=== PATIENT | female | born 1960 | race African-American/Black ===

== ENCOUNTER → 2023-07-08 10:19 | Outpatient (REF) | payer MEDICARE, OTHER, SELFPAY | LOC: RAD 10:19 | PROVIDERS: ATTENDING PHYSICIAN Surgery Vascular Surgery | DX: I73.9 Peripheral vascular disease, unspecified (principal) | CPT/HCPCS: 93922; 93925 ==

== ENCOUNTER 2023-09-01 15:20 | Emergency (ER) | payer MEDICARE, OTHER, SELFPAY ==
[2023-09-01 15:30] VITALS: BP 123/100
--- NOTE | 2023-09-01 15:31 | ED.GENMED ---
History of Present Illness
General
Chief Complaint: Fall
Source: patient and ambulance crew
Exam Limitations: none
Time Seen by Provider: 09/01/23 15:27
Travel History
Have you had any contact with someone who has COVID-19?: No
Do you have any symptoms of coronavirus? Fever > 100 degrees, chills, cough, shortness of breath, sore throat, loss of taste or smell, muscle aches, or headache?: No
History of Present Illness
History of Present Illness:
62-year-old female presents emergency department complaining of a fall. She complains of right facial swelling
Past History
Past History
ED Past Medical History: HTN, IDDM, Renal failure (Dialysis Wednesday, Wednesday, Wednesday started two weeks ago.), Valvular disease and Other (Blind left eye)
ED Past Surgical History: Orthopedic (amp R great toe 1 year ago, L great toe 2 months ago, Right Great toe and second toe amputation. Left Great toe, second, third and fourth toe amputation, R ankle surgery. Uriel in L and R leg, R hip surgery, )
Social History
Tobacco: Former smoker
Alcohol: None
Drug: None
Personal:
Living: alf
Employment: Not employed
Family History
Family History: Other (Noncontributory)
Phy Exam
Physical Exam
Physical Exam:
Physical Exam
General: no apparent distress, not acutely ill
Neck: supple. no meningeal signs. normal posterior pharynx
Heart: s1/s2 regular rate and rhythm, no murmur. equal radial
pulses.
HEENT: Pupils equal round reactive to light, EOMI, facial contusion right side
Lungs: no acute respiratory distress. clear bilaterally
Abdomen: normal bowel sounds. not tender. no CVAT
Neuro: alert and oriented. no focal neurological deficits cranial nerves II through XII intact
Skin: no rash
Psychiatric: well kept. interactive and cooperative
Extremities: no edema. no calf tenderness. negative homans. good distal pulses to all amputations on the left, right upper extremity AV fistula with good thrill
Course
Orders/Labs/Results
Orders:
Orders
09/01/23 15:27
CT Facial Bones W/o Iv Contras Urgent
Comment:
Reason For Exam: right facial swelling after fall
09/01/23 15:28
CT Head W/o Iv Contrast Urgent
Comment:
Reason For Exam: fall, right forehead swelling
09/01/23 15:30
Pelvis, 1 or 2 Views CR [CR Pelvis - 1 Or 2 Views ] Urgent
Comment:
Reason For Exam: fall
Vital Signs
Initial and Last Documented VS:
Initial Vital Signs
Temp Pulse Resp BP Pulse Ox
97.5 F 71 16 123/100 100
09/01/23 15:30 09/01/23 15:30 09/01/23 15:30 09/01/23 15:30 09/01/23 15:30
Last Documented Vital Signs
Temp Pulse Resp BP Pulse Ox
97.5 F 77 16 123/100 98
09/01/23 15:30 09/01/23 17:50 09/01/23 17:50 09/01/23 15:30 09/01/23 17:50
MDM/Problems Addressed
Differential Diagnosis Includes:
Intracranial hemorrhage, fall
MDM/Problems Addressed:
62-year-old female with fall, facial contusion. On direct questioning, patient denies suicidal ideation. Stable for discharge. No serious injury noted.
Chronic conditions affecting care: Kidney disease
Acute Exacerbation and/or Progression of Chronic Illness: Kidney disease
*Radiology
Radiology exam reviewed: radiology read reviewed (CT head, face no acute findings, pelvic x-ray no acute findings)
*Pulse Oximetry
Patient hypoxic: no
*EKG
Interpreted by ED Provider?: NA
*Title Investigator Interpretation
Rate: Title Investigator- N/A
*Critical Care Note
Total Time (30-74mins, 75-104mins- exclusive of procedures): Not Applicable
Patient Management
Social determinants of health affecting care: Living situation
Escalation/DeEscalation of care consider admission/obs:
Admit not indicated
ED Attending Note
-
Portions of this chart may have been created with voice recognition software.� Occasional wrong word or��sound alike� substitutions may have occurred due to the inherent limitations of voice recognition software.
Discharge Plan
Departure
Patient Disposition: [facility]NF
Date of Disposition: 09/01/23
Time of Disposition: 17:51
Patient with high blood pressure during this ER visit?: Yes
Condition: Good
Discharge Problem:
Fall, Contusion of face, ESRD (end stage renal disease)
Instructions: Head Injury in Adults (DC), Preventing falls in adults
Prescriptions:
No Action
losartan 50 mg Tablet
50 mg PO HS
cyclobenzaprine 10 mg Tablet
10 mg PO Q8H PRN (Reason: chronic pain)
carvedilol 25 mg Tablet
25 mg PO BID
Rx Instructions:
09/01/2023, hold for SBP<110.
atorvastatin 10 mg Tablet
10 mg PO QPM
bisacodyl 10 mg Suppository
10 mg [place] DAILY PRN (Reason: if MOM ineffective)
ferrous sulfate 325 mg (65 mg iron) Tablet
325 mg PO DAILY
omeprazole 20 mg Capsule,Delayed Release(Dr/Ec)
20 mg PO DAILY
calcitriol 0.25 mcg Capsule
0.25 mcg PO DAILY
lanthanum 1,000 mg Tablet,Chewable
1,000 mg PO MEALS
ketorolac 0.5 % Drops
2 drp BOTH EYES DAILY PRN (Reason: retinopathy)
quetiapine [Seroquel] 25 mg Tablet
25 mg PO Q12H
sorbitol 70 % Solution
30 ml PO DAILY PRN (Reason: constipation)
acetaminophen 325 mg tablet
650 mg PO Q6H MDD 3000 mg PRN (Reason: temp>100.5)
aspirin 81 mg tablet,delayed release (DR/EC)
81 mg PO DAILY
amlodipine 10 mg tablet
10 mg PO DAILY
hydralazine 50 mg tablet
50 mg PO TID
loperamide [Imodium A-D] 2 mg Capsule
2 mg PO Q6H MDD 4 caps/24hrs PRN (Reason: watery stool)
gabapentin 300 mg Capsule
300 mg PO HS
calcium acetate 667 mg Tablet
667 mg PO TID
acetaminophen 325 mg Tablet
650 mg PO Q8H MDD 3000 mg PRN (Reason: mild pain)
gabapentin 300 mg Capsule
300 mg PO DAILY PRN (Reason: neuropathic pain)
Rx Instructions:
09/01/2023, at least 8 hrs apart from standing dose.
fentanyl 12 mcg/hr Patch 72 Hour
1 patch TRANSDERMAL Q72H Qty: 1 0RF
oxycodone 10 mg tablet
10 mg PO Q8H PRN (Reason: moderate pain) Qty: 3 0RF
lidocaine 4 % Adhesive Patch,Medicated
1 patch TOPICAL DAILY PRN (Reason: apply to left shoulder)
clonazepam [Klonopin] 0.5 mg Tablet
0.5 mg PO BID
lidocaine 4 % Cream
1 applic TOPICAL [id number] PRN (Reason: apply to left shoulder)
Rx Instructions:
09/01/2023, start date: 09/01/2023; end date: 09/15/2023.
insulin aspart U-100 [Novolog U-100 Insulin aspart] 100 unit/mL Solution
0 sliding scale dose SC DIRECTED
Rx Instructions:
09/01/2023, if 0-150 = 0, call MD if BS<60; 151-200 = 1 unit; 201-250 = 2 units; 251-300 = 3 units; 301-350 = 4 units; 351-400 = 5 units; 401-450 = 6 units; call MD if BS>450.
sertraline 50 mg Tablet
50 mg PO HS
B-complex with vitamin C [Nephro-Liliane] Tablet
1 tab PO QPM
Rx Instructions:
09/01/2023, 1 tablet = 1 mg.
insulin aspart U-100 [Novolog FlexPen U-100 Insulin] 100 unit/mL (3 mL) Insulin Pen
2 unit SC AC
insulin glargine [Lantus Solostar U-100 Insulin] 100 unit/mL (3 mL) Insulin Pen
6 unit SC DAILY
Referrals:
Gerardo Perez, [Family Provider] -
Activity Restrictions/Additional Instructions:
Follow up with primary care in 3-5 days. Return for any concerns.
Interventions
Interventions:
*Risk Screen - Suicide Last Done: 09/01/23 15:23
*General Assessment Last Done: 09/01/23 15:23
*Neglect/Abuse Screening Last Done: 09/01/23 15:23
ED- Fall Risk Assessment Last Done: 09/01/23 18:06
*ED COVID-19 Vaccine History Last Done: 09/01/23 15:23
*Nursing Disposition Last Done: 09/01/23 18:06
ED-Musculoskeletal Assessment Last Done: 09/01/23 15:34
ED- Neurological Assessment Last Done: 09/01/23 15:34
ED-Skin Assessment Last Done: 09/01/23 15:33
Discharge Date and Time
Print Language: SYRIAC
[2023-09-01 15:32] VITALS: BMI 19.0
[2023-09-01 20:09] VITALS: BP 159/55
== END 2023-09-01 20:10 ==
LOC: EMR 15:20
PROVIDERS: EMERGENCY PHYSICIAN Emergency Medicine; FAMILY PHYSICIAN Internal Medicine
DX: S00.83XA Contusion of other part of head, initial encounter (principal); W19.XXXA Unspecified fall, initial encounter; I12.0 Hypertensive chronic kidney disease with stage 5 chronic kidney disease or end stage renal disease; N18.6 End stage renal disease
CPT/HCPCS: 99284; 70450; 70486; 72170

== ENCOUNTER 2023-12-25 11:08 | Emergency (ER) | payer MEDICARE, OTHER, SELFPAY ==
[2023-12-25] VITALS (9 sets, daily range): BP systolic 129–157; BP diastolic 67–99
--- NOTE | 2023-12-25 11:18 | ED.GENMED ---
History of Present Illness
General
Chief Complaint: Chest Pain
Source: patient
Time Seen by Provider: 12/25/23 11:13
History of Present Illness
History of Present Illness:
63-year-old female sent to the emergency room from [facility] for evaluation of chest pain. Patient has end-stage renal disease and receives dialysis Wednesday. Patient states she has chest pain during every dialysis
treatment. Patient does not recall ever having had a cardiac catheterization. She denies ever having a heart attack. Today the chest pain persists. No significant shortness of breath. Staff at [facility] noted the patient was hypertensive when
they took her vital signs. P.o. her blood pressure is not particularly elevated.
Past History
Past History
ED Past Medical History: HTN, IDDM, Renal failure (Dialysis Wednesday, Wednesday, Wednesday started two weeks ago.), Valvular disease and Other (Blind left eye)
ED Past Surgical History: Orthopedic (amp R great toe 1 year ago, L great toe 2 months ago, Right Great toe and second toe amputation. Left Great toe, second, third and fourth toe amputation, R ankle surgery. Uriel in L and R leg, R hip surgery, )
Social History
Tobacco: Former smoker
Alcohol: None
Drug: None
Personal:
Living: detention
Employment: Not employed
Family History
Family History: Other (Noncontributory)
Phy Exam
Physical Exam
Physical Exam:
General: Awake, Alert, Oriented X3. Appears chronically ill
Vitals: unremarkable
Head: Atraumatic
Eyes: Pupils equal, EOMI
Throat: Airway intact, no exudates
Neck: Trachea midline
Lungs: Clear and equal b/l
Heart: Regular rate, no murmurs
Abd: Soft, Nontender, No pulsatile mass
Neuro: Nonfocal
Skin: Warm, dry, no rash
Extremities: pulses equal b/l, no edema
Scores
Heart Score for Chest Pain Patients
STEMI patient?: No
History: Slightly or Non-Suspicious
ECG: Nonspecific Repolarization
Age: >/= 65 years
Risk Factors: >/= 3 Risk Factors or History of CAD
Troponin: </= Normal Limit
Heart Score for Chest Pain Patients: 5
Heart Score Risk: 20.3% MACE over next 6 weeks
Course
Orders/Labs/Results
Orders:
Orders
12/25/23 11:09
Electrocardiogram (*1) Urgent
Reason for Study: Chest Pain
Cardiac Monitoring- Treatment ONCE
EKG- Treatment ONCE
IV Insert/Care/Rem.- Treatment PRN
O2 Therapy [RESP] Urgent
Titrate/Wean O2 to maintain O2 sat greater than (%): 90
Special Instructions: Maintain sats >/=90%
Pulse Ox/spot Check [RESP] Urgent
Quantity: 1
Special Instructions: ON ROOM AIR
12/25/23 11:13
CR Chest - 2 Views Urgent
Comment:
Reason For Exam: chest pain
12/25/23 11:17
Complete Blood Count/With Diff Urgent
Comprehensive Metabolic Panel Urgent
12/25/23 12:17
Troponin I Urgent
12/25/23 14:31
EKG [Electrocardiogram (*1)] Urgent
Reason for Study: Chest Pain
EKG- Treatment ONCE
12/25/23 14:37
Troponin I Urgent
Abnormal Lab Results
12/25/23
11:17
RBC 3.92 L 10^6/uL
(4.20-5.40)
Hgb 11.4 L g/dL
(12.0-16.0)
Hct 35.9 L %
(37.0-47.0)
MCHC 31.8 L g/dL
(33.0-37.0)
RDW 15.3 H %
(11.5-14.5)
Sodium 134 L mmol/L
(135-145)
BUN 34 H mg/dl
(7-17)
Creatinine 2.7 H mg/dL
(0.6-1.0)
Glucose 301 H mg/dl
(70-99)
AST 60 H U/L
(14-36)
ALT 76 H U/L
(0-35)
Alkaline Phosphatase 183 H U/L
(38-126)
12/25/23 11:17
12/25/23 11:17
Vital Signs
Initial and Last Documented VS:
Initial Vital Signs
BP
145/72
12/25/23 11:11
Last Documented Vital Signs
Temp Pulse Resp BP Pulse Ox
98.9 F 67 12 142/75 100
12/25/23 11:15 12/25/23 17:45 12/25/23 17:45 12/25/23 17:00 12/25/23 13:15
MDM/Problems Addressed
Differential Diagnosis Includes:
angina, nstemi, chest wall pain
MDM/Problems Addressed:
Pt has been having chest pain for some time. No ekg changes. CXR is unremarkable. Trop normal x 2. My suspiscion for cardiac chest pain is essentially 0 after testing. I doubt PE as not sob or tachycardic. Pain does seem worse with breathing.
I believe this is musculoskeletal in nature
*Pulse Oximetry
Patient hypoxic: no
*EKG
Interpreted by ED Provider?: Yes
Heart Rate: 80
Rate: normal
Rhythm: sinus
[place]: normal axis
Interval: normal interval
QRS Pattern: normal QRS
Ischemia: non-specific ST changes
*Water Treatment Plant Engineer Interpretation
Rate: normal
Interpretation: normal
Rhythm: sinus
*Critical Care Note
Total Time (30-74mins, 75-104mins- exclusive of procedures): Not Applicable
ED Attending Note
-
Portions of this chart may have been created with voice recognition software.� Occasional wrong word or��sound alike� substitutions may have occurred due to the inherent limitations of voice recognition software.
Discharge Plan
Departure
Patient Disposition: Retirement/SNF
Date of Disposition: 12/25/23
Time of Disposition: 15:27
Condition: Good
Discharge Problem:
Chest pain
Instructions: Chest Pain PCP Follow Up, BLOOD PRESSURE
Prescriptions:
No Action
losartan 50 mg Tablet
75 mg PO HS
Patient Comments:
12/24/23-nursing order 25mg and 50 for total dose of 75mg hs
cyclobenzaprine 10 mg Tablet
10 mg PO Q8HPRN PRN (Reason: chronic pain)
carvedilol 25 mg Tablet
25 mg PO BID
Rx Instructions:
09/01/2023, hold for SBP<110.
atorvastatin 10 mg Tablet
10 mg PO QPM
bisacodyl 10 mg Suppository
10 mg [place] DAILYPRN PRN (Reason: if MOM ineffective)
ferrous sulfate 325 mg (65 mg iron) Tablet
325 mg PO DAILY
omeprazole 20 mg Capsule,Delayed Release(Dr/Ec)
20 mg PO DAILY
calcitriol 0.25 mcg Capsule
0.25 mcg PO DAILY
lanthanum 1,000 mg Tablet,Chewable
1,000 mg PO MEALS
ketorolac 0.5 % Drops
2 drp BOTH EYES DAILY PRN (Reason: retinopathy)
quetiapine [Seroquel] 25 mg Tablet
25 mg PO Q12H
sorbitol 70 % Solution
30 ml PO DAILYPRN PRN (Reason: constipation)
acetaminophen 325 mg tablet
650 mg PO Q6HPRN PRN (Reason: fever)
aspirin 81 mg tablet,delayed release (DR/EC)
81 mg PO DAILY
hydralazine 50 mg tablet
50 mg PO TID
loperamide [Imodium A-D] 2 mg Capsule
2 mg PO Q6HPRN MDD 4 caps/24hrs PRN (Reason: watery stool)
gabapentin 300 mg Capsule
300 mg PO HS
calcium acetate 667 mg Tablet
667 mg PO AC
acetaminophen 325 mg Tablet
650 mg PO Q8HPRN PRN (Reason: mild pain)
gabapentin 300 mg Capsule
300 mg PO DAILYPRN PRN (Reason: neuropathic pain)
Rx Instructions:
09/01/2023, at least 8 hrs apart from standing dose.
fentanyl 12 mcg/hr Patch 72 Hour
1 patch TRANSDERMAL Q72H Qty: 1 0RF
clonazepam [Klonopin] 0.5 mg Tablet
0.5 mg PO BID
sertraline 50 mg Tablet
50 mg PO HS
B-complex with vitamin C [Nephro-Liliane] Tablet
1 tab PO QPM
Rx Instructions:
09/01/2023, 1 tablet = 1 mg.
insulin glargine [Lantus Solostar U-100 Insulin] 100 unit/mL (3 mL) Insulin Pen
6 unit SC HS
hydralazine 10 mg Tablet
10 mg PO Q8HPRN PRN (Reason: blood pressure)
insulin lispro [Humalog Pen] 100 unit/mL Insulin Pen
2 sliding scale dose SC AC
Rx Instructions:
151-200=2 units, 201-250=3units, 251-300=4units
oxycodone 10 mg tablet
10 mg PO Q8HPRN PRN (Reason: moderate pain)
Referrals:
Gerardo Preez, [Family Provider] -
Interventions
Interventions:
*Risk Screen - Suicide Last Done: 12/25/23 11:10
*General Assessment Last Done: 12/25/23 11:10
*Neglect/Abuse Screening Last Done: 12/25/23 11:10
ED- Fall Risk Assessment Last Done: 12/25/23 17:58
*ED COVID-19 Vaccine History Last Done: 12/25/23 11:10
*Nursing Disposition Last Done: 12/25/23 17:58
ED- Cardiac Assessment Last Done: 12/25/23 11:10
Discharge Date and Time
Discharge Date/Time: 12/25/23 18:01
Print Language: GREENLANDIC
[2023-12-25 11:23] LABS: % Basophils 0.7 % (0-2); % Eosinophils 1.7 % (0-6); % Immature Granulocytes 0.4 % (0-0.5); % Lymphocytes 21.1 % (20.5-51.1); % Monocytes 6.5 % (1.7-9.3); % Neutrophils 69.6 % (42.2-75.2); Absolute Basophils 0.1 10^3/uL (0-0.2); Absolute Eosinophils 0.1 10^3/uL (0-0.7); Absolute Lymphocytes 1.5 10^3/uL (1.2-3.4); Absolute Monocytes 0.5 10^3/uL (0.1-0.6); Absolute Neutrophils 4.8 10^3/uL (1.4-6.5); Hematocrit 35.9 % (37.0-47.0); Hemoglobin 11.4 g/dL (12.0-16.0); Mean Corp Hgb Conc. 31.8 g/dL (33.0-37.0); Mean Corpuscular Hgb 29.1 pg (27.0-31.0); Mean Corpuscular Volume 91.6 fL (81.0-99.0); Mean Platelet Volume 9.4 fL (7.4-10.4); Nucleated Red Blood Cells % 0 %; Platelet Count 168 10^3/uL (130-400); Red Blood Cell Count 3.92 10^6/uL (4.20-5.40); Red Cell Dist. Width 15.3 % (11.5-14.5); White Blood Cell Count 6.9 10^3/uL (4.8-10.8)
[2023-12-25 11:45] LABS: ALT (SGPT) 76 U/L (0-35); AST (SGOT) 60 U/L (14-36); Albumin 3.7 g/dl (3.5-5.0); Alkaline Phosphatase 183 U/L (38-126); Blood Urea Nitrogen 34 mg/dl (7-17); Calcium 9.6 mg/dl (8.4-10.2); Carbon Dioxide 26 mmol/L (22-30); Chloride 99 mmol/L (98-107); Estimated Creatinine Clearance 20 ml/min; Glucose 301 mg/dl (70-99); Potassium 3.5 mmol/L (3.5-5.1); Sodium 134 mmol/L (135-145); Total Bilirubin 0.4 mg/dl (0.2-1.3); Total Protein 6.6 g/dl (6.3-8.2); eGFR 18.98
[2023-12-25 12:47] LABS: Troponin I < 0.012 ng/ml
[2023-12-25 15:08] LABS: Troponin I < 0.012 ng/ml
== END 2023-12-25 18:01 ==
LOC: EMR 11:08
PROVIDERS: EMERGENCY PHYSICIAN Emergency Medicine; FAMILY PHYSICIAN Internal Medicine
DX: R07.9 Chest pain, unspecified (principal); E11.22 Type 2 diabetes mellitus with diabetic chronic kidney disease; I12.0 Hypertensive chronic kidney disease with stage 5 chronic kidney disease or end stage renal disease; N18.6 End stage renal disease; Z79.4 Long term (current) use of insulin; Z99.2 Dependence on renal dialysis
CPT/HCPCS: 99285; 94760; 71046; 80053; 84484; 85025; 93005

== ENCOUNTER 2024-01-26 22:13 | Inpatient (IN) | payer MEDICARE, OTHER, SELFPAY ==
[2024-01-26 19:01] VITALS: BP 158/94
[2024-01-26 19:05] VITALS: BP 158/94
[2024-01-26 19:42] LABS: % Basophils 0.8 % (0-2); % Eosinophils 2.5 % (0-6); % Immature Granulocytes 0.2 % (0-0.5); % Lymphocytes 25.4 % (20.5-51.1); % Monocytes 5.9 % (1.7-9.3); % Neutrophils 65.2 % (42.2-75.2); Absolute Basophils 0.1 10^3/uL (0-0.2); Absolute Eosinophils 0.2 10^3/uL (0-0.7); Absolute Lymphocytes 1.6 10^3/uL (1.2-3.4); Absolute Monocytes 0.4 10^3/uL (0.1-0.6); Absolute Neutrophils 4.2 10^3/uL (1.4-6.5); Hematocrit 39.8 % (37.0-47.0); Hemoglobin 12.6 g/dL (12.0-16.0); Mean Corp Hgb Conc. 31.7 g/dL (33.0-37.0); Mean Corpuscular Hgb 29.3 pg (27.0-31.0); Mean Corpuscular Volume 92.6 fL (81.0-99.0); Mean Platelet Volume 9.6 fL (7.4-10.4); Nucleated Red Blood Cells % 0 %; Platelet Count 154 10^3/uL (130-400); Red Cell Dist. Width 15.8 % (11.5-14.5); White Blood Cell Count 6.5 10^3/uL (4.8-10.8)
[2024-01-26 19:49] LABS: ALT (SGPT) 30 U/L (0-35); AST (SGOT) 28 U/L (14-36); Albumin 3.9 g/dl (3.5-5.0); Alkaline Phosphatase 107 U/L (38-126); Blood Urea Nitrogen 69 mg/dl (7-17); Calcium 10.2 mg/dl (8.4-10.2); Carbon Dioxide 24 mmol/L (22-30); Chloride 99 mmol/L (98-107); Glucose 247 mg/dl (70-99); Potassium 4.6 mmol/L (3.5-5.1); Sodium 137 mmol/L (135-145); Total Bilirubin 0.5 mg/dl (0.2-1.3); Total Protein 6.8 g/dl (6.3-8.2); eGFR 10.86
[2024-01-26 19:58] LABS: Troponin I < 0.012 ng/ml
[2024-01-26 21:00] VITALS: BP 118/77
--- NOTE | 2024-01-26 21:16 | ED.GENMED ---
History of Present Illness
General
Chief Complaint: Vascular Access Problem
Source: patient, ambulance crew and correction
Exam Limitations: none
Time Seen by Provider: 01/26/24 20:51
Nursing documentation reviewed up to this point in time: agreed with
History of Present Illness
History of Present Illness:
63-year-old female presents emergency department due to an occluded dialysis fistula on right arm. She had dialysis successfully on Wednesday without issue, but was unable to have it today. She also complained of left shoulder pain.
Past History
Past History
ED Past Medical History: HTN, IDDM, Renal failure (Dialysis Wednesday, Wednesday, Wednesday started two weeks ago.), Valvular disease and Other (Blind left eye)
ED Past Surgical History: Orthopedic (amp R great toe 1 year ago, L great toe 2 months ago, Right Great toe and second toe amputation. Left Great toe, second, third and fourth toe amputation, R ankle surgery. Uriel in L and R leg, R hip surgery, )
Social History
Tobacco: Former smoker
Alcohol: None
Drug: None
Personal:
Living: correction
Employment: Not employed
Family History
Family History: Other (Noncontributory)
Review of Systems
Review of Systems
Allergies reviewed?: Yes
All Other Systems: Not applicable
Constitutional: Reports no symptoms
EENT: Reports no symptoms
Respiratory: Reports no symptoms
Cardiac: Reports no symptoms
ABD/GI: Reports no symptoms
: Reports no symptoms
Musculoskeletal: Reports joint pain
Skin: Reports no symptoms
Neurological: Reports no symptoms
Endocrine: Reports no symptoms
Hematologic/Lymphatic: Reports no symptoms
Psychiatric: Reports no symptoms
Phy Exam
Physical Exam
Physical Exam:
Physical Exam
General: no apparent distress, not acutely ill
Neck: supple. no meningeal signs. normal posterior pharynx
Heart: s1/s2 regular rate and rhythm, no murmur. equal radial
pulses.
HEENT: Pupils equal round reactive to light, EOMI
Lungs: no acute respiratory distress. clear bilaterally
Abdomen: normal bowel sounds. not tender. no CVAT
Neuro: alert and oriented. no focal neurological deficits cranial nerves II through XII intact
Skin: no rash
Psychiatric: well kept. interactive and cooperative
Extremities: no edema. no calf tenderness. negative homans. good distal pulses, fistula right arm, no palpable thrill or audible bruit
Course
Orders/Labs/Results
Orders:
Orders
01/26/24 19:10
EKG [Electrocardiogram (*1)] Urgent
Reason for Study: Chest Pain
EKG- Treatment ONCE
01/26/24 19:21
CBC/With Diff [Complete Blood Count/With Diff] Urgent
CMP [Comprehensive Metabolic Panel] Urgent
Troponin I Urgent
Abnormal Lab Results
01/26/24
19:21
MCHC 31.7 L g/dL
(33.0-37.0)
RDW 15.8 H %
(11.5-14.5)
BUN 69 H mg/dl
(7-17)
Creatinine 4.3 H* mg/dL
(0.6-1.0)
Glucose 247 H mg/dl
(70-99)
01/26/24 19:21
01/26/24 19:21
Vital Signs
Initial and Last Documented VS:
Initial Vital Signs
Temp Pulse Resp BP Pulse Ox
98.1 F 60 20 158/94 98
01/26/24 19:01 01/26/24 19:01 01/26/24 19:01 01/26/24 19:01 01/26/24 19:01
Last Documented Vital Signs
Temp Pulse Resp BP Pulse Ox
98.1 F 60 20 158/94 98
01/26/24 19:01 01/26/24 19:01 01/26/24 19:01 01/26/24 19:01 01/26/24 19:01
MDM/Problems Addressed
Differential Diagnosis Includes:
Fistula occlusion, ACS
MDM/Problems Addressed:
63-year-old female with occluded vascular fistula. Discussed vascular surgery, recommend IR consult for declot in a.m.
Chronic conditions affecting care: DM, HTN and Kidney disease
Acute Exacerbation and/or Progression of Chronic Illness: DM, HTN and Kidney disease
*Pulse Oximetry
Patient hypoxic: no
*EKG
Interpreted by ED Provider?: Yes
EKG Intrepretation Date: 01/26/24
EKG Intrepretation Time: :22
Interpretation: abnormal
Comparison EKG: changes noted
Heart Rate: 59
Rate: bradycardiac
Rhythm: sinus
[place]: normal axis
Interval: normal interval
QRS Pattern: normal QRS
Ischemia: no ischemia
*Outreach Specialist Interpretation
Rate: bradycardiac
Interpretation: abnormal
Heart Rate: 59
Rhythm: sinus
*Critical Care Note
Total Time (30-74mins, 75-104mins- exclusive of procedures): Not Applicable
Data Reviewed
Review of Other/Old Records Reveals: Radiology Studies (prior US of fistula no clot in 03/12/23)
Source: records
Further Testing Considered But Not Given:
US not indicated at this time after d/w vascular surgery
Patient Management
Social determinants of health affecting care: Living situation
Discussion with other providers: Hospitalist and Injection Molding Machine Offbearer (vascular surgery Dr. Hector Fernández)
Escalation/DeEscalation of care consider admission/obs:
admit indicated
ED Attending Note
-
Portions of this chart may have been created with voice recognition software.� Occasional wrong word or��sound alike� substitutions may have occurred due to the inherent limitations of voice recognition software.
Discharge Plan
Departure
Patient Disposition: Admit
Date of Disposition: 01/26/24
Time of Disposition: 21:16
Admit to: Telemetry
Presentation/result/management discussed w/ accepting MD/DO: Hospitalist
Patient with high blood pressure during this ER visit?: Yes
Condition: Good
Discharge Problem:
AV fistula occlusion, ESRD (end stage renal disease)
Prescriptions:
No Action
losartan 50 mg Tablet
75 mg PO HS
Patient Comments:
12/24/23-nursing order 25mg and 50 for total dose of 75mg hs
cyclobenzaprine 10 mg Tablet
10 mg PO Q8HPRN PRN (Reason: chronic pain)
carvedilol 25 mg Tablet
25 mg PO BID
Rx Instructions:
09/01/2023, hold for SBP<110.
atorvastatin 10 mg Tablet
10 mg PO QPM
bisacodyl 10 mg Suppository
10 mg [place] DAILYPRN PRN (Reason: if MOM ineffective)
ferrous sulfate 325 mg (65 mg iron) Tablet
325 mg PO DAILY
omeprazole 20 mg Capsule,Delayed Release(Dr/Ec)
20 mg PO DAILY
calcitriol 0.25 mcg Capsule
0.25 mcg PO DAILY
lanthanum 1,000 mg Tablet,Chewable
1,000 mg PO MEALS
ketorolac 0.5 % Drops
2 drp BOTH EYES DAILY PRN (Reason: retinopathy)
quetiapine [Seroquel] 25 mg Tablet
25 mg PO Q12H
sorbitol 70 % Solution
30 ml PO DAILYPRN PRN (Reason: constipation)
acetaminophen 325 mg tablet
650 mg PO Q6HPRN PRN (Reason: temp>100.5)
aspirin 81 mg tablet,delayed release (DR/EC)
81 mg PO DAILY
hydralazine 50 mg tablet
50 mg PO TID
loperamide [Imodium A-D] 2 mg Capsule
2 mg PO Q6HPRN MDD 4 caps/24hrs PRN (Reason: watery stool)
gabapentin 300 mg Capsule
300 mg PO HS
calcium acetate 667 mg Tablet
667 mg PO AC
acetaminophen 325 mg Tablet
650 mg PO Q8HPRN PRN (Reason: mild pain)
gabapentin 300 mg Capsule
300 mg PO DAILYPRN PRN (Reason: neuropathic pain)
Rx Instructions:
09/01/2023, at least 8 hrs apart from standing dose.
fentanyl 12 mcg/hr Patch 72 Hour
1 patch TRANSDERMAL Q72H Qty: 1 0RF
clonazepam [Klonopin] 0.5 mg Tablet
0.5 mg PO BID
sertraline 50 mg Tablet
50 mg PO HS
B-complex with vitamin C [Nephro-Liliane] Tablet
1 tab PO QPM
Rx Instructions:
09/01/2023, 1 tablet = 1 mg.
insulin glargine [Lantus Solostar U-100 Insulin] 100 unit/mL (3 mL) Insulin Pen
6 unit SC HS
insulin lispro [Humalog KwikPen Insulin] 100 unit/mL Insulin Pen
2 unit SC DAILY
oxycodone 10 mg tablet
10 mg PO Q8HPRN PRN (Reason: moderate pain)
lidocaine 5 % Cream
1 applic TOPICAL BID
isosorbide mononitrate 30 mg tablet extended release 24 hr
30 mg PO DAILY
sertraline 25 mg tablet
25 mg PO HS
Rx Instructions:
taken w/ 50mg = 75mg
Humalog KwikPen Insulin 200 unit/mL (3 mL) insulin pen
0 - 6 sliding scale dose SC AC
Rx Instructions:
if 0-150= 0; 151-200= 2; 201-250= 3; 251-300= 4; 301-350= 5; 351-400= 6
Referrals:
Gerardo Perez, [Family Provider] -
Interventions
Interventions:
*Risk Screen - Suicide Last Done: 01/26/24 19:01
*General Assessment Last Done: 01/26/24 19:01
*Neglect/Abuse Screening Last Done: 01/26/24 19:01
*ED COVID-19 Vaccine History Last Done: 01/26/24 19:20
Discharge Date and Time
Print Language: FRENCH
--- NOTE | 2024-01-26 21:28 | HPS.HSE ---
Family Physician
-
Family Physician: Gerardo Perez, DO
Chief Complaint
-
RUpper extremity av fistula
History of Present Illness
63-year-old female from [facility] where she is live since 05/26/2022 history of AV fistula/ESRD Wednesday started approximately 4 to 5 months ago. She reports today while at dialysis they attempted to access her right
upper extremity AV fistula but were unable. She was sent to hospital for clotted AV fistula for plan with IR to access tomorrow 01/27/2024. She denies current fever, chills, chest pain, palpitations, shortness breath, cough, abdominal pain, nausea,
vomiting, diarrhea, urinary symptoms.
She has past medical history ESRD dialysis Wednesday, AV fistula, HTN, DM2, diabetic neuropathy, anxiety blind left eye/retinopathy, former smoker, chronic constipation, bipolar disorder
Medical History
Past Medical History
Past Medical History: Reports Other
Additional Past Medical History:
Insulin Dependent Diabetes Mellitus/neuropathy
ESRD on HD [facility]
Secondary Hyperparathyroidism
Essential Hypertension
Hyperlipidemia
Peripheral Arterial Disease
Chronic Pain Syndrome with Opioid Dependence
Left Eye Blindness retinopathy
Anxiety
Chronic constipation
Past Surgical History: Reports Other
Additional Past Surgical History:
Multiple toe amputations
Right great toe amputation 2022
Left great toe, second toe, third and fourth toe amputation
Right great and second toe amputation
right ankle surgery
right femur fracture repair- Uriel placement right, left leg
Right hip surgery
Right upper extremity AV graft
Social History
Tobacco: Former Smoker
Alcohol: None
Drug: None
Living: Residential
Family History
Family History: Not pertinent
Allergies / Home Medications
Allergies reflects when Allergies were last updated in [employer].
Home Medications with original date entered in [employer]
Allergy/Medication List:
Allergies
Allergy/AdvReac Type Severity Reaction Status Date / Time
metformin Allergy Diarrhea Verified 12/16/22 15:41
Home Medications
atorvastatin 10 mg tablet 10 mg PO QPM High cholesterol 06/28/22
bisacodyl 10 mg rectal suppository 10 mg [place] DAILY PRN if mom ineffective 06/28/22
calcitriol 0.25 mcg capsule 0.25 mcg PO DAILY Kidney Disease 06/28/22
carvedilol 25 mg tablet 25 mg PO BID Heart disease/condition 06/28/22
cyclobenzaprine 10 mg tablet 10 mg PO Q8H PRN chronic pain 06/28/22
ferrous sulfate 325 mg (65 mg iron) tablet 325 mg PO DAILY Supplement 06/28/22
lanthanum 1,000 mg chewable tablet 1,000 mg PO MEALS Kidney Disease 06/28/22
losartan 50 mg tablet 50 mg PO HS Blood pressure 06/28/22
omeprazole 20 mg capsule,delayed release 20 mg PO DAILY Gastrointestinal issue 06/28/22
ketorolac 0.5 % eye drops 2 drp BOTH EYES DAILY PRN retinopathy 07/20/22
acetaminophen 325 mg tablet 650 mg PO Q6H PRN temp>100.5 09/16/22
insulin aspart U-100 100 unit/mL (3 mL) subcutaneous pen (Novolog FlexPen U-100 Insulin aspart) 2 - 10 sliding scale dose SC MEALS Diabetes 09/16/22
quetiapine 25 mg tablet (Seroquel) 25 mg PO BID Mental Health/Anxiety 09/16/22
sorbitol 70 % solution 30 ml PO DAILY PRN constipation 09/16/22
amlodipine 10 mg tablet 10 mg PO DAILY Blood Pressure 12/16/22
aspirin 81 mg tablet,delayed release 81 mg PO DAILY Blood Clot Prevention/Tx 12/16/22
hydralazine 50 mg tablet 50 mg PO TID Blood Pressure 12/16/22
fentanyl 12 mcg/hr transdermal patch 1 patch transdermal Q72H #1 ea 12/18/22
calcium acetate 667 mg tablet 667 mg PO TID 01/04/23
gabapentin 300 mg capsule 300 mg PO HS 01/04/23
insulin glargine 100 unit/mL (3 mL) subcutaneous pen (Basaglar KwikPen U-100 Insulin) 10 unit SC HS 01/04/23
loperamide 2 mg capsule (Imodium A-D) 2 mg PO Q6H PRN watery stool 01/04/23
B-complex with vitamin C 1 tab PO DAILY 01/16/23
acetaminophen 325 mg tablet 650 mg PO Q8H PRN mild pain 01/16/23
gabapentin 300 mg capsule 300 mg PO DAILY PRN neuropathic pain 01/16/23
oxycodone 10 mg tablet 10 mg PO Q8H PRN moderate pain 01/16/23
Review of Systems
-
History Source: Patient
A 12 point ROS was completed and negative except as noted: Yes
Constitutional: Denies Fever or Fatigue
EENT: Denies Runny Nose
Respiratory: Denies Cough or Trouble Breathing
Cardiac: Denies Chest Pain, Palpitations or Syncope
Abdomen/GI: Denies Abdominal Pain, Nausea, Vomiting or Diarrhea
: Denies Dysuria, Frequency, Flank Pain or Incontinence
Musculoskeletal: Denies Joint Pain or Edema
Skin: Reports Other (Right upper extremity AV fistula); Denies Itching or Rash
Neurological: Denies Dizzy, Headache or Weakness
Endocrine: Denies Polyuria or Polydipsia
Hematologic/Lymphatic: Reports No Symptoms
Psych: Reports No Symptoms and Calm
Physical Exam
Vital Signs
Vital Signs
Temp Pulse Resp BP Pulse Ox
98.1 F 60 20 158/94 98
01/26/24 19:01 01/26/24 19:01 01/26/24 19:01 01/26/24 19:01 01/26/24 19:01
Physical Exam
General: Comfortable and Conversant; No Pain, Fever or Chills
HEENT: NormoCephalic, Anicteric, Moist mucous membranes, PERRLA (Right eye, left eye Chronic left eye blindness with chronic white scarring over retina) and [place] Conjunctivae
Respiratory: Clear; No Wheezes, Rales or Rhonchi
Cardiac: S1/S2 and Regular Rhythm; No Murmur, Rub, Gallop or Peripheral Edema
Breast: Deferred by me
GI: Soft, Non Tender, Non Distended and Normal Bowel Sounds
Rectal: Deferred by Provider
Genito-urinary: Deferred by me
Musculoskeletal: No Clubbing, No Cyanosis and No Edema
Skin: Warm and Dry; No Rash
Neuro: AO x 3, No Motor Deficits, No Sensory Deficits and Other (Chronic left eye blindness with chronic white scarring over retina); No Slurred Speech, Facial Droop or Tremors
Laboratory Results
-
01/26/24 19:21
01/26/24 19:21
Laboratory Results
Total Bilirubin 0.5 mg/dl (0.2-1.3) 01/26/24 19:21
AST 28 U/L (14-36) 01/26/24 19:21
ALT 30 U/L (0-35) 01/26/24 19:21
Alkaline Phosphatase 107 U/L (38-126) 01/26/24 19:21
Troponin I < 0.012 ng/ml 01/26/24 19:21
Data Reviewed
-
Lab Data: Labs Reviewed by me
Impression/Plan
-
Impression/plan:
Admit to [facility]
#Clotted AV fistula right upper extremity
-Consult interventional radiology for vascular access to right graft in a.m. 01/27/2024
#ESRD on dialysis Wednesday started dialysis approxi-4 to 5 months ago
-Consult nephrology
-Follow BMP
-Continue calcium acetate 667 mg with meals, calcitriol 0.25 mcg daily, Nephro-Liliane, lanthanum 1000 mg with meals
#DM2/diabetic neuropathy
#Hx recurrent hypoglycemia requiring lower doses of Lantus and sliding scale for glucose over 200
-Continue Lantus 6 unit SQ at bedtime, lispro 2 units subcu daily
-Accu-Cheks with sliding scale low, check HgbA1c
#HTN�benign
-Continue losartan 75 mg at bedtime, hydralazine 50 mg p.o. 3 times daily
#CAD
-Continue aspirin 81 mg daily, atorvastatin 10 mg every afternoon
-Continue Imdur 30 mg daily
#PAD with multiple toe amputations bilaterally
#Chronic pain/chronic opiate dependence
-Continue gabapentin 300 mg at bedtime, 3 mg daily as needed, fentanyl patch every 72 H, Flexeril 10 mg every 8 hours as needed
-Oxycodone 10 mg every 8 hours as needed moderate pain
#GERD
-Continue omeprazole 20 mg daily
#Anxiety
Continue Zoloft 75 mg at bedtime, Seroquel 25 mg twice daily
-Continue Klonopin 0.5 mg twice daily
#Secondary hyperparathyroidism
#Left eye blindness/retinopathy
-Continue ketorolac 2 drops both eyes daily as needed
#HLD
-Continue atorvastatin 10 mg at bedtime
#Chronic constipation
-Sorbitol 30 mL daily as needed
DVT prophylaxis
SCDs
Full code
--- NOTE | 2024-01-26 21:52 | W.PN.UPDATE ---
Update Note
Progress Note Update
This is an addendum to H&P written by CARDIO CLINICIAN Charisse Ritter
I saw and examined the patient.
The CARDIO CLINICIAN's note was reviewed and I agree with the note.
Comment:
Ms. Kelsey Melchor is a 63 yo woman with hx ESRD on MWF, [place] resident since 2021, IDDM, PAD s/p multiple toe amputations, blind left eye/retinopathy presents to the ER after they were unable to access her right upper extremity AV fistula while at
hemodialysis. ER discussed case with vascular surgery.
Triage VS: T 98.1, P 60, RR 20, BP 158/94, SpO2 98%
LABS: WBC 6.5, Hg 12.6, PLT 154, Na 137, K+ 4.6, Cl 99, BUN 69, Cr 4.3, Glucose 247, liver enzymes WNL, Troponin negative
On exam patient appears older than stated age, frail appearing, RUE AV fistula, in no respiratory distress
ESRD on HD
Clotted AV Fistula
-admit to med/surg
-plan for IR procedure for declotting fistula tomorrow
-vascular surgery and IR consult
-renal consult
Remainder of plan per CARDIO CLINICIAN note
[2024-01-26 22:00] VITALS: BP 115/81
[2024-01-26 23:08] LABS: Glucose - Point of Care 205 mg/dl (70-99)
[2024-01-26 23:15] VITALS: BP 153/81
[2024-01-26 23:17] VITALS: BMI 18.6
[2024-01-26] MEDS: KLONOPIN 0.5 MG PO (23:42)
[2024-01-26] MEDS: COZAAR 75 MG PO (23:42)
[2024-01-26] MEDS: APRESOLINE 50 MG PO (23:46)
[2024-01-26] MEDS: ZOLOFT 25 MG PO (23:47)
[2024-01-26] MEDS: LANTUS 0.06 UNITS SC (23:47)
[2024-01-26] MEDS: ZOLOFT 50 MG PO (23:47)
[2024-01-26] MEDS: SEROQUEL 25 MG PO (23:47)
[2024-01-26] MEDS: NEURONTIN 300 MG PO (23:47)
[2024-01-26] MEDS: DURAGESIC 12 MCG/HR PATCH 1 PATCH TRANSDERM (23:53)
--- NOTE | 2024-01-26 23:55 | PTCARENOTE ---
Pt received from ED at 2300. Pt AAOX2, disoriented to time, and VVS. Pt pulled over to bed, receptive to room and callbell. Will continue with current plan of care.
[2024-01-27] VITALS (10 sets, daily range): BP systolic 119–206; BP diastolic 60–100; BMI 18.6
[2024-01-27 08:10] LABS: Glucose - Point of Care 233 mg/dl (70-99)
[2024-01-27] MEDS: NOVOLOG FLEXPEN-LOW RESISTANCE 2 UNITS SC (08:24)
[2024-01-27] MEDS: PHOSLO 667 MG PO ×2 (08:25→19:13)
[2024-01-27] MEDS: KLONOPIN 0.5 MG PO ×2 (08:25→19:39)
[2024-01-27] MEDS: SEROQUEL 25 MG PO ×2 (08:25→19:39)
[2024-01-27] MEDS: FEOSOL 325 MG PO (08:25)
[2024-01-27] MEDS: APRESOLINE 50 MG PO ×3 (08:25→21:03)
[2024-01-27] MEDS: ROCALTROL 0.25 MCG PO (08:25)
[2024-01-27] MEDS: PROTONIX 40 MG PO (08:25)
[2024-01-27] MEDS: ASPIR LOW (ENTERIC COATED) 81 MG PO (08:26)
[2024-01-27] MEDS: IMDUR (EXTENDED RELEASE) 30 MG PO (08:28)
[2024-01-27] MEDS: FOSRENOL PO ×2 (08:28→12:50)
[2024-01-27] MEDS: COREG 25 MG PO ×2 (08:28→19:39)
[2024-01-27 09:52] LABS: % Basophils 0.8 % (0-2); % Eosinophils 3.7 % (0-6); % Immature Granulocytes 0.2 % (0-0.5); % Lymphocytes 26.2 % (20.5-51.1); % Monocytes 6.8 % (1.7-9.3); % Neutrophils 62.3 % (42.2-75.2); Absolute Basophils 0.1 10^3/uL (0-0.2); Absolute Eosinophils 0.2 10^3/uL (0-0.7); Absolute Lymphocytes 1.6 10^3/uL (1.2-3.4); Absolute Monocytes 0.4 10^3/uL (0.1-0.6); Absolute Neutrophils 3.7 10^3/uL (1.4-6.5); Hematocrit 34.3 % (37.0-47.0); Hemoglobin 11.3 g/dL (12.0-16.0); Mean Corp Hgb Conc. 32.9 g/dL (33.0-37.0); Mean Corpuscular Hgb 29.3 pg (27.0-31.0); Mean Corpuscular Volume 88.9 fL (81.0-99.0); Mean Platelet Volume 9.8 fL (7.4-10.4); Nucleated Red Blood Cells % 0 %; Platelet Count 137 10^3/uL (130-400); Red Blood Cell Count 3.86 10^6/uL (4.20-5.40); Red Cell Dist. Width 15.3 % (11.5-14.5)
[2024-01-27 10:13] LABS: Blood Urea Nitrogen 74 mg/dl (7-17); Calcium 9.8 mg/dl (8.4-10.2); Carbon Dioxide 22 mmol/L (22-30); Chloride 101 mmol/L (98-107); Estimated Creatinine Clearance 12 ml/min; Glucose 194 mg/dl (70-99); Potassium 4.3 mmol/L (3.5-5.1); Sodium 135 mmol/L (135-145); eGFR 11.17
--- NOTE | 2024-01-27 11:24 | W.CON.NEPH ---
Consultation
-
Date/Time Consultation Requested: 01/27/242225
Date/Time Consultation Performed: 01/27/24 09
Requesting Provider: Sharyn Echavarria
Performing Provider: Roseanna Carrillo
Reason for Consultation: ESRD
Medical History
-
Chief Complaint: AVF non functioning
History of Present Illness:
63-year-old female from [facility] where she is live since 05/26/2022 history of bipolar on zoloft, seroquel, with AV fistula for ESRD Wednesday started Jun 2022. She was sent to ER since her AVF did not function when
attempted for HD yesterday. She noted clotted AVF and was admitted to have intervention to [facility] as admitted. Last HD likely 3days ago. She is poor historian and unable to obtain history. She has extensive peripheral vascular disease and has
undergone multiple amputations of her right and left foot toes. known DM on insulin with microvascular complications neuropathy, retinopathy, nephropathy. HTN maintained on coreg, hydralazine, Losartan. KNonw hyperparathyroidism on Lantanum. No
reported fever, chills, chest pain, shortness breath, cough, abdominal pain, nausea, vomiting.
Past Medical History
1. ESRD.MWF
right UE AVG
2. Type 2 diabetes.
3. Peripheral arterial disease, CAD
4. Multiple microvascular complications including neuropathy and
retinopathy.
5. Right great toe amputation, left 4th toe amputation, right toe
amputation, left 2nd and 3rd amputation.
6. History of right hip fracture.
7. History of left foot diabetic ulceration.
8. History of right lower extremity angioplasty in September 2022.
9. History of right chest wall tunneled dialysis catheter.
10.History of MSSA bacteremia.
11.History of secondary hyperparathyroidism.
12.Hyperphosphatemia.
13.Anemia.
14.Hypertension.
Anxiety
Chronic constipation
Past Surgical History: Other (Multiple toe amputations Right great toe amputation 2022 Left great toe, second toe, third and fourth toe amputation Right great and second toe amputation right ankle surgery right femur fracture repair- Uriel placement
right, left leg Right hip surgery Right upper extremity AV graft)
Social History
She resides at [facility]. 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 Longstanding lifelong tobacco abuse.
Tobacco: Former Smoker
Alcohol: None
Living: [facility]
Family History
ESRD in her mother's brother.
Allergies / Home Medications
Allergy/AdvReac Type Severity Reaction Status Date / Time
metformin Allergy Diarrhea Verified 01/26/24 19:09
�Medication �Instructions �Recorded �Confirmed �Type
atorvastatin 10 mg tablet 10 mg PO QPM High cholesterol 06/28/22 01/26/24 History
bisacodyl 10 mg rectal suppository 10 mg [place] DAILYPRN PRN if MOM 06/28/22 01/26/24 History
ineffective
calcitriol 0.25 mcg capsule 0.25 mcg PO DAILY Kidney Disease 06/28/22 01/26/24 History
carvedilol 25 mg tablet 25 mg PO BID Heart 06/28/22 01/26/24 History
disease/condition
cyclobenzaprine 10 mg tablet 10 mg PO Q8HPRN PRN chronic pain 06/28/22 01/26/24 History
ferrous sulfate 325 mg (65 mg 325 mg PO DAILY Supplement 06/28/22 01/26/24 History
iron) tablet
lanthanum 1,000 mg chewable tablet 1,000 mg PO MEALS Kidney Disease 06/28/22 01/26/24 History
losartan 50 mg tablet 75 mg PO HS Blood pressure 06/28/22 01/26/24 History
omeprazole 20 mg capsule,delayed 20 mg PO DAILY Gastrointestinal 06/28/22 01/26/24 History
release issue
ketorolac 0.5 % eye drops 2 drp BOTH EYES DAILY PRN 07/20/22 01/26/24 History
retinopathy
acetaminophen 325 mg tablet 650 mg PO Q6HPRN PRN temp>100.5 09/16/22 01/26/24 History
quetiapine 25 mg tablet (Seroquel) 25 mg PO Q12H Mental Health/Anxiety 09/16/22 01/26/24 History
sorbitol 70 % solution 30 ml PO DAILYPRN PRN constipation 09/16/22 01/26/24 History
aspirin 81 mg tablet,delayed 81 mg PO DAILY Blood Clot 12/16/22 01/26/24 History
release Prevention/Tx
hydralazine 50 mg tablet 50 mg PO TID Blood Pressure 12/16/22 01/26/24 History
calcium acetate 667 mg tablet 667 mg PO AC Supplement 01/04/23 01/26/24 History
gabapentin 300 mg capsule 300 mg PO HS Neurological Condition 01/04/23 01/26/24 History
loperamide 2 mg capsule (Imodium 2 mg PO Q6HPRN PRN watery stool 01/04/23 01/26/24 History
A-D)
acetaminophen 325 mg tablet 650 mg PO Q8HPRN PRN mild pain 01/16/23 01/26/24 History
gabapentin 300 mg capsule 300 mg PO DAILYPRN PRN neuropathic 01/16/23 01/26/24 History
pain
fentanyl 12 mcg/hr transdermal 1 patch transdermal Q72H #1 ea 01/17/23 01/26/24 Rx
patch
B-complex with vitamin C 1 tab PO QPM 09/01/23 01/26/24 History
clonazepam 0.5 mg tablet (Klonopin) 0.5 mg PO BID 09/01/23 01/26/24 History
insulin glargine 100 unit/mL (3 6 unit SC HS 09/01/23 01/26/24 History
mL) subcutaneous pen (Lantus
Solostar U-100 Insulin)
sertraline 50 mg tablet 50 mg PO HS 09/01/23 01/26/24 History
insulin lispro 100 unit/mL 2 unit SC DAILY 12/25/23 01/26/24 History
subcutaneous pen (Humalog KwikPen
(U-100) Insulin)
oxycodone 10 mg tablet 10 mg PO Q8HPRN PRN moderate pain 12/25/23 01/26/24 History
insulin lispro 200 unit/mL (3 mL) 0 - 6 sliding scale dose SC AC 01/26/24 01/26/24 History
subcutaneous pen (Humalog KwikPen
U-200 Insulin)
isosorbide mononitrate 30 mg 30 mg PO DAILY 01/26/24 01/26/24 History
tablet,extended release 24 hr
lidocaine 5 % topical cream 1 applic topical BID 01/26/24 01/26/24 History
sertraline 25 mg tablet 25 mg PO HS 01/26/24 01/26/24 History
Review of Systems
-
All other systems: Negative unless noted
Physical Exam
Vital Signs
Vital Signs
Temp Pulse Resp BP Pulse Ox
98.4 F 65 12 129/74 100
01/27/24 07:53 01/27/24 08:25 01/27/24 07:53 01/27/24 08:25 01/27/24 07:53
Lab Results
WBC 6.0 10^3/uL (4.8-10.8) 01/27/24 09:33
RBC 3.86 10^6/uL (4.20-5.40) L 01/27/24 09:33
Hgb 11.3 g/dL (12.0-16.0) L 01/27/24 09:33
Hct 34.3 % (37.0-47.0) L 01/27/24 09:33
Plt Count 137 10^3/uL (130-400) 01/27/24 09:33
Sodium 135 mmol/L (135-145) 01/27/24 09:33
Potassium 4.3 mmol/L (3.5-5.1) 01/27/24 09:33
Chloride 101 mmol/L (98-107) 01/27/24 09:33
Carbon Dioxide 22 mmol/L (22-30) 01/27/24 09:33
BUN 74 mg/dl (7-17) H 01/27/24 09:33
Creatinine 4.2 mg/dL (0.6-1.0) H* 01/27/24 09:33
eGFR 11.17 01/27/24 09:33
Glucose 194 mg/dl (70-99) H 01/27/24 09:33
Calcium 9.8 mg/dl (8.4-10.2) 01/27/24 09:33
Albumin 3.9 g/dl (3.5-5.0) 01/26/24 19:21
Physical Exam
General: Awake, Alert, Oriented, No Distress and Nontoxic
HEENT: Anicteric and Conjunctivae Clear
Respiratory: Clear, Normal Excursion and Nonlabored Respirations
Cardiac: S1/S2 and Regular Rate/Rhythm
Breast: Deferred by me
Abdomen: Soft, Nontender and Nondistended
Musculoskeletal: No Edema
Skin: No Rash and No Cyanosis
Neuro: Nonfocal/Grossly Intact
Vascular Access: AVG (no thrill)
Data Reviewed
-
Labs: Labs Reviewed by me and Discussed with Physician
Assessment/Plan
-
IMP:
Clotted AV fistula right upper extremity
ESRD on dialysis Wednesday
Diabetes mellitus with multiple microvascular complications including advanced retinopathy, peripheral neuropathy, nephropathy
Hx recurrent hypoglycemia
HTN
CAD
PAD with multiple toe amputations bilaterally
Chronic pain/chronic opiate dependence
GERD
Anxiety
Secondary hyperparathyroidism
Left eye blindness/retinopathy
HLD
Chronic constipation
Secondary hyperparathyroidism
Anemia, multifactorial
Longstanding smoker stopping September 2022
Hyperphosphatemia
[facility] resident at [facility]
Plan:
A/w clotted AVG
she is hemodynamically stable and acceptable labs
no emergent need of HD today
once AVF declotted will plan HD tomorrow
cont home meds
d/w pt and primary, vascular
renal diet and FR
--- NOTE | 2024-01-27 11:57 | CON.VAS ---
Consultation
Consultation Request
Date/Time Consultation Performed: 01/27/24 1115
Requesting Provider: Hospitalist
Performing Provider: Madeleine Serrano, ZUHAIR-C for Dieter Parker MD
Reason for Consultation: AV fistula suspected clot
Medical History
-
Chief Complaint: AV fistula unable to be accessed
History of Present Illness:
This is a 61 year old women with significant past medical history of HTN, DM, ESRD (MWF HD), and left eye blindness who presented to [facility] on 01/26/24 from [facility] with reports of inability to access her RUE AV fistula.
Patient is known to our surgical group for management of her AV fistula and PAD, see history below. She offers no other complaints, other than AV fistula access difficulty. She denies current fever, chills, chest pain, palpitations, shortness
breath, cough, abdominal pain, nausea, vomiting, diarrhea, urinary symptoms.
Vascular Surgery History:
07/03/22 Balloon angioplasty of multisegmental left posterior tibial artery stenoses (2 mm x 150 mm angioplasty balloon). Diagnostic aortobiiliac arteriogram. Diagnostic left lower extremity arteriogram. Ultrasound-guided percutaneous access to the
right common femoral artery
09/22/22 Right common femoral artery puncture with direct duplex ultrasound guidance. Aortogram and pelvic angiogram. Third order vessel catheterization of left anterior tibial and posterior tibial artery via right common femoral artery puncture.
Left lower extremity arteriogram. Balloon angioplasty of anterior tibial artery stenosis with 2.5 mm angioplasty balloon. Balloon angioplasty of long segment stenosis/occlusion posterior tibial artery with 2 mm angioplasty balloon. Right lower
extremity arteriogram.
09/29/22 Balloon angioplasty of distal right anterior tibial artery occlusion (3 mm x 60 mm angioplasty balloon). Diagnostic aortobiiliac arteriogram. Diagnostic right lower extremity arteriogram. Ultrasound-guided percutaneous access to the left
common femoral artery
11/10/22 Creation of right upper arm AV graft for hemodialysis
Past Medical History
Past Medical History: Other (Insulin Dependent Diabetes Mellitus, neuropathy ESRD on HD [facility]We[facility], Secondary Hyperparathyroidism, Essential Hypertension, Hyperlipidemia, Peripheral Arterial Disease, Chronic Pain Syndrome with Opioid Dependence, Left
Eye Blindness retinopathy, Anxiety, Chronic constipation)
Past Surgical History: Other (Multiple toe amputations Right great toe amputation 2022 Left great toe, second toe, third and fourth toe amputation Right great and second toe amputation right ankle surgery right femur fracture repair- Uriel placement
right, left leg Right hip surgery)
Social History
Tobacco: Former Smoker
Alcohol: None
Drug: None
Living: [facility]
Allergies / Home Medications
Allergy/AdvReac Type Severity Reaction Status Date / Time
metformin Allergy Diarrhea Verified 01/26/24 19:09
�Medication �Instructions �Recorded �Confirmed �Type
atorvastatin 10 mg tablet 10 mg PO QPM High cholesterol 06/28/22 01/26/24 History
bisacodyl 10 mg rectal suppository 10 mg [place] DAILYPRN PRN if MOM 06/28/22 01/26/24 History
ineffective
calcitriol 0.25 mcg capsule 0.25 mcg PO DAILY Kidney Disease 06/28/22 01/26/24 History
carvedilol 25 mg tablet 25 mg PO BID Heart 06/28/22 01/26/24 History
disease/condition
cyclobenzaprine 10 mg tablet 10 mg PO Q8HPRN PRN chronic pain 06/28/22 01/26/24 History
ferrous sulfate 325 mg (65 mg 325 mg PO DAILY Supplement 06/28/22 01/26/24 History
iron) tablet
lanthanum 1,000 mg chewable tablet 1,000 mg PO MEALS Kidney Disease 06/28/22 01/26/24 History
losartan 50 mg tablet 75 mg PO HS Blood pressure 06/28/22 01/26/24 History
omeprazole 20 mg capsule,delayed 20 mg PO DAILY Gastrointestinal 06/28/22 01/26/24 History
release issue
ketorolac 0.5 % eye drops 2 drp BOTH EYES DAILY PRN 07/20/22 01/26/24 History
retinopathy
acetaminophen 325 mg tablet 650 mg PO Q6HPRN PRN temp>100.5 09/16/22 01/26/24 History
quetiapine 25 mg tablet (Seroquel) 25 mg PO Q12H Mental Health/Anxiety 09/16/22 01/26/24 History
sorbitol 70 % solution 30 ml PO DAILYPRN PRN constipation 09/16/22 01/26/24 History
aspirin 81 mg tablet,delayed 81 mg PO DAILY Blood Clot 12/16/22 01/26/24 History
release Prevention/Tx
hydralazine 50 mg tablet 50 mg PO TID Blood Pressure 12/16/22 01/26/24 History
calcium acetate 667 mg tablet 667 mg PO AC Supplement 01/04/23 01/26/24 History
gabapentin 300 mg capsule 300 mg PO HS Neurological Condition 01/04/23 01/26/24 History
loperamide 2 mg capsule (Imodium 2 mg PO Q6HPRN PRN watery stool 01/04/23 01/26/24 History
A-D)
acetaminophen 325 mg tablet 650 mg PO Q8HPRN PRN mild pain 01/16/23 01/26/24 History
gabapentin 300 mg capsule 300 mg PO DAILYPRN PRN neuropathic 01/16/23 01/26/24 History
pain
fentanyl 12 mcg/hr transdermal 1 patch transdermal Q72H #1 ea 01/17/23 01/26/24 Rx
patch
B-complex with vitamin C 1 tab PO QPM 09/01/23 01/26/24 History
clonazepam 0.5 mg tablet (Klonopin) 0.5 mg PO BID 09/01/23 01/26/24 History
insulin glargine 100 unit/mL (3 6 unit SC HS 09/01/23 01/26/24 History
mL) subcutaneous pen (Lantus
Solostar U-100 Insulin)
sertraline 50 mg tablet 50 mg PO HS 09/01/23 01/26/24 History
insulin lispro 100 unit/mL 2 unit SC DAILY 12/25/23 01/26/24 History
subcutaneous pen (Humalog KwikPen
(U-100) Insulin)
oxycodone 10 mg tablet 10 mg PO Q8HPRN PRN moderate pain 12/25/23 01/26/24 History
insulin lispro 200 unit/mL (3 mL) 0 - 6 sliding scale dose SC AC 01/26/24 01/26/24 History
subcutaneous pen (Humalog KwikPen
U-200 Insulin)
isosorbide mononitrate 30 mg 30 mg PO DAILY 01/26/24 01/26/24 History
tablet,extended release 24 hr
lidocaine 5 % topical cream 1 applic topical BID 01/26/24 01/26/24 History
sertraline 25 mg tablet 25 mg PO HS 01/26/24 01/26/24 History
Review of Systems
-
History Source: Patient
Constitutional: Reports No Symptoms
EENT: Reports No Symptoms
Respiratory: Reports No Symptoms
Cardiac: Reports No Symptoms
Abdomen/GI: Reports No Symptoms
: Reports No Symptoms
Musculoskeletal: Reports Other (RUE AVF fistula cannot be used for recent HD)
Skin: Reports No Symptoms
Neurological: Reports No Symptoms
Endocrine: Reports No Symptoms
Physical Exam
Vital Signs
Temp Pulse Resp BP Pulse Ox
98.4 F 65 12 129/74 100
01/27/24 07:53 01/27/24 08:25 01/27/24 07:53 01/27/24 08:25 01/27/24 07:53
Lab Results
01/27/24 09:33
01/27/24 09:33
Troponin I < 0.012 ng/ml 01/26/24 19:21
Physical Exam
General: No Apparent Distress
HEENT: Normocephalic, Anicteric and Atraumatic
Cardiac: Negative JVD
GI: Soft and Non Tender
Musculoskeletal: No Edema
Skin: Warm
Neuro: Awake and Alert
Assessment / Plan
-
Assessment: 63 year old female with suspected AV fistula clot or possible severe stenosis
Plan:
OR today for AV fistulogram and possible declot
NPO
--- NOTE | 2024-01-27 12:01 | WOUNDNOTE ---
[facility] RN note: Patient admitted with clotted AV fistula
See H&P for complete history.
PMH: ESRD, dialysis M-W-F, HTN, diabetes, peripheral neuropathy, past admissions for left toe amputations, ex-smoker, bipolar disorder.
Wound Location and type/assessment: Patient admitted with DTI to bilateral heels and sacrum from [place]. Bilateral heels are non-blanchable. Definitive DTI of right heel, and possible DTI vs chronic discoloration of left heel. Sacrum is
non-blanchable, dark (blue/black) non-boggy. There are scattered pink areas that appear to be newly healed skin. Sacrum is DTI vs chronic discoloration with newly healed skin. Patient assessed with RN, Will.
Appetite: Patient unable to answer questions at time of assessment
Pressure redistribution devices in place: Versa Care Air, turning schedule.
Plan: Adhesive foam and fiber filled boot to bilateral heel. Adhesive foam and turning schedule to sacrum. All care provided as ordered. Patient has several co-morbidities including ESRD, diabetes and poor mobility. Current wounds may evolve and
new wounds may occur, even with optimal care. Will confirm orders with hospitalist and update nurse. Updated care plan and will follow as needed.
Note to case management of equipment requested for discharge: Patient needs air mattress at [place].
Recommend follow up at wound care center upon discharge.
[2024-01-27 12:48] LABS: Glucose - Point of Care 113 mg/dl (70-99)
[2024-01-27] MEDS: NOVOLOG FLEXPEN-LOW RESISTANCE SC ×2 (12:49→19:12)
[2024-01-27] MEDS: PHOSLO PO (12:50)
--- NOTE | 2024-01-27 12:56 | WOUNDNOTE ---
[facility] RN note: Patient admitted with clotted AV fistula
See H&P for complete history.
PMH: ESRD, diabetes, HTN, bipolar
Wound Location and type/assessment: Patient admitted with DTI bilateral heels and sacrum. Patient unable to answer questions and said 'leave me alone' during care. Sacrum with darkened non-blanchable skin, firm and newly healed pink areas. The
sacrum is a possible DTI vs chronic discoloration. Right heel is a DTI with blue/black skin and left heel is a possible DTI vs stage 1 with non-blanchable skin.
Appetite: Unable to answer questions.
Pressure redistribution devices in place: Versa Care Air, turning schedule. Patient refused bilateral fiber filled boots. RN Will made aware.
Plan: All wound care provided as ordered. Patient has multiple co-morbidities including ESRD, diabetes and poor mobility. New wounds may develop and current wounds may continue to evolve even with optimal care. Will continue to follow as needed.
Will confirm orders with hospitalist and update nurse. Updated care plan and will follow as needed.
Note to case management of equipment requested for discharge: Air mattress at [place]
Recommend follow up at wound care center upon discharge.
--- NOTE | 2024-01-27 13:04 | WOUNDNOTE ---
RIGHT HEEL DTI
[2024-01-27 13:15] LABS: Glycohemoglobin (HgbA1c) 6.5 % (4.0-5.6)
--- NOTE | 2024-01-27 13:38 | W.PN.UPDATE ---
Update Note
Progress Note Update
I went to her room to evaluate her as I was informed she is here with a thrombosed AV graft. Patient somewhat lethargic but mostly noncooperative. She arouses when I call her name, but she kept telling me to leave. She is laying directly on her
right arm. I asked several times for her to let me examine her arm. I stated the importance of being able to examine the AV graft as I could not take her to the operating room for procedure without having evaluated it prior. Discussed that if I
am unable to perform this procedure, she cannot receive dialysis and the consequences therein. She seems to understand but said she does not want me to examine it and did not want me to stay in the room. She refused any other exam. She really did
not answer any other questions. We tried to determine competency. She only answered her birthdate which she did appropriately answer. I discussed with hospitalist Dr. Loomis. Discussed that I cannot ethically take her to the operating room right
now without clarification of competency status, and determination of whether she or family/POA would make healthcare determinations. I will hold off until these are answered.
--- NOTE | 2024-01-27 14:29 | W.PN.HOSP.TC ---
Addendum entered and electronically signed by Chris Loomis MD 01/27/24 16:02:
Went back to room to reevaluate pt. She is able to answer basic questions, though cognitive fxn remains impaired, She denies active pain.
Correction, Dr. Parker was to call pt's dgt for update
Original Note:
Today's Communication/Plan
-
await Vasc Surg intervention
Assessment / Plan
Assessment / Plan
#Clotted AV fistula right upper extremity
-Consult Vasc Surg for clotted fistula, as per IRAD, this would be done by Vasc Surg
Call placed and discussed with Dr. Parker. Discussed with melo De La Garza who is the POA and makes all medical decisions for the patient. Dr. Parker will be calling pt shortly
#ESRD on dialysis Wednesday started dialysis approxi-4 to 5 months ago
-Consult nephrology
-Follow BMP
-Continue calcium acetate 667 mg with meals, calcitriol 0.25 mcg daily, Nephro-Liliane, lanthanum 1000 mg with meals
#DM2/diabetic neuropathy
#Hx recurrent hypoglycemia requiring lower doses of Lantus and sliding scale for glucose over 200
-Continue Lantus 6 unit SQ at bedtime, lispro 2 units subcu daily
-Accu-Cheks with sliding scale low, check HgbA1c 6.5%
glu [id number]
#HTN�benign
-Continue losartan 75 mg at bedtime, hydralazine 50 mg p.o. 3 times daily
currently 129/74
#CAD
-Continue aspirin 81 mg daily, atorvastatin 10 mg every afternoon
-Continue Imdur 30 mg daily
#PAD with multiple toe amputations bilaterally
#Chronic pain/chronic opiate dependence
-Continue gabapentin 300 mg at bedtime, 3 mg daily as needed, fentanyl patch every 72 H, Flexeril 10 mg every 8 hours as needed
-Oxycodone 10 mg every 8 hours as needed moderate pain
#GERD
-Continue omeprazole 20 mg daily
#Anxiety
Continue Zoloft 75 mg at bedtime, Seroquel 25 mg twice daily
-Continue Klonopin 0.5 mg twice daily
#Secondary hyperparathyroidism
#Left eye blindness/retinopathy
-Continue ketorolac 2 drops both eyes daily as needed
#HLD
-Continue atorvastatin 10 mg at bedtime
#Chronic constipation
-Sorbitol 30 mL daily as needed
DVT prophylaxis
SCDs
Full code
Anticipated Discharge: 24 - 48 hours
Subjective/Interval History
-
Date of Service: January 27, 2024
noncommunicative
Objective Data
-
Labs:
Laboratory Results
01/27/24
09:33
WBC 6.0
Hgb 11.3 L
Hct 34.3 L
Plt Count 137
Sodium 135
Potassium 4.3
Chloride 101
Carbon Dioxide 22
BUN 74 H
Creatinine 4.2 H*
Glucose 194 H
Calcium 9.8
Vital Signs:
Vital Signs
Temp Pulse Resp BP Pulse Ox
98.4 F 65 12 129/74 100
01/27/24 07:53 01/27/24 08:25 01/27/24 07:53 01/27/24 08:25 01/27/24 08:58
Review of Systems
-
Unable to obtain full review of systems at this time due to: Dementia
History Source: Family (reviewed with dgt by phone)
Respiratory: Reports No Symptoms
Cardiac: Reports No Symptoms
Physical Exam
-
General: Well Developed, Well Nourished and No Apparent Distress
HEENT: Normocephalic and Atraumatic
Respiratory: Clear to Auscultation; Negative Wheezes, Rales or Rhonchi
Cardiac: Regular Rhythm and S1/S2
GI: Soft, Nontender and Nondistended
Musculoskeletal: No Clubbing, No Cyanosis and No Edema
Neuro: Negative Awake, Alert or Oriented
--- NOTE | 2024-01-27 15:29 | W.PN.UPDATE ---
Update Note
Progress Note Update
Discussed case with Dr. Loomis. He confirmed that patient's daughter is her POA and makes her medical decisions. I called patient's daughter Omaira Munoz at phone number [phone]. Discussed with her over the phone procedure and entirety of
right upper extremity fistulogram, possible thrombolysis, possible thrombectomy, possible angioplasty/stent, possible open thrombectomy. Risks fully discussed. Including but not limited to bleeding, infection, thrombotic complications including
arm ischemia and/or PE. I also discussed the possibility of inadequate thrombectomy and inability to salvage fistula/graft. She understands all wishes for us to proceed.
--- NOTE | 2024-01-27 15:45 | W.SUR.PREOP ---
Pre-Operative Surgical Note
-
I have examined this patient prior to the performance of the scheduled procedure.
The patient's condition is unchanged from the time of the current History and
Physical and the patient is able to undergo the scheduled procedure.
--- NOTE | 2024-01-27 17:11 | CM ---
Patient seen at bedside.
Patient from [facility] since 05/2022
Dx: Clotted RUE Fistula
PMH: ESRD (dialysis M-W-F), IDDM, PAD, multiple toe amputations
Non-verbal.
Wound care nurse in room with patient.
Patient to go to the OR today for RUE fistula
PT/OT/ST pending
PCP: Gerardo Perez
Pharmacy:
PLAN: back to [facility] when stable.
--- NOTE | 2024-01-27 18:03 | OR.RPT ---
Operative Report
Operative Report
PROCEDURE DATE: 01/27/2024
Preoperative diagnosis:
1. End-stage renal disease on hemodialysis.
2. Thrombosed right upper extremity AV graft.
Postoperative diagnosis: Same
Procedure:
1. Duplex assisted cannulation right upper extremity arteriovenous graft in both central and peripheral facing directions.
2. Right upper extremity fistulogram and central venogram.
3. AngioJet pharmacomechanical thrombectomy of thrombosed right upper extremity AV graft with AngioJet Solent power pulse enabled catheter.
4. Balloon angioplasty of AV graft venous anastomotic stenosis with 8 mm angioplasty balloon (both standard angioplasty balloon and high-pressure angioplasty balloon)..
5. Balloon angioplasty of central venous stenosis with 8 mm angioplasty balloon.
6. Balloon angioplasty of AV graft arterial anastomosis with 6 mm angioplasty balloon.
7. Supervision and interpretation.
Surgeon: Keith
Elevator Dispatcher: None
Complications: None
Anesthesia: Local, sedation
Fluoroscopy:
10 min
16 mGy
4.68 Gy.cm2
Indications for procedure:
Occluded right upper extremity arteriovenous graft. Risks/benefits/alternatives of thrombectomy discussed extensively with patient's daughter RENETTA over the phone. She understood all wish to proceed.
Description of procedure:
Patient was identified, brought to the operating room. Placed on the table in the supine position. After the adequate administration of anesthesia, the patient was prepped and draped in the standard surgical fashion. A standard preoperative
timeout was undertaken and everybody was in agreement with the plan.
Using micropuncture kit and under direct duplex ultrasound guidance the AV graft was punctured in the upper arm and both a peripheral and central facing direction. 6 Guine[place] sheaths were advanced in both directions over the 0.035 inch wires.
Patient was given 5000 units of intravenous heparin. Fistulogram and central venogram demonstrated thrombosed AV graft as suspected. There was also some thrombus noted in the central venous outflow (axillary/subclavian vein). Therefore, using a
flopping of hydrophilic wire and a glide catheter from the venous access sheath, I was able to gain central venous access. Right brachiocephalic vein appeared patent on angiography. At this point I gained central venous access into the inferior
vena cava and then advance my glide catheter and exchanged for a Storq wire. Now I used a flopping of hydrophilic wire and a glide catheter from the arterial access side and was able to get across the arterial anastomosis and into the proximal
brachial artery. Angiogram again confirmed positioning as well as occlusion of the AV graft. At this point using an AngioJet Solent power pulse enabled catheter, I power pulse sprayed the thrombus with 10 mg of tPA (and 100 mL of saline) from both
the venous and arterial sheath accesses. I allowed this to dwell for approximately 20 minutes. Next, I utilized thrombectomy mode on the AngioJet to thrombectomize from both the arterial and venous sides. Once I completed this, fistulogram
demonstrated patency now of the AV graft. There was some residual thrombus on the arterial side just adjacent to the arterial sheath. Therefore I withdrew that sheath a little bit and ran the AngioJet again. I also ran it again across the
arterial anastomosis. Now I performed balloon angioplasty of the outflow stenosis (there is a severe venous anastomotic stenosis) with an 8 mm angioplasty balloon. I then used that same balloon to angioplasty of severe stenosis in the distal
subclavian vein just proximal to the juncture with the internal jugular vein. Completion angiogram demonstrated improvement. There was still some residual stenosis at the venous anastomosis. I next addressed stenosis and slight bit of thrombus at
the arterial anastomosis. I used a 6 mm angioplasty balloon across the arterial anastomosis and then as I deflated the balloon pulled it to pull any thrombus into the AV graft. Completion angiogram now demonstrated complete resolution of the
arterial anastomosis. Good flow into the AV graft. At this point I then used an 8 mm high-pressure angioplasty balloon to balloon the venous anastomosis. Completion angiogram now demonstrated excellent result. At this point I had excellent
thrill in the fistula. Therefore all my wires and catheters were withdrawn. 4-0 Monocryl pursestring sutures were placed around the sheath entry sites and the sheaths were withdrawn while the sutures were tied down. There was still little bit of
bleeding at both sites and therefore an additional 4-0 Monocryl stitch was placed at both the sites. Manual pressure was also applied to the sites. The patient tolerated procedure well and had an excellent thrill in the AV graft upon completion.
[2024-01-27 18:20] LABS: Glucose - Point of Care 81 mg/dl (70-99)
[2024-01-27] MEDS: FOSRENOL 1000 MG PO (19:13)
[2024-01-27] MEDS: B COMPLEX w/VITAMIN C 1 CAPLET PO (19:13)
[2024-01-27] MEDS: LIPITOR 10 MG PO (19:13)
[2024-01-27 19:19] LABS: Glucose - Point of Care 104 mg/dl (70-99)
[2024-01-27] MEDS: NEURONTIN 300 MG PO (21:04)
[2024-01-27] MEDS: COZAAR 75 MG PO (21:04)
[2024-01-27] MEDS: ZOLOFT 25 MG PO (21:06)
[2024-01-27] MEDS: ROXICODONE 10 MG PO (21:13)
[2024-01-27] MEDS: LANTUS 0.06 UNITS SC (21:49)
[2024-01-27] MEDS: ZOLOFT 50 MG PO (21:49)
[2024-01-27] MEDS: ZOFRAN 4 MG IV (23:31)
[2024-01-28 03:00] VITALS: BP 155/85
[2024-01-28 06:00] VITALS: BMI 18.6
[2024-01-28 08:15] LABS: % Basophils 0.6 % (0-2); % Eosinophils 2.5 % (0-6); % Immature Granulocytes 0.3 % (0-0.5); % Lymphocytes 12.8 % (20.5-51.1); % Monocytes 6.6 % (1.7-9.3); % Neutrophils 77.2 % (42.2-75.2); Absolute Basophils 0.1 10^3/uL (0-0.2); Absolute Eosinophils 0.2 10^3/uL (0-0.7); Absolute Lymphocytes 1.2 10^3/uL (1.2-3.4); Absolute Monocytes 0.6 10^3/uL (0.1-0.6); Absolute Neutrophils 7.5 10^3/uL (1.4-6.5); Hematocrit 35.5 % (37.0-47.0); Hemoglobin 11.6 g/dL (12.0-16.0); Mean Corp Hgb Conc. 32.7 g/dL (33.0-37.0); Mean Corpuscular Hgb 29.1 pg (27.0-31.0); Mean Platelet Volume 10.2 fL (7.4-10.4); Nucleated Red Blood Cells % 0 %; Platelet Count 150 10^3/uL (130-400); Red Blood Cell Count 3.99 10^6/uL (4.20-5.40); Red Cell Dist. Width 15.6 % (11.5-14.5); White Blood Cell Count 9.7 10^3/uL (4.8-10.8)
--- NOTE | 2024-01-28 08:16 | CM ---
Patient is a resident of [facility] ([place])
Spoke with [facility] liaison to update & placed referral in care port.
Patient went to OR yesterday-clotted RUE fistula
PLAN: Discharge when stable to [facility]
Report #: [phone]
Fax #: [phone]
[2024-01-28 08:22] VITALS: BP 135/65
--- NOTE | 2024-01-28 08:29 | CM ---
Spoke with Gail at [facility] in [place] regarding fax #.
[facility] [place]
FAX #: [phone]
[2024-01-28 08:37] LABS: Glucose - Point of Care 72 mg/dl (70-99)
[2024-01-28] MEDS: NOVOLOG FLEXPEN-LOW RESISTANCE SC ×3 (08:58→17:41)
[2024-01-28] MEDS: PHOSLO PO (09:00)
[2024-01-28] MEDS: APRESOLINE PO (09:01)
[2024-01-28] MEDS: SEROQUEL PO (09:02)
[2024-01-28] MEDS: PROTONIX PO (09:02)
[2024-01-28] MEDS: ROCALTROL PO (09:02)
[2024-01-28] MEDS: FEOSOL PO (09:03)
[2024-01-28] MEDS: COREG PO (09:03)
[2024-01-28] MEDS: ASPIR LOW (ENTERIC COATED) PO (09:03)
[2024-01-28] MEDS: IMDUR (EXTENDED RELEASE) PO (09:04)
[2024-01-28] MEDS: FOSRENOL PO (09:04)
[2024-01-28] MEDS: KLONOPIN PO (09:04)
--- NOTE | 2024-01-28 10:07 | W.PN.HOSP.TC ---
Addendum entered and electronically signed by Brianda Mccurdy MD 01/28/24 13:22:
Sacrum with darkened non-blanchable skin, firm and newly healed pink areas. The sacrum is a possible DTI vs chronic discoloration.
Right heel is a DTI with blue/black skin and
left heel is a possible DTI vs stage 1 with non-blanchable skin.
Original Note:
Today's Communication/Plan
-
HD today and follow for access issues
DC planning back to [facility]
Assessment / Plan
Assessment / Plan
Assessment:
Clotted AV fistula RUE
- s/p declotting per Vasc surgery 01/26
- follow Vascular recs
ESRD on HD
- M/W/F
- HD today with Nephrology
- continue chronic renal meds
DM2/diabetic neuropathy
Hx recurrent hypoglycemia requiring lower doses of Lantus and sliding scale for glucose over 200
- Continue Lantus 6 unit SQ at bedtime, lispro 2 units subcu daily
- Accu-Cheks with sliding scale low, check HgbA1c 6.5%
HTN�benign
- Continue losartan 75 mg at bedtime, hydralazine 50 mg p.o. 3 times daily
CAD
- continue aspirin 81 mg daily, atorvastatin 10 mg every afternoon
- continue Imdur 30 mg daily
PAD with multiple toe amputations bilaterally
Chronic pain/chronic opiate dependence
- continue gabapentin 300 mg at bedtime, 3 mg daily as needed, fentanyl patch every 72 H, Flexeril 10 mg every 8 hours as needed
- oxycodone 10 mg every 8 hours as needed moderate pain
GERD
- continue omeprazole 20 mg daily
Anxiety
- continue Zoloft 75 mg at bedtime, Seroquel 25 mg twice daily
- continue Klonopin 0.5 mg twice daily
Secondary hyperparathyroidism
Left eye blindness/retinopathy
- continue ketorolac 2 drops both eyes daily as needed
HLD
- continue atorvastatin 10 mg at bedtime
Chronic constipation
- sorbitol 30 mL daily as needed
DVT prophylaxis: SCDs
Code: Full
Anticipated Discharge: Within 24 hours
Subjective/Interval History
-
Date of Service: January 28, 2024
denies any new complaints at present
on HD
Objective Data
-
Labs:
Laboratory Results
01/28/24 01/28/24
07:02 08:57
WBC 9.7
Hgb 11.6 L
Hct 35.5 L
Plt Count 150
Sodium Cancelled Pending
Potassium Cancelled Pending
Chloride Cancelled Pending
Carbon Dioxide Cancelled Pending
BUN Cancelled Pending
Creatinine Cancelled Pending
Glucose Cancelled Pending
Calcium Cancelled Pending
Vital Signs:
Vital Signs
Temp Pulse Resp BP Pulse Ox
98.4 F 68 16 135/65 95
01/28/24 08:22 01/28/24 08:22 01/28/24 08:22 01/28/24 08:22 01/28/24 08:22
I&O
01/27/24 01/28/24 01/29/24
06:59 06:59 06:59
Intake Total 120 / 120
Balance 120 / 120
Physical Exam
-
General: No Apparent Distress
HEENT: Normocephalic and Atraumatic
Respiratory: Negative Wheezes
Cardiac: Regular Rhythm
GI: Soft
Genito-urinary: No Costovertebral Tender
Hematologic / Lymphatic: No Lymphadenopathy
Psych: Calm
Data Reviewed
-
Total Time Spent with Patient (in minutes): 42
Labs: Labs Reviewed by me
--- NOTE | 2024-01-28 10:29 | W.DS.TRANS ---
DC Summary - Biosecurity Officer
-
Discharge Instructions:
Discharge Diagnosis/Procedures AV fistula clotted (declotted 01/26)
Additional Diets 2 gram potassium
Instructions:
Stand-Alone Forms:
Changes to Home Medications: No
Discharge Medications:
DC Medications w/original date entered in [employer]
atorvastatin 10 mg tablet 10 mg PO QPM High cholesterol 06/28/22
bisacodyl 10 mg rectal suppository 10 mg LA DAILYPRN PRN if MOM ineffective 06/28/22
calcitriol 0.25 mcg capsule 0.25 mcg PO DAILY Kidney Disease 06/28/22
carvedilol 25 mg tablet 25 mg PO BID Heart disease/condition 06/28/22
cyclobenzaprine 10 mg tablet 10 mg PO Q8HPRN PRN chronic pain 06/28/22
ferrous sulfate 325 mg (65 mg iron) tablet 325 mg PO DAILY Supplement 06/28/22
lanthanum 1,000 mg chewable tablet 1,000 mg PO MEALS Kidney Disease 06/28/22
losartan 50 mg tablet 75 mg PO HS Blood pressure 06/28/22
omeprazole 20 mg capsule,delayed release 20 mg PO DAILY Gastrointestinal issue 06/28/22
ketorolac 0.5 % eye drops 2 drp BOTH EYES DAILY PRN retinopathy 07/20/22
acetaminophen 325 mg tablet 650 mg PO Q6HPRN PRN temp>100.5 09/16/22
quetiapine 25 mg tablet (Seroquel) 25 mg PO Q12H Mental Health/Anxiety 09/16/22
sorbitol 70 % solution 30 ml PO DAILYPRN PRN constipation 09/16/22
aspirin 81 mg tablet,delayed release 81 mg PO DAILY Blood Clot Prevention/Tx 12/16/22
hydralazine 50 mg tablet 50 mg PO TID Blood Pressure 12/16/22
calcium acetate 667 mg tablet 667 mg PO AC Supplement 01/04/23
gabapentin 300 mg capsule 300 mg PO HS Neurological Condition 01/04/23
loperamide 2 mg capsule (Imodium A-D) 2 mg PO Q6HPRN PRN watery stool 01/04/23
acetaminophen 325 mg tablet 650 mg PO Q8HPRN PRN mild pain 01/16/23
gabapentin 300 mg capsule 300 mg PO DAILYPRN PRN neuropathic pain 01/16/23
B-complex with vitamin C 1 tab PO QPM 09/01/23
insulin glargine 100 unit/mL (3 mL) subcutaneous pen (Lantus Solostar U-100 Insulin) 6 unit SC HS 09/01/23
sertraline 50 mg tablet 50 mg PO HS 09/01/23
insulin lispro 100 unit/mL subcutaneous pen (Humalog KwikPen (U-100) Insulin) 2 unit SC DAILY 12/25/23
insulin lispro 200 unit/mL (3 mL) subcutaneous pen (Humalog KwikPen U-200 Insulin) 0 - 6 sliding scale dose SC AC 01/26/24
isosorbide mononitrate 30 mg tablet,extended release 24 hr 30 mg PO DAILY 01/26/24
lidocaine 5 % topical cream 1 applic topical BID 01/26/24
sertraline 25 mg tablet 25 mg PO HS 01/26/24
clonazepam 0.5 mg tablet (Klonopin) 0.5 mg PO BID #6 tabs 01/28/24
fentanyl 12 mcg/hr transdermal patch 1 patch transdermal Q72H #2 ea 01/28/24
oxycodone 10 mg tablet 10 mg PO Q8HPRN PRN moderate pain #5 tabs 01/28/24
Home Medication Changes
Pending Results: No
Total time spent discharging patient (in min): 42
[2024-01-28 10:35] LABS: Hepatitis B Surface Antigen Negative (Negative)
[2024-01-28] MEDS: FLEXBUMIN 25% FOR HEMODIALYSIS 12.5 GRAMS IV (10:38)
[2024-01-28] MEDS: MANNITOL 25% 12.5 GRAMS IV (10:38)
--- NOTE | 2024-01-28 10:42 | W.PN.VS ---
Today's Communication / Plan
-
See below.
Assessment/Plan
-
Assessment: 63-year-old female POD #1 Duplex assisted cannulation right upper extremity arteriovenous graft in both central and peripheral facing directions. Right upper extremity fistulogram and central venogram. AngioJet pharmacomechanical
thrombectomy of thrombosed right upper extremity AV graft with AngioJet Solent power pulse enabled catheter. Balloon angioplasty of AV graft venous anastomotic stenosis with 8 mm angioplasty balloon (both standard angioplasty balloon and
high-pressure angioplasty balloon). Balloon angioplasty of central venous stenosis with 8 mm angioplasty balloon. Balloon angioplasty of AV graft arterial anastomosis with 6 mm angioplasty balloon.
Plan:
AV fistula functioning with no difficulty accessing HD today per HD nurse, continue HD management per nephrology
Patient can follow-up in the outpatient setting as needed, office information left in discharge directions
We will sign off please call with questions or concerns
Subjective Data
-
Date of Service: January 28, 2024
Patient seen and examined on hemodialysis, spoke to hemodialysis nurse who assured no difficulty with placing patient on circuit. Patient offers no complaints, remains minimally cooperative and desires to not participate with a full subjective data
collection.
Objective Data
-
Vital Signs
Temp Pulse Resp BP Pulse Ox
98.4 F 68 16 135/65 95
01/28/24 08:22 01/28/24 08:22 01/28/24 08:22 01/28/24 08:22 01/28/24 08:22
Intake and Output
01/27/24 01/28/24 01/29/24
06:59 06:59 06:59
Intake Total 120 / 120
Balance 120 / 120
Intake:
Oral fluids 120 / 120
Other:
Number of approximated SMALL 1
amounts of urine
How many times incontinent 2
MODERATE amount urine
How many times incontinent 1
SATURATED amount urine
Lab Results
01/28/24 07:02
Calcium Cancelled 01/28/24 07:02
Total Bilirubin 0.5 mg/dl (0.2-1.3) 01/26/24 19:
AST 28 U/L (14-36) 01/26/24 19:
ALT 30 U/L (0-35) 01/26/24 19:
Alkaline Phosphatase 107 U/L (38-126) 01/26/24 19:
Total Protein 6.8 g/dl (6.3-8.2) 01/26/24 19:
Albumin 3.9 g/dl (3.5-5.0) 01/26/24 19:
Physical Exam
-
No apparent distress, in bed on hemodialysis circuit
No tachycardia
No dyspnea on room air
Right upper extremity AV fistula currently hooked to HD, thus unable to fully assess, right radial pulse +1, right hand warm
[2024-01-28 10:52] LABS: Hepatitis B Surface Antibody Negative
[2024-01-28 11:05] VITALS: BP 179/80
[2024-01-28 12:10] LABS: Glucose - Point of Care 79 mg/dl (70-99)
--- NOTE | 2024-01-28 13:03 | PN.CDI ---
CDI
- -
CDI:
Physician Documentation Request
Admit Date: 01/26/24 22:13
Dear Doctor Calli,
Please review the following and provide your response in the progress notes.
Clinical Indicators:
01/27/24 12:56 - Wound Note
Wound Location and type/assessment:
#...admitted with DTI bilateral heels and sacrum.
#Sacrum with darkened non-blanchable skin, firm and newly healed pink areas.
#...The sacrum is a possible DTI vs chronic discoloration.
#Right heel is a DTI with blue/black skin and
#left heel is a possible DTI vs stage 1 with non-blanchable skin.
Physician documentation of the type and location of wounds is required for compliant documentation. Based on the above clinical findings and your assessment, please provide the following in your progress note:
Yes, suspected sacrum DTI, right heel DTI
....and left heel DTI vs. stage 1 pressure injury, POA
No, sacrum, right heel or left heel DTI
Other(please specify)
1. Location of the ulcer/wound, including laterality.
2. Type (etiology) of ulcer/wound:
- Diabetic ulcer
- Arterial (ischemic) ulcer
- Traumatic wound
- Venous stasis ulcer
- Pressure (decubitus) ulcer
- Non-healing surgical wound
3. If a pressure ulcer, please also include the stage* of the ulcer:
- Stage 1 - Skin intact, non-blanchable redness
- Stage 2 - Partial thickness loss of dermis, includes intact or open blister
- Stage 3 - Full thickness tissue not including bone, tendon or muscle
- Stage 4 - Full thickness tissue loss, including exposed bone, tendon or muscle
Use of terms such as suspected, likely, concern for, or probable (associated with a specific diagnosis that is being evaluated, monitored, or treated as if it exists) are acceptable and can be coded in the inpatient setting, when documented at the
time of discharge.
Thank you,
Sherry Fitch RN BSN CCDS
CDI Specialist
Please contact via tiger text
Please use your independent medical judgment in providing your response.
*Source: National Pressure Ulcer Advisory Panel (NPUAP)
--- NOTE | 2024-01-28 14:07 | CM ---
IMM reviewed & explained to Omaira JACKSON.
Verbalizes understanding.
Ambulance Transport forms on chart.
--- NOTE | 2024-01-28 14:21 | W.PN.NEPH.HD ---
Assessment
-
- AVG functioning well
- no complaints on HD
Progress Note - Hemodialysis
-
Date of Service: January 28, 2024
Duration: 30 minutes and 3 hours
Potassium Bath: 3
Calcium Bath: 2.5
Opti-Dialyzer: 160
Ultrafiltration: Other
[2024-01-28] MEDS: PHOSLO 667 MG PO ×2 (14:47→17:41)
[2024-01-28] MEDS: FOSRENOL 1000 MG PO ×2 (14:47→17:41)
[2024-01-28] MEDS: APRESOLINE 50 MG PO (14:49)
[2024-01-28 15:00] VITALS: BP 140/80
[2024-01-28 16:31] LABS: Glucose - Point of Care 99 mg/dl (70-99)
== END 2024-01-28 18:18 | DRG 252 ==
LOC: 4 WEST ACU 22:13
PROVIDERS: Clinical Nurse Specialist Family Health; ADMITTING PHYSICIAN Student in an Organized Health Care Education/Training Program; ATTENDING PHYSICIAN Internal Medicine; CONSULT PHYSICIAN Internal Medicine; EMERGENCY PHYSICIAN Emergency Medicine; FAMILY PHYSICIAN Internal Medicine; OTHER PHYSICIAN Surgery Vascular Surgery
PROC: 05CD3ZZ Extirpation of Matter from Right Cephalic Vein, Percutaneous Approach (ICD-10-PCS; 2024-01-27)
PROC: 05C73ZZ Extirpation of Matter from Right Axillary Vein, Percutaneous Approach (ICD-10-PCS; 2024-01-27)
PROC: 03773ZZ Dilation of Right Brachial Artery, Percutaneous Approach (ICD-10-PCS; 2024-01-27)
PROC: 05753ZZ Dilation of Right Subclavian Vein, Percutaneous Approach (ICD-10-PCS; 2024-01-27)
PROC: 03C73ZZ Extirpation of Matter from Right Brachial Artery, Percutaneous Approach (ICD-10-PCS; 2024-01-27)
DX: T82.868A Thrombosis due to vascular prosthetic devices, implants and grafts, initial encounter (principal); N18.6 End stage renal disease; F11.20 Opioid dependence, uncomplicated; I12.0 Hypertensive chronic kidney disease with stage 5 chronic kidney disease or end stage renal disease; N25.81 Secondary hyperparathyroidism of renal origin; D63.1 Anemia in chronic kidney disease; E11.319 Type 2 diabetes mellitus with unspecified diabetic retinopathy without macular edema; E11.22 Type 2 diabetes mellitus with diabetic chronic kidney disease; E11.42 Type 2 diabetes mellitus with diabetic polyneuropathy; Z99.2 Dependence on renal dialysis; F31.9 Bipolar disorder, unspecified; I70.201 Unspecified atherosclerosis of native arteries of extremities, right leg; L89.156 Pressure-induced deep tissue damage of sacral region; L89.616 Pressure-induced deep tissue damage of right heel; L89.621 Pressure ulcer of left heel, stage 1; E83.39 Other disorders of phosphorus metabolism; Y71.2 Prosthetic and other implants, materials and accessory cardiovascular devices associated with adverse incidents; E78.00 Pure hypercholesterolemia, unspecified; G89.4 Chronic pain syndrome; F41.9 Anxiety disorder, unspecified; H54.62 Unqualified visual loss, left eye, normal vision right eye; I25.10 Atherosclerotic heart disease of native coronary artery without angina pectoris; K59.09 Other constipation; K21.9 Gastro-esophageal reflux disease without esophagitis; R07.9 Chest pain, unspecified; Z87.81 Personal history of (healed) traumatic fracture; Z86.19 Personal history of other infectious and parasitic diseases; Z79.82 Long term (current) use of aspirin; Z79.899 Other long term (current) drug therapy; Z87.891 Personal history of nicotine dependence; Z98.62 Peripheral vascular angioplasty status; Z89.411 Acquired absence of right great toe; Z89.421 Acquired absence of other right toe(s); Z89.412 Acquired absence of left great toe; Z89.422 Acquired absence of other left toe(s); Z88.8 Allergy status to other drugs, medicaments and biological substances
CPT/HCPCS: 36905; 36907; 76937; 80048; 80053; 82962; 83036; 84484; 85025; 86706; 87340; 93005; 99285; C1725; C1757; C1769; C1894; J2997; P9047; Q9967

== ENCOUNTER 2024-02-09 14:23 | Inpatient (IN) | payer MEDICARE, OTHER, SELFPAY ==
[2024-02-09] VITALS (9 sets, daily range): BP systolic 92–150; BP diastolic 31–89; BMI 19.1
--- NOTE | 2024-02-09 10:14 | ED.GENMED ---
History of Present Illness
General
Chief Complaint: Vomiting Blood
Source: patient, records, ambulance crew and pen[facility]
Exam Limitations: none
Time Seen by Provider: 02/09/24 09:51
Nursing documentation reviewed up to this point in time: agreed with
History of Present Illness
History of Present Illness:
63-year-old female with a past medical history of hypertension, hyperlipidemia, insulin-dependent diabetes, PVD, ESRD on dialysis who presents to the emergency room from [facility] for evaluation of coffee-ground emesis. Patient
reports that she had 3 episodes of dark emesis this morning and has been feeling generalized malaise and fatigue all day. She says that she also had 3 episodes of loose stools this morning�she is not sure whether there was any blood or dark stool.
She says that she has been having some crampy abdominal pain today mostly left lower. She also reports some mild pain in the back. She denies any dizziness. Denies any chest pain or shortness of breath. Review of medication list shows that she
is on aspirin but no other blood thinners. Physician from [facility] called ahead�witnessed to have coffee-ground emesis x 2 episodes there. She is due for dialysis today, did not receive session.
Past History
Past History
ED Past Medical History: HTN, IDDM, Renal failure (Dialysis Wednesday, Wednesday, Wednesday started two weeks ago.), Valvular disease and Other (Blind left eye)
ED Past Surgical History: Orthopedic (amp R great toe 1 year ago, L great toe 2 months ago, Right Great toe and second toe amputation. Left Great toe, second, third and fourth toe amputation, R ankle surgery. Uriel in L and R leg, R hip surgery, )
Social History
Tobacco: Former smoker
Alcohol: None
Drug: None
Personal:
Living: penitentiary
Employment: Not employed
Family History
Family History: Other (Noncontributory)
Review of Systems
Review of Systems
All Other Systems: ROS reviewed and negative except as documented in HPI and ROS
Constitutional: Denies fever
Respiratory: Denies trouble breathing
Cardiac: Denies chest pain or syncope
ABD/GI: Reports abdominal pain, nausea, vomiting and diarrhea
: Denies flank pain
Musculoskeletal: Reports back pain; Denies neck pain
Neurological: Denies dizzy or headache
Phy Exam
Physical Exam
Physical Exam:
General: Awake, alert, oriented x3; chronically ill-appearing but not in acute distress
Head: Normocephalic, atraumatic
Eyes: Conjunctiva normal, sclera anicteric
Throat: Airway intact, handling secretions
Neck: Trachea midline, supple without meningismus
Lungs: Clear to auscultation bilaterally, no wheezing, rales, rhonchi
Heart: Regular rate and rhythm, no murmurs, gallops, or rubs appreciated
Abd: Soft, non distended, mildly tender left lower abdomen
Rectal: Light brown stool without bright red blood, Hemoccult positive
Neuro: No gross deficits
Extremities: No edema in extremities, equal pulses in all extremities, right upper extremity fistula palpable thrill
Scores
Heart Failure Risk
Heart Failure Risk Score: Not Applicable
Heart Score for Chest Pain Patients
STEMI patient?: Not applicable
Withdrawal Assessment of Alcohol
Withdrawal Assessment Completed?: Not applicable
Course
Orders/Labs/Results
Orders:
Orders
02/09/24 09:42
Type+Screen Urgent
Complete Blood Count/With Diff Urgent
Comprehensive Metabolic Panel Urgent
PTT Urgent
Prothrombin Time Urgent
02/09/24 10:14
CT Abd/pel Without Iv Or Oral Urgent
Comment:
Reason For Exam: abd pain, TTP LLQ
Vital Signs- Treatment ONCE
Frequency: Once
Comment: BP
02/09/24 10:15
NEPHROLOGY CONSULT Urgent
Consulting Provider: Ilir Martinez
Was physician already notified: Yes
02/09/24 10:18
Pantoprazole [Protonix IV] 80 mg IV NOW STA
02/09/24 10:30
Pantoprazole 80 mg/100 ml Nss [Protonix] 80 mg in 100 ml IV Q10H
Vital Signs
Initial and Last Documented VS:
Initial Vital Signs
Pulse Ox
100
02/09/24 09:41
Last Documented Vital Signs
Temp Pulse Resp BP Pulse Ox
36.7 C 58 17 150/67 100
02/09/24 09:43 02/09/24 10:15 02/09/24 10:00 02/09/24 10:00 02/09/24 10:15
MDM/Problems Addressed
Differential Diagnosis Includes:
Upper GI bleeding�gastritis, PUD, AVM, etc
Abdominal pain�gastritis, PUD, enteritis, diverticulitis
MDM/Problems Addressed:
63-year-old female [facility] after multiple witnessed episodes of coffee-ground emesis. She also had some loose stools. Has been complaining of some crampy abdominal pain. She is not on blood thinners. Vital signs normal.
Physical exam as above�notably Hemoccult positive. Plan to place IV send labs including a CBC and a CMP, coags, type and screen. Will check CT abdomen pelvis. Patient due for dialysis today discussed with nephrology to follow-up for dialysis
orders. Anticipate admission pending initial workup.
Chronic conditions affecting care:
ESRD
Acute Exacerbation and/or Progression of Chronic Illness:
Acutely hypertensive
Acute Exacerbation and/or Progression of Chronic Illness: HTN
*Radiology
Radiology exam reviewed: radiology read reviewed
*Pulse Oximetry
Patient hypoxic: no
*Critical Care Note
Total Time (30-74mins, 75-104mins- exclusive of procedures): Not Applicable
Data Reviewed
Source: patient, records, ambulance crew and penitentiary
Patient Management
Discussion with other providers: Hospitalist (Discussed with hospitalist) and Aviation Tactical Readiness Officer (Discussed with nephrology)
Escalation/DeEscalation of care consider admission/obs:
Admission indicated
ED Attending Note
-
Portions of this chart may have been created with voice recognition software.� Occasional wrong word or��sound alike� substitutions may have occurred due to the inherent limitations of voice recognition software.
Discharge Plan
Departure
Prescriptions:
No Action
losartan 50 mg Tablet
75 mg PO HS
cyclobenzaprine 10 mg Tablet
10 mg PO Q8HPRN PRN (Reason: chronic pain)
carvedilol 25 mg Tablet
25 mg PO BID
Rx Instructions:
09/01/2023, hold for SBP<110.
atorvastatin 10 mg Tablet
10 mg PO QPM
bisacodyl 10 mg Suppository
10 mg [place] DAILYPRN PRN (Reason: if MOM ineffective)
ferrous sulfate 325 mg (65 mg iron) Tablet
325 mg PO DAILY
omeprazole 20 mg Capsule,Delayed Release(Dr/Ec)
20 mg PO DAILY
lanthanum 1,000 mg Tablet,Chewable
1,000 mg PO MEALS
ketorolac 0.5 % Drops
2 drp BOTH EYES DAILYPRN PRN (Reason: retinopathy)
quetiapine [Seroquel] 25 mg Tablet
25 mg PO Q12H
sorbitol 70 % Solution
30 ml PO DAILYPRN PRN (Reason: constipation)
acetaminophen 325 mg tablet
650 mg PO Q6HPRN PRN (Reason: temp>100.5)
aspirin 81 mg tablet,delayed release (DR/EC)
81 mg PO DAILY
hydralazine 50 mg tablet
50 mg PO TID
loperamide [Imodium A-D] 2 mg Capsule
2 mg PO Q6HPRN MDD 4 caps/24hrs PRN (Reason: watery stool)
gabapentin 300 mg Capsule
300 mg PO HS
calcium acetate 667 mg Tablet
667 mg PO AC
acetaminophen 325 mg Tablet
650 mg PO Q8HPRN PRN (Reason: mild pain)
gabapentin 300 mg Capsule
300 mg PO DAILYPRN PRN (Reason: neuropathic pain)
Rx Instructions:
09/01/2023, at least 8 hrs apart from standing dose.
sertraline 50 mg Tablet
50 mg PO HS
insulin glargine [Lantus Solostar U-100 Insulin] 100 unit/mL (3 mL) Insulin Pen
6 unit SC HS
insulin lispro [Humalog KwikPen Insulin] 100 unit/mL Insulin Pen
2 unit SC DAILY
lidocaine 5 % Cream
1 applic TOPICAL BID
isosorbide mononitrate 30 mg tablet extended release 24 hr
30 mg PO DAILY
sertraline 25 mg tablet
25 mg PO HS
Rx Instructions:
taken w/ 50mg = 75mg
Humalog KwikPen Insulin 200 unit/mL (3 mL) insulin pen
0 - 6 sliding scale dose SC AC
Rx Instructions:
if 0-150= 0; 151-200= 2; 201-250= 3; 251-300= 4; 301-350= 5; 351-400= 6
clonazepam [Klonopin] 0.5 mg Tablet
0.5 mg PO BID Qty: 6 0RF
fentanyl 12 mcg/hr Patch 72 Hour
1 patch TRANSDERMAL Q72H Qty: 2 0RF
oxycodone 10 mg tablet
10 mg PO Q8HPRN PRN (Reason: moderate pain) Qty: 5 0RF
Nephro-Liliane Rx 1-60-300 mg-mg-mcg Tablet
1 tab PO DAILY
Referrals:
Gerardo Perez DO [Family Provider] -
Discharge Date and Time
Print Language: CAPE VERDEAN
[2024-02-09] MEDS: PROTONIX 100 IV ×2 (11:17→21:14)
[2024-02-09] MEDS: PROTONIX IV 80 MG IV (11:17)
[2024-02-09 11:20] LABS: % Basophils 0.8 % (0-2); % Immature Granulocytes 0.4 % (0-0.5); % Lymphocytes 22.4 % (20.5-51.1); % Monocytes 7.2 % (1.7-9.3); % Neutrophils 67.2 % (42.2-75.2); Absolute Basophils 0.1 10^3/uL (0-0.2); Absolute Eosinophils 0.2 10^3/uL (0-0.7); Absolute Lymphocytes 1.7 10^3/uL (1.2-3.4); Absolute Monocytes 0.6 10^3/uL (0.1-0.6); Absolute Neutrophils 5.1 10^3/uL (1.4-6.5); Hematocrit 32.4 % (37.0-47.0); Hemoglobin 10.6 g/dL (12.0-16.0); Mean Corp Hgb Conc. 32.7 g/dL (33.0-37.0); Mean Corpuscular Hgb 29.9 pg (27.0-31.0); Mean Corpuscular Volume 91.3 fL (81.0-99.0); Mean Platelet Volume 9.6 fL (7.4-10.4); Nucleated Red Blood Cells % 0 %; Platelet Count 176 10^3/uL (130-400); Red Blood Cell Count 3.55 10^6/uL (4.20-5.40); Red Cell Dist. Width 14.7 % (11.5-14.5); White Blood Cell Count 7.6 10^3/uL (4.8-10.8)
[2024-02-09 11:25] LABS: INR 1.12; PT 14.5 Sec (11.4-14.6)
[2024-02-09 11:26] LABS: APTT 33.9 Sec (23.4-35.0)
[2024-02-09 11:31] LABS: ALT (SGPT) 30 U/L (0-35); AST (SGOT) 26 U/L (14-36); Albumin 3.3 g/dl (3.5-5.0); Alkaline Phosphatase 92 U/L (38-126); Blood Urea Nitrogen 43 mg/dl (7-17); Calcium 9.8 mg/dl (8.4-10.2); Carbon Dioxide 30 mmol/L (22-30); Chloride 98 mmol/L (98-107); Glucose 97 mg/dl (70-99); Potassium 3.3 mmol/L (3.5-5.1); Sodium 140 mmol/L (135-145); Total Bilirubin 0.3 mg/dl (0.2-1.3); Total Protein 6.2 g/dl (6.3-8.2); eGFR 12.21
[2024-02-09] MEDS: MORPHINE SULFATE 4 MG IV (12:42)
--- NOTE | 2024-02-09 13:18 | W.CON.NEPH ---
Consultation
-
Date/Time Consultation Requested: 02/09/24 11a
Date/Time Consultation Performed: 02/09/24 1p
Requesting Provider: Dr. Acevedo
Performing Provider: Dr. Martinez
Reason for Consultation: ESRD
Medical History
-
Chief Complaint: AVF non functioning
History of Present Illness:
63-year-old female from [facility] where she has lived since 05/26/2022 with bipolar disorder on zoloft, seroquel, AV fistula right upper arm for ESRD Wednesday started Jun 2022. She is poor historian. She has extensive
peripheral vascular disease and has undergone multiple amputations of her right and left foot toes. known DM2 on insulin with microvascular complications neuropathy, retinopathy, nephropathy. HTN maintained on coreg, hydralazine, Losartan. She was
sent to the ER because of coffee-ground emesis. It is uncertain whether or not she has had dark stools. Reportedly she had abdominal cramping as well though she denies that currently. Today is her dialysis day
Past Medical History
1. ESRD.MWF
right UE AVG
2. Type 2 diabetes.
3. Peripheral arterial disease, CAD
4. Multiple microvascular complications including neuropathy and
retinopathy.
5. Right great toe amputation, left 4th toe amputation, right toe
amputation, left 2nd and 3rd amputation.
6. History of right hip fracture.
7. History of left foot diabetic ulceration.
8. History of right lower extremity angioplasty in September 2022.
9. History of right chest wall tunneled dialysis catheter.
10.History of MSSA bacteremia.
11.History of secondary hyperparathyroidism.
12.Hyperphosphatemia.
13.Anemia.
14.Hypertension.
Anxiety
Chronic constipation
Past Surgical History: Other (Multiple toe amputations Right great toe amputation 2022 Left great toe, second toe, third and fourth toe amputation Right great and second toe amputation right ankle surgery right femur fracture repair- Uriel placement
right, left leg Right hip surgery Right upper extremity AV graft)
Social History
She resides at [facility]. 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 Longstanding lifelong tobacco abuse.
Tobacco: Former Smoker
Alcohol: None
Living: [facility]
Family History
ESRD in her mother's brother.
Allergies / Home Medications
Allergy/AdvReac Type Severity Reaction Status Date / Time
metformin Allergy Diarrhea Verified 01/26/24 19:09
�Medication �Instructions �Recorded �Confirmed �Type
atorvastatin 10 mg tablet 10 mg PO QPM High cholesterol 06/28/22 02/09/24 History
bisacodyl 10 mg rectal suppository 10 mg [place] DAILYPRN PRN if MOM 06/28/22 02/09/24 History
ineffective
carvedilol 25 mg tablet 25 mg PO BID Heart 06/28/22 02/09/24 History
disease/condition
cyclobenzaprine 10 mg tablet 10 mg PO Q8HPRN PRN chronic pain 06/28/22 02/09/24 History
ferrous sulfate 325 mg (65 mg 325 mg PO DAILY Supplement 06/28/22 02/09/24 History
iron) tablet
lanthanum 1,000 mg chewable tablet 1,000 mg PO MEALS Kidney Disease 06/28/22 02/09/24 History
losartan 50 mg tablet 75 mg PO HS Blood pressure 06/28/22 02/09/24 History
omeprazole 20 mg capsule,delayed 20 mg PO DAILY Gastrointestinal 06/28/22 02/09/24 History
release issue
ketorolac 0.5 % eye drops 2 drp BOTH EYES DAILYPRN PRN 07/20/22 02/09/24 History
retinopathy
acetaminophen 325 mg tablet 650 mg PO Q6HPRN PRN temp>100.5 09/16/22 02/09/24 History
quetiapine 25 mg tablet (Seroquel) 25 mg PO Q12H Mental Health/Anxiety 09/16/22 02/09/24 History
sorbitol 70 % solution 30 ml PO DAILYPRN PRN constipation 09/16/22 02/09/24 History
aspirin 81 mg tablet,delayed 81 mg PO DAILY Blood Clot 12/16/22 02/09/24 History
release Prevention/Tx
hydralazine 50 mg tablet 50 mg PO TID Blood Pressure 12/16/22 02/09/24 History
calcium acetate 667 mg tablet 667 mg PO AC Supplement 01/04/23 02/09/24 History
gabapentin 300 mg capsule 300 mg PO HS Neurological Condition 01/04/23 02/09/24 History
loperamide 2 mg capsule (Imodium 2 mg PO Q6HPRN PRN watery stool 01/04/23 02/09/24 History
A-D)
acetaminophen 325 mg tablet 650 mg PO Q8HPRN PRN mild pain 01/16/23 02/09/24 History
gabapentin 300 mg capsule 300 mg PO DAILYPRN PRN neuropathic 01/16/23 02/09/24 History
pain
insulin glargine 100 unit/mL (3 6 unit SC HS 09/01/23 02/09/24 History
mL) subcutaneous pen (Lantus
Solostar U-100 Insulin)
sertraline 50 mg tablet 50 mg PO HS 09/01/23 02/09/24 History
insulin lispro 100 unit/mL 2 unit SC DAILY 12/25/23 02/09/24 History
subcutaneous pen (Humalog KwikPen
(U-100) Insulin)
insulin lispro 200 unit/mL (3 mL) 0 - 6 sliding scale dose SC AC 01/26/24 02/09/24 History
subcutaneous pen (Humalog KwikPen
U-200 Insulin)
isosorbide mononitrate 30 mg 30 mg PO DAILY 01/26/24 02/09/24 History
tablet,extended release 24 hr
lidocaine 5 % topical cream 1 applic topical BID 01/26/24 02/09/24 History
sertraline 25 mg tablet 25 mg PO HS 01/26/24 02/09/24 History
clonazepam 0.5 mg tablet (Klonopin) 0.5 mg PO BID #6 tabs 01/28/24 02/09/24 Rx
fentanyl 12 mcg/hr transdermal 1 patch transdermal Q72H #2 ea 01/28/24 02/09/24 Rx
patch
oxycodone 10 mg tablet 10 mg PO Q8HPRN PRN moderate pain 01/28/24 02/09/24 Rx
#5 tabs
vitamin B comp no.3-folic acid 1 1 tab PO DAILY 02/09/24 02/09/24 History
mg-vit C 60 mg-biotin 300 mcg
tablet
Review of Systems
-
No complaints
All other systems: Negative unless noted
Physical Exam
Vital Signs
Vital Signs
Temp Pulse Resp BP Pulse Ox
98.1 F 58 17 150/67 100
02/09/24 09:43 02/09/24 10:15 02/09/24 10:00 02/09/24 10:00 02/09/24 10:15
Lab Results
WBC 7.6 10^3/uL (4.8-10.8) 02/09/24 09:46
RBC 3.55 10^6/uL (4.20-5.40) L 02/09/24 09:46
Hgb 10.6 g/dL (12.0-16.0) L 02/09/24 09:46
Hct 32.4 % (37.0-47.0) L 02/09/24 09:46
Plt Count 176 10^3/uL (130-400) 02/09/24 09:46
Sodium 140 mmol/L (135-145) 02/09/24 09:46
Potassium 3.3 mmol/L (3.5-5.1) L 02/09/24 09:46
Chloride 98 mmol/L (98-107) 02/09/24 09:46
Carbon Dioxide 30 mmol/L (22-30) 02/09/24 09:46
BUN 43 mg/dl (7-17) H 02/09/24 09:46
Creatinine 3.9 mg/dL (0.6-1.0) H 02/09/24 09:46
eGFR 12.21 02/09/24 09:46
Glucose 97 mg/dl (70-99) 02/09/24 09:46
Calcium 9.8 mg/dl (8.4-10.2) 02/09/24 09:46
Albumin 3.3 g/dl (3.5-5.0) L 02/09/24 09:46
Laboratory Tests
01/28/24
07:02
Hgb 11.6 L
Physical Exam
Patient is awake alert oriented and in no distress. Mood and affect were pleasant, insight and judgment were good. Pupils are equal round and reactive to light, extraocular movements are intact, sclera were anicteric. Hearing was normal, ears and
nose are intact. Oropharynx was clear. Neck was supple with trachea midline and no thyromegaly. Heart was regular rate and rhythm without rubs. Lower extremities without edema. Lungs were clear to auscultation bilaterally and with normal
excursion. Abdomen was soft, nontender, with normal active bowel sounds, and no hepatosplenomegaly. Skin was without rash and with normal turgor.
Vascular Access: AVG (Thrill and bruit)
Data Reviewed
-
CT Scan: Report Reviewed by me (CT abdomen and pelvis on February 09, 2024 shows prominent stool burden in the rectum, pancreatic calcifications, sclerosis of the sacral ala)
Labs: Labs Reviewed by me
Old Records: Reviewed
Assessment/Plan
-
IMP:
GI bleed
ESRD on dialysis Wednesday
Diabetes mellitus with multiple microvascular complications including advanced retinopathy, peripheral neuropathy, nephropathy
HTN
CAD
PAD with multiple toe amputations bilaterally
Chronic pain/chronic opiate dependence
GERD
Anxiety
Secondary hyperparathyroidism
Left eye blindness/retinopathy
HLD
Chronic constipation
Secondary hyperparathyroidism
Anemia
Plan:
GI evaluation
Follow hemoglobin
Transfuse as necessary
Currently stable and will plan for dialysis tomorrow morning
--- NOTE | 2024-02-09 14:16 | HPS.HSE ---
Family Physician
-
Family Physician: Gerardo Perez, DO
Chief Complaint
-
Coffee-ground emesis
History of Present Illness
Patient is a 63 years old female [facility] resident with multiple medical conditions including end-stage renal disease, diabetes, hypertension, CAD who presents from nursing facility with reported episode of coffee-ground emesis and abdominal
pain. In the emergency room patient is hemodynamically stable, noticeably with stable hemoglobin at 10.6 which is close to baseline. She had no further episode of emesis while in ED. Abdominal pain improved after enema and single dose of
morphine. Her additional evaluation including CT scan of the abdomen and pelvis were consistent with constipation. Patient with no prior history of PUD, not on anticoagulation or antiplatelet agents prior to presentation.
Medical History
Past Medical History
Past Medical History: Reports Other (End-stage renal disease on HD. IDDM. Hypertension, chronic pain syndrome with opiate dependence, GERD, anxiety)
Past Surgical History: Reports Other (Recent left upper extremity AV fistula declotting)
Social History
Tobacco: Non-smoker
Drug: None
Living: Prison
Employment: Not Employed
Family History
Family History: Not pertinent
Allergies / Home Medications
Allergies reflects when Allergies were last updated in [facility].
Home Medications with original date entered in [facility]
Allergy/Medication List:
Allergies
Allergy/AdvReac Type Severity Reaction Status Date / Time
metformin Allergy Diarrhea Verified 01/26/24 19:09
Home Medications
atorvastatin 10 mg tablet 10 mg PO QPM High cholesterol 06/28/22
bisacodyl 10 mg rectal suppository 10 mg [place] DAILYPRN PRN if MOM ineffective 06/28/22
carvedilol 25 mg tablet 25 mg PO BID Heart disease/condition 06/28/22
cyclobenzaprine 10 mg tablet 10 mg PO Q8HPRN PRN chronic pain 06/28/22
ferrous sulfate 325 mg (65 mg iron) tablet 325 mg PO DAILY Supplement 06/28/22
lanthanum 1,000 mg chewable tablet 1,000 mg PO MEALS Kidney Disease 06/28/22
losartan 50 mg tablet 75 mg PO HS Blood pressure 06/28/22
omeprazole 20 mg capsule,delayed release 20 mg PO DAILY Gastrointestinal issue 06/28/22
ketorolac 0.5 % eye drops 2 drp BOTH EYES DAILYPRN PRN retinopathy 07/20/22
acetaminophen 325 mg tablet 650 mg PO Q6HPRN PRN temp>100.5 09/16/22
quetiapine 25 mg tablet (Seroquel) 25 mg PO Q12H Mental Health/Anxiety 09/16/22
sorbitol 70 % solution 30 ml PO DAILYPRN PRN constipation 09/16/22
aspirin 81 mg tablet,delayed release 81 mg PO DAILY Blood Clot Prevention/Tx 12/16/22
hydralazine 50 mg tablet 50 mg PO TID Blood Pressure 12/16/22
calcium acetate 667 mg tablet 667 mg PO AC Supplement 01/04/23
gabapentin 300 mg capsule 300 mg PO HS Neurological Condition 01/04/23
loperamide 2 mg capsule (Imodium A-D) 2 mg PO Q6HPRN PRN watery stool 01/04/23
acetaminophen 325 mg tablet 650 mg PO Q8HPRN PRN mild pain 01/16/23
gabapentin 300 mg capsule 300 mg PO DAILYPRN PRN neuropathic pain 01/16/23
insulin glargine 100 unit/mL (3 mL) subcutaneous pen (Lantus Solostar U-100 Insulin) 6 unit SC HS 09/01/23
sertraline 50 mg tablet 50 mg PO HS 09/01/23
insulin lispro 100 unit/mL subcutaneous pen (Humalog KwikPen (U-100) Insulin) 2 unit SC DAILY 12/25/23
insulin lispro 200 unit/mL (3 mL) subcutaneous pen (Humalog KwikPen U-200 Insulin) 0 - 6 sliding scale dose SC AC 01/26/24
isosorbide mononitrate 30 mg tablet,extended release 24 hr 30 mg PO DAILY 01/26/24
lidocaine 5 % topical cream 1 applic topical BID 01/26/24
sertraline 25 mg tablet 25 mg PO HS 01/26/24
clonazepam 0.5 mg tablet (Klonopin) 0.5 mg PO BID #6 tabs 01/28/24
fentanyl 12 mcg/hr transdermal patch 1 patch transdermal Q72H #2 ea 01/28/24
oxycodone 10 mg tablet 10 mg PO Q8HPRN PRN moderate pain #5 tabs 01/28/24
vitamin B comp no.3-folic acid 1 mg-vit C 60 mg-biotin 300 mcg tablet 1 tab PO DAILY 02/09/24
Review of Systems
-
A 12 point ROS was completed and negative except as noted: Yes
Physical Exam
Vital Signs
Vital Signs
Temp Pulse Resp BP Pulse Ox
98.1 F 62 11 102/44 100
02/09/24 09:43 02/09/24 13:15 02/09/24 13:15 02/09/24 13:00 02/09/24 13:15
Physical Exam
General: Well Developed, Well Nourished and No Apparent Distress
HEENT: NormoCephalic, Moist mucous membranes and Atraumatic
Respiratory: Clear
Cardiac: S1/S2 and Regular Rhythm; No Murmur or Rub
GI: Soft, Non Tender, Non Distended and Normal Bowel Sounds; No Organomegaly
Rectal: Deferred by Provider
Musculoskeletal: No Clubbing, No Cyanosis and No Edema
Skin: No Rash
Neuro: Nonfocal/grossly intact
Laboratory Results
-
02/09/24 09:46
02/09/24 09:46
Laboratory Results
PT 14.5 Sec (11.4-14.6) 02/09/24 09:46
INR 1.12 02/09/24 09:46
APTT 33.9 Sec (23.4-35.0) 02/09/24 09:46
Total Bilirubin 0.3 mg/dl (0.2-1.3) 02/09/24 09:46
AST 26 U/L (14-36) 02/09/24 09:46
ALT 30 U/L (0-35) 02/09/24 09:46
Alkaline Phosphatase 92 U/L (38-126) 02/09/24 09:46
Impression/Plan
-
IMPRESSION:
Presentation with coffee-ground emesis.
Constipation
Other conditions:
1. Clotted AV fistula, status post declotting per [facility] on 01/26.
2. ESRD on HD. Continue with Wednesday, Wednesday, Wednesday dialysis.
3. Type 2 diabetes with neuropathy.
4. Essential hypertension.
5. CAD, PAD with multiple toe amputations bilaterally.
6. Chronic pain and chronic opiate dependence.
7. GERD.
8. Anxiety.
9. Secondary hyperparathyroidism.
10. Left eye blindness and retinopathy.
11. Hyperlipidemia.
12. Chronic constipation.
PLAN:
Coffee-ground emesis.
Hemodynamically stable
Hemoglobin close to baseline 10.6 (11.6 on 01/28).
No prior history of PUD
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 Not on anticoagulation.
Differential diagnosis most likely upper GI bleed, possibly recurrent emesis with Chela-Hernandez tear in the settings of constipation.
Monitor hemoglobin
N.p.o. except meds per
IV PPI drip
Antiemetics
GI consultation
Type and cross.
Hold aspirin
Status post enema with improved abdominal pain while in ED.
End-stage renal disease on HD Wednesday
Nephrology consultation.
Type 2 diabetes
Update hemoglobin A1c
Insulin basal bolus protocol.
Continue Lantus at the current dose monitoring blood glucose
CAD/PAD
Essential hypertension.
Continue preadmission antihypertensive regimen including Coreg, hydralazine, Imdur
Chronic pain with opiate dependence.
Continue preadmission regimen including Duragesic, gabapentin, oxycodone.
Anxiety continue preadmission regimen including Seroquel, ceftaroline, Klonopin.
Full code
DVT prophylaxis mechanical
--- NOTE | 2024-02-09 15:44 | CON.GI ---
Addendum entered and electronically signed by Arturo Bailey MD 02/09/24 19:03:
I saw and examined the patient.
The PA's note was reviewed and I agree with the note.
Comment:
The patient is a 63 year old female with h/o ESRD on HD, HTN, IDDM, valvular disease, blindness, PVD with multiple toe amputations, leg and hip surgery p/w coffee ground emesis and abdominal pain. On admission CT without contrast with prominent
rectal stool burden with wall thickening and stranding with concern for stercoral colitis, changes of chronic pancreatitis with calcifications and dilated pancreatic duct up to 8 mm.
Impression / Rec:
1. Coffee ground emesis - Hgb 10.6 on admission with baseline around 11. Denies NSAID use. No prior EGD. Given her renal status, may be having UGIB from AVM vs other. Agree with enema/laxative. Plan for endo evaluation with EGD tomorrow.
2. CT findings -CT showed features of chronic pancreatitis with numerous pancreatic calcifications and dilated pancreatic duct up to 8 mm. Denies history of heavy alcohol consumption in the past. Such change can be observed in end-stage renal
disease which I suspect to be the etiology of this finding. Unclear if she's symptomatic from this as she c/o diffuse pain (abdomen, bones, multi-focal 'everywhere').
Addendum entered and electronically signed by GUILLE Fisher 02/09/24 16:59:
K 3.3 replete per renal for repeat in AM prior to EGD
Original Note:
Consultation
-
Date/Time Consultation Requested: 02/09/24 1500
Date/Time Consultation Performed: 02/09/24 1545
Requesting Provider: Donald Merrill MD
Performing Provider: GUILLE Foreman, Leo Morris MD
Reason for Consultation: coffee ground emesis
Medical History
Chief Complaint / HPI
Chief Complaint: vomiting
History of Present Illness:
Pt is a 63yo with hx ESRD on HD, HTN, IDDM, valvular disease, blindness, PVD with multiple toe amputations, leg and hip surgery with admission from [facility] with coffee ground emesis and abdominal pain. On admission CT without contrast with
prominent rectal stool burden with wall thickening and stranding with concern for stercoral colitis, changes of chronic pancreatitis with calcifications and dilated pancreatic duct up to 8 mm. possible sacral fracture. adnexal hypodensity possible
ovarian cyst. On admission hbg 10.6 wtih baseline around 11 and BUN 43 with variable baseline with hx ESRD.
In reviewing with patient noted with some chronic constipation and abdominal pain on exam. She will have daily BM but noted with straining with BM. She does see occasional blood but limited with visual issues. She admits to GERD on daily PPI
but denies dysphagia, diarrhea, or black stools. No hx EGD or colonoscopy in past. Daily ASA no other NSAID use.
Past Medical History
Past Medical History: HTN, IDDM, Renal Failure, Valvular Disease and Other (left eye blindness, PVD)
Past Surgical History: Orthopedic (ankle surgery, tobias in left and right leg, right hip surgery ) and Other (multiple toe amputations)
Social History
Tobacco: Former Smoker
Alcohol: Former (prior social ETOH )
Drug: None
Living: Usp
Family History
Family History: Other (no family hx colon Ca or polyps )
Allergies / Home Medications
Allergy/AdvReac Type Severity Reaction Status Date / Time
metformin Allergy Diarrhea Verified 01/26/24 19:09
�Medication �Instructions �Recorded
atorvastatin 10 mg tablet 10 mg PO QPM High cholesterol 06/28/22
bisacodyl 10 mg rectal suppository 10 mg DC DAILYPRN PRN if MOM 06/28/22
ineffective
carvedilol 25 mg tablet 25 mg PO BID Heart 06/28/22
disease/condition
cyclobenzaprine 10 mg tablet 10 mg PO Q8HPRN PRN chronic pain 06/28/22
ferrous sulfate 325 mg (65 mg 325 mg PO DAILY Supplement 06/28/22
iron) tablet
lanthanum 1,000 mg chewable tablet 1,000 mg PO MEALS Kidney Disease 06/28/22
losartan 50 mg tablet 75 mg PO HS Blood pressure 06/28/22
omeprazole 20 mg capsule,delayed 20 mg PO DAILY Gastrointestinal 06/28/22
release issue
ketorolac 0.5 % eye drops 2 drp BOTH EYES DAILYPRN PRN 07/20/22
retinopathy
acetaminophen 325 mg tablet 650 mg PO Q6HPRN PRN temp>100.5 09/16/22
quetiapine 25 mg tablet (Seroquel) 25 mg PO Q12H Mental Health/Anxiety 09/16/22
sorbitol 70 % solution 30 ml PO DAILYPRN PRN constipation 09/16/22
aspirin 81 mg tablet,delayed 81 mg PO DAILY Blood Clot 12/16/22
release Prevention/Tx
hydralazine 50 mg tablet 50 mg PO TID Blood Pressure 12/16/22
calcium acetate 667 mg tablet 667 mg PO AC Supplement 01/04/23
gabapentin 300 mg capsule 300 mg PO HS Neurological Condition 01/04/23
loperamide 2 mg capsule (Imodium 2 mg PO Q6HPRN PRN watery stool 01/04/23
A-D)
acetaminophen 325 mg tablet 650 mg PO Q8HPRN PRN mild pain 01/16/23
gabapentin 300 mg capsule 300 mg PO DAILYPRN PRN neuropathic 01/16/23
pain
insulin glargine 100 unit/mL (3 6 unit SC HS 09/01/23
mL) subcutaneous pen (Lantus
Solostar U-100 Insulin)
sertraline 50 mg tablet 50 mg PO HS 09/01/23
insulin lispro 100 unit/mL 2 unit SC DAILY 12/25/23
subcutaneous pen (Humalog KwikPen
(U-100) Insulin)
insulin lispro 200 unit/mL (3 mL) 0 - 6 sliding scale dose SC AC 01/26/24
subcutaneous pen (Humalog KwikPen
U-200 Insulin)
isosorbide mononitrate 30 mg 30 mg PO DAILY 01/26/24
tablet,extended release 24 hr
lidocaine 5 % topical cream 1 applic topical BID 01/26/24
sertraline 25 mg tablet 25 mg PO HS 01/26/24
clonazepam 0.5 mg tablet (Klonopin) 0.5 mg PO BID #6 tabs 01/28/24
fentanyl 12 mcg/hr transdermal 1 patch transdermal Q72H #2 ea 01/28/24
patch
oxycodone 10 mg tablet 10 mg PO Q8HPRN PRN moderate pain 01/28/24
#5 tabs
vitamin B comp no.3-folic acid 1 1 tab PO DAILY 02/09/24
mg-vit C 60 mg-biotin 300 mcg
tablet
Review of Systems
-
History Source: Patient
EENT: Reports No Symptoms
Respiratory: Reports No Symptoms
Abdomen/GI: Reports Abdominal Pain, Nausea, Vomiting and Constipated
: Reports No Symptoms
Skin: Reports No Symptoms
Neurological: Reports Weakness
Endocrine: Reports No Symptoms
Hematologic/Lymphatic: Reports No Symptoms
Vital Signs
Temp Pulse Resp BP Pulse Ox
98.1 F 62 11 102/44 100
02/09/24 09:43 02/09/24 13:15 02/09/24 13:15 02/09/24 13:00 02/09/24 13:15
Physical Exam
Exam
General: Well Developed, Well Nourished and No Apparent Distress
HEENT: Normocephalic and Anicteric
Respiratory: Clear
Cardiac: Regular Rhythm
GI: Soft, Non Distended and Tender (diffuse lower tenderness )
Rectal: Hem Positive and Other ( large amount of jose colored soft stool)
Genito-urinary: No Costovertebral Tender
Musculoskeletal: No Clubbing and No Cyanosis
Skin: Warm and Dry
Neuro: Awake, Alert, AO x 3 and Other (blindness )
Psych: Calm
Results
WBC 7.6 10^3/uL (4.8-10.8) 02/09/24 09:46
Hgb 10.6 g/dL (12.0-16.0) L 02/09/24 09:46
Hct 32.4 % (37.0-47.0) L 02/09/24 09:46
MCV 91.3 fL (81.0-99.0) 02/09/24 09:46
Plt Count 176 10^3/uL (130-400) 02/09/24 09:46
Absolute Neuts (auto) 5.1 10^3/uL (1.4-6.5) 02/09/24 09:46
PT 14.5 Sec (11.4-14.6) 02/09/24 09:46
INR 1.12 02/09/24 09:46
APTT 33.9 Sec (23.4-35.0) 02/09/24 09:46
Sodium 140 mmol/L (135-145) 02/09/24 09:46
Potassium 3.3 mmol/L (3.5-5.1) L 02/09/24 09:46
Chloride 98 mmol/L (98-107) 02/09/24 09:46
Carbon Dioxide 30 mmol/L (22-30) 02/09/24 09:46
BUN 43 mg/dl (7-17) H 02/09/24 09:46
Creatinine 3.9 mg/dL (0.6-1.0) H 02/09/24 09:46
Calcium 9.8 mg/dl (8.4-10.2) 02/09/24 09:46
Total Bilirubin 0.3 mg/dl (0.2-1.3) 02/09/24 09:46
AST 26 U/L (14-36) 02/09/24 09:46
ALT 30 U/L (0-35) 02/09/24 09:46
Alkaline Phosphatase 92 U/L (38-126) 02/09/24 09:46
Diagnostic Image Results:
02/09/24 CT Abd/pel Without Iv Or Oral
Prominent rectal stool burden with associated mild wall thickening and likely surrounding stranding which can be seen with stercoral colitis.
Sequelae of chronic pancreatitis with numerous pancreatic calcifications and a dilated pancreatic duct measuring up to 8mm.
There is sclerosis with likely lucency through the left sacral ala, possible sacral insufficiency fracture. Recommend correlation with tenderness.
Right adnexal hypodensities measuring up to 3.0 cm, possible ovarian cysts. Consider follow-up ultrasound to ensure stability.
Prior GI Procedures:
EGD: none
Colonoscopy: none
Assessment / Plan
-
Pt is a 63yo with hx ESRD on HD, HTN, IDDM, valvular disease, blindness, PVD with multiple toe amputations, leg and hip surgery with admission from [facility] with coffee ground emesis and abdominal pain. On admission CT without contrast with
prominent rectal stool burden with wall thickening and stranding with concern for stercoral colitis, changes of chronic pancreatitis with calcifications and dilated pancreatic duct up to 8 mm. possible sacral fracture. adnexal hypodensity possible
ovarian cyst. On admission hbg 10.6 with baseline around 11 and BUN 43 with variable baseline with hx ESRD.
-coffee ground emesis
-stercoral colitis with stool burden and wall thickening
-changes of chronic pancreatitis with 8 mm panc duct dilation on CT
-possible sacral fx
-chronic anemia
-jose colored stool on exam
other med problems:
-ESRD on HD
-HTN
-IDDM
-PVD with multiple toe amp
-blindness
PLAN:
etiology of coffee ground related to concurrent constipation/stercoral colitis vs UGI bleeding vs other
s/p fleets in ER for further milk of Molasses enema tonight
check follow up X ray in AM
consider OP colonoscopy when impaction/colitis improves
trend hbg
cont PPI
plan for EGD in AM- pt agreeable
ok for clears tonight then NPO in AM
sent message to renal to arrange timing with HD
jose colored stool related to chronic pancreatic issues vs other -- cont to monitor if any increased diarrhea consider adding pancreatic enzymes
will follow
-
-
Thank you for consultation and allowing me to participate in the patient's care. Please call the ironworker wire fence erector GI physician during the after hours with any questions or concerns.
[2024-02-09] MEDS: LIPITOR 10 MG PO (17:00)
[2024-02-09] MEDS: FOSRENOL 1000 MG PO (17:00)
[2024-02-09] MEDS: PHOSLO 667 MG PO (17:00)
[2024-02-09] MEDS: DURAGESIC 12 MCG/HR PATCH 1 PATCH TRANSDERM (17:05)
[2024-02-09] MEDS: APRESOLINE PO (17:06)
[2024-02-09 18:04] LABS: Glucose - Point of Care 64 mg/dl (70-99)
[2024-02-09 18:32] LABS: Glucose - Point of Care 61 mg/dl (70-99)
[2024-02-09 19:06] LABS: Glucose - Point of Care 101 mg/dl (70-99)
--- NOTE | 2024-02-09 19:15 | PTCARENOTE ---
Pt received in bed during shift change. Admission completed on by day shift RN. Pt AAOX3, VSS and receptive to room and callbell. Bed in lowest position and callbell within reach. Pt educated on importance of callbell usage when needing anything. Pt
expresses understanding and agreement. Will continue with current plan of care.
[2024-02-09 20:05] LABS: Hemoglobin 9.7 g/dL (12.0-16.0)
[2024-02-09] MEDS: KLONOPIN 0.5 MG PO (21:09)
[2024-02-09] MEDS: NEURONTIN 300 MG PO (21:09)
[2024-02-09] MEDS: SEROQUEL 25 MG PO (21:10)
[2024-02-09] MEDS: ZOLOFT 25 MG PO (21:11)
[2024-02-09] MEDS: APRESOLINE 50 MG PO (21:12)
[2024-02-09] MEDS: COREG 25 MG PO (21:12)
[2024-02-09] MEDS: COZAAR 75 MG PO (21:13)
[2024-02-09 21:21] LABS: Glucose - Point of Care 133 mg/dl (70-99)
[2024-02-09] MEDS: LANTUS 0.06 UNITS SC (22:04)
[2024-02-09] MEDS: ZOLOFT 50 MG PO (22:05)
[2024-02-09] MEDS: ZOFRAN 4 MG PO (23:16)
[2024-02-09] MEDS: FLEXERIL 10 MG PO (23:16)
[2024-02-10] VITALS (10 sets, daily range): BP systolic 8–131; BP diastolic 43–76; BMI 19.0
[2024-02-10 02:57] LABS: Glucose - Point of Care 72 mg/dl (70-99)
[2024-02-10 05:01] LABS: % Basophils 0.7 % (0-2); % Eosinophils 1.8 % (0-6); % Immature Granulocytes 0.3 % (0-0.5); % Lymphocytes 23.7 % (20.5-51.1); % Monocytes 6.2 % (1.7-9.3); % Neutrophils 67.3 % (42.2-75.2); Absolute Basophils 0.1 10^3/uL (0-0.2); Absolute Eosinophils 0.2 10^3/uL (0-0.7); Absolute Lymphocytes 2.3 10^3/uL (1.2-3.4); Absolute Monocytes 0.6 10^3/uL (0.1-0.6); Absolute Neutrophils 6.5 10^3/uL (1.4-6.5); Hematocrit 32.5 % (37.0-47.0); Hemoglobin 10.5 g/dL (12.0-16.0); Mean Corp Hgb Conc. 32.3 g/dL (33.0-37.0); Mean Corpuscular Hgb 29.2 pg (27.0-31.0); Mean Corpuscular Volume 90.3 fL (81.0-99.0); Mean Platelet Volume 10.2 fL (7.4-10.4); Nucleated Red Blood Cells % 0 %; Platelet Count 190 10^3/uL (130-400); White Blood Cell Count 9.7 10^3/uL (4.8-10.8)
[2024-02-10 05:36] LABS: Blood Urea Nitrogen 47 mg/dl (7-17); Calcium 9.6 mg/dl (8.4-10.2); Carbon Dioxide 26 mmol/L (22-30); Chloride 99 mmol/L (98-107); Estimated Creatinine Clearance 12 ml/min; Glucose 65 mg/dl (70-99); Potassium 4.1 mmol/L (3.5-5.1); Sodium 140 mmol/L (135-145)
[2024-02-10 05:52] LABS: Glucose - Point of Care 57 mg/dl (70-99)
[2024-02-10] MEDS: PROTONIX 100 IV (06:38)
[2024-02-10 06:40] LABS: Glucose - Point of Care 58 mg/dl (70-99)
--- NOTE | 2024-02-10 06:50 | W.PN.UPDATE ---
Update Note
Progress Note Update
BS 58, Patient is NPO will order Dextrose and advised to follow hypoglycemic protocol
--- NOTE | 2024-02-10 07:38 | PTCARENOTE ---
02/09- Patient currently receiving HD. Morning Medication administration to be delayed till S/P HD. Did not pull Ativan; Returned all other meds. Assessment completed. Will continue to monitor blood sugars. FBS=57 with Nightshift. Patient
reportedly refused 4oz juice after taking 1-2 sips. Nightshift provider entered orders for Dextrose IV. Will recheck Blood Sugars then administer Dextrose PRN as ordered. See Hypoglycemia Protocol.
[2024-02-10 07:47] LABS: Glucose - Point of Care 50 mg/dl (70-99)
[2024-02-10] MEDS: DEXTROSE 50% SYRINGE 12.5 GRAMS IV ×2 (07:47→14:33)
[2024-02-10 08:05] LABS: Glucose - Point of Care 135 mg/dl (70-99)
[2024-02-10] MEDS: MANNITOL 25% 12.5 GRAMS IV (09:05)
[2024-02-10] MEDS: FLEXBUMIN 25% FOR HEMODIALYSIS 12.5 GRAMS IV (09:10)
[2024-02-10] MEDS: RETACRIT 4000 UNITS IV (09:19)
[2024-02-10] MEDS: ROXICODONE 10 MG PO (10:37)
--- NOTE | 2024-02-10 10:45 | W.PN.NEPH.HD ---
Assessment
-
Seen on HD. complaints of back pain. on Oxy. VSS, access ok
Progress Note - Hemodialysis
-
Date of Service: February 10, 2024
Duration: 45 minutes and 3 hours
Potassium Bath: 3
Calcium Bath: 2.5
Opti-Dialyzer: 160
Ultrafiltration: Other (2kg)
Blood Flow: 400
Dialysate Flow: 600
Heparin: 0
EPO: 4000 units
[2024-02-10] MEDS: PHOSLO PO (12:17)
[2024-02-10] MEDS: FEOSOL 325 MG PO (12:21)
[2024-02-10] MEDS: APRESOLINE 50 MG PO ×3 (12:21→23:13)
[2024-02-10] MEDS: COREG 25 MG PO ×2 (12:26→20:35)
[2024-02-10] MEDS: NEPHROCAP 1 CAPSULE PO (12:26)
[2024-02-10] MEDS: IMDUR (EXTENDED RELEASE) 30 MG PO (12:26)
[2024-02-10] MEDS: FOSRENOL PO ×2 (12:27)
[2024-02-10] MEDS: PHOSLO 667 MG PO ×2 (12:27→17:28)
[2024-02-10] MEDS: SEROQUEL 25 MG PO ×2 (12:27→20:41)
[2024-02-10] MEDS: KLONOPIN 0.5 MG PO ×2 (12:30→20:41)
--- NOTE | 2024-02-10 12:30 | PTCARENOTE ---
02/09- HD completed. Able to administer morning medications as ordered. AAOX3 but drowsy. Aside from wanting food (is currently NPO for EGD today) patient states oxycodone helps with her pain, but denies any other current requests. Will continue
to monitor.
[2024-02-10 14:27] LABS: Glucose - Point of Care 59 mg/dl (70-99)
[2024-02-10 14:52] LABS: Glucose - Point of Care 110 mg/dl (70-99)
--- NOTE | 2024-02-10 15:19 | W.PN.HOSP.TC ---
Today's Communication/Plan
-
Resume diet
Continue PPI
Resume aspirin
Assessment / Plan
Assessment / Plan
IMPRESSION:
Presentation with coffee-ground emesis.
Constipation
Other conditions:
1. Clotted AV fistula, status post declotting per Vascular on 01/26.
2. ESRD on HD. Continue with Wednesday, Wednesday, Wednesday dialysis.
3. Type 2 diabetes with neuropathy.
4. Essential hypertension.
5. CAD, PAD with multiple toe amputations bilaterally.
6. Chronic pain and chronic opiate dependence.
7. GERD.
8. Anxiety.
9. Secondary hyperparathyroidism.
10. Left eye blindness and retinopathy.
11. Hyperlipidemia.
12. Chronic constipation.
PLAN:
Coffee-ground emesis.
Hemodynamically stable
Hemoglobin close to baseline 10.6 (11.6 on 01/28).
No prior history of PUD
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
Differential diagnosis most likely upper GI bleed, possibly recurrent emesis with Chela-Hernandez tear in the settings of constipation.
Hemoglobin remained stable at 10.5
EGD 02/09 with mucosal changes in the esophagus, gastritis, normal duodenum
Resume diet
Continue PPI.
Status post enema with improved abdominal pain while in ED.
End-stage renal disease on HD Wednesday
Nephrology consultation.
Type 2 diabetes
Hemoglobin A1c 6.5
Insulin basal bolus protocol.
Hypoglycemia while n.p.o.
Hypoglycemia treated with intravenous glucose infusion
Continue serial Accu-Cheks and basal bolus protocol
Hold Lantus. Reassess regimen with diet resumed.
CAD/PAD
Essential hypertension.
Continue preadmission antihypertensive regimen including Coreg, hydralazine, Imdur
Chronic pain with opiate dependence.
Continue preadmission regimen including Duragesic, gabapentin, oxycodone.
Anxiety continue preadmission regimen including Seroquel, ceftaroline, Klonopin.
Full code
DVT prophylaxis mechanical
Anticipated Discharge: 24 - 48 hours
Subjective/Interval History
-
Date of Service: February 10, 2024
Objective Data
-
Labs:
Laboratory Results
02/10/24 02/10/24
04:05 04:05
WBC 9.7
Hgb 10.5 L Cancelled
Hct 32.5 L
Plt Count 190
Sodium 140
Potassium 4.1
Chloride 99
Carbon Dioxide 26
BUN 47 H
Creatinine 4.1 H*
Glucose 65 L
Calcium 9.6
Vital Signs:
Vital Signs
Temp Pulse Resp BP Pulse Ox
97.7 F 67 17 145/55 100
02/10/24 07:55 02/10/24 12:26 02/10/24 07:55 02/10/24 12:26 02/10/24 07:55
I&O
02/09/24 02/10/24 02/11/24
06:59 06:59 06:59
Intake Total 120 / 120
Balance 120 / 120
Physical Exam
-
General: No Apparent Distress
HEENT: Normocephalic and Atraumatic
Respiratory: Negative Wheezes
Cardiac: Regular Rhythm
GI: Soft
Genito-urinary: No Costovertebral Tender
Neuro: Awake, Alert, Oriented and Other (Slurred speech with mild left facial droop, chronic.)
Hematologic / Lymphatic: No Lymphadenopathy
Psych: Calm
[2024-02-10 15:59] LABS: Glucose - Point of Care 116 mg/dl (70-99)
[2024-02-10] MEDS: NOVOLOG FLEXPEN-LOW RESISTANCE SC (16:38)
[2024-02-10] MEDS: FOSRENOL 1000 MG PO (17:28)
[2024-02-10] MEDS: LIPITOR 10 MG PO (17:29)
--- NOTE | 2024-02-10 20:53 | PTCARENOTE ---
Pt taken down ED for abd XRay. Pt VSS stable, no signs of distress. Pt taken via stretcher. Pt arrive back onto unit from XRay. Pt vitals remain stable, no signs of distress. Pt bed in lowest position, call rodrigez within reach.
[2024-02-10 22:28] LABS: Glucose - Point of Care 113 mg/dl (70-99)
[2024-02-10 22:50] LABS: Hemoglobin 9.3 g/dL (12.0-16.0)
[2024-02-10] MEDS: ZOLOFT 25 MG PO (23:10)
[2024-02-10] MEDS: ZOLOFT 50 MG PO (23:10)
[2024-02-10] MEDS: COZAAR 75 MG PO (23:11)
[2024-02-10] MEDS: NEURONTIN 300 MG PO (23:13)
[2024-02-11 03:02] LABS: Glucose - Point of Care 97 mg/dl (70-99)
--- NOTE | 2024-02-11 04:20 | PTCARENOTE ---
Pt has been refusing to be straight cathed for urine sample. Pt educated on importance of getting urine sample for testing. Rn tried to multiple attempts over multiple shifts to get urine sample, pt continues to refuse. Will inform day shift RN of
pt refusal.
[2024-02-11 06:00] VITALS: BMI 18.7
--- NOTE | 2024-02-11 06:07 | CM ---
met with patient and daughter marcy at bedside.patient is a lt care resident of [facility],she is total care,is wc bound,does not ambulate,dr nolasco is her primary doctor.she is able to feed herself most times at facility.
pmh:esrd on hd at facility [facility],clotted av fistula,hld,left eye blindness.
patient is adm with a gib.had egd,monitor hgb,cont ppiPlan:patient will return to [facility] lt when stable for dc.
[2024-02-11 07:45] VITALS: BP 137/53
[2024-02-11 07:46] LABS: Glucose - Point of Care 102 mg/dl (70-99)
[2024-02-11] MEDS: NOVOLOG FLEXPEN-LOW RESISTANCE SC ×2 (07:52→17:00)
--- NOTE | 2024-02-11 09:03 | PTOTSP ---
Dysphagia Evaluation
Oral and pharyngeal stages of swallowing suspected to be grossly WFL. Patient with cognitive changes (baseline unknown) which may elevate risk for dysphagia - though no significant dysphagia noted this date. Patient with a known history of GERD
and should follow reflux precautions.
Recommend:
1. Regular, Thin Liquids
2. PO only when awake, alert, and upright to 90 degrees
3. Remain upright for at least 30 minutes after PO intake
4. Assist with meal tray set up as needed given vision changes (left eye blind)
5. No further dysphagia therapy warranted. Please reconsult as appropriate. GI following.
[2024-02-11 09:12] LABS: % Basophils 0.7 % (0-2); % Eosinophils 1.6 % (0-6); % Immature Granulocytes 0.4 % (0-0.5); % Lymphocytes 24.2 % (20.5-51.1); % Monocytes 5.7 % (1.7-9.3); % Neutrophils 67.4 % (42.2-75.2); Absolute Basophils 0.1 10^3/uL (0-0.2); Absolute Eosinophils 0.1 10^3/uL (0-0.7); Absolute Monocytes 0.5 10^3/uL (0.1-0.6); Absolute Neutrophils 5.6 10^3/uL (1.4-6.5); Hemoglobin 10.9 g/dL (12.0-16.0); Mean Corp Hgb Conc. 32.1 g/dL (33.0-37.0); Mean Corpuscular Hgb 29.9 pg (27.0-31.0); Mean Corpuscular Volume 93.2 fL (81.0-99.0); Mean Platelet Volume 9.8 fL (7.4-10.4); Nucleated Red Blood Cells % 0 %; Platelet Count 153 10^3/uL (130-400); Red Blood Cell Count 3.65 10^6/uL (4.20-5.40); Red Cell Dist. Width 15.7 % (11.5-14.5); White Blood Cell Count 8.3 10^3/uL (4.8-10.8)
[2024-02-11 09:32] LABS: Blood Urea Nitrogen 22 mg/dl (7-17); Calcium 9.3 mg/dl (8.4-10.2); Carbon Dioxide 26 mmol/L (22-30); Chloride 100 mmol/L (98-107); Estimated Creatinine Clearance 18 ml/min; Glucose 112 mg/dl (70-99); Potassium 3.7 mmol/L (3.5-5.1); Sodium 138 mmol/L (135-145); eGFR 18.17
[2024-02-11] MEDS: FOSRENOL 1000 MG PO ×2 (09:38→17:02)
[2024-02-11] MEDS: NEPHROCAP 1 CAPSULE PO (09:39)
[2024-02-11] MEDS: PHOSLO 667 MG PO ×2 (09:39→17:03)
[2024-02-11] MEDS: FEOSOL 325 MG PO (09:39)
[2024-02-11] MEDS: SEROQUEL 25 MG PO (09:39)
[2024-02-11] MEDS: PROTONIX 40 MG PO (09:39)
[2024-02-11] MEDS: KLONOPIN 0.5 MG PO (09:39)
--- NOTE | 2024-02-11 10:12 | W.PN.GI.CBS2 ---
Today's Communication / Plan
-
GI will sign off, f/u as outpatient
Assessment / Plan
-
63 year old female with h/o ESRD on HD, HTN, IDDM, valvular disease, blindness, PVD with multiple toe amputations, leg and hip surgery p/w coffee ground emesis and abdominal pain. On admission CT without contrast with prominent rectal stool burden
with wall thickening and stranding with concern for stercoral colitis, changes of chronic pancreatitis with calcifications and dilated pancreatic duct up to 8 mm.
#Coffee-ground emesis-- s/p EGD on 02/09
-hemoglobin stable
-'coffee-grounds' does not represent blood, medication side-effect
-biopsies from EGD pending, f/u as outpatient
#Abnormal CT -findings consistent with chronic pancreatitis, numerous calcifications and dilated PD up to 8 mm. Denies heavy EtoOH; possibly due to ESRD. No sx to suggest EPI.
#Constipation, proimnent recal stool burden w/ wall thickening and stranding c/f stercoral colitis.
-start miralax daily
-suppositories, prn
GI will sign off. Recommend outpatient f/u with GI, will place our office contact information in patient's discharge paperwork.
Subjective
Subjective
Date of Service: February 11, 2024
Patient seen at the bedside, offers no complaints today she underwent EGD yesterday for reports of coffee-ground emesis, she had diffuse moderate mucosal changes characterized by sloughing in the entire esophagus, there was brown to black material
adherent, this did not represent blood but presumed to be from a medication such as iron. There are some gastritis as well, biopsies were taken. The duodenum appeared normal. These findings were discussed at bedside with the patient. Hemoglobin
10.9 today.
Objective
Data Reviewed
Laboratory Data:
Laboratory Results
02/11/24 08:32
02/11/24 08:32
Laboratory Results
PT 14.5 Sec (11.4-14.6) 02/09/24 09:46
INR 1.12 02/09/24 09:46
APTT 33.9 Sec (23.4-35.0) 02/09/24 09:46
Total Bilirubin 0.3 mg/dl (0.2-1.3) 02/09/24 09:46
AST 26 U/L (14-36) 02/09/24 09:46
ALT 30 U/L (0-35) 02/09/24 09:46
Alkaline Phosphatase 92 U/L (38-126) 02/09/24 09:46
Vital Signs and I&O:
Vital Signs
Temp Pulse Resp BP Pulse Ox
98.1 F 64 17 137/53 100
02/11/24 07:45 02/11/24 07:45 02/11/24 07:45 02/11/24 07:45 02/11/24 07:45
I&O
02/10/24 02/11/24 02/12/24
06:59 06:59 06:59
Intake Total 120 / 120
Balance 120 / 120
Physical Exam
Physical Exam
General: Well Developed, Well Nourished and No Apparent Distress
GI: Soft, mildly tender to palpation, diffusely, no rebound or guarding. +BS
[2024-02-11 11:54] LABS: Glucose - Point of Care 175 mg/dl (70-99)
[2024-02-11] MEDS: FOSRENOL PO (13:04)
[2024-02-11] MEDS: PHOSLO PO (13:04)
--- NOTE | 2024-02-11 13:08 | CM ---
internet marketing manager reviewed patient's chart and met with patient and spoke with Beulah Renee [phone], in admissions at [facility] and plan is for patient to return to [facility] today after HD, 6pm pickup driver, by ambulance as patient requires max assist
of 2, total care. All clinicals faxed to admissions at [facility].
[facility]
Report [phone]

Plan; Patient to return to [facility], [place] today.
--- NOTE | 2024-02-11 13:08 | W.DS.TRANS ---
DC Summary - Dot Etcher
-
Discharge Instructions:
Discharge Diagnosis/Procedures Upper GI hemorrhage
Gastritis
Diet Diabetic, Carb Controlled
Instructions:
Stand-Alone Forms:
Changes to Home Medications: No
Discharge Medications:
DC Medications w/original date entered in [employer]
atorvastatin 10 mg tablet 10 mg PO QPM High cholesterol 06/28/22
bisacodyl 10 mg rectal suppository 10 mg NM DAILYPRN PRN if MOM ineffective 06/28/22
carvedilol 25 mg tablet 25 mg PO BID Heart disease/condition 06/28/22
cyclobenzaprine 10 mg tablet 10 mg PO Q8HPRN PRN chronic pain 06/28/22
ferrous sulfate 325 mg (65 mg iron) tablet 325 mg PO DAILY Supplement 06/28/22
lanthanum 1,000 mg chewable tablet 1,000 mg PO MEALS Kidney Disease 06/28/22
losartan 50 mg tablet 75 mg PO HS Blood pressure 06/28/22
omeprazole 20 mg capsule,delayed release 20 mg PO DAILY Gastrointestinal issue 06/28/22
ketorolac 0.5 % eye drops 2 drp BOTH EYES DAILYPRN PRN retinopathy 07/20/22
acetaminophen 325 mg tablet 650 mg PO Q6HPRN PRN temp>100.5 09/16/22
quetiapine 25 mg tablet (Seroquel) 25 mg PO Q12H Mental Health/Anxiety 09/16/22
sorbitol 70 % solution 30 ml PO DAILYPRN PRN constipation 09/16/22
aspirin 81 mg tablet,delayed release 81 mg PO DAILY Blood Clot Prevention/Tx 12/16/22
hydralazine 50 mg tablet 50 mg PO TID Blood Pressure 12/16/22
calcium acetate 667 mg tablet 667 mg PO AC Supplement 01/04/23
gabapentin 300 mg capsule 300 mg PO HS Neurological Condition 01/04/23
loperamide 2 mg capsule (Imodium A-D) 2 mg PO Q6HPRN PRN watery stool 01/04/23
acetaminophen 325 mg tablet 650 mg PO Q8HPRN PRN mild pain 01/16/23
gabapentin 300 mg capsule 300 mg PO DAILYPRN PRN neuropathic pain 01/16/23
insulin glargine 100 unit/mL (3 mL) subcutaneous pen (Lantus Solostar U-100 Insulin) 6 unit SC HS 09/01/23
sertraline 50 mg tablet 50 mg PO HS 09/01/23
insulin lispro 100 unit/mL subcutaneous pen (Humalog KwikPen (U-100) Insulin) 2 unit SC DAILY 12/25/23
insulin lispro 200 unit/mL (3 mL) subcutaneous pen (Humalog KwikPen U-200 Insulin) 0 - 6 sliding scale dose SC AC 01/26/24
isosorbide mononitrate 30 mg tablet,extended release 24 hr 30 mg PO DAILY 01/26/24
lidocaine 5 % topical cream 1 applic topical BID 01/26/24
sertraline 25 mg tablet 25 mg PO HS 01/26/24
vitamin B comp no.3-folic acid 1 mg-vit C 60 mg-biotin 300 mcg tablet 1 tab PO DAILY 02/09/24
clonazepam 0.5 mg tablet (Klonopin) 0.5 mg PO BID #6 tabs 02/11/24
fentanyl 12 mcg/hr transdermal patch 1 patch transdermal Q72H #2 ea 02/11/24
oxycodone 10 mg tablet 10 mg PO Q8HPRN PRN moderate pain #5 tabs 02/11/24
Home Medication Changes
Pending Results: No
[2024-02-11] MEDS: RETACRIT 10000 UNITS IV (13:19)
[2024-02-11] MEDS: NOVOLOG FLEXPEN-LOW RESISTANCE 1 UNITS SC (13:23)
--- NOTE | 2024-02-11 14:00 | W.PN.NEPH.HD ---
Assessment
-
Patient seen on HD
sbp 146 at current u/f
Progress Note - Hemodialysis
-
Date of Service: February 11, 2024
Duration: 30 minutes and 3 hours
Potassium Bath: 3
Calcium Bath: 2.5
Opti-Dialyzer: 160
Ultrafiltration: Other (1.5kg)
Blood Flow: 400
Dialysate Flow: 600
Heparin: none
EPO: 10K epo
[2024-02-11] MEDS: FLEXBUMIN 25% FOR HEMODIALYSIS 12.5 GRAMS IV (15:10)
[2024-02-11 15:32] VITALS: BP 113/63
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
[2024-02-11 16:58] LABS: Glucose - Point of Care 97 mg/dl (70-99)
[2024-02-11] MEDS: COREG PO (17:02)
[2024-02-11] MEDS: APRESOLINE PO (17:02)
[2024-02-11] MEDS: LIPITOR 10 MG PO (17:03)
[2024-02-11] MEDS: IMDUR (EXTENDED RELEASE) 30 MG PO (17:03)
[2024-02-11] MEDS: APRESOLINE 50 MG PO (17:03)
[2024-02-11] MEDS: TYLENOL 650 MG PO (17:03)
--- NOTE | 2024-02-11 18:30 | PTCARENOTE ---
Midline removed by IV team. Dressing CDI
--- NOTE | 2024-02-11 18:41 | PTCARENOTE ---
Report called in to [facility]. IV team contacted to remove LUE midline.
--- NOTE | 2024-02-16 14:34 | PN.CDI ---
CDI
- -
CDI:
Physician Documentation Request
Admit Date: 02/09/24 14:23
Dear Doctor Garfield,
Clinical Indicators:
The diagnosis of esophageal ulceration was included in the signed pathology report.
02/09 PN, 'EGD 02/09 with mucosal changes in the esophagus, gastritis, normal duodenum'
02/09 Pathology Report, 'Esophagus biopsy: Ulceration with reactive epithelial atypia (no malignancy identified)'
Please indicate in your progress notes if you are in agreement that the above diagnosis is valid for this patient:
Esophageal ulcer is a valid diagnosis
Esophageal ulcer is not a valid diagnosis for this patient
Other, please specify
Use of terms such as suspected, likely, concern for, or probable are acceptable for a diagnosis that is being evaluated, monitored or treated as if it exists and can be coded in the inpatient setting, when documented at the time of discharge.
Thank you,
Negra Pineda RN BSN
CDI Specialist
available via tiger text
Please use your independent medical judgment in providing your response.
== END 2024-02-11 19:32 | DRG 391 ==
LOC: 4 WEST ACU 14:23
PROVIDERS: Internal Medicine; ADMITTING PHYSICIAN Internal Medicine; CONSULT PHYSICIAN Internal Medicine Gastroenterology; CONSULT PHYSICIAN Specialist; EMERGENCY PHYSICIAN Emergency Medicine; FAMILY PHYSICIAN Internal Medicine
PROC: 5A1D70Z Performance of Urinary Filtration, Intermittent, Less than 6 Hours Per Day (ICD-10-PCS; 2024-02-10)
PROC: 0DB58ZX Excision of Esophagus, Via Natural or Artificial Opening Endoscopic, Diagnostic (ICD-10-PCS; 2024-02-10)
DX: K29.70 Gastritis, unspecified, without bleeding (principal); N18.6 End stage renal disease; F11.20 Opioid dependence, uncomplicated; K86.1 Other chronic pancreatitis; N25.81 Secondary hyperparathyroidism of renal origin; I12.0 Hypertensive chronic kidney disease with stage 5 chronic kidney disease or end stage renal disease; T45.4X5A Adverse effect of iron and its compounds, initial encounter; E11.22 Type 2 diabetes mellitus with diabetic chronic kidney disease; G89.4 Chronic pain syndrome; K59.09 Other constipation; K21.9 Gastro-esophageal reflux disease without esophagitis; E11.42 Type 2 diabetes mellitus with diabetic polyneuropathy; E11.51 Type 2 diabetes mellitus with diabetic peripheral angiopathy without gangrene; E11.649 Type 2 diabetes mellitus with hypoglycemia without coma; D63.1 Anemia in chronic kidney disease; E11.319 Type 2 diabetes mellitus with unspecified diabetic retinopathy without macular edema; H54.62 Unqualified visual loss, left eye, normal vision right eye; E78.00 Pure hypercholesterolemia, unspecified; E83.39 Other disorders of phosphorus metabolism; F41.9 Anxiety disorder, unspecified; F31.9 Bipolar disorder, unspecified; I25.10 Atherosclerotic heart disease of native coronary artery without angina pectoris; Z99.2 Dependence on renal dialysis; Z98.62 Peripheral vascular angioplasty status; Z89.421 Acquired absence of other right toe(s); Z89.412 Acquired absence of left great toe; Z89.411 Acquired absence of right great toe; Z79.899 Other long term (current) drug therapy; Z79.82 Long term (current) use of aspirin; Z79.4 Long term (current) use of insulin; Z89.422 Acquired absence of other left toe(s); Z87.891 Personal history of nicotine dependence; Z88.8 Allergy status to other drugs, medicaments and biological substances; Z86.19 Personal history of other infectious and parasitic diseases
CPT/HCPCS: 88305; 88312; 74018; 74176; 80048; 80053; 82962; 85018; 85025; 85610; 85730; 86850; 86900; 86901; 87070; 88342; 92610; 96374; 96375; 99285; G0257; P9047; Q5106

== ENCOUNTER 2024-05-14 14:24 | Inpatient (IN) | payer MEDICARE, OTHER, SELFPAY ==
[2024-05-14] VITALS (16 sets, daily range): BP systolic 101–184; BP diastolic 56–94
[2024-05-14 09:31] LABS: Glucose - Point of Care 118 mg/dl (70-99)
--- NOTE | 2024-05-14 09:34 | ED.GENMED ---
History of Present Illness
General
Chief Complaint: CVA/TIA Symptoms
Source: ambulance crew and [facility]
Exam Limitations: non verbal-adult
Time Seen by Provider: 05/14/24 09:31
Nursing documentation reviewed up to this point in time: agreed with
History of Present Illness
History of Present Illness:
The patient is a 63-year-old female who arrives from [facility] for an acute mental status change. Reportedly according to [facility] staff that arrived at 7 AM, it was reported that patient was found to be hypoglycemic in the 40s at
around 6 AM and given a shot of glucagon. When [facility] staff arrived at 7 AM and reassessed the patient, she was found to be unresponsive and 911 was called. [facility] staff reports that the patient is generally conversational and generally
alert and oriented x 3 at baseline. They report that she has a history of upper extremity contractures. They report that at times she can be confused and agitated but is generally fully awake and speaking. It is unclear what her mental status was
throughout the night last night. The patient appears to have a rightward gaze, is leaning towards the left side, and is groaning on arrival to the ED. The patient has no known history of seizure disorder. Stroke alert called on arrival. Patient
has a known history of cerebral infarct, end-stage renal disease on hemodialysis, insulin-dependent diabetes, schizoaffective disorder, chronic pain and opioid dependence. Patient arrives with a fentanyl patch.
Past History
Past History
ED Past Medical History: HTN, IDDM, Renal failure (Dialysis Wednesday, Wednesday, Wednesday started two weeks ago.), Valvular disease, Psychiatric (Schizoaffective disorder, anxiety, depression) and Other (Blind left eye)
ED Past Surgical History: Orthopedic (amp R great toe 1 year ago, L great toe 2 months ago, Right Great toe and second toe amputation. Left Great toe, second, third and fourth toe amputation, R ankle surgery. Uriel in L and R leg, R hip surgery, )
Social History
Tobacco: Former smoker
Alcohol: None
Drug: None
Personal:
Living: penitentiary
Employment: Not employed
Family History
Family History: Other (Noncontributory)
Review of Systems
Review of Systems
Allergies reviewed?: Yes
Unable to obtain full review of systems at this time due to: non-verbal
Other source history: penitentiary and ambulance crew
All Other Systems: Not applicable
Phy Exam
Physical Exam
Physical Exam:
Physical Exam
General: Chronically ill-appearing. Rightward gaze. Falling towards the left. Groaning and drooling
Neck: supple. Tongue out. Moist mucous membrane
Heart: s1/s2 regular rate and rhythm,
Lungs: no acute respiratory distress. clear bilaterally
Abdomen: Soft, nondistended
Neuro: Unresponsive to voice, touch and pain. Rightward gaze. Falling towards the left. Upper extremities and contractures. Does not follow any simple commands. Nonverbal
Skin: no rash
Psychiatric: well kept.
Extremities: no edema.
Scores
NIH Stroke Score
Level of Consciousness: 1 - Arousable
LOC Questions: 2-Neither correct
LOC Commands: 2-Performs neither correctly
Best Horizontal Gaze: 0-Normal
Visual Pratt: 0=Normal, no visual loss
Facial Palsy: 0=Normal, symmetrical
Motor - Right Arm: 3=None vs. gravity
Motor - Left Arm: 3=None vs. gravity
Motor - Right Le-None vs. gravity
Motor - Left Le-None vs. gravity
Limb Ataxia: 0-Absent
Sensation: 0-Normal
Best Language: 3-Mute/global aphasia
Dysarthria: 0-Normal
Extinction and Inattention: 0-No abnormality
Total Score:: 20
Course
Orders/Labs/Results
Orders:
Orders
05/14/24
Electrocardiogram (*1) Stat
Reason for Study: Chest Pain
Comment: DONE NO ORDER ENTERED
05/14/24 09:31
CT HEAD STROKE ALERT W/o Cont Urgent
Comment:
Reason For Exam: MS change, gaze, aphasia
05/14/24 10:07
Add On- LAB Urgent
Tests Added?: depakote
05/14/24 10:14
Complete Blood Count/With Diff Urgent
Erythrocyte Sed Rate Urgent
Comment: ESR ADDED ON BY FLOOR 11A 05-14-24
05/14/24 10:39
CR Chest Portable - 1 View Urgent
Comment:
Reason For Exam: MS change
Reason Study Needs to be Portable: Patient Unstable
05/14/24 10:42
Comprehensive Metabolic Panel Urgent
Creatine Phosphokinase Urgent
Comment: TSH REFLEX,FERRITIN,FOLATE,B12,CPK ADDED ON BY FLOOR 11A 05-14-24
Depakane Urgent
Ferritin Urgent
Folate Urgent
TSH Reflex To Free T4 Urgent
Vitamin B12 Urgent
05/14/24 10:56
Add On- LAB Routine
Comments:: Please add to today's labs or draw as routine
Tests Added?: TSH reflex, Ferritin, Folate, Vit. B12, ESR, CPK
Abnormal Lab Results
05/14/24 05/14/24 05/14/24
09:29 10:14 10:42
WBC 10.9 H 10^3/uL
(4.8-10.8)
MCHC 31.8 L g/dL
(33.0-37.0)
RDW 15.3 H %
(11.5-14.5)
Abs Immat Gran (auto) 0.1 H 10^3/uL
(0-0.05)
Absolute Neuts (auto) 9.7 H 10^3/uL
(1.4-6.5)
Absolute Lymphs (auto) 0.9 L 10^3/uL
(1.2-3.4)
Neutrophils % 89.0 H %
(42.2-75.2)
Lymphocytes % 7.8 L %
(20.5-51.1)
ESR 22 H mm/hour
(0-20)
BUN 31 H mg/dl
(7-17)
Creatinine 3.1 H mg/dL
(0.6-1.0)
Glucose 126 H mg/dl
(70-99)
Alkaline Phosphatase 129 H U/L
(38-126)
Valproic Acid 22.0 L ug/ml
(50.0-120.0)
POC Glucose 118 H mg/dl
(70-99)
05/14/24 10:14
05/14/24 10:42
Vital Signs
Initial and Last Documented VS:
Initial Vital Signs
Temp Pulse Resp BP Pulse Ox
97.4 F 70 16 101/56 100
05/14/24 09:41 05/14/24 09:41 05/14/24 09:41 05/14/24 09:41 05/14/24 09:41
Last Documented Vital Signs
Temp Pulse Resp BP Pulse Ox
97.4 F 74 16 173/94 98
05/14/24 09:41 05/14/24 11:00 05/14/24 11:04 05/14/24 11:00 05/14/24 11:04
MDM/Problems Addressed
Differential Diagnosis Includes:
Acute intracranial hemorrhage, acute intracranial infarct, seizure, postictal state, hyponatremia, hypoglycemia
MDM/Problems Addressed:
Patient arrives nonverbal acutely, with any acute mental status change
Chronic conditions affecting care:
Given patient has a history of renal disease, she is at increased risk of metabolic abnormalities
Chronic conditions affecting care: Kidney disease
Acute Exacerbation and/or Progression of Chronic Illness:
Patient may have acute metabolic abnormalities related to chronic renal disease
*Radiology
Radiology exam reviewed: preliminary read by ED provider (Chest x-ray read by me. No acute disease) and radiology read reviewed
*Pulse Oximetry
Patient hypoxic: no
*EKG
Interpreted by ED Provider?: Yes
Interpretation: abnormal
Comparison EKG: no changes
Rate: normal
Rhythm: sinus
[place]: normal axis
Interval: normal interval
QRS Pattern: normal QRS
Ischemia: non-specific ST changes
*[place] Interpretation
Rate: normal
Interpretation: normal
Rhythm: sinus
*Critical Care Note
Total Time (30-74mins, 75-104mins- exclusive of procedures): 45 minutes of critical ca
comment:
45 minutes of critical care given to the patient including frequent reassessments of her neurological status, speaking to neurology, radiology, the hospitalist as well as reviewing her prior medical records and speaking to her daughter and nursing
home staff over the phone
Data Reviewed
Review of Other/Old Records Reveals: Radiology Studies (MRI brain reviewed from 2022 which shows old infarct)
Source: records and ambulance crew
Patient Management
Discussion with other providers: Hospitalist and Other (Neurologist, Dr. Zarate. Patient is not a candidate for any intervention)
Escalation/DeEscalation of care consider admission/obs:
Due to patient's ongoing mental status change and possible stroke, she will be admitted to the hospital for further workup.
Update Note
Update Note:
11:50 AM patient is still nonverbal and noninteractive. I did call and speak to the patient's daughter, Hyacinth, over the phone to give her an update. I did explain to her that her mother is not speaking or responding. I told her I am worried
about a possible stroke. Patient's daughter told me that she will try to come to see her in the hospital today.
Given symptoms occurred at an unknown time, patient is not a thrombolytic candidate. I do not see any specific metabolic abnormalities at this time that would explain this acute mental status. There are no obvious signs of infection such as
pneumonia.
ED Attending Note
-
Portions of this chart may have been created with voice recognition software.� Occasional wrong word or��sound alike� substitutions may have occurred due to the inherent limitations of voice recognition software.
Discharge Plan
Departure
Patient Disposition: Admit
Date of Disposition: 05/14/24
Time of Disposition: 11:07
Admit to: Telemetry
Presentation/result/management discussed w/ accepting MD/DO: Hospitalist
Patient with high blood pressure during this ER visit?: No
Condition: Critical
Covid-19: Not Applicable
Discharge Problem:
Acute alteration in mental status, acute aphasia
Prescriptions:
No Action
losartan 50 mg Tablet
75 mg PO HS
cyclobenzaprine 10 mg Tablet
10 mg PO Q8HPRN PRN (Reason: chronic pain)
carvedilol 25 mg Tablet
25 mg PO BID
Rx Instructions:
09/01/2023, hold for SBP<110.
atorvastatin 10 mg Tablet
10 mg PO QPM
bisacodyl 10 mg Suppository
10 mg IA DAILYPRN PRN (Reason: if MOM ineffective)
ferrous sulfate 325 mg (65 mg iron) Tablet
325 mg PO DAILY
omeprazole 20 mg Capsule,Delayed Release(Dr/Ec)
20 mg PO DAILY
lanthanum 1,000 mg Tablet,Chewable
1,000 mg PO MEALS
ketorolac 0.5 % Drops
2 drp BOTH EYES DAILYPRN PRN (Reason: retinopathy)
quetiapine [Seroquel] 25 mg Tablet
25 mg PO Q12H
sorbitol 70 % Solution
30 ml PO DAILYPRN PRN (Reason: constipation)
acetaminophen 325 mg tablet
650 mg PO Q6HPRN PRN (Reason: temp>100.5)
aspirin 81 mg tablet,delayed release (DR/EC)
81 mg PO DAILY
hydralazine 50 mg tablet
50 mg PO TID
loperamide [Imodium A-D] 2 mg Capsule
2 mg PO Q6HPRN MDD 4 caps/24hrs PRN (Reason: watery stool)
gabapentin 300 mg Capsule
300 mg PO HS
calcium acetate 667 mg Tablet
667 mg PO AC
acetaminophen 325 mg Tablet
650 mg PO Q8HPRN PRN (Reason: mild pain)
gabapentin 300 mg Capsule
300 mg PO DAILYPRN PRN (Reason: neuropathic pain)
Rx Instructions:
09/01/2023, at least 8 hrs apart from standing dose.
sertraline 50 mg Tablet
50 mg PO HS
insulin glargine [Lantus Solostar U-100 Insulin] 100 unit/mL (3 mL) Insulin Pen
6 unit SC HS
insulin lispro [Humalog KwikPen Insulin] 100 unit/mL Insulin Pen
2 unit SC DAILY
lidocaine 5 % Cream
1 applic TOPICAL BID
isosorbide mononitrate 30 mg tablet extended release 24 hr
30 mg PO DAILY
sertraline 25 mg tablet
25 mg PO HS
Rx Instructions:
taken w/ 50mg = 75mg
Humalog KwikPen Insulin 200 unit/mL (3 mL) insulin pen
0 - 6 sliding scale dose SC AC
Rx Instructions:
if 0-150= 0; 151-200= 2; 201-250= 3; 251-300= 4; 301-350= 5; 351-400= 6
vit B comp no.1-vpyaq-I-biotin 1-60-300 mg-mg-mcg Tablet
1 tab PO DAILY
clonazepam [Klonopin] 0.5 mg Tablet
0.5 mg PO BID Qty: 6 0RF
fentanyl 12 mcg/hr Patch 72 Hour
1 patch TRANSDERMAL Q72H Qty: 2 0RF
oxycodone 10 mg tablet
10 mg PO Q8HPRN PRN (Reason: moderate pain) Qty: 5 0RF
Referrals:
Gerardo Perez, DO [Family Provider] -
Interventions
Interventions:
*Risk Screen - Suicide Last Done: 05/14/24 09:47
*General Assessment Last Done: 05/14/24 09:46
*Neglect/Abuse Screening Last Done: 05/14/24 09:47
*ED COVID-19 Vaccine History Last Done: 05/14/24 09:46
ED- Pulmonary Assessment Last Done: 05/14/24 09:50
ED- Neurological Assessment Last Done: 05/14/24 09:50
ED- Cardiac Assessment Last Done: 05/14/24 09:49
ED Swallowing Screen Last Done: 05/14/24 09:49
Discharge Date and Time
Print Language: ROMANIAN
--- NOTE | 2024-05-14 09:34 | CON.NEURO ---
Neuro Assessment/Plan
Assessment
Acute onset change of mental status, recurrent, again with low BG as precursor
DDX toxic metabolic encephalopathy, neuroleptic malignant syndrome
Plan
check blood work for potential causes
Continue patient's usual fentanyl patches due to risk of worsening mentation with discontinuance suddenly
Check for fecal impaction
Goal of normoglycemia
Continue aspirin
Will follow pending results
Consultation
Order
Date of Consultation: 05/14/24
Requesting Provider: Emergency Department Physician
Reason for Consult: Stroke Alert
Subjective/Objective
Subjective Data
Date of Service: May 14, 2024
Adapted from my colleague's service consultation note:
'DATE/TIME OF CONSULTATION: 12/16/22
Reason for Consultation: Weakness, dysarthria
This is a 61-year-old female with a PMH of ESRD on HD MWF, IDDM, PAD, HTN, HLD, schizophrenia, chronic opioid dependence, and chronic left eye blindness who has presented to the hospital from [facility] with report of worsening mental status and
left-sided weakness. She was just hospitalized here from 12/12/22 to 12/15/22 and was evaluated by our service at that time.
From my previous encounter on 12/14/22:
'This is a 61-year-old female with a PMH of ESRD on HD MWF, IDDM, PAD, HTN, HLD, schizophrenia, chronic opioid dependence, and chronic left eye blindness who has presented to the hospital from [facility] on 12/12/22 after being found on the ground
by her bed by [facility] staff. Her blood sugar was checked and was 25. EMS arrived and administered 2mg of glucagon, and in the ER her blood sugar was 48. Temperature in the ER was 91.5F and she was noted to have a left corneal laceration. CT
head in the ER was negative for any acute abnormality. Despite an improvement in her metabolic derangements, she has been noted to have slurred speech, which is new, prompting Neurology consult. Currently, the patient is lethargic, tearful, and
confused. Initially when asked about her speech she said her speech is always like this and that 'she is dying.' When asked again later in the conversation about her speech she reported that it is currently abnormal but it 'will get better.' Per
[facility] staff, this is not abnormal for the patient but her daughter reports this is not how the patient usually sounds. She denies any headache, dizziness, numbness, chest pain, palpitations, or shortness of breath. She reports generalized
weakness, fatigue, eye discomfort and difficulty seeing out of her left eye due to pain. She denies any history of stroke or TIA.'
Patient was very uncooperative with neurological exam and also refused MRI brain during her recent admission, and was discharged back to her NH on her usual aspirin 81mg daily. Since 12/15/22 at her NH, patient has continued to decline and NH staff
report that she hasn't been able to feed herself, walk, or take care of her ADL's as she usually does. Her speech continues to be dysarthric and she is now having difficulty swallowing, prompting NH staff to send her back to the ER for evaluation.
The patient is a poor historian. She reports that she has been in a wheelchair for three months not due to difficulty walking, although nursing staff reports that she is able to walk at baseline. The patient does endorse difficulty getting her words
out, which she reports started a few hours ago. Otherwise, she feels like her normal self. She denies any headache, dizziness, new vision changes, swallowing difficulty, numbness, weakness, chest pain, palpitations, and shortness of breath. At
baseline, she is blind in her left eye and has very low vision in her right eye. The patient is cooperative with examination currently, and is now agreeable to having MRI brain.'
At that time, the patient was described as being able to be oriented to herself, place, and month. The patient was able to follow some requests. At that last evaluation, the patient was described as having an MRI of the brain which did not
demonstrate acute ischemic lesions and instead the patient was described as experiencing a series of symptoms.
~~~~
Today, May 14, 2024, the patient was returned to this hospital's emergency department due to acute change in mental status. The patient again was found at her nursing care facility, an hour and a half prior to the stroke alert initiation, to
have a blood glucose which was low (40). The patient herself is unable to provide her own medical history. Because of worsening aphasia, this consultation was placed and a stroke alert was initiated.
Objective Data
Patient Allergies
metformin Allergy (Verified 01/26/24 19:09)
Diarrhea
CVA Assessment
Onset of Stroke Symptoms
Onset of symptoms known: No
Date of onset of symptoms: 05/14/24
Time of onset of symptoms: 07:00
Time pt last seen normal is known: No
Date last time pt seen normal: 05/13/24
NIH Stroke Score
Level of Consciousness: 1 - Arousable
LOC Questions: 2-Neither correct
LOC Commands: 2-Performs neither correctly
Best Horizontal Gaze: 0-Normal
Visual Pratt: 0=Normal, no visual loss (Unable to assess fully)
Facial Palsy: 0=Normal, symmetrical
Motor - Right Arm: 3=None vs. gravity
Motor - Left Arm: 3=None vs. gravity
Motor - Right Le-None vs. gravity
Motor - Left Le-None vs. gravity
Limb Ataxia: 0-Absent
Explanation of untestable limb ataxia: Unable to cooperate with testing
Sensation: 0-Normal
Best Language: 3-Mute/global aphasia
Dysarthria: 0-Normal
Extinction and Inattention: 0-No abnormality
Total Score:: 20
Tenecteplase Contraindications
Inclusion and Exclusion criteria reviewed: Yes
IAT Contraindications: Baseline mRS greater than or equal to 3 by history
Review of Systems
-
Unable to obtain full review of systems at this time due to: Aphasia
History Source: Patient
All other systems: Reviewed and negative
Physical Exam
-
General: Appears in Distress, Appears Chronically Ill and Older than Stated Age
Eyes: Unable to Visualize OS (Absent pupil) and Other; Negative Able to visualize OU
HEENT: Atraumatic and Other (Extensive mass left orbit)
Neck: Full Range of Motion
Respiratory: No Dyspnea
Cardiac: No JVD
GI: Non-distended
Skin: Other (bilateral toe amputations)
Extremities: No Clubbing, No Cyanosis and No Edema
Psych: Unable to Assess
Extended Neurological Exam
Mood & Affect: Unable to Assess
Attention Span & Concentration: Awake, Unable to Perform 2 Step Request and Other (Does not follow single step requests, does track with eyes); Negative Alert or Interactive
Memory: Unable to Assess
Tremor: Hand Tremor Absent and Head Tremor Absent
Involuntary Movement: None
Speech: Mute and Other (Intermittent guttural noises which are interrupted by receiving speech)
Cranial Nerve II: Left Eye: No Vision and Other (chronic deformity CATY)
Cranial Nerve II: Right Eye: Pupillary Size Unremarkable and No Vision (very low vision); Negative Pupillary Reactivity Unremarkable (sluggish)
Cranial Nerves III, IV, : Extraocular Movement: Extraocular Movement Full in all Directions (right eye, unable to evaluate left eye)
Cranial Nerve V: Facial Sensation: Unable to Assess
Cranial Nerve VII: Facial Symmetry: Normal Facial Symmetry
Cranial Nerve VIII: Hearing: Unable to Assess
Cranial Nerves IX, X: Palate Movement: Unable to Assess
Cranial Nerve XI: Shoulder Shrug: Unable to Assess
Cranial Nerve XII: Tongue Protusion: Unable to Assess
Muscle Strength, Overall: Unable to Assess
Muscle Bulk & Tone: Increased Tone (Bilateral upper extremities with tonic posture, significantly increased tone in bilateral lower extremities)
Pronator Drift: Unable to Assess
Deep Tendon Reflexes: Trace Throughout
Cold Sensation: Unable to Assess
Vibration Sensation: Unable to Assess
Touch Sensation: Unable to Assess
Coordination: Unable to Assess ([id number] or [id number])
Babinski Sign: Absent Bilaterally
Gait & Station: Unable to Assess
Data Reviewed
-
CT Head: Report Reviewed and Image Reviewed
Labs: Report Reviewed
Reviewed with: Physician and Nurse
Old Records: Summarized
Medications
-
Home Medications
�Medication �Instructions �Recorded
atorvastatin 10 mg tablet 10 mg PO QPM High cholesterol 06/28/22
bisacodyl 10 mg rectal suppository 10 mg AK DAILYPRN PRN if MOM 06/28/22
ineffective
carvedilol 25 mg tablet 25 mg PO BID Heart 06/28/22
disease/condition
cyclobenzaprine 10 mg tablet 10 mg PO Q8HPRN PRN chronic pain 06/28/22
ferrous sulfate 325 mg (65 mg 325 mg PO DAILY Supplement 06/28/22
iron) tablet
lanthanum 1,000 mg chewable tablet 1,000 mg PO MEALS Kidney Disease 06/28/22
losartan 50 mg tablet 75 mg PO HS Blood pressure 06/28/22
omeprazole 20 mg capsule,delayed 20 mg PO DAILY Gastrointestinal 06/28/22
release issue
ketorolac 0.5 % eye drops 2 drp BOTH EYES DAILYPRN PRN 07/20/22
retinopathy
acetaminophen 325 mg tablet 650 mg PO Q6HPRN PRN temp>100.5 09/16/22
quetiapine 25 mg tablet (Seroquel) 25 mg PO Q12H Mental Health/Anxiety 09/16/22
sorbitol 70 % solution 30 ml PO DAILYPRN PRN constipation 09/16/22
aspirin 81 mg tablet,delayed 81 mg PO DAILY Blood Clot 12/16/22
release Prevention/Tx
hydralazine 50 mg tablet 50 mg PO TID Blood Pressure 12/16/22
calcium acetate 667 mg tablet 667 mg PO AC Supplement 01/04/23
gabapentin 300 mg capsule 300 mg PO HS Neurological Condition 01/04/23
loperamide 2 mg capsule (Imodium 2 mg PO Q6HPRN PRN watery stool 01/04/23
A-D)
acetaminophen 325 mg tablet 650 mg PO Q8HPRN PRN mild pain 01/16/23
gabapentin 300 mg capsule 300 mg PO DAILYPRN PRN neuropathic 01/16/23
pain
insulin glargine 100 unit/mL (3 6 unit SC HS 09/01/23
mL) subcutaneous pen (Lantus
Solostar U-100 Insulin)
sertraline 50 mg tablet 50 mg PO HS 09/01/23
insulin lispro 100 unit/mL 2 unit SC DAILY 12/25/23
subcutaneous pen (Humalog KwikPen
(U-100) Insulin)
insulin lispro 200 unit/mL (3 mL) 0 - 6 sliding scale dose SC AC 01/26/24
subcutaneous pen (Humalog KwikPen
U-200 Insulin)
isosorbide mononitrate 30 mg 30 mg PO DAILY 01/26/24
tablet,extended release 24 hr
lidocaine 5 % topical cream 1 applic topical BID 01/26/24
sertraline 25 mg tablet 25 mg PO HS 01/26/24
vitamin B comp no.3-folic acid 1 1 tab PO DAILY 02/09/24
mg-vit C 60 mg-biotin 300 mcg
tablet
clonazepam 0.5 mg tablet (Klonopin) 0.5 mg PO BID #6 tabs 02/11/24
fentanyl 12 mcg/hr transdermal 1 patch transdermal Q72H #2 ea 02/11/24
patch
oxycodone 10 mg tablet 10 mg PO Q8HPRN PRN moderate pain 02/11/24
#5 tabs
Past History
Past History
ED Past Medical History: CVA, HTN, IDDM, Renal failure (Dialysis Wednesday, Wednesday, Wednesday started two weeks ago.), Valvular disease and Other (Blind left eye)
ED Past Surgical History: Orthopedic (amp R great toe 1 year ago, L great toe 2 months ago, Right Great toe and second toe amputation. Left Great toe, second, third and fourth toe amputation, R ankle surgery. Uriel in L and R leg, R hip surgery, )
Social History
Tobacco: Former smoker
Alcohol: None
Drug: None
Personal:
Living: [facility]
Employment: Not employed
Family History
Family History: Other (Noncontributory)
[2024-05-14 10:21] LABS: % Basophils 0.2 % (0-2); % Immature Granulocytes 0.5 % (0-0.5); % Lymphocytes 7.8 % (20.5-51.1); % Monocytes 2.5 % (1.7-9.3); Absolute Immature Granulocytes 0.1 10^3/uL (0-0.05); Absolute Lymphocytes 0.9 10^3/uL (1.2-3.4); Absolute Monocytes 0.3 10^3/uL (0.1-0.6); Absolute Neutrophils 9.7 10^3/uL (1.4-6.5); Hematocrit 41.2 % (37.0-47.0); Hemoglobin 13.1 g/dL (12.0-16.0); Mean Corp Hgb Conc. 31.8 g/dL (33.0-37.0); Mean Corpuscular Hgb 28.9 pg (27.0-31.0); Mean Corpuscular Volume 90.9 fL (81.0-99.0); Mean Platelet Volume 9.9 fL (7.4-10.4); Nucleated Red Blood Cells % 0 %; Platelet Count 152 10^3/uL (130-400); Red Blood Cell Count 4.53 10^6/uL (4.20-5.40); Red Cell Dist. Width 15.3 % (11.5-14.5); White Blood Cell Count 10.9 10^3/uL (4.8-10.8)
[2024-05-14 11:06] LABS: ALT (SGPT) 21 U/L (0-35); AST (SGOT) 36 U/L (14-36); Albumin 3.8 g/dl (3.5-5.0); Alkaline Phosphatase 129 U/L (38-126); Blood Urea Nitrogen 31 mg/dl (7-17); Calcium 9.7 mg/dl (8.4-10.2); Carbon Dioxide 26 mmol/L (22-30); Chloride 101 mmol/L (98-107); Glucose 126 mg/dl (70-99); Potassium 4.1 mmol/L (3.5-5.1); Sodium 140 mmol/L (135-145); Total Bilirubin 0.5 mg/dl (0.2-1.3); Total Protein 7.3 g/dl (6.3-8.2); eGFR 16.08
[2024-05-14 11:21] LABS: Erythrocyte Sed Rate 22 mm/hour (0-20)
[2024-05-14 11:37] LABS: Creatine Phosphokinase 52 U/L (30-135)
[2024-05-14 12:19] LABS: TSH Reflex To Free T4 1.13 uIU/ml (0.47-4.68)
[2024-05-14 12:55] LABS: Folate > 20.0 ng/ml (2.76-20); Vitamin B12 939 pg/ml (239-931)
--- NOTE | 2024-05-14 13:23 | HPS.HSE ---
Family Physician
-
Family Physician: Gerardo Perez, DO
Chief Complaint
-
altered mental status
History of Present Illness
63-year-old female who is presenting from [facility] with altered mental status. Patient is nonverbal and not able to give any history. History was obtained after discussion with the ER physician and ER correspondence. Apparently
patient was noticed at around 6 AM she was hypoglycemic and received glucagon. And patient was reassessed patient was unresponsive. Per the retirement staff patient at baseline is generally conversational and AAOx3. Patient has bilateral upper
extremity chronic contractures. Does have intermittent episode of confusion and agitation. Patient upon admission had a stroke alert and was evaluated by neurology and patient underwent CT of the head. Currently patient is resting in bed and
moving her head but not following any commands and not tracking. Patient tongue looks prolonged but dry.
Medical History
Past Medical History
Past Medical History: Reports Other
Additional Past Medical History:
ESRD on hemodialysis
Diabetes melitis
CAD
Left eye blindness pain with neuropathy
Chronic constipation
Hyperlipidemia
Secondary hyperparathyroidism
Anxiety
GERD
Chronic opioid dependent on daily basis
Peripheral arterial disease with multiple toe amputation bilaterally
Anxiety/Mood disorder
?Schizoaffecitve disorder
Past Surgical History: Reports Other
Additional Past Surgical History:
(Recent left upper extremity AV fistula declotting)
Multiple toe amputations
Right great toe amputation 2022
Left great toe, second toe, third and fourth toe amputation
Right great and second toe amputation
Right ankle surgery
right femur fracture repair- Uriel placement right, left leg
Right hip surgery
Right upper extremity AV graft
Social History
Tobacco: Non-smoker
Living: Correction
Family History
Family History: Not pertinent
Allergies / Home Medications
Allergies reflects when Allergies were last updated in [employer].
Home Medications with original date entered in [employer]
Allergy/Medication List:
Allergies
Allergy/AdvReac Type Severity Reaction Status Date / Time
metformin Allergy Diarrhea Verified 01/26/24 19:09
Home Medications
atorvastatin 10 mg tablet 10 mg PO QPM High cholesterol 06/28/22
bisacodyl 10 mg rectal suppository 10 mg CA DAILYPRN PRN if MOM ineffective 06/28/22
carvedilol 25 mg tablet 25 mg PO BID Heart disease/condition 06/28/22
cyclobenzaprine 10 mg tablet 10 mg PO Q8HPRN PRN chronic pain 06/28/22
ferrous sulfate 325 mg (65 mg iron) tablet 325 mg PO DAILY Supplement 06/28/22
lanthanum 1,000 mg chewable tablet 1,000 mg PO MEALS Kidney Disease 06/28/22
losartan 50 mg tablet 75 mg PO HS Blood pressure 06/28/22
ketorolac 0.5 % eye drops 2 drp BOTH EYES DAILYPRN PRN retinopathy 07/20/22
acetaminophen 325 mg tablet 650 mg PO Q6HPRN PRN fever 09/16/22
quetiapine 25 mg tablet (Seroquel) 25 mg PO Q12H Mental Health/Anxiety 09/16/22
sorbitol 70 % solution 30 ml PO DAILYPRN PRN constipation 09/16/22
aspirin 81 mg tablet,delayed release 81 mg PO DAILY Blood Clot Prevention/Tx 12/16/22
hydralazine 50 mg tablet 50 mg PO TID Blood Pressure 12/16/22
calcium acetate 667 mg tablet 667 mg PO AC Supplement 01/04/23
gabapentin 300 mg capsule 300 mg PO HS Neurological Condition 01/04/23
loperamide 2 mg capsule (Imodium A-D) 2 mg PO Q6HPRN PRN watery stool 01/04/23
acetaminophen 325 mg tablet 650 mg PO Q8HPRN PRN mild pain 01/16/23
gabapentin 300 mg capsule 300 mg PO DAILYPRN PRN neuropathic pain 01/16/23
insulin glargine 100 unit/mL (3 mL) subcutaneous pen (Lantus Solostar U-100 Insulin) 5 unit SC HS 09/01/23
insulin lispro 200 unit/mL (3 mL) subcutaneous pen (Humalog KwikPen U-200 Insulin) 2 sliding scale dose SC AC 01/26/24
isosorbide mononitrate 30 mg tablet,extended release 24 hr 30 mg PO DAILY 01/26/24
lidocaine 5 % topical cream 1 applic topical BID 01/26/24
sertraline 25 mg tablet 75 mg PO HS 01/26/24
vitamin B comp no.3-folic acid 1 mg-vit C 60 mg-biotin 300 mcg tablet 1 tab PO DAILY 02/09/24
clonazepam 0.5 mg tablet (Klonopin) 0.5 mg PO BID #6 tabs 02/11/24
fentanyl 12 mcg/hr transdermal patch 1 patch transdermal Q72H #2 ea 02/11/24
oxycodone 10 mg tablet 10 mg PO Q8HPRN PRN moderate pain #5 tabs 02/11/24
Lorazepam Gel 1mg/Ml 1 applic topical Q6HPRN PRN anixety 05/14/24
divalproex 125 mg capsule,delayed release sprinkle (Depakote Sprinkles) 125 mg PO BID 05/14/24
guaifenesin 400 mg tablet 400 mg PO BID 05/14/24
pantoprazole 40 mg tablet,delayed release (Protonix) 40 mg PO BID 05/14/24
Review of Systems
-
Unable to obtain full review of systems at this time due to: Acuity
Physical Exam
Vital Signs
Vital Signs
Temp Pulse Resp BP Pulse Ox
97.4 F 76 15 167/81 100
05/14/24 09:41 05/14/24 13:00 05/14/24 13:00 05/14/24 13:00 05/14/24 13:00
Physical Exam
General: Appears Chronically Ill and Cachectic
HEENT: NormoCephalic, Atraumatic and Other (left eye lens discoloration. Macroglossia. Dry Mucous membranes)
Respiratory: Clear
Cardiac: S1/S2 and Regular Rhythm; No Murmur or Rub
GI: Soft, Non Tender, Non Distended and Normal Bowel Sounds; No Organomegaly
Rectal: Deferred by Provider
Genito-urinary: Deferred by me
Musculoskeletal: No Cyanosis, No Edema and Other (RUE AVF -mild bruit)
Skin: No Rash
Neuro: Awake and Other (B/L upper extremity contractures )
Psych: Confused
Laboratory Results
-
05/14/24 10:14
05/14/24 10:42
Laboratory Results
Total Bilirubin 0.5 mg/dl (0.2-1.3) 05/14/24 10:42
AST 36 U/L (14-36) 05/14/24 10:42
ALT 21 U/L (0-35) 05/14/24 10:42
Alkaline Phosphatase 129 U/L (38-126) H 05/14/24 10:42
Impression/Plan
-
#Toxic metabolic encephalopathy likely multifactorial ?uremia vs. infection vs. CVA vs. seizures vs. polypharmacy
-Stroke alert on admission
-CT head-negative for bleed
-hold flexeril, oxycodone, gabapentin, Klonopin, seroquel, depakene (no noted hx of seizures per prior records)
-Check MRI brain
-Check EEG in the morning
-Afebrile. If spikes fever, check blood culture.
-K wnl. BUN/Cr not severely elevated
-speech evaluation
-restart narcotics and benzos slowly once able to take p.o. meds.
-Neurology saw in ER.
#ESRD on dialysis Wednesday started dialysis
-Consult nephrology
-Follow BMP
#DM2/diabetic neuropathy
#Hx recurrent hypoglycemia
-Accu-Cheks with sliding scale. Hold lantus.
#HTN�benign
-Continue losartan once able to take p.o. meds
#CAD
-Continue with aspirin statin and Imdur once able to take p.o. meds
#PAD with multiple toe amputations bilaterally
#Chronic pain/chronic opiate dependence
-Continue with fentanyl patch but hold Flexeril, oxycodone and gabapentin for now
#Anxiety
Continue Zoloft once able to take p.o. meds. Restart Klonopin and Seroquel pending improvement in mentation
#Secondary hyperparathyroidism
#Left eye blindness/retinopathy
-Continue eyedrops
#HLD
-Continue statin once able to take p.o. meds
#Chronic constipation
-Continue with aggressive bowel regimen once able to take p.o. meds
DVT prophylaxis
SCDs/hep sc
Full code
called daughter on cell and home number. no response. left vm on cell phone.
Tried to call son but no response and number not going through
I spent a total of 80 minutes with the patient or on the floor. More than 50% of this time involved counseling and coordination of care.
--- NOTE | 2024-05-14 16:40 | W.CON.NEPH ---
Consultation
-
Date/Time Consultation Requested: 05/14/24 1405
Date/Time Consultation Performed: 05/14/24 1615
Requesting Provider: Zach Rausch
Performing Provider: Roseanna Carrillo
Reason for Consultation: ESRD
Medical History
-
Chief Complaint: AMS
History of Present Illness:
63-year-old female from [facility] where she has lived since 05/26/2022 with DM2 on insulin with microvascular complications neuropathy, retinopathy, nephropathy, bipolar disorder on zoloft, clonazepam, AV fistula right upper arm for
ESRD Wednesday started Jun 2022, HTN on carvedilol, Hydralazine, losartan, chronic pain on fentanyl patch, oxycodone, hyperphosphatemia on calcium acetate,lanthanum, extensive peripheral vascular disease and has undergone multiple
amputations of her right and left foot toes Who sent from senior living to the ER for altered mental status. Patient is very lethargic and unable to provide any history most of the history is opted for the chart and the nursing. Apparently patient
was noted to be hypoglycemic at 6 AM and received a glucagon on the reassessment patient was unresponsive. She typically is alert and oriented and speaks few words, contracted arms. upon admission had a stroke alert and was evaluated by neurology
and negative CT of the head. abdominal x-ray shows fecal impaction.
Past Medical History
1. ESRD.MWF
right UE AVG
2. Type 2 diabetes.
3. Peripheral arterial disease, CAD
4. Multiple microvascular complications including neuropathy and
retinopathy.
Left eye blindness
5. Right great toe amputation, left 4th toe amputation, right toe
amputation, left 2nd and 3rd amputation.
6. History of right hip fracture.
7. History of left foot diabetic ulceration.
8. History of right lower extremity angioplasty in September 2022.
9. History of right chest wall tunneled dialysis catheter.
10.History of MSSA bacteremia.
11.History of secondary hyperparathyroidism.
12.Hyperphosphatemia.
13.Anemia.
14.Hypertension.
Anxiety
Chronic opiate dependent
Anxiety, mood disorder
Chronic constipation
Past Surgical History: Other (Multiple toe amputations Right great toe amputation 2022 Left great toe, second toe, third and fourth toe amputation Right great and second toe amputation right ankle surgery right femur fracture repair- Uriel placement
right, left leg Right hip surgery Right upper extremity AV graft)
Social History
She resides at [facility]. 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 Longstanding lifelong tobacco abuse.
Tobacco: Former Smoker
Alcohol: None
Living: Senior Living
Family History
ESRD in her mother's brother.
Allergies / Home Medications
Allergy/AdvReac Type Severity Reaction Status Date / Time
metformin Allergy Diarrhea Verified 01/26/24 19:09
�Medication �Instructions �Recorded �Confirmed �Type
atorvastatin 10 mg tablet 10 mg PO QPM High cholesterol 06/28/22 05/14/24 History
bisacodyl 10 mg rectal suppository 10 mg NC DAILYPRN PRN if MOM 06/28/22 05/14/24 History
ineffective
carvedilol 25 mg tablet 25 mg PO BID Heart 06/28/22 05/14/24 History
disease/condition
cyclobenzaprine 10 mg tablet 10 mg PO Q8HPRN PRN chronic pain 06/28/22 05/14/24 History
ferrous sulfate 325 mg (65 mg 325 mg PO DAILY Supplement 06/28/22 05/14/24 History
iron) tablet
lanthanum 1,000 mg chewable tablet 1,000 mg PO MEALS Kidney Disease 06/28/22 05/14/24 History
losartan 50 mg tablet 75 mg PO HS Blood pressure 06/28/22 05/14/24 History
ketorolac 0.5 % eye drops 2 drp BOTH EYES DAILYPRN PRN 07/20/22 05/14/24 History
retinopathy
acetaminophen 325 mg tablet 650 mg PO Q6HPRN PRN fever 09/16/22 05/14/24 History
quetiapine 25 mg tablet (Seroquel) 25 mg PO Q12H Mental Health/Anxiety 09/16/22 05/14/24 History
sorbitol 70 % solution 30 ml PO DAILYPRN PRN constipation 09/16/22 05/14/24 History
aspirin 81 mg tablet,delayed 81 mg PO DAILY Blood Clot 12/16/22 05/14/24 History
release Prevention/Tx
hydralazine 50 mg tablet 50 mg PO TID Blood Pressure 12/16/22 05/14/24 History
calcium acetate 667 mg tablet 667 mg PO AC Supplement 01/04/23 05/14/24 History
gabapentin 300 mg capsule 300 mg PO HS Neurological Condition 01/04/23 05/14/24 History
loperamide 2 mg capsule (Imodium 2 mg PO Q6HPRN PRN watery stool 01/04/23 05/14/24 History
A-D)
acetaminophen 325 mg tablet 650 mg PO Q8HPRN PRN mild pain 01/16/23 05/14/24 History
gabapentin 300 mg capsule 300 mg PO DAILYPRN PRN neuropathic 01/16/23 05/14/24 History
pain
insulin glargine 100 unit/mL (3 5 unit SC HS 09/01/23 05/14/24 History
mL) subcutaneous pen (Lantus
Solostar U-100 Insulin)
insulin lispro 200 unit/mL (3 mL) 2 sliding scale dose SC AC 01/26/24 05/14/24 History
subcutaneous pen (Humalog KwikPen
U-200 Insulin)
isosorbide mononitrate 30 mg 30 mg PO DAILY 01/26/24 05/14/24 History
tablet,extended release 24 hr
lidocaine 5 % topical cream 1 applic topical BID 01/26/24 05/14/24 History
sertraline 25 mg tablet 75 mg PO HS 01/26/24 05/14/24 History
vitamin B comp no.3-folic acid 1 1 tab PO DAILY 02/09/24 05/14/24 History
mg-vit C 60 mg-biotin 300 mcg
tablet
clonazepam 0.5 mg tablet (Klonopin) 0.5 mg PO BID #6 tabs 02/11/24 05/14/24 Rx
fentanyl 12 mcg/hr transdermal 1 patch transdermal Q72H #2 ea 02/11/24 05/14/24 Rx
patch
oxycodone 10 mg tablet 10 mg PO Q8HPRN PRN moderate pain 02/11/24 05/14/24 Rx
#5 tabs
Lorazepam Gel 1mg/Ml 1 applic topical Q6HPRN PRN anixety 05/14/24 05/14/24 History
divalproex 125 mg capsule,delayed 125 mg PO BID 05/14/24 05/14/24 History
release sprinkle (Depakote
Sprinkles)
guaifenesin 400 mg tablet 400 mg PO BID 05/14/24 05/14/24 History
pantoprazole 40 mg tablet,delayed 40 mg PO BID 05/14/24 05/14/24 History
release (Protonix)
Review of Systems
-
unable to be opted patient is altered
Physical Exam
Vital Signs
Vital Signs
Temp Pulse Resp BP Pulse Ox
98.2 F 79 16 161/74 100
05/14/24 14:01 05/14/24 16:00 05/14/24 16:04 05/14/24 16:00 05/14/24 16:00
Lab Results
WBC 10.9 10^3/uL (4.8-10.8) H 05/14/24 10:14
RBC 4.53 10^6/uL (4.20-5.40) 05/14/24 10:14
Hgb 13.1 g/dL (12.0-16.0) 05/14/24 10:14
Hct 41.2 % (37.0-47.0) 05/14/24 10:14
Plt Count 152 10^3/uL (130-400) 05/14/24 10:14
Sodium 140 mmol/L (135-145) 05/14/24 10:42
Potassium 4.1 mmol/L (3.5-5.1) 05/14/24 10:42
Chloride 101 mmol/L (98-107) 05/14/24 10:42
Carbon Dioxide 26 mmol/L (22-30) 05/14/24 10:42
BUN 31 mg/dl (7-17) H 05/14/24 10:42
Creatinine 3.1 mg/dL (0.6-1.0) H 05/14/24 10:42
eGFR 16.08 05/14/24 10:42
Glucose 126 mg/dl (70-99) H 05/14/24 10:42
Calcium 9.7 mg/dl (8.4-10.2) 05/14/24 10:42
Albumin 3.8 g/dl (3.5-5.0) 05/14/24 10:42
abd xray:
IMPRESSION:
Constipation with rectal fecal impaction. Nonspecific bowel gas pattern without evidence of obstruction. No free air.
CXR:
IMPRESSION:
No acute disease of the chest.
Mild cardiomegaly. Stable
CT head:
IMPRESSION:
No acute intracranial pathology.
Increased prominence of the lateral ventricles out of proportion of the sulci. This can be seen with normal pressure hydrocephalus. New.
Moderate nonacute sinusitis. Improved
Physical Exam
General: Nontoxic and Other (Opens eye on verbal stimuli)
HEENT: Other ( right eye anicteric)
Respiratory: Rhonchi, Nonlabored Respirations and Other ( grunting noted)
Cardiac: S1/S2, Regular Rate/Rhythm and Other ( difficult to hear with upper airway noise)
Breast: Deferred by me
Abdomen: Soft and Nontender
Musculoskeletal: No Edema
Skin: No Rash
Neuro: Other ( not responsive)
Psych: Other ( unable to assess)
Data Reviewed
-
Labs: Labs Reviewed by me and Discussed with Nurse
Assessment/Plan
-
IMP:
AMS
ESRD on dialysis Wednesday
Diabetes mellitus with multiple microvascular complications including advanced retinopathy, peripheral neuropathy, nephropathy
Fecal impaction noted an abdominal x-ray
Chronic pain/chronic opiate dependence
HTN
CAD
PAD with multiple toe amputations bilaterally
Chronic pain/chronic opiate dependence
GERD
Anxiety
Secondary hyperparathyroidism
Left eye blindness/retinopathy
HLD
Chronic constipation
Secondary hyperparathyroidism
Anemia
h/o GIB in Feb 2024
Plan:
A/w AMS-neuro follows
Metabolic parametrial are acceptable
Plan history tomorrow per schedule
holding medications for nothing by mouth status
Okay for gentle hydration if needed
blood pressures are stable
[2024-05-14] MEDS: HEPARIN 5000 UNITS SC (20:49)
[2024-05-14] MEDS: NSS 1000 IV (20:49)
[2024-05-14] MEDS: PEPCID 20 MG IV (22:21)
[2024-05-14] MEDS: NSS (PRESERVATIVE FREE) 8 ML IV (22:22)
[2024-05-15] VITALS (15 sets, daily range): BP systolic 138–177; BP diastolic 74–114; BMI 14.2; BMI 17.9
[2024-05-15 06:29] LABS: % Basophils 0.3 % (0-2); % Immature Granulocytes 0.5 % (0-0.5); % Monocytes 5.2 % (1.7-9.3); Absolute Immature Granulocytes 0.1 10^3/uL (0-0.05); Absolute Lymphocytes 1.3 10^3/uL (1.2-3.4); Absolute Monocytes 0.5 10^3/uL (0.1-0.6); Absolute Neutrophils 8.3 10^3/uL (1.4-6.5); Hematocrit 41.4 % (37.0-47.0); Hemoglobin 12.8 g/dL (12.0-16.0); Mean Corp Hgb Conc. 30.9 g/dL (33.0-37.0); Mean Corpuscular Volume 93.9 fL (81.0-99.0); Mean Platelet Volume 10.4 fL (7.4-10.4); Nucleated Red Blood Cells % 0 %; Platelet Count 161 10^3/uL (130-400); Red Blood Cell Count 4.41 10^6/uL (4.20-5.40); Red Cell Dist. Width 15.9 % (11.5-14.5); White Blood Cell Count 10.3 10^3/uL (4.8-10.8)
[2024-05-15] MEDS: HEPARIN 5000 UNITS SC ×2 (08:51→22:09)
[2024-05-15 09:05] LABS: Glucose - Point of Care 130 mg/dl (70-99)
[2024-05-15 13:21] LABS: Glucose - Point of Care 121 mg/dl (70-99)
--- NOTE | 2024-05-15 13:44 | CM ---
Reviewed the chart notes and spoke with [facility] Coordinator of [facility]. 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 Patient admitted for TME. Past medical history includes ESRD on hemodialysis (M-W-F), DM, CAD,
L eye blindness, constipation, hyperlippidemia, GERD, chronic opioid dependent, and PAD with multiple toe amputation bilaterally. CM continues to be available to patient/family and is monitoring medical plan for needs at discharge.
Plan: Discharge back to [facility] when medically stable.
[2024-05-15] MEDS: HEPARIN 500 UNITS IV ×2 (13:55→14:55)
--- NOTE | 2024-05-15 13:58 | PTCARENOTE ---
Received patient from ED into room 2132. Patient nonverbal, moaning out/sobbing with any care. VSS. Stage 2 noted on sacrum, barrier ointment and foam applied. Heels intact. leasing machine tender in room to start HD session. This RN communicated with MD, stat
dose of 0.5 mg IV ativan ordered per MD for patient's agitation. Bed alarm in place.
--- NOTE | 2024-05-15 14:35 | W.PN.NEPH.HD ---
Assessment
-
Patient seen on dialysis
sbp ~176
Dialysis via AV fistula
Progress Note - Hemodialysis
-
Date of Service: May 15, 2024
Duration: 30 minutes and 3 hours
Potassium Bath: 3
Calcium Bath: 2.5
Opti-Dialyzer: 160
Ultrafiltration: Other (1kg)
Blood Flow: 400
Dialysate Flow: 600
Heparin: none
EPO: none
[2024-05-15 14:39] LABS: Venous Blood Gas B.E. 3.1 mmol/L (-4 to +4); Venous Blood Gas O2 Sat % 97.3 %; Venous Blood Gas pCO2 38 mmHg (35-48); Venous Blood Gas pH 7.46 (7.32-7.43); Venous Blood Gas pO2 108 mmHg (30-50)
--- NOTE | 2024-05-15 14:41 | W.PN.HOSP.TC ---
Today's Communication/Plan
-
Hold sedating agents, including fentanyl patch if mental status does not improve
Follow-up EEG
Follow-up VBG to rule out hypercapnia
Start ETCO2 monitoring
Clinical neurochecks
Assessment / Plan
Assessment / Plan
#Toxic metabolic encephalopathy
-Unclear etiology; DDx include uremia, infection, polypharmacy, seizure
-Upon arrival CTH without contrast did not show any acute findings
-Home meds of Flexeril, Oxy, gabapentin, Klonopin, Seroquel, Depakene on hold (no seizure history); fentanyl patch continued for now
-Has been afebrile, no other obvious signs of infection present
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
-Upon time of my eval she was very lethargic, minimally respond, protecting her airway
-Neurology consulted, EEG ordered results pending
Plan
-Continue to hold sedating medications, monitor mental status clinically
-Will discontinue fentanyl patch if not improving over the course of today
-Plan to resume sedating agents sequentially and slowly
-Follow-up EEG results
-Continue with neurocheck
-Monitor end-tidal CO2
-Order VBG to rule out hypercapnia
#ESRD (HD M/W/F)
#Secondary hyperparathyroidism
-ESRD possibly secondary to diabetic nephropathy
-C/B secondary hyperparathyroidism; on calcium supplement and phosphate binder
-Nephrology following for resumption of HD schedule, trend BMP
#T2DM C/B diabetic neuropathy
#H/O recurrent hypoglycemia
-Home medications include Lantus and ISS
-Holding Lantus due to n.p.o. status, currently on ISS with
-BG goal 100-200, avoid hypoglycemia
#HTN
-No known history of hypertensive systemic disease
-Home medications include losartan, hydralazine, isosorbide, carvedilol
-Continue with home medications when tolerating oral intake
-IV hydralazine as needed for now
#CAD
-No known history of coronary interventions such as PCI or CABG
-Home medications include beta-ramesh, aspirin, statin, Imdur
-Will continue with home medications when tolerating oral intake
#PAD s/p multiple toe amputations bilaterally
-Home medications include aspirin, statin
-No signs of critical limb ischemia at this time
#Chronic pain/chronic opiate dependence
-Continue with fentanyl patc
-hold Flexeril, oxycodone and gabapentin for now
#Anxiety
-Continue Zoloft once able to take p.o. meds.
-Restart Klonopin and Seroquel pending improvement in mentation
#Left eye blindness/retinopathy
-Continue eyedrops
#HLD
-ASCVD history with PAD s/p multiple amputations
-Continue statin once able to take p.o. meds
#Chronic constipation
-Continue with aggressive bowel regimen once able to take p.o. meds
#Severe malnutrition
-BMI here 14.2
-Will start calorie counts when mental status improves and tolerating feeds
DVT prophylaxis: SCDs
Diet: N.p.o. pending improvement to status
CODE STATUS: Full code
Anticipated Discharge: > 48 hours
Subjective/Interval History
-
Date of Service: May 15, 2024
Seen and examined at the bedside in the ED. No acute events overnight. AFVSS this morning
She remains very somnolent and difficult to arouse, protecting airway well
Unable to obtain ROS for further history due to her mental state
Objective Data
-
Labs:
Laboratory Results
05/15/24 05/15/24
05:19 13:46
WBC 10.3
Hgb 12.8
Hct 41.4
Plt Count 161
Sodium Cancelled Pending
Potassium Cancelled Pending
Chloride Cancelled Pending
Carbon Dioxide Cancelled Pending
BUN Cancelled Pending
Creatinine Cancelled Pending
Glucose Cancelled Pending
Calcium Cancelled Pending
Vital Signs:
Vital Signs
Temp Pulse Resp BP Pulse Ox
98.2 F 77 18 138/114 99
05/15/24 13:22 05/15/24 13:22 05/15/24 13:22 05/15/24 13:22 05/15/24 13:56
I&O
05/14/24 05/15/24 05/16/24
06:59 06:59 06:59
Intake Total 480 / 480
Balance 480 / 480
Review of Systems
-
Unable to obtain full review of systems at this time due to: Acuity
Physical Exam
-
General: No Apparent Distress, Comfortable and Cachectic
HEENT: Normocephalic, Atraumatic, Moist Mucous Membranes, Anicteric and PERRLA
Respiratory: Clear to Auscultation and Non Labored Respirations; Negative Accessory Resp Muscle Use
Cardiac: Regular Rhythm and S1/S2; Negative Murmur, Rub or Gallop
GI: Soft, Nontender, Nondistended and Normal Bowel Sounds
Musculoskeletal: No Clubbing, No Cyanosis and No Edema
Skin: Warm and Dry; Negative Rash
Neuro: Other (Lethargic, minimally responsive to stimuli; unable to obtain full neurological; PERRL)
Psych: Calm
Data Reviewed
-
Labs: Labs Reviewed by me and Discussed with Nurse
[2024-05-15 14:50] LABS: Blood Urea Nitrogen 41 mg/dl (7-17); Calcium 8.8 mg/dl (8.4-10.2); Carbon Dioxide 22 mmol/L (22-30); Chloride 103 mmol/L (98-107); Estimated Creatinine Clearance 11 ml/min; Glucose 140 mg/dl (70-99); Potassium 3.3 mmol/L (3.5-5.1); Sodium 140 mmol/L (135-145)
[2024-05-15] MEDS: NSS 1000 IV (16:44)
[2024-05-15] MEDS: APRESOLINE 10 MG IV (17:32)
[2024-05-15] MEDS: NSS (PRESERVATIVE FREE) 0.25 ML IV (17:33)
[2024-05-15] MEDS: ATIVAN 0.5 MG IV (17:33)
--- NOTE | 2024-05-15 17:47 | CON.NEURO ---
Consultation
Order
Date of Consultation: 05/15/24
Requesting Provider: Zach Virk MD
Reason for Consult: encephalopathy
Neurology Follow Up Note.
HPI: This is a 63-year-old woman who presented to [facility] on 05/14/2024 with encephalopathy. According to EMR patient was found to be hypoglycemic down to 40 at 7 AM on 05/14/2024.
According to patient's daughter Ms. Melchor has had progressive ambulatory and cognitive decline over the last several years. She noted to say 'weird stuff 'around 1 year ago. The patient has history of alcohol and heroin addiction. He was
reportedly residing independently several years ago and using a cane before she had her right hip fracture.
VS by EMS: 176/133, 63, 18, 98 on room air.
ER VS: 101/56-173/94, 70, afebrile
EKG:NSR, QTc Int : 462 ms
PDMP:Fentanyl 12 Mcg/hr Patch 3 filled in on 05/07/2024, filled in on 04/28/2024; Clonazepam 0.5 Mg 30 tabs filled in on 04/28/2024, 58 tabs filled in on 04/02/2024. Oxycodone Hcl 10 mg 28 tabs filled in on 04/28/2024. 60 tabs filled in on
04/05/2024.
Total Private Pay-12.
Labs: Glucose�126, WBCs�10.9, creatinine�3.1, normal sodium, VPA 22, ferritin 988, vitamin B12�939, normal TSH, CK-52
Brain MRI�no evidence of acute infarct, moderate white matter leukoaraiosis in bilateral parietal lobes, moderate bilateral temporal atrophy, vertebral and basilar arteries hypoplasia, L phthisis bulbi, left parotid gland tumor.
MAR: ativan 0.5 mg given at 17:33
PMH: ESRD on HD; CAD, HTN, DLP, DM, CKD, chronic pancreatitis, PAD, BMI 14, MDD, bipolar disorder, chronic pain s-me, history of alcohol and heroin addiction in remission
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
FH:mother-dementia in her late 80s.
All: metformin
ROS: Unable due to encephalopathy
General: Well developed. In no acute distress.
Cardio: Regular rate and rhythm without murmur. Extremities are without cyanosis or edema.
Neuro:
Mental Status: Stuporous. Moans to sternal rub. Does not follow requests.
Cranial Nerves: OD 3 mm, irregular/surgical. Roving R eye movements. R facial weakness
Motor: Increased motor tone left greater than right. Drifts right arm to the bed
Reflexes: Limited exam due to increased motor tone.
Sensory: Unable to assess due to encephalopathy
Coordination: No tremor or myoclonic movements
Gait: deferred
Assessment and Plan:
I. Hypoglycemia
II. Multifactorial encephalopathy (toxic, metabolic)
III. Brain atrophy, likely multifactorial (toxic, metabolic, ?neurodegenerative)
-Aspiration precautions.
-ABG if no clinical improvement.
-Avoid MEDIA OPERATOR suppressants
-Thiamine 100 mg IV daily
-Routine EEG if no clinical improvement
-DVT prophylaxis.
I personally reviewed all radiology and labs along with past medical records pertinent to current medical problems. Total time spent in patient care is 55 minutes.
Thank you for allowing us to participate in the care of this patient. We will continue to follow. Please do not hesitate to contact us with any questions or concerns.
Subjective/Objective
Subjective Data
Date of Service: May 15, 2024
Objective Data
Vital Signs
Temp Pulse Resp BP Pulse Ox
36.6 C 76 16 188/90 100
05/15/24 15:12 05/15/24 17:32 05/15/24 15:12 05/15/24 17:32 05/15/24 15:12
Lab Results
05/15/24 05:19
05/15/24 13:46
Sodium 140 mmol/L (135-145) 05/15/24 13:46
Potassium 3.3 mmol/L (3.5-5.1) L 05/15/24 13:46
BUN 41 mg/dl (7-17) H 05/15/24 13:46
Glucose 140 mg/dl (70-99) H 05/15/24 13:46
Calcium 8.8 mg/dl (8.4-10.2) 05/15/24 13:46
Vitamin B12 939 pg/ml (239-931) H 05/14/24 10:42
Patient Allergies
metformin Allergy (Verified 01/26/24 19:09)
Diarrhea
Medications
-
Active Medications
Generic Name Dose Route Start Last Admin
Trade Name Freq PRN Reason Stop Dose Admin
Acetaminophen 650 mg 05/14/24 16:05
Acetaminophen 325 Mg Tablet PO 06/11/24 16:04
Q4HPRN PRN
mild pain/BOLIVAR/temp> 100.4F
Albumin Human 12.5 grams 05/15/24 08:00
Albumin 12.5 Grams/50 Ml Bag *For Hemodialysis* IV 05/15/24 23:59
HD-Q1HPRN PRN
SBP < 90 mmHg
Bisacodyl 10 mg 05/14/24 16:05
Bisacodyl 10 Mg Rectal Suppository RECTAL 06/11/24 16:04
[id number] PRN
constipation
Famotidine 20 mg 05/14/24 22:00 05/14/24 22:21
Famotidine 20 Mg/2 Ml Vial IV 06/11/24 21:59 20 mg
HS ALENA Administration
Heparin Sodium 5,000 units 05/14/24 20:00 05/15/24 08:51
Heparin 5,000 Units/Ml 1 Ml Vial SC 06/11/24 19:59 5,000 units
Q12 ALENA Administration
Hydralazine HCl 10 mg 05/15/24 16:55 05/15/24 17:32
Hydralazine 20 Mg/Ml Vial IV 06/12/24 16:54 10 mg
Q6HPRN PRN Administration
SBP > 170
Hydromorphone HCl 1 mg 05/15/24 17:43
Hydromorphone 1 Mg/Ml Carpuject IV 05/29/24 17:42
Q4HPRN PRN
Severe pain
Hydromorphone HCl 0.5 mg 05/15/24 17:43
Hydromorphone 0.5 Mg/0.5 Ml Syringe IV 05/29/24 17:42
Q4HPRN PRN
Moderate pain
Sodium Chloride 1,000 mls @ 40 mls/hr 05/14/24 17:00 05/15/24 16:44
Nss IV 1,000 mls
.Q24H ALENA Administration
Potassium Chloride 40 meq/ 270 mls @ 67.5 mls/hr 05/15/24 17:42
Dextrose IV 05/15/24 21:41
NOW STA
Mannitol 12.5 grams 05/15/24 08:00
Mannitol 25% (12.5 Grams/50 Ml) Vial IV 05/15/24 23:59
HD-Q1HPRN PRN
SBP < 90 mmHg
Polyethylene Glycol 17 grams 05/14/24 16:05
Polyethylene Glycol Powder 17 Grams Packet PO 06/11/24 16:04
DAILYPRN PRN
constipation
Senna/Docusate Sodium 1 tablet 05/14/24 16:05
Docusate W/Senna (Krys-Colace) Tablet PO 06/11/24 16:04
BIDPRN PRN
constipation
Sodium Chloride 0 flush 05/14/24 17:00
Sodium Chloride 0.9% (Flush) Syringe IV 06/11/24 16:59
PER PROTOCOL ALENA
Sodium Chloride 8 ml 05/14/24 22:00 05/14/24 22:22
Nss 8 Ml Qhs IV 06/11/24 21:59 8 ml
HS ALENA Administration
Home Medications
�Medication �Instructions �Recorded
atorvastatin 10 mg tablet 10 mg PO QPM High cholesterol 06/28/22
bisacodyl 10 mg rectal suppository 10 mg NH DAILYPRN PRN if MOM 06/28/22
ineffective
carvedilol 25 mg tablet 25 mg PO BID Heart 06/28/22
disease/condition
cyclobenzaprine 10 mg tablet 10 mg PO Q8HPRN PRN chronic pain 06/28/22
ferrous sulfate 325 mg (65 mg 325 mg PO DAILY Supplement 06/28/22
iron) tablet
lanthanum 1,000 mg chewable tablet 1,000 mg PO MEALS Kidney Disease 06/28/22
losartan 50 mg tablet 75 mg PO HS Blood pressure 06/28/22
ketorolac 0.5 % eye drops 2 drp BOTH EYES DAILYPRN PRN 07/20/22
retinopathy
acetaminophen 325 mg tablet 650 mg PO Q6HPRN PRN fever 09/16/22
quetiapine 25 mg tablet (Seroquel) 25 mg PO Q12H Mental Health/Anxiety 09/16/22
sorbitol 70 % solution 30 ml PO DAILYPRN PRN constipation 09/16/22
aspirin 81 mg tablet,delayed 81 mg PO DAILY Blood Clot 12/16/22
release Prevention/Tx
hydralazine 50 mg tablet 50 mg PO TID Blood Pressure 12/16/22
calcium acetate 667 mg tablet 667 mg PO AC Supplement 01/04/23
gabapentin 300 mg capsule 300 mg PO HS Neurological Condition 01/04/23
loperamide 2 mg capsule (Imodium 2 mg PO Q6HPRN PRN watery stool 01/04/23
A-D)
acetaminophen 325 mg tablet 650 mg PO Q8HPRN PRN mild pain 01/16/23
gabapentin 300 mg capsule 300 mg PO DAILYPRN PRN neuropathic 01/16/23
pain
insulin glargine 100 unit/mL (3 5 unit SC HS 09/01/23
mL) subcutaneous pen (Lantus
Solostar U-100 Insulin)
insulin lispro 200 unit/mL (3 mL) 2 sliding scale dose SC AC 01/26/24
subcutaneous pen (Humalog KwikPen
U-200 Insulin)
isosorbide mononitrate 30 mg 30 mg PO DAILY 01/26/24
tablet,extended release 24 hr
lidocaine 5 % topical cream 1 applic topical BID 01/26/24
sertraline 25 mg tablet 75 mg PO HS 01/26/24
vitamin B comp no.3-folic acid 1 1 tab PO DAILY 02/09/24
mg-vit C 60 mg-biotin 300 mcg
tablet
clonazepam 0.5 mg tablet (Klonopin) 0.5 mg PO BID #6 tabs 02/11/24
fentanyl 12 mcg/hr transdermal 1 patch transdermal Q72H #2 ea 02/11/24
patch
oxycodone 10 mg tablet 10 mg PO Q8HPRN PRN moderate pain 02/11/24
#5 tabs
Lorazepam Gel 1mg/Ml 1 applic topical Q6HPRN PRN anixety 05/14/24
divalproex 125 mg capsule,delayed 125 mg PO BID 05/14/24
release sprinkle (Depakote
Sprinkles)
guaifenesin 400 mg tablet 400 mg PO BID 05/14/24
pantoprazole 40 mg tablet,delayed 40 mg PO BID 05/14/24
release (Protonix)
Vital Signs and Labs
-
Vital Signs and Labs:
Vital Signs
Temp Pulse Resp BP Pulse Ox
36.6 C 76 16 155/77 100
05/15/24 15:12 05/15/24 17:32 05/15/24 15:12 05/15/24 18:08 05/15/24 15:12
Lab Results
05/15/24 05:19
05/15/24 13:46
Sodium 140 mmol/L (135-145) 05/15/24 13:46
Potassium 3.3 mmol/L (3.5-5.1) L 05/15/24 13:46
BUN 41 mg/dl (7-17) H 05/15/24 13:46
Glucose 140 mg/dl (70-99) H 05/15/24 13:46
Calcium 8.8 mg/dl (8.4-10.2) 05/15/24 13:46
Vitamin B12 939 pg/ml (239-931) H 05/14/24 10:42
Medications
-
Medications:
Generic Name Dose Route Start Last Admin
Trade Name Freq PRN Reason Stop Dose Admin
Acetaminophen 650 mg 05/14/24 16:05
Acetaminophen 325 Mg Tablet PO 06/11/24 16:04
Q4HPRN PRN
mild pain/BOLIVAR/temp> 100.4F
Albumin Human 12.5 grams 05/15/24 08:00
Albumin 12.5 Grams/50 Ml Bag *For Hemodialysis* IV 05/15/24 23:59
HD-Q1HPRN PRN
SBP < 90 mmHg
Bisacodyl 10 mg 05/14/24 16:05
Bisacodyl 10 Mg Rectal Suppository RECTAL 06/11/24 16:04
[id number] PRN
constipation
Dextrose 12.5 grams 05/15/24 18:08
Dextrose 50% (0.5 Grams/Ml) 50 Ml Syringe IV 06/12/24 18:07
[id number] PRN
hypoglycemia
Famotidine 20 mg 05/14/24 22:00 05/14/24 22:21
Famotidine 20 Mg/2 Ml Vial IV 06/11/24 21:59 20 mg
HS ALENA Administration
Glucagon 1 mg 05/15/24 18:07
Glucagon 1 Mg Vial IM 06/12/24 18:06
PRN PRN
hypoglycemia
Heparin Sodium 5,000 units 05/14/24 20:00 05/15/24 08:51
Heparin 5,000 Units/Ml 1 Ml Vial SC 06/11/24 19:59 5,000 units
Q12 ALENA Administration
Hydralazine HCl 10 mg 05/15/24 16:55 05/15/24 17:32
Hydralazine 20 Mg/Ml Vial IV 06/12/24 16:54 10 mg
Q6HPRN PRN Administration
SBP > 170
Hydromorphone HCl 1 mg 05/15/24 17:43
Hydromorphone 1 Mg/Ml Carpuject IV 05/29/24 17:42
Q4HPRN PRN
Severe pain
Hydromorphone HCl 0.5 mg 05/15/24 17:43
Hydromorphone 0.5 Mg/0.5 Ml Syringe IV 05/29/24 17:42
Q4HPRN PRN
Moderate pain
Sodium Chloride 1,000 mls @ 40 mls/hr 05/14/24 17:00 05/15/24 16:44
Nss IV 1,000 mls
.Q24H ALENA Administration
Potassium Chloride 40 meq/ 270 mls @ 67.5 mls/hr 05/15/24 17:42 05/15/24 17:52
Dextrose IV 05/15/24 21:41 Not Given
NOW STA
Mannitol 12.5 grams 05/15/24 08:00
Mannitol 25% (12.5 Grams/50 Ml) Vial IV 05/15/24 23:59
HD-Q1HPRN PRN
SBP < 90 mmHg
Polyethylene Glycol 17 grams 05/14/24 16:05
Polyethylene Glycol Powder 17 Grams Packet PO 06/11/24 16:04
DAILYPRN PRN
constipation
Senna/Docusate Sodium 1 tablet 05/14/24 16:05
Docusate W/Senna (Krys-Colace) Tablet PO 06/11/24 16:04
BIDPRN PRN
constipation
Sodium Chloride 0 flush 05/14/24 17:00
Sodium Chloride 0.9% (Flush) Syringe IV 06/11/24 16:59
PER PROTOCOL ALENA
Sodium Chloride 8 ml 05/14/24 22:00 05/14/24 22:22
Nss 8 Ml Qhs IV 06/11/24 21:59 8 ml
HS ALENA Administration
Home Medications
-
Home Medications
atorvastatin 10 mg tablet 10 mg PO QPM High cholesterol 06/28/22
bisacodyl 10 mg rectal suppository 10 mg NH DAILYPRN PRN if MOM ineffective 06/28/22
carvedilol 25 mg tablet 25 mg PO BID Heart disease/condition 06/28/22
cyclobenzaprine 10 mg tablet 10 mg PO Q8HPRN PRN chronic pain 06/28/22
ferrous sulfate 325 mg (65 mg iron) tablet 325 mg PO DAILY Supplement 06/28/22
lanthanum 1,000 mg chewable tablet 1,000 mg PO MEALS Kidney Disease 06/28/22
losartan 50 mg tablet 75 mg PO HS Blood pressure 06/28/22
ketorolac 0.5 % eye drops 2 drp BOTH EYES DAILYPRN PRN retinopathy 07/20/22
acetaminophen 325 mg tablet 650 mg PO Q6HPRN PRN fever 09/16/22
quetiapine 25 mg tablet (Seroquel) 25 mg PO Q12H Mental Health/Anxiety 09/16/22
sorbitol 70 % solution 30 ml PO DAILYPRN PRN constipation 09/16/22
aspirin 81 mg tablet,delayed release 81 mg PO DAILY Blood Clot Prevention/Tx 12/16/22
hydralazine 50 mg tablet 50 mg PO TID Blood Pressure 12/16/22
calcium acetate 667 mg tablet 667 mg PO AC Supplement 01/04/23
gabapentin 300 mg capsule 300 mg PO HS Neurological Condition 01/04/23
loperamide 2 mg capsule (Imodium A-D) 2 mg PO Q6HPRN PRN watery stool 01/04/23
acetaminophen 325 mg tablet 650 mg PO Q8HPRN PRN mild pain 01/16/23
gabapentin 300 mg capsule 300 mg PO DAILYPRN PRN neuropathic pain 01/16/23
insulin glargine 100 unit/mL (3 mL) subcutaneous pen (Lantus Solostar U-100 Insulin) 5 unit SC HS 09/01/23
insulin lispro 200 unit/mL (3 mL) subcutaneous pen (Humalog KwikPen U-200 Insulin) 2 sliding scale dose SC AC 01/26/24
isosorbide mononitrate 30 mg tablet,extended release 24 hr 30 mg PO DAILY 01/26/24
lidocaine 5 % topical cream 1 applic topical BID 01/26/24
sertraline 25 mg tablet 75 mg PO HS 01/26/24
vitamin B comp no.3-folic acid 1 mg-vit C 60 mg-biotin 300 mcg tablet 1 tab PO DAILY 02/09/24
clonazepam 0.5 mg tablet (Klonopin) 0.5 mg PO BID #6 tabs 02/11/24
fentanyl 12 mcg/hr transdermal patch 1 patch transdermal Q72H #2 ea 02/11/24
oxycodone 10 mg tablet 10 mg PO Q8HPRN PRN moderate pain #5 tabs 02/11/24
Lorazepam Gel 1mg/Ml 1 applic topical Q6HPRN PRN anixety 05/14/24
divalproex 125 mg capsule,delayed release sprinkle (Depakote Sprinkles) 125 mg PO BID 05/14/24
guaifenesin 400 mg tablet 400 mg PO BID 05/14/24
pantoprazole 40 mg tablet,delayed release (Protonix) 40 mg PO BID 05/14/24
[2024-05-15 18:02] LABS: Glucose - Point of Care 106 mg/dl (70-99)
--- NOTE | 2024-05-15 18:39 | PTCARENOTE ---
Patient strict NPO, IVF infusing through L FA IV at 40 ml/hr, patient maintained on q6 accuchecks; accucheck at 1800 106. Patient lethargic, moaning out/tearful with care and otherwise sleeping in bed. HD session given today - 1 kilo off. Patient
hypertensive throughout shift, BP during HD 188/90, patient NSR on tele monitor. PRN hydralazine ordered per MD and given by this RN - see AUG. Patient's BP with improvement to 155/77 s/p PRN hydralazine administration.
[2024-05-15 19:00] LABS: Hepatitis B Surface Antigen Negative (Negative)
[2024-05-15] MEDS: PEPCID 20 MG IV (22:08)
[2024-05-15] MEDS: NSS (PRESERVATIVE FREE) 8 ML IV (22:09)
[2024-05-15 23:47] LABS: Ammonia < 9 umol/L (9-30)
[2024-05-16] VITALS (9 sets, daily range): BP systolic 128–178; BP diastolic 57–93; BMI 17.8
[2024-05-16 00:04] LABS: Glucose - Point of Care 94 mg/dl (70-99)
[2024-05-16] MEDS: APRESOLINE 10 MG IV ×2 (04:01→11:06)
[2024-05-16 06:27] LABS: Glucose - Point of Care 103 mg/dl (70-99)
[2024-05-16] MEDS: HEPARIN 5000 UNITS SC ×2 (07:44→21:13)
[2024-05-16] MEDS: THIAMINE INJECTION 100 MG IV (07:44)
[2024-05-16 10:09] LABS: % Basophils 0.3 % (0-2); % Eosinophils 0.1 % (0-6); % Immature Granulocytes 0.4 % (0-0.5); % Lymphocytes 11.6 % (20.5-51.1); % Monocytes 5.8 % (1.7-9.3); % Neutrophils 81.8 % (42.2-75.2); Absolute Lymphocytes 1.3 10^3/uL (1.2-3.4); Absolute Monocytes 0.7 10^3/uL (0.1-0.6); Absolute Neutrophils 9.2 10^3/uL (1.4-6.5); Hematocrit 40.9 % (37.0-47.0); Hemoglobin 12.4 g/dL (12.0-16.0); Mean Corp Hgb Conc. 30.3 g/dL (33.0-37.0); Mean Corpuscular Hgb 28.8 pg (27.0-31.0); Mean Corpuscular Volume 94.9 fL (81.0-99.0); Mean Platelet Volume 9.6 fL (7.4-10.4); Nucleated Red Blood Cells % 0 %; Platelet Count 158 10^3/uL (130-400); Red Blood Cell Count 4.31 10^6/uL (4.20-5.40); Red Cell Dist. Width 15.9 % (11.5-14.5); White Blood Cell Count 11.2 10^3/uL (4.8-10.8)
[2024-05-16 10:34] LABS: Blood Urea Nitrogen 22 mg/dl (7-17); Calcium 8.8 mg/dl (8.4-10.2); Carbon Dioxide 23 mmol/L (22-30); Chloride 102 mmol/L (98-107); Estimated Creatinine Clearance 21 ml/min; Glucose 100 mg/dl (70-99); Potassium 3.4 mmol/L (3.5-5.1); Sodium 139 mmol/L (135-145); eGFR 24.27
[2024-05-16] MEDS: DILAUDID 0.5 MG IV ×2 (10:59→21:28)
--- NOTE | 2024-05-16 11:10 | PTCARENOTE ---
Patient drowsy/lethargic this AM, wakes with care and is tearful/moaning, grimacing and uncooperative with all care. Patient nonverbal, cannot verbalize any concerns or pain, does not open eyes. MD at bedside, patient medicated with PRN 0.5 mg IV
dilaudid by this RN - see AUG. BP 171/79 LUE HR 78, PRN hydralazine administered per parameters. Speech at bedside, patient not alert enough for eval.
--- NOTE | 2024-05-16 12:23 | W.PN.NEPH.PH ---
Today's Communication / Plan
-
Dialysis tomorrow
Assessment/Plan
-
IMP:
AMS
ESRD on dialysis Wednesday
Diabetes mellitus with multiple microvascular complications including advanced retinopathy, peripheral neuropathy, nephropathy
Fecal impaction noted an abdominal x-ray
Chronic pain/chronic opiate dependence
HTN
CAD
PAD with multiple toe amputations bilaterally
Chronic pain/chronic opiate dependence
GERD
Anxiety
Secondary hyperparathyroidism
Left eye blindness/retinopathy
HLD
Chronic constipation
Secondary hyperparathyroidism
Anemia
h/o GIB in Feb 2024
Plan:
A/w AMS-neuro follows
Dialysis for tomorrow, orders provided
Okay for gentle hydration if needed
blood pressures are elevated
-
-
Date of Service: May 16, 2024
CC / HPI / ROS
-
Chief Complaint:
ESRD
History of Present Illness:
ESRD Wednesday
Blood pressure remains elevated
Mental status remains altered
Review of Systems:
No fever
Weight is up
Labs
-
Labs:
WBC 11.2 10^3/uL (4.8-10.8) H 05/16/24 09:40
RBC 4.31 10^6/uL (4.20-5.40) 05/16/24 09:40
Hgb 12.4 g/dL (12.0-16.0) 05/16/24 09:40
Hct 40.9 % (37.0-47.0) 05/16/24 09:40
Plt Count 158 10^3/uL (130-400) 05/16/24 09:40
Sodium 139 mmol/L (135-145) 05/16/24 09:40
Potassium 3.4 mmol/L (3.5-5.1) L 05/16/24 09:40
Chloride 102 mmol/L (98-107) 05/16/24 09:40
Carbon Dioxide 23 mmol/L (22-30) 05/16/24 09:40
BUN 22 mg/dl (7-17) H 05/16/24 09:40
Creatinine 2.2 mg/dL (0.6-1.0) H 05/16/24 09:40
eGFR 24.27 05/16/24 09:40
Glucose 100 mg/dl (70-99) H 05/16/24 09:40
Calcium 8.8 mg/dl (8.4-10.2) 05/16/24 09:40
Albumin 3.8 g/dl (3.5-5.0) 05/14/24 10:42
Physical Exam
-
Vital Signs:
Vital Signs
Temp Pulse Resp BP Pulse Ox
98.2 F 78 16 171/79 100
05/16/24 11:09 05/16/24 11:09 05/16/24 11:09 05/16/24 11:09 05/16/24 11:09
Respiratory:: Bilateral: Coarse
Lung Excursion:: Normal
Abdomen:: Nontender and Soft
Bowel Sounds:: Decreased
Extremity Edema:: None: Bilateral:
Wade Catheter: No
Other Findings::
lethargic
[2024-05-16 12:35] LABS: Glucose - Point of Care 102 mg/dl (70-99)
--- NOTE | 2024-05-16 13:06 | PN.CDI ---
CDI
- -
CDI:
Physician Documentation Request
Admit Date: 05/14/24 14:24
Dear Doctor Ewdard,
Please review the following and provide your response in the progress notes.
Clinical Indicators:
- RN skin assessments indicate Stage 2 sacrum pressure injury, POA
Physician documentation of the type and location of wounds is required for compliant documentation. Based on the above clinical findings and your assessment, please provide the following in your progress note:
1. Location of the ulcer/wound, including laterality.
2. Type (etiology) of ulcer/wound:
- Diabetic ulcer
- Arterial (ischemic) ulcer
- Traumatic wound
- Venous stasis ulcer
- Pressure (decubitus) ulcer
- Non-healing surgical wound
- Other
- Unable to determine
Use of terms such as suspected, likely, concern for, or probable (associated with a specific diagnosis that is being evaluated, monitored, or treated as if it exists) are acceptable and can be coded in the inpatient setting, when documented at the
time of discharge.
Thank you,
Ham Vivar RN
CDI Specialist
Please use your independent medical judgment in providing your response.
*Source: National Pressure Ulcer Advisory Panel (NPUAP)
--- NOTE | 2024-05-16 13:14 | W.PN.HOSP.TC ---
Today's Communication/Plan
-
Continue to hold sedating agents
Plan for EEG if not improving
Dialysis tomorrow
Assessment / Plan
Assessment / Plan
#Toxic metabolic encephalopathy
-Unclear etiology; DDx include uremia, infection, polypharmacy, seizure
-Upon arrival CTH without contrast did not show any acute findings
-Home meds fentanyl patch, Flexeril, Oxy, gabapentin, Klonopin, Seroquel, Depakene on hold (no seizure history)
-Has been afebrile, no other obvious signs of infection present; VBG without signs of hypercapnia
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
-Upon time of my eval she was very lethargic, minimally respond, protecting her airway
-Neurology consulted, EEG ordered results pending
Plan
-Continue to hold sedating medications, monitor mental status clinically
-Plan to resume sedating agents sequentially and slowly
-Plan for EEG if not improving
-Continue with neurochecks
-Monitor end-tidal CO2
#ESRD (HD M/W/F)
#Secondary hyperparathyroidism
-ESRD possibly secondary to diabetic nephropathy
-C/B secondary hyperparathyroidism; on calcium supplement and phosphate binder
-Nephrology following for resumption of HD schedule, trend BMP
#T2DM C/B diabetic neuropathy
#H/O recurrent hypoglycemia
-Home medications include Lantus and ISS
-Holding Lantus due to n.p.o. status, currently on ISS with
-BG goal 100-200, avoid hypoglycemia
#HTN
-No known history of hypertensive systemic disease
-Home medications include losartan, hydralazine, isosorbide, carvedilol
-Continue with home medications when tolerating oral intake
-IV hydralazine as needed for now
#CAD
-No known history of coronary interventions such as PCI or CABG
-Home medications include beta-ramesh, aspirin, statin, Imdur
-Will continue with home medications when tolerating oral intake
#PAD s/p multiple toe amputations bilaterally
-Home medications include aspirin, statin
-No signs of critical limb ischemia at this time
#Chronic pain/chronic opiate dependence
-Holding standing dose home opiates
-Ordered as needed IV Dilaudid for pain if awake enough to request
#Anxiety
-Continue Zoloft once able to take p.o. meds.
-Restart Klonopin and Seroquel pending improvement in mentation
#Left eye blindness/retinopathy
-Continue eyedrops
#HLD
-ASCVD history with PAD s/p multiple amputations
-Continue statin once able to take p.o. meds
#Chronic constipation
-Continue with aggressive bowel regimen once able to take p.o. meds
#Severe malnutrition
-BMI here 17.8
-Will start calorie counts when mental status improves and tolerating feeds
DVT prophylaxis: SCDs
Diet: NPO, consider tube feeds if not tolerating oral intake by 05/17
CODE STATUS: Full code
Anticipated Discharge: 24 - 48 hours
Subjective/Interval History
-
Date of Service: May 16, 2024
Seen and examined the bedside. No acute events reported. AFVSS this morning
Mental status remains roughly the same. Did display signs of significant pain when being turned for cleaning, placed onto right hip
Otherwise mental status not conducive for ROS or history
Objective Data
-
Labs:
Laboratory Results
05/16/24
09:40
WBC 11.2 H
Hgb 12.4
Hct 40.9
Plt Count 158
Sodium 139
Potassium 3.4 L
Chloride 102
Carbon Dioxide 23
BUN 22 H
Creatinine 2.2 H
Glucose 100 H
Calcium 8.8
Vital Signs:
Vital Signs
Temp Pulse Resp BP Pulse Ox
98.2 F 78 16 171/79 100
05/16/24 11:09 05/16/24 11:09 05/16/24 11:09 05/16/24 11:09 05/16/24 11:09
I&O
05/15/24 05/16/24 05/17/24
06:59 06:59 06:59
Intake Total 480 / 480 720 / 720
Balance 480 / 480 720 / 720
Review of Systems
-
Unable to obtain full review of systems at this time due to: Acuity
Physical Exam
-
General: Well Nourished, No Apparent Distress, Comfortable and Cachectic
HEENT: Normocephalic, Atraumatic, Moist Mucous Membranes and Anicteric
Respiratory: Clear to Auscultation and Non Labored Respirations; Negative Wheezes, Rales or Rhonchi
Cardiac: Regular Rhythm and S1/S2; Negative Murmur, Rub or Gallop
GI: Soft, Nontender, Nondistended and Normal Bowel Sounds
Musculoskeletal: No Clubbing, No Cyanosis, No Edema and Other (Amputated digits bilateral feet)
Skin: Warm and Dry; Negative Rash
Neuro: Other (Minimally responsive to external stimuli, airway protected)
Psych: Other
Data Reviewed
-
Labs: Labs Reviewed by me and Discussed with Nurse
--- NOTE | 2024-05-16 13:27 | PN.CDI ---
CDI
- -
CDI:
Physician Documentation Request
Admit Date: 05/14/24 14:24
Dear Doctor Lyssa,
Please review the following and provide your response in the progress notes.
Clinical Indicators:
The diagnosis of neuroleptic malignant syndrome was documented on 05/14 Neuro note but is not consistently noted in subsequent documentation.
- 05/14 Neuro 'DDX toxic metabolic encephalopathy, neuroleptic malignant syndrome'
- 05/15 Neuro 'Hypoglycemia...Multifactorial encephalopathy...Brain atrophy, likely multifactorial'
- 'Avoid MAINTENANCE ASSISTANT suppressants'
Please clarify the following:
____ - Neuroleptic malignant syndrome was present on admission and is now resolved.
____ - Neuroleptic malignant syndrome was present on admission and is still being monitored, evaluated or treated
____ - Neuroleptic malignant syndrome was ruled out
____ - Neuroleptic malignant syndrome is still a likely, suspected, probable diagnosis
____ - Other
Use of terms such as suspected, likely, concern for, or probable (associated with a specific diagnosis that is being evaluated, monitored, or treated as if it exists) are acceptable and can be coded in the inpatient setting, when documented at the
time of discharge.
Thank you,
Ham Vivar RN
CDI Specialist
Please use your independent medical judgment in providing your response.
--- NOTE | 2024-05-16 13:37 | CM ---
Reviewed the chart notes. CM continues to be available to patient/family and is monitoring medical plan for needs at discharge.
Plan: Discharge back to [facility] when medically stable.
[2024-05-16] MEDS: DILAUDID 1 MG IV ×2 (14:11→18:55)
--- NOTE | 2024-05-16 15:51 | W.PN.NEURO.1 ---
Today's Communication / Plan
-
.
Subjective/Objective
Subjective Data
Date of Service: May 16, 2024
Neurology Follow Up Note.
24h events: intermittently hypertensive up 188/90, afebrile. Agitated and restless.
MAR: Ativan 0.5 given on 05/15/2024 at 17:33
Brain MRI wo gabino(05/15/2024) no evidence of acute infarcts, moderate white matter leukoaraiosis and atrophy.
Labs: WBC 11.2, C 2.2, ammonia<9.
Routine EEG(05/15/2024) severe generalized slowing and triphasic waves.
PMH: ESRD on HD; CAD, HTN, DLP, DM, CKD, chronic pancreatitis, PAD, BMI 14, MDD, bipolar disorder, chronic pain s-me, history of alcohol and heroin addiction in remission
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
FH:mother-dementia in her late 80s.
All: metformin
ROS: Unable due to encephalopathy
General: in moderate distress due to crying
Cardio: Regular rate and rhythm. Extremities are without cyanosis or edema.
Neuro:
Mental Status: Awake, attends to examiner briefly, does not follow requests ' why?'. Pseudobulbar affect.
Cranial Nerves: OD 3 mm, irregular/surgical. Roving R eye movements. R facial weakness
Motor: Increased motor tone left greater than right. Drifts right arm to the bed
Reflexes: Limited exam due to increased motor tone.
Sensory: Unable to assess due to encephalopathy
Coordination: No tremor or myoclonic movements
Gait: deferred
Assessment and Plan:
I. Multifactorial encephalopathy (vascular, toxic, metabolic), clinically improved.
II. PBA
III. Brain atrophy, likely multifactorial (toxic, metabolic, ?neurodegenerative)
-BP optimization
-Avoid HAND CARVER suppressants
-Continue Thiamine 100 mg IV daily
-Restart home dose of Depakote
-Plan for CSF studies if no return to baseline.
-DVT prophylaxis.
I personally reviewed all radiology and labs along with past medical records pertinent to current medical problems. Total time spent in patient care is 34 minutes.
Thank you for allowing us to participate in the care of this patient. We will continue to follow. Please do not hesitate to contact us with any questions or concerns.
Objective Data
Vital Signs
Temp Pulse Resp BP Pulse Ox
36.8 C 78 16 171/79 100
05/16/24 11:09 05/16/24 11:09 05/16/24 11:09 05/16/24 11:09 05/16/24 11:09
Lab Results
05/16/24 09:40
05/16/24 09:40
Sodium 139 mmol/L (135-145) 05/16/24 09:40
Potassium 3.4 mmol/L (3.5-5.1) L 05/16/24 09:40
BUN 22 mg/dl (7-17) H 05/16/24 09:40
Glucose 100 mg/dl (70-99) H 05/16/24 09:40
Calcium 8.8 mg/dl (8.4-10.2) 05/16/24 09:40
Vitamin B12 939 pg/ml (239-931) H 05/14/24 10:42
Patient Allergies
metformin Allergy (Verified 01/26/24 19:09)
Diarrhea
Vital Signs and Labs
-
Vital Signs and Labs:
Vital Signs
Temp Pulse Resp BP Pulse Ox
36.7 C 87 16 128/86 95
05/16/24 19:04 05/16/24 19:04 05/16/24 19:04 05/16/24 19:04 05/16/24 22:46
Lab Results
05/16/24 09:40
05/16/24 09:40
Sodium 139 mmol/L (135-145) 05/16/24 09:40
Potassium 3.4 mmol/L (3.5-5.1) L 05/16/24 09:40
BUN 22 mg/dl (7-17) H 05/16/24 09:40
Glucose 100 mg/dl (70-99) H 05/16/24 09:40
Calcium 8.8 mg/dl (8.4-10.2) 05/16/24 09:40
Vitamin B12 939 pg/ml (239-931) H 05/14/24 10:42
Medications
-
Medications:
Generic Name Dose Route Start Last Admin
Trade Name Freq PRN Reason Stop Dose Admin
Acetaminophen 650 mg 05/14/24 16:05
Acetaminophen 325 Mg Tablet PO 06/11/24 16:04
Q4HPRN PRN
mild pain/BOLIVAR/temp> 100.4F
Bisacodyl 10 mg 05/14/24 16:05
Bisacodyl 10 Mg Rectal Suppository RECTAL 06/11/24 16:04
[id number] PRN
constipation
Dextrose 12.5 grams 05/15/24 18:08
Dextrose 50% (0.5 Grams/Ml) 50 Ml Syringe IV 06/12/24 18:07
[id number] PRN
hypoglycemia
Famotidine 20 mg 05/14/24 22:00 05/16/24 21:13
Famotidine 20 Mg/2 Ml Vial IV 06/11/24 21:59 20 mg
HS ALENA Administration
Glucagon 1 mg 05/15/24 18:07
Glucagon 1 Mg Vial IM 06/12/24 18:06
PRN PRN
hypoglycemia
Heparin Sodium 5,000 units 05/14/24 20:00 05/16/24 21:13
Heparin 5,000 Units/Ml 1 Ml Vial SC 06/11/24 19:59 5,000 units
Q12 ALENA Administration
Hydralazine HCl 10 mg 05/15/24 16:55 05/16/24 11:06
Hydralazine 20 Mg/Ml Vial IV 06/12/24 16:54 10 mg
Q6HPRN PRN Administration
SBP > 170
Hydromorphone HCl 1 mg 05/15/24 17:43 05/16/24 18:55
Hydromorphone 1 Mg/Ml Carpuject IV 05/29/24 17:42 1 mg
Q4HPRN PRN Administration
Severe pain
Hydromorphone HCl 0.5 mg 05/15/24 17:43 05/16/24 21:28
Hydromorphone 0.5 Mg/0.5 Ml Syringe IV 05/29/24 17:42 0.5 mg
Q4HPRN PRN Administration
Moderate pain
Sodium Chloride 1,000 mls @ 40 mls/hr 05/16/24 18:00 05/16/24 17:53
Nss IV 1,000 mls
.Q24H ALENA Administration
Mannitol 12.5 grams 05/17/24 08:00
Mannitol 25% (12.5 Grams/50 Ml) Vial IV 05/17/24 23:59
HD-Q1HPRN PRN
SBP < 90 mmHg
Polyethylene Glycol 17 grams 05/14/24 16:05
Polyethylene Glycol Powder 17 Grams Packet PO 06/11/24 16:04
DAILYPRN PRN
constipation
Senna/Docusate Sodium 1 tablet 05/14/24 16:05
Docusate W/Senna (Krys-Colace) Tablet PO 06/11/24 16:04
BIDPRN PRN
constipation
Sodium Chloride 0 flush 05/14/24 17:00
Sodium Chloride 0.9% (Flush) Syringe IV 06/11/24 16:59
PER PROTOCOL ALENA
Sodium Chloride 8 ml 05/14/24 22:00 05/16/24 21:13
Nss 8 Ml Qhs IV 06/11/24 21:59 8 ml
HS ALENA Administration
Sodium Chloride 10 ml 05/17/24 08:00
Sodium Chloride (4 Meq/Ml) 30 Ml Vial *For Hemodialysis* IV 05/17/24 23:59
HD-Q1HPRN PRN
cramps
Thiamine HCl 100 mg 05/16/24 08:00 05/16/24 07:44
Thiamine (100 Mg/Ml) 2 Ml Vial IV 05/18/24 08:01 100 mg
DAILY ALENA Administration
Home Medications
-
Home Medications
atorvastatin 10 mg tablet 10 mg PO QPM High cholesterol 06/28/22
bisacodyl 10 mg rectal suppository 10 mg [place] DAILYPRN PRN if MOM ineffective 06/28/22
carvedilol 25 mg tablet 25 mg PO BID Heart disease/condition 06/28/22
cyclobenzaprine 10 mg tablet 10 mg PO Q8HPRN PRN chronic pain 06/28/22
ferrous sulfate 325 mg (65 mg iron) tablet 325 mg PO DAILY Supplement 06/28/22
lanthanum 1,000 mg chewable tablet 1,000 mg PO MEALS Kidney Disease 06/28/22
losartan 50 mg tablet 75 mg PO HS Blood pressure 06/28/22
ketorolac 0.5 % eye drops 2 drp BOTH EYES DAILYPRN PRN retinopathy 07/20/22
acetaminophen 325 mg tablet 650 mg PO Q6HPRN PRN fever 09/16/22
quetiapine 25 mg tablet (Seroquel) 25 mg PO Q12H Mental Health/Anxiety 09/16/22
sorbitol 70 % solution 30 ml PO DAILYPRN PRN constipation 09/16/22
aspirin 81 mg tablet,delayed release 81 mg PO DAILY Blood Clot Prevention/Tx 12/16/22
hydralazine 50 mg tablet 50 mg PO TID Blood Pressure 12/16/22
calcium acetate 667 mg tablet 667 mg PO AC Supplement 01/04/23
gabapentin 300 mg capsule 300 mg PO HS Neurological Condition 01/04/23
loperamide 2 mg capsule (Imodium A-D) 2 mg PO Q6HPRN PRN watery stool 01/04/23
acetaminophen 325 mg tablet 650 mg PO Q8HPRN PRN mild pain 01/16/23
gabapentin 300 mg capsule 300 mg PO DAILYPRN PRN neuropathic pain 01/16/23
insulin glargine 100 unit/mL (3 mL) subcutaneous pen (Lantus Solostar U-100 Insulin) 5 unit SC HS 09/01/23
insulin lispro 200 unit/mL (3 mL) subcutaneous pen (Humalog KwikPen U-200 Insulin) 2 sliding scale dose SC AC 01/26/24
isosorbide mononitrate 30 mg tablet,extended release 24 hr 30 mg PO DAILY 01/26/24
lidocaine 5 % topical cream 1 applic topical BID 01/26/24
sertraline 25 mg tablet 75 mg PO HS 01/26/24
vitamin B comp no.3-folic acid 1 mg-vit C 60 mg-biotin 300 mcg tablet 1 tab PO DAILY 02/09/24
clonazepam 0.5 mg tablet (Klonopin) 0.5 mg PO BID #6 tabs 02/11/24
fentanyl 12 mcg/hr transdermal patch 1 patch transdermal Q72H #2 ea 02/11/24
oxycodone 10 mg tablet 10 mg PO Q8HPRN PRN moderate pain #5 tabs 02/11/24
Lorazepam Gel 1mg/Ml 1 applic topical Q6HPRN PRN anixety 05/14/24
divalproex 125 mg capsule,delayed release sprinkle (Depakote Sprinkles) 125 mg PO BID 05/14/24
guaifenesin 400 mg tablet 400 mg PO BID 05/14/24
pantoprazole 40 mg tablet,delayed release (Protonix) 40 mg PO BID 05/14/24
--- NOTE | 2024-05-16 17:48 | PTCARENOTE ---
Patient lethargic throughout shift but agitated with care, nonverbal, cannot make needs known. Patient medicated with PRN dilaudid throughout shift for nonverbal signs of pain - see MAR. WELLS aware. NSS infusing through L FA at 40 ml/hr. Static
overlay in place on bed. Patient strict NPO on q6hr accuchecks.
[2024-05-16] MEDS: NSS 1000 IV (17:53)
[2024-05-16 18:02] LABS: Glucose - Point of Care 94 mg/dl (70-99)
--- NOTE | 2024-05-16 19:30 | PTCARENOTE ---
Patient moaning out, pulling at tubing and bedding, restless, cannot make needs known. Patient medicated with PRN 1 mg IV dilaudid - see MAR. Patient changed and repositioned by this RN and tech, patient asleep in bed upon change of shifts rounds
with night time babysitter RN.
[2024-05-16] MEDS: PEPCID 20 MG IV (21:13)
[2024-05-16] MEDS: NSS (PRESERVATIVE FREE) 8 ML IV (21:13)
--- NOTE | 2024-05-16 22:41 | EEGC.RPT ---
Continuous EEG Report
Recording
Start Date of Data Reviewed: 05/15/24
Done with Video Recording: Yes
Electrocardiogram: Unremarkable
Report
CLINICAL HISTORY: This is a 63-year-old woman with encephalopathy. This study was requested to look for an epileptiform abnormality.
MEDICATIONS: Ativan
STUDY DURATION: 28 min 53 secs.
TECHNICAL REMARKS: This is a technically satisfactory eighteen channel record employing 21-disc electrodes applied according to a measured international 10-20 electrode placement system.��There were no significant technical difficulties.��The study
was done on a [facility].
REPORT:��At the onset of the EEG, the patient is is altered mental status. The background activity consists of�5-6�Hz, impersistent, posteriorly dominant, moderate amplitude, symmetric and rhythmic activity. Generalized 2-3 Hz slowing with frequent
triphasic waves were seen. Intermittent photic stimulation and hyperventilation did not cause any additional abnormalities.
IMPRESSION:��This is an abnormal EEG recorded in a patient with altered mental status due to a moderate generalized slowing. This finding indicates diffuse cerebral dysfunction, nonspecific in terms of etiology.
[2024-05-16 23:56] LABS: Glucose - Point of Care 91 mg/dl (70-99)
[2024-05-17] MEDS: DILAUDID 1 MG IV ×4 (02:41→21:00)
[2024-05-17 03:30] VITALS: BP 157/69
[2024-05-17 06:46] LABS: Glucose - Point of Care 67 mg/dl (70-99)
[2024-05-17] MEDS: THIAMINE INJECTION 100 MG IV (07:29)
[2024-05-17] MEDS: HEPARIN 5000 UNITS SC ×2 (07:30→21:01)
[2024-05-17] MEDS: DULCOLAX 10 MG RECTAL (07:30)
[2024-05-17] MEDS: DILAUDID 0.5 MG IV ×2 (07:30→15:22)
[2024-05-17 07:35] VITALS: BP 171/101
[2024-05-17] MEDS: DEXTROSE 50% SYRINGE 12.5 GRAMS IV (07:42)
[2024-05-17] MEDS: HALDOL 1 MG IM ×2 (08:24→12:20)
[2024-05-17] MEDS: DURAGESIC 12 MCG/HR PATCH 1 PATCH TRANSDERM (08:24)
[2024-05-17 08:25] LABS: Glucose - Point of Care 106 mg/dl (70-99)
[2024-05-17 11:10] VITALS: BP 173/106
--- NOTE | 2024-05-17 12:07 | W.PN.HOSP.TC ---
Today's Communication/Plan
-
Soft upper limb restraints
IM Haldol
Resume fentanyl patch, hold other sedating agents
Neuro recommendations appreciated
Assessment / Plan
Assessment / Plan
#Toxic metabolic encephalopathy
-Unclear etiology; DDx include uremia, infection, polypharmacy, seizure
-Upon arrival CTH without contrast did not show any acute findings
-Home meds fentanyl patch, Flexeril, Oxy, gabapentin, Klonopin, Seroquel, Depakene on hold (no seizure history)
-Has been afebrile, no other obvious signs of infection present; VBG without signs of hypercapnia
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
-Upon time of my eval she was very lethargic, minimally respond, protecting her airway
-Neurology consulted, EEG ordered results pending
Plan
-Continue to hold sedating medications, monitor mental status clinically
-Plan to resume sedating agents sequentially and slowly, started fentanyl patch today
-Plan for EEG and/or LP if not improving
-Continue with neurochecks
#Agitation
-Unclear etiology though likely delirium versus pain associated
-Patient was screaming and pulling at lines earlier this morning
-Ordered bilateral upper limb restraints and IM Haldol as needed
-Continue to monitor
#Parotid mass
-Seen on imaging from the ED, cannot rule out malignancy
-Will plan for further imaging, consider biopsy when mental status improved
#ESRD (HD M/W/F)
#Secondary hyperparathyroidism
-ESRD possibly secondary to diabetic nephropathy
-C/B secondary hyperparathyroidism; on calcium supplement and phosphate binder
-Nephrology following for resumption of HD schedule, trend BMP
#T2DM C/B diabetic neuropathy
#H/O recurrent hypoglycemia
-Home medications include Lantus and ISS
-Holding Lantus due to n.p.o. status, currently on ISS with
-BG goal 100-200, avoid hypoglycemia
#HTN
-No known history of hypertensive systemic disease
-Home medications include losartan, hydralazine, isosorbide, carvedilol
-Continue with home medications when tolerating oral intake
-IV hydralazine as needed for now
#CAD
-No known history of coronary interventions such as PCI or CABG
-Home medications include beta-ramesh, aspirin, statin, Imdur
-Will continue with home medications when tolerating oral intake
#PAD s/p multiple toe amputations bilaterally
-Home medications include aspirin, statin
-No signs of critical limb ischemia at this time
#Chronic pain/chronic opiate dependence
-Holding standing dose home opiates
-Ordered as needed IV Dilaudid for pain if awake enough to request
#Anxiety
-Continue Zoloft once able to take p.o. meds.
-Restart Klonopin and Seroquel pending improvement in mentation
#Left eye blindness/retinopathy
-Continue eyedrops
#HLD
-ASCVD history with PAD s/p multiple amputations
-Continue statin once able to take p.o. meds
#Chronic constipation
-Continue with aggressive bowel regimen once able to take p.o. meds
#Severe malnutrition
-BMI here 17.8
-Will start calorie counts when mental status improves and tolerating feeds
DVT prophylaxis: SCDs
Diet: NPO, consider tube feeds if not tolerating oral intake by 05/17
CODE STATUS: Full code
Anticipated Discharge: > 48 hours
Subjective/Interval History
-
Date of Service: May 17, 2024
Seen and examined at the bedside. No acute events reported overnight. AFVSS this morning
Mental status does seem improved, more awake as of this morning. Does have times where she has significant pain and agitation. Resumed fentanyl patch at low-dose
ROS limited due to her mental status
Objective Data
-
Vital Signs:
Vital Signs
Temp Pulse Resp BP Pulse Ox
98.0 F 77 16 173/106 94
05/17/24 11:10 05/17/24 11:10 05/17/24 11:10 05/17/24 11:10 05/17/24 03:30
I&O
05/16/24 05/17/24 05/18/24
06:59 06:59 06:59
Intake Total 720 / 720 480 / 480
Balance 720 / 720 480 / 480
Review of Systems
-
History Source: Patient
All other systems: Reviewed and negative
Physical Exam
-
General: Well Developed, No Apparent Distress, Comfortable and Cachectic
HEENT: Normocephalic, Atraumatic, Moist Mucous Membranes, Anicteric, PERRLA (Right eye) and Other
Respiratory: Clear to Auscultation and Non Labored Respirations
Cardiac: Regular Rhythm and S1/S2; Negative Murmur, Rub or Gallop
GI: Soft, Nontender, Nondistended and Normal Bowel Sounds
Musculoskeletal: No Clubbing, No Cyanosis and No Edema
Skin: Warm, Dry and Normal Turgor; Negative Rash
Neuro: Awake, Alert, Nonfocal/Grossly Intact and Other (Chronic left eye deficit); Negative Tremors
Psych: Calm
Data Reviewed
-
Labs: Labs Reviewed by me and Discussed with Nurse
--- NOTE | 2024-05-17 12:40 | CM ---
Reviewed the chart notes. Patient receiving HD at this time. CM continues to be available to patient/family and is monitoring medical plan for needs at discharge.
Plan: Discharge back to [facility] when medically stable.
[2024-05-17 12:45] LABS: Glucose - Point of Care 93 mg/dl (70-99)
--- NOTE | 2024-05-17 13:26 | W.PN.NEURO.1 ---
Today's Communication / Plan
-
.
Neuro Assessment/Plan
Assessment
Acute onset change of mental status, recurrent, again with low BG as precursor
DDX toxic metabolic encephalopathy, neuroleptic malignant syndrome
Plan
check blood work for potential causes
Continue patient's usual fentanyl patches due to risk of worsening mentation with discontinuance suddenly
Check for fecal impaction
Goal of normoglycemia
Continue aspirin
Will follow pending results
Subjective/Objective
Subjective Data
Date of Service: May 17, 2024
Neurology Follow Up Note.
24h events: continues to be hypertensive up 171/101 in the morning, agitated and restless.
MAR: Fentanyl 20 mcg/h patch(8:24 AM), hydromorphone 1 mg(11:48 AM), haloperidol 1 mg(08:24 am and 12:00).
Labs: pending.
Brain MRI wo gabino(05/15/2024) no evidence of acute infarcts, moderate white matter leukoaraiosis and atrophy.
Routine EEG(05/15/2024) severe generalized slowing and triphasic waves.
PMH: ESRD on HD; CAD, HTN, DLP, DM, CKD, chronic pancreatitis, PAD, BMI 14, MDD, bipolar disorder, chronic pain s-me, history of alcohol and heroin addiction in remission
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
FH:mother-dementia in her late 80s.
All: metformin
ROS: Unable due to encephalopathy
General: in moderate distress due to crying
Cardio: Regular rate and rhythm. Extremities are without cyanosis or edema.
Neuro:
Mental Status: Awake, attends to examiner briefly, does not follow requests ' why?'. Pseudobulbar affect.
Cranial Nerves: OD 3 mm, irregular/surgical. Roving R eye movements. R facial weakness
Motor: Increased motor tone left greater than right. Drifts right arm to the bed
Reflexes: Limited exam due to increased motor tone.
Sensory: Unable to assess due to encephalopathy
Coordination: No tremor or myoclonic movements
Gait: deferred
Assessment and Plan:
I. Multifactorial encephalopathy (vascular, toxic, metabolic).
II. HTN
III. Brain atrophy, likely multifactorial (toxic, metabolic, ?neurodegenerative)
-BP optimization
-Avoid BOAT WORKER suppressants
-Continue Thiamine 100 mg IV daily
-Start VPA
-Psychiatry consult
-DVT prophylaxis.
I personally reviewed all radiology and labs along with past medical records pertinent to current medical problems. Total time spent in patient care is 36 minutes.
Thank you for allowing us to participate in the care of this patient. We will continue to follow. Please do not hesitate to contact us with any questions or concerns.
Objective Data
Vital Signs
Temp Pulse Resp BP Pulse Ox
36.7 C 77 16 173/106 94
05/17/24 11:10 05/17/24 11:10 05/17/24 11:10 05/17/24 11:10 05/17/24 03:30
Sodium 139 mmol/L (135-145) 05/16/24 09:40
Potassium 3.4 mmol/L (3.5-5.1) L 05/16/24 09:40
BUN 22 mg/dl (7-17) H 05/16/24 09:40
Glucose 100 mg/dl (70-99) H 05/16/24 09:40
Calcium 8.8 mg/dl (8.4-10.2) 05/16/24 09:40
Vitamin B12 939 pg/ml (239-931) H 05/14/24 10:42
Patient Allergies
metformin Allergy (Verified 01/26/24 19:09)
Diarrhea
Vital Signs and Labs
-
Vital Signs and Labs:
Vital Signs
Temp Pulse Resp BP Pulse Ox
36.7 C 77 16 173/106 94
05/17/24 11:10 05/17/24 11:10 05/17/24 11:10 05/17/24 11:10 05/17/24 03:30
Sodium 139 mmol/L (135-145) 05/16/24 09:40
Potassium 3.4 mmol/L (3.5-5.1) L 05/16/24 09:40
BUN 22 mg/dl (7-17) H 05/16/24 09:40
Glucose 100 mg/dl (70-99) H 05/16/24 09:40
Calcium 8.8 mg/dl (8.4-10.2) 05/16/24 09:40
Vitamin B12 939 pg/ml (239-931) H 05/14/24 10:42
Medications
-
Medications:
Generic Name Dose Route Start Last Admin
Trade Name Freq PRN Reason Stop Dose Admin
Acetaminophen 650 mg 05/14/24 16:05
Acetaminophen 325 Mg Tablet PO 06/11/24 16:04
Q4HPRN PRN
mild pain/BOLIVAR/temp> 100.4F
Bisacodyl 10 mg 05/14/24 16:05
Bisacodyl 10 Mg Rectal Suppository RECTAL 06/11/24 16:04
[id number] PRN
constipation
Dextrose 12.5 grams 05/15/24 18:08 05/17/24 07:42
Dextrose 50% (0.5 Grams/Ml) 50 Ml Syringe IV 06/12/24 18:07 12.5 grams
[id number] PRN Administration
hypoglycemia
Famotidine 20 mg 05/14/24 22:00 05/16/24 21:13
Famotidine 20 Mg/2 Ml Vial IV 06/11/24 21:59 20 mg
HS ALENA Administration
Fentanyl 1 patch 05/17/24 08:00 05/17/24 08:24
Fentanyl 12 Mcg/Hr Patch TRANSDERM 05/31/24 07:59 1 patch
Q72H ALENA Administration
Glucagon 1 mg 05/15/24 18:07
Glucagon 1 Mg Vial IM 06/12/24 18:06
PRN PRN
hypoglycemia
Haloperidol Lactate 1 mg 05/17/24 07:52 05/17/24 12:20
Haloperidol 5 Mg/Ml 1 Ml Vial IM 06/14/24 07:51 1 mg
Q4HPRN PRN Administration
agitation
Heparin Sodium 5,000 units 05/14/24 20:00 05/17/24 07:30
Heparin 5,000 Units/Ml 1 Ml Vial SC 06/11/24 19:59 5,000 units
Q12 ALENA Administration
Hydralazine HCl 10 mg 05/15/24 16:55 05/16/24 11:06
Hydralazine 20 Mg/Ml Vial IV 06/12/24 16:54 10 mg
Q6HPRN PRN Administration
SBP > 170
Hydromorphone HCl 1 mg 05/15/24 17:43 05/17/24 11:48
Hydromorphone 1 Mg/Ml Carpuject IV 05/29/24 17:42 1 mg
Q4HPRN PRN Administration
Severe pain
Hydromorphone HCl 0.5 mg 05/15/24 17:43 05/17/24 07:30
Hydromorphone 0.5 Mg/0.5 Ml Syringe IV 05/29/24 17:42 0.5 mg
Q4HPRN PRN Administration
Moderate pain
Sodium Chloride 1,000 mls @ 40 mls/hr 05/16/24 18:00 05/16/24 17:53
Nss IV 1,000 mls
.Q24H ALENA Administration
Dextrose/Sodium Chloride 1,000 mls @ 60 mls/hr 05/17/24 13:00
D5/0.45%Nacl IV
.[id number] ALENA
Valproate Sodium 1,000 mg/ 60 mls @ 60 mls/hr 05/17/24 13:24
Sodium Chloride IV 05/17/24 14:23
NOW STA
Mannitol 12.5 grams 05/17/24 08:00
Mannitol 25% (12.5 Grams/50 Ml) Vial IV 05/17/24 23:59
HD-Q1HPRN PRN
SBP < 90 mmHg
Patch Removal 0 patch 05/20/24 08:00
Remove Fentanyl Patch REMOVE 06/03/24 07:59
Q72H ALENA
Polyethylene Glycol 17 grams 05/14/24 16:05
Polyethylene Glycol Powder 17 Grams Packet PO 06/11/24 16:04
DAILYPRN PRN
constipation
Senna/Docusate Sodium 1 tablet 05/14/24 16:05
Docusate W/Senna (Krys-Colace) Tablet PO 06/11/24 16:04
BIDPRN PRN
constipation
Sodium Chloride 0 flush 05/14/24 17:00
Sodium Chloride 0.9% (Flush) Syringe IV 06/11/24 16:59
PER PROTOCOL ALENA
Sodium Chloride 8 ml 05/14/24 22:00 05/16/24 21:13
Nss 8 Ml Qhs IV 06/11/24 21:59 8 ml
HS ALENA Administration
Sodium Chloride 10 ml 05/17/24 08:00
Sodium Chloride (4 Meq/Ml) 30 Ml Vial *For Hemodialysis* IV 05/17/24 23:59
HD-Q1HPRN PRN
cramps
Thiamine HCl 100 mg 05/16/24 08:00 05/17/24 07:29
Thiamine (100 Mg/Ml) 2 Ml Vial IV 05/18/24 08:01 100 mg
DAILY ALENA Administration
Home Medications
-
Home Medications
atorvastatin 10 mg tablet 10 mg PO QPM High cholesterol 06/28/22
bisacodyl 10 mg rectal suppository 10 mg [place] DAILYPRN PRN if MOM ineffective 06/28/22
carvedilol 25 mg tablet 25 mg PO BID Heart disease/condition 06/28/22
cyclobenzaprine 10 mg tablet 10 mg PO Q8HPRN PRN chronic pain 06/28/22
ferrous sulfate 325 mg (65 mg iron) tablet 325 mg PO DAILY Supplement 06/28/22
lanthanum 1,000 mg chewable tablet 1,000 mg PO MEALS Kidney Disease 06/28/22
losartan 50 mg tablet 75 mg PO HS Blood pressure 06/28/22
ketorolac 0.5 % eye drops 2 drp BOTH EYES DAILYPRN PRN retinopathy 07/20/22
acetaminophen 325 mg tablet 650 mg PO Q6HPRN PRN fever 09/16/22
quetiapine 25 mg tablet (Seroquel) 25 mg PO Q12H Mental Health/Anxiety 09/16/22
sorbitol 70 % solution 30 ml PO DAILYPRN PRN constipation 09/16/22
aspirin 81 mg tablet,delayed release 81 mg PO DAILY Blood Clot Prevention/Tx 12/16/22
hydralazine 50 mg tablet 50 mg PO TID Blood Pressure 12/16/22
calcium acetate 667 mg tablet 667 mg PO AC Supplement 01/04/23
gabapentin 300 mg capsule 300 mg PO HS Neurological Condition 01/04/23
loperamide 2 mg capsule (Imodium A-D) 2 mg PO Q6HPRN PRN watery stool 01/04/23
acetaminophen 325 mg tablet 650 mg PO Q8HPRN PRN mild pain 01/16/23
gabapentin 300 mg capsule 300 mg PO DAILYPRN PRN neuropathic pain 01/16/23
insulin glargine 100 unit/mL (3 mL) subcutaneous pen (Lantus Solostar U-100 Insulin) 5 unit SC HS 09/01/23
insulin lispro 200 unit/mL (3 mL) subcutaneous pen (Humalog KwikPen U-200 Insulin) 2 sliding scale dose SC AC 01/26/24
isosorbide mononitrate 30 mg tablet,extended release 24 hr 30 mg PO DAILY 01/26/24
lidocaine 5 % topical cream 1 applic topical BID 01/26/24
sertraline 25 mg tablet 75 mg PO HS 01/26/24
vitamin B comp no.3-folic acid 1 mg-vit C 60 mg-biotin 300 mcg tablet 1 tab PO DAILY 02/09/24
clonazepam 0.5 mg tablet (Klonopin) 0.5 mg PO BID #6 tabs 02/11/24
fentanyl 12 mcg/hr transdermal patch 1 patch transdermal Q72H #2 ea 02/11/24
oxycodone 10 mg tablet 10 mg PO Q8HPRN PRN moderate pain #5 tabs 02/11/24
Lorazepam Gel 1mg/Ml 1 applic topical Q6HPRN PRN anixety 05/14/24
divalproex 125 mg capsule,delayed release sprinkle (Depakote Sprinkles) 125 mg PO BID 05/14/24
guaifenesin 400 mg tablet 400 mg PO BID 05/14/24
pantoprazole 40 mg tablet,delayed release (Protonix) 40 mg PO BID 05/14/24
[2024-05-17 13:32] LABS: % Basophils 0.2 % (0-2); % Eosinophils 0.1 % (0-6); % Immature Granulocytes 0.5 % (0-0.5); % Lymphocytes 12.3 % (20.5-51.1); % Monocytes 7.1 % (1.7-9.3); % Neutrophils 79.8 % (42.2-75.2); Absolute Immature Granulocytes 0.1 10^3/uL (0-0.05); Absolute Lymphocytes 1.2 10^3/uL (1.2-3.4); Absolute Monocytes 0.7 10^3/uL (0.1-0.6); Absolute Neutrophils 7.8 10^3/uL (1.4-6.5); Hematocrit 39.8 % (37.0-47.0); Mean Corp Hgb Conc. 30.2 g/dL (33.0-37.0); Mean Platelet Volume 9.6 fL (7.4-10.4); Nucleated Red Blood Cells % 0 %; Platelet Count 176 10^3/uL (130-400); Red Blood Cell Count 4.28 10^6/uL (4.20-5.40); Red Cell Dist. Width 15.9 % (11.5-14.5); White Blood Cell Count 9.8 10^3/uL (4.8-10.8)
--- NOTE | 2024-05-17 13:54 | W.PN.NEPH.HD ---
Assessment
-
Seen on HD. sedated on haldol. VSS, access ok
Progress Note - Hemodialysis
-
Date of Service: May 17, 2024
Duration: 30 minutes and 3 hours
Potassium Bath: 3
Calcium Bath: 2.5
Opti-Dialyzer: 160
Ultrafiltration: Other (1kg)
Blood Flow: 400
Dialysate Flow: 600
Heparin: 0
EPO: 0
[2024-05-17] MEDS: DEPACON 60 MG IV (14:27)
[2024-05-17] MEDS: D5/0.45%NACL 1000 IV (14:28)
[2024-05-17 15:14] LABS: Blood Urea Nitrogen 31 mg/dl (7-17); Calcium 8.6 mg/dl (8.4-10.2); Carbon Dioxide 20 mmol/L (22-30); Chloride 104 mmol/L (98-107); Estimated Creatinine Clearance 17 ml/min; Glucose 94 mg/dl (70-99); Potassium 3.5 mmol/L (3.5-5.1); Sodium 140 mmol/L (135-145); eGFR 18.98
[2024-05-17 15:52] VITALS: BP 156/83
[2024-05-17 17:06] LABS: Glucose - Point of Care 104 mg/dl (70-99)
[2024-05-17] MEDS: NSS IV (18:05)
[2024-05-17 19:17] VITALS: BP 108/74
[2024-05-17] MEDS: NSS (PRESERVATIVE FREE) 8 ML IV (21:01)
[2024-05-17] MEDS: PEPCID 20 MG IV (21:01)
[2024-05-17 22:58] VITALS: BP 112/68
[2024-05-17 23:42] LABS: Glucose - Point of Care 130 mg/dl (70-99)
[2024-05-18] MEDS: DILAUDID 1 MG IV ×4 (01:45→20:42)
--- NOTE | 2024-05-18 04:45 | PTCARENOTE ---
[employer] downtime: Accu check completed by PCT. 124 blood sugar resulted around 0300. Result did not upload in system due to [employer] downtime.
[2024-05-18] MEDS: D5/0.45%NACL 1000 IV (05:52)
[2024-05-18 06:00] VITALS: BMI 18.3
[2024-05-18 06:20] LABS: Glucose - Point of Care 121 mg/dl (70-99)
[2024-05-18 07:35] VITALS: BP 196/64
[2024-05-18] MEDS: APRESOLINE 10 MG IV ×3 (08:23→19:23)
[2024-05-18] MEDS: HEPARIN 5000 UNITS SC ×2 (08:26→21:01)
[2024-05-18] MEDS: THIAMINE INJECTION 100 MG IV (08:27)
--- NOTE | 2024-05-18 08:40 | PTOTSP ---
Speech Language Pathology
Pt seen for clinical bedside swallow evaluation. Pt yelling out frequently during evaluation, grabbing at SUPERVIS[employer] at times. Stated her name and that she didn't know where she was. Occasional labial leakage noted with saliva. Oral care completed with
use of suction toothbrush. P.O. trials of puree and thin liquids trialed. Anterior leakage of thin liquids noted. Prolonged/incoordinated bolus formation and A-P transit noted with P.O. Large coughing episode noted in 1/2 trials of thin liquids
via straw.
Recommend:
(1) Strict NPO
(2) Oral care 4x/day with suctioning as needed
(3) Non-oral meds
(4) Not currently appropriate for Aspiration Risk Hydration Protocol (ARHP)
(5) [employer] to continue to follow
--- NOTE | 2024-05-18 09:40 | CM ---
Reviewed the chart notes. CM continues to be available to patient/family and is monitoring medical plan for needs at discharge.
Plan: Discharge back to [facility] when medically stable. No precert required.
Call report to: [phone], ask for 3rd flr
Fax report to: [phone]
Medical necessity and transport forms on chart.
[2024-05-18] MEDS: DEPACON 55 MG IV ×2 (11:27→21:02)
[2024-05-18 11:30] VITALS: BP 181/90
--- NOTE | 2024-05-18 11:36 | W.PN.NEPH.PH ---
Today's Communication / Plan
-
Dialysis tomorrow
Assessment/Plan
-
IMP:
AMS
ESRD on dialysis Wednesday
Diabetes mellitus with multiple microvascular complications including advanced retinopathy, peripheral neuropathy, nephropathy
Fecal impaction noted an abdominal x-ray
Chronic pain/chronic opiate dependence
HTN
CAD
PAD with multiple toe amputations bilaterally
Chronic pain/chronic opiate dependence
GERD
Anxiety
Secondary hyperparathyroidism
Left eye blindness/retinopathy
HLD
Chronic constipation
Secondary hyperparathyroidism
Anemia
h/o GIB in Feb 2024
Plan:
A/w AMS-neuro follows
Dialysis for tomorrow, orders provided
Failed swallow study
-
-
Date of Service: May 18, 2024
CC / HPI / ROS
-
Chief Complaint:
ESRD
History of Present Illness:
ESRD Wednesday
Tolerated dialysis yesterday
Blood pressure remains elevated
Mental status remains altered
Review of Systems:
No fever
Hungry
Labs
-
Labs:
eGFR Cancelled 05/18/24 00:11
Albumin 3.8 g/dl (3.5-5.0) 05/14/24 10:42
Physical Exam
-
Vital Signs:
Vital Signs
Temp Pulse Resp BP Pulse Ox
98.5 F 75 16 181/90 100
05/17/24 22:58 05/18/24 11:30 05/18/24 07:35 05/18/24 11:30 05/18/24 07:35
Cardiovascular:: Regular rate and rhythm
Respiratory:: Bilateral: Coarse
Lung Excursion:: Normal
Abdomen:: Nontender and Soft
Bowel Sounds:: Normal
Extremity Edema:: None: Bilateral:
[2024-05-18 11:58] LABS: Glucose - Point of Care 124 mg/dl (70-99)
[2024-05-18 12:25] LABS: Glucose - Point of Care 150 mg/dl (70-99)
[2024-05-18] MEDS: DURAGESIC 25 MCG/HR PATCH 1 PATCH TRANSDERM (12:44)
--- NOTE | 2024-05-18 13:12 | W.PN.HOSP.TC ---
Addendum entered and electronically signed by Weston Leon DO 05/18/24 13:59:
CDI: Stage II sacral pressure injury, POA
Original Note:
Today's Communication/Plan
-
Increase dose of fentanyl patch
Continue with IV Dilaudid for breakthrough pain
Follow-up EEG
Monitor mental status clinically
Consider tube feeds via NGT
Assessment / Plan
Assessment / Plan
#Toxic metabolic encephalopathy
-Unclear etiology; DDx include uremia, infection, polypharmacy, seizure
-Upon arrival CTH without contrast did not show any acute findings
-Home meds fentanyl patch, Flexeril, Oxy, gabapentin, Klonopin, Seroquel, Depakene on hold (no seizure history)
-Has been afebrile, no other obvious signs of infection present; VBG without signs of hypercapnia
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
-Upon time of my eval she was very lethargic, minimally respond, protecting her airway
-Neurology consulted, EEG ordered results pending
Plan
-Continue to hold sedating medications, monitor mental status clinically
-Resume fentanyl, increase dose to 25 mcg for severe pain
-Plan to resume other sedating agents sequentially
-Follow-up EEG, consider LP
-Continue with neurochecks
#Agitation
-Unclear etiology though likely delirium versus pain associated
-Patient was screaming and pulling at lines earlier this morning
-Ordered bilateral upper limb restraints and IM Haldol as needed
-Continue to monitor
#Parotid mass
-Seen on imaging from the ED, cannot rule out malignancy
-Will plan for further imaging, consider biopsy when mental status improved
#ESRD (HD M/W/F)
#Secondary hyperparathyroidism
-ESRD possibly secondary to diabetic nephropathy
-C/B secondary hyperparathyroidism; on calcium supplement and phosphate binder
-Nephrology following for resumption of HD schedule, trend BMP
#T2DM C/B diabetic neuropathy
#H/O recurrent hypoglycemia
-Home medications include Lantus and ISS
-Holding Lantus due to n.p.o. status, currently on ISS with
-BG goal 100-200, avoid hypoglycemia
#HTN
-No known history of hypertensive systemic disease
-Home medications include losartan, hydralazine, isosorbide, carvedilol
-Continue with home medications when tolerating oral intake
-IV hydralazine as needed for now
#CAD
-No known history of coronary interventions such as PCI or CABG
-Home medications include beta-ramesh, aspirin, statin, Imdur
-Will continue with home medications when tolerating oral intake
#PAD s/p multiple toe amputations bilaterally
-Home medications include aspirin, statin
-No signs of critical limb ischemia at this time
#Chronic pain/chronic opiate dependence
-Holding standing dose home opiates
-Ordered as needed IV Dilaudid for pain if awake enough to request
#Anxiety
-Continue Zoloft once able to take p.o. meds.
-Restart Klonopin and Seroquel pending improvement in mentation
#Left eye blindness/retinopathy
-Continue eyedrops
#HLD
-ASCVD history with PAD s/p multiple amputations
-Continue statin once able to take p.o. meds
#Chronic constipation
-Continue with aggressive bowel regimen once able to take p.o. meds
#Severe malnutrition
-BMI here 17.8
-Will start calorie counts when mental status improves and tolerating feeds
DVT prophylaxis: SCDs
Diet: NPO, consider tube feeds to start today
CODE STATUS: Full code
Anticipated Discharge: > 48 hours
Subjective/Interval History
-
Date of Service: May 18, 2024
Seen and examined at the bedside. No acute events overnight. AFVSS this morning
Mental status seems to slowly be improving. Still has periods where she alternates between sedated and screaming in pain. As of this morning was uncomfortable, eyes were open and she was able to communicate verbally to some degree. When asked
where she was feeling pain she was able to say 'everywhere'
ROS otherwise limited from her acuity
Objective Data
-
Labs:
Laboratory Results
05/18/24
00:11
Sodium Cancelled
Potassium Cancelled
Chloride Cancelled
Carbon Dioxide Cancelled
BUN Cancelled
Creatinine Cancelled
Glucose Cancelled
Calcium Cancelled
Vital Signs:
Vital Signs
Temp Pulse Resp BP Pulse Ox
98.2 F 75 18 181/90 100
05/18/24 11:50 05/18/24 11:30 05/18/24 11:50 05/18/24 11:30 05/18/24 11:50
I&O
05/17/24 05/18/24 05/19/24
06:59 06:59 06:59
Intake Total 480 / 480 0 / 0
Balance 480 / 480 0 / 0
Review of Systems
-
Unable to obtain full review of systems at this time due to: Acuity
Physical Exam
-
General: Appears in Distress, Pain, Appears Chronically Ill and Cachectic
HEENT: Normocephalic, Atraumatic, Moist Mucous Membranes, Anicteric and Other (Chronic left eye deficit, right pupil reactive to light)
Respiratory: Clear to Auscultation and Non Labored Respirations
Cardiac: Regular Rhythm and S1/S2; Negative Murmur, Rub or Gallop
GI: Soft, Nontender, Nondistended and Normal Bowel Sounds
Musculoskeletal: No Clubbing, No Cyanosis, No Edema and Other (Bilateral toe amputations)
Skin: Warm, Dry and Normal Turgor; Negative Rash
Neuro: Awake, Alert and Nonfocal/Grossly Intact; Negative Tremors
Psych: Agitated
Data Reviewed
-
Labs: Labs Reviewed by me and Discussed with Nurse
[2024-05-18] MEDS: HALDOL 1 MG IM (14:25)
[2024-05-18 14:55] VITALS: BP 199/92
--- NOTE | 2024-05-18 15:19 | PTCARENOTE ---
Spoke with Dr. Leon at bedside. He stated to hold putting in the NGT until tomorrow morning, as patient is presently settled and comfortable, and will re-evaluate need in the morning. Patient currently has IVF running as ordered.
--- NOTE | 2024-05-18 15:20 | EEGC.RPT ---
Continuous EEG Report
Recording
Start Date of Data Reviewed: 05/18/24
Done with Video Recording: Yes
Report
CLINICAL HISTORY: This is a 63-year-old woman with encephalopathy. This study was requested to look for an epileptiform abnormality.
MEDICATIONS: Ativan, Depakote,
STUDY DURATION: 35 min 16 secs.
TECHNICAL REMARKS: This is a technically satisfactory eighteen channel record employing 21-disc electrodes applied according to a measured international 10-20 electrode placement system.��There were no significant technical difficulties.��The study
was done on a [employer] System.
REPORT:��At the onset of the EEG, the patient is in altered mental status. The background activity consists of�5-6�Hz, impersistent, posteriorly dominant, moderate amplitude, symmetric and rhythmic activity. Generalized 2-3 Hz slowing with
infrequent triphasic waves were seen. Intermittent photic stimulation and hyperventilation did not cause any additional abnormalities.
IMPRESSION:��This is an abnormal EEG recorded in a patient with altered mental status due to a moderate generalized slowing, improved. This finding indicates diffuse cerebral dysfunction, nonspecific in terms of etiology.
[2024-05-18] MEDS: DILAUDID 0.5 MG IV (16:44)
--- NOTE | 2024-05-18 18:32 | W.PN.NEURO.1 ---
Today's Communication / Plan
-
.
Subjective/Objective
Subjective Data
Date of Service: May 18, 2024
Neurology Follow Up Note.
24h events: Continues to be hypertensive up to 199/93.
S/p hemodyalysis today.
Repeat EEG showed generalized slowing and significant improvement in frequency of triphasic waves. No epileptiform abnormalities
No new blood work to review.
Brain MRI wo gabino(05/15/2024) no evidence of acute infarcts, moderate white matter leukoaraiosis and atrophy.
PMH: ESRD on HD; CAD, HTN, DLP, DM, CKD, chronic pancreatitis, PAD, BMI 14, MDD, bipolar disorder, chronic pain s-me, history of alcohol and heroin addiction in remission
PSH:AV fistula, GENERALIST, Right great toe left 4th toe amputation, R hip ORIF
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
FH:mother-dementia in her late 80s.
All: metformin
ROS: Unable due to encephalopathy
General: in moderate distress due to crying
Cardio: Regular rate and rhythm. Extremities are without cyanosis or edema.
Neuro: Awake, attends to examiner. Oriented to name, date of . 'Help me '.
Cranial Nerves: OD 3 mm, irregular/surgical. Roving R eye movements. R facial weakness edentulous dysarthria
Motor: Left spastic hemiparesis.
Reflexes: Grasp on the right.
Sensory: Unable to assess due to encephalopathy
Coordination: No tremor or myoclonic movements
Gait: deferred
Assessment and Plan:
I. Multifactorial encephalopathy (vascular, toxic, metabolic), clinically improved.
II. HTN
III. Brain atrophy, likely multifactorial (toxic, metabolic, ?neurodegenerative)
-BP optimization
-Avoid [employer] REFUELING [employer] suppressants
-Continue Thiamine 100 mg IV daily
-Continue valproate acid 500 mg twice daily. Switch to p.o. when able.
-Psychiatry consult
-DVT prophylaxis.
-Please recall neurology service with any questions or concerns
I personally reviewed all radiology and labs along with past medical records pertinent to current medical problems. Total time spent in patient care is 37 minutes.
Thank you for allowing us to participate in the care of this patient. Please do not hesitate to contact us with any questions or concerns.
Objective Data
Vital Signs
Temp Pulse Resp BP Pulse Ox
36.7 C 71 16 199/92 99
05/18/24 14:55 05/18/24 14:55 05/18/24 14:55 05/18/24 14:55 05/18/24 14:55
Lab Results
05/18/24 06:00
Sodium Cancelled 05/18/24 06:00
Potassium Cancelled 05/18/24 06:00
BUN Cancelled 05/18/24 06:00
Glucose Cancelled 05/18/24 06:00
Calcium Cancelled 05/18/24 06:00
Vitamin B12 939 pg/ml (028-931) H 05/14/24 10:42
Patient Allergies
metformin Allergy (Verified 01/26/24 19:09)
Diarrhea
Vital Signs and Labs
-
Vital Signs and Labs:
Vital Signs
Temp Pulse Resp BP Pulse Ox
36.7 C 71 16 199/92 99
05/18/24 14:55 05/18/24 14:55 05/18/24 14:55 05/18/24 14:55 05/18/24 14:55
Lab Results
05/18/24 06:00
Sodium Cancelled 05/18/24 06:00
Potassium Cancelled 05/18/24 06:00
BUN Cancelled 05/18/24 06:00
Glucose Cancelled 05/18/24 06:00
Calcium Cancelled 05/18/24 06:00
Vitamin B12 939 pg/ml (235-307) H 05/14/24 10:42
Medications
-
Medications:
Generic Name Dose Route Start Last Admin
Trade Name Freq PRN Reason Stop Dose Admin
Acetaminophen 650 mg 05/14/24 16:05
Acetaminophen 325 Mg Tablet PO 06/11/24 16:04
Q4HPRN PRN
mild pain/BOLIVAR/temp> 100.4F
Albumin Human 12.5 grams 05/19/24 08:00
Albumin 12.5 Grams/50 Ml Bag *For Hemodialysis* IV 05/19/24 23:59
HD-Q1HPRN PRN
SBP < 90 mmHg
Bisacodyl 10 mg 05/14/24 16:05 05/17/24 07:30
Bisacodyl 10 Mg Rectal Suppository RECTAL 06/11/24 16:04 10 mg
[id number] PRN Administration
constipation
Dextrose 12.5 grams 05/15/24 18:08 05/17/24 07:42
Dextrose 50% (0.5 Grams/Ml) 50 Ml Syringe IV 06/12/24 18:07 12.5 grams
[id number] PRN Administration
hypoglycemia
Famotidine 20 mg 05/14/24 22:00 05/17/24 21:01
Famotidine 20 Mg/2 Ml Vial IV 06/11/24 21:59 20 mg
HS ALENA Administration
Fentanyl 1 patch 05/18/24 12:00 05/18/24 12:44
Fentanyl 25 Mcg/Hr Patch TRANSDERM 06/01/24 11:59 1 patch
Q72H ALENA Administration
Glucagon 1 mg 05/15/24 18:07
Glucagon 1 Mg Vial IM 06/12/24 18:06
PRN PRN
hypoglycemia
Haloperidol Lactate 1 mg 05/17/24 07:52 05/18/24 14:25
Haloperidol 5 Mg/Ml 1 Ml Vial IM 06/14/24 07:51 1 mg
Q4HPRN PRN Administration
agitation
Heparin Sodium 5,000 units 05/14/24 20:00 05/18/24 08:26
Heparin 5,000 Units/Ml 1 Ml Vial SC 06/11/24 19:59 5,000 units
Q12 ALENA Administration
Hydralazine HCl 10 mg 05/18/24 14:45 05/18/24 14:54
Hydralazine 20 Mg/Ml Vial IV 06/15/24 14:44 10 mg
Q4HPRN PRN Administration
SBP > 170
Hydromorphone HCl 1 mg 05/15/24 17:43 05/18/24 11:41
Hydromorphone 1 Mg/Ml Carpuject IV 05/29/24 17:42 1 mg
Q4HPRN PRN Administration
Severe pain
Hydromorphone HCl 0.5 mg 05/15/24 17:43 05/18/24 16:44
Hydromorphone 0.5 Mg/0.5 Ml Syringe IV 05/29/24 17:42 0.5 mg
Q4HPRN PRN Administration
Moderate pain
Dextrose/Sodium Chloride 1,000 mls @ 60 mls/hr 05/17/24 13:00 05/18/24 05:52
D5/0.45%Nacl IV 1,000 mls
.[id number] ALENA Administration
Valproate Sodium 500 mg/ 55 mls @ 55 mls/hr 05/18/24 10:00 05/18/24 11:27
Sodium Chloride IV 06/15/24 09:59 55 mls
Q12H ALENA Administration
Mannitol 12.5 grams 05/19/24 08:00
Mannitol 25% (12.5 Grams/50 Ml) Vial IV 05/19/24 23:59
HD-Q1HPRN PRN
SBP < 90 mmHg
Patch Removal 0 patch 05/18/24 12:00 05/18/24 12:54
Remove Fentanyl Patch REMOVE 06/01/24 11:59 25 patch
Q72H ALENA Administration
Polyethylene Glycol 17 grams 05/14/24 16:05
Polyethylene Glycol Powder 17 Grams Packet PO 06/11/24 16:04
DAILYPRN PRN
constipation
Senna/Docusate Sodium 1 tablet 05/14/24 16:05
Docusate W/Senna (Krys-Colace) Tablet PO 06/11/24 16:04
BIDPRN PRN
constipation
Sodium Chloride 0 flush 05/14/24 17:00
Sodium Chloride 0.9% (Flush) Syringe IV 06/11/24 16:59
PER PROTOCOL ALENA
Sodium Chloride 8 ml 05/14/24 22:00 05/17/24 21:01
Nss 8 Ml Qhs IV 06/11/24 21:59 8 ml
HS ALENA Administration
Sodium Chloride 10 ml 05/19/24 08:00
Sodium Chloride (4 Meq/Ml) 30 Ml Vial *For Hemodialysis* IV 05/19/24 23:59
HD-Q1HPRN PRN
cramps
Home Medications
-
Home Medications
atorvastatin 10 mg tablet 10 mg PO QPM High cholesterol 06/28/22
bisacodyl 10 mg rectal suppository 10 mg MA DAILYPRN PRN if MOM ineffective 06/28/22
carvedilol 25 mg tablet 25 mg PO BID Heart disease/condition 06/28/22
cyclobenzaprine 10 mg tablet 10 mg PO Q8HPRN PRN chronic pain 06/28/22
ferrous sulfate 325 mg (65 mg iron) tablet 325 mg PO DAILY Supplement 06/28/22
lanthanum 1,000 mg chewable tablet 1,000 mg PO MEALS Kidney Disease 06/28/22
losartan 50 mg tablet 75 mg PO HS Blood pressure 06/28/22
ketorolac 0.5 % eye drops 2 drp BOTH EYES DAILYPRN PRN retinopathy 07/20/22
acetaminophen 325 mg tablet 650 mg PO Q6HPRN PRN fever 09/16/22
quetiapine 25 mg tablet (Seroquel) 25 mg PO Q12H Mental Health/Anxiety 09/16/22
sorbitol 70 % solution 30 ml PO DAILYPRN PRN constipation 09/16/22
aspirin 81 mg tablet,delayed release 81 mg PO DAILY Blood Clot Prevention/Tx 12/16/22
hydralazine 50 mg tablet 50 mg PO TID Blood Pressure 12/16/22
calcium acetate 667 mg tablet 667 mg PO AC Supplement 01/04/23
gabapentin 300 mg capsule 300 mg PO HS Neurological Condition 01/04/23
loperamide 2 mg capsule (Imodium A-D) 2 mg PO Q6HPRN PRN watery stool 01/04/23
acetaminophen 325 mg tablet 650 mg PO Q8HPRN PRN mild pain 01/16/23
gabapentin 300 mg capsule 300 mg PO DAILYPRN PRN neuropathic pain 01/16/23
insulin glargine 100 unit/mL (3 mL) subcutaneous pen (Lantus Solostar U-100 Insulin) 5 unit SC HS 09/01/23
insulin lispro 200 unit/mL (3 mL) subcutaneous pen (Humalog KwikPen U-200 Insulin) 2 sliding scale dose SC AC 01/26/24
isosorbide mononitrate 30 mg tablet,extended release 24 hr 30 mg PO DAILY 01/26/24
lidocaine 5 % topical cream 1 applic topical BID 01/26/24
sertraline 25 mg tablet 75 mg PO HS 01/26/24
vitamin B comp no.3-folic acid 1 mg-vit C 60 mg-biotin 300 mcg tablet 1 tab PO DAILY 02/09/24
clonazepam 0.5 mg tablet (Klonopin) 0.5 mg PO BID #6 tabs 02/11/24
fentanyl 12 mcg/hr transdermal patch 1 patch transdermal Q72H #2 ea 02/11/24
oxycodone 10 mg tablet 10 mg PO Q8HPRN PRN moderate pain #5 tabs 02/11/24
Lorazepam Gel 1mg/Ml 1 applic topical Q6HPRN PRN anixety 05/14/24
divalproex 125 mg capsule,delayed release sprinkle (Depakote Sprinkles) 125 mg PO BID 05/14/24
guaifenesin 400 mg tablet 400 mg PO BID 05/14/24
pantoprazole 40 mg tablet,delayed release (Protonix) 40 mg PO BID 05/14/24
[2024-05-18 19:00] VITALS: BP 176/99
[2024-05-18 19:08] LABS: Glucose - Point of Care 171 mg/dl (70-99)
[2024-05-18] MEDS: PEPCID 20 MG IV (21:01)
[2024-05-18] MEDS: NSS (PRESERVATIVE FREE) 8 ML IV (21:02)
[2024-05-18 23:00] VITALS: BP 194/91
[2024-05-19] MEDS: APRESOLINE 10 MG IV ×2 (00:02→09:28)
[2024-05-19 00:44] LABS: Glucose - Point of Care 143 mg/dl (70-99)
[2024-05-19 03:00] VITALS: BP 184/94
[2024-05-19] MEDS: DILAUDID 1 MG IV (03:20)
[2024-05-19] MEDS: D5/0.45%NACL 1000 IV ×2 (03:20→22:06)
[2024-05-19 05:54] LABS: Glucose - Point of Care 141 mg/dl (70-99)
[2024-05-19 06:00] VITALS: BMI 18.0
[2024-05-19 07:40] VITALS: BP 171/81
--- NOTE | 2024-05-19 07:43 | PN.CDI ---
CDI
- -
CDI:
Physician Documentation Request
Admit Date: 05/14/24 14:24
Dear Doctor Edward,
Please review the following and provide your response in the progress notes.
The purpose of this query is not to question medical judgement, but to ensure the accuracy of the conditions reported for your patient.
Diagnosis:
The diagnosis of severe malnutrition is documented in the record on 05/18 Progress Note.
There is either a lack of clinical support for this condition in the current medical record, or there is a lack of recognized ASPEN criteria to support the condition.
Clinical indicators:
- 05/18 PN 'Severe malnutrition...BMI here 17.8'
- 05/16 Floral Department Specialist note indicates 'underweight...inability to consume food'
- '5% wt loss in < 3 months (not significant)'
- 'Increased protein needs related to increased demand for wound healing as evidenced by pressure wound'
The request is for one of the following:
- Additional documentation to support the condition. Indicate if this is in lieu of what may be considered standard criteria, and/or support why the standard criteria may not be present for this patient.
- Diagnosis severe malnutrition remains a known or suspected condition for this patient and is further supported by (include additional documentation in the medical record)
- Diagnosis severe malnutrition has been ruled out and a more appropriate diagnosis for this patient's condition is _underweight / cachectic_.
- Other (please specify)
[place] Criteria (ACP Hospitalist 2017)
2 or more criteria must be present for either
non severe or severe malnutrition
Note that the criteria differs related to the
presence of an acute or chronic illness
Acute Illness Chronic Illness
Energy Intake Non Severe: <75% for >7 days Non Severe: <75% for >1 month
Severe: <50% for >5 days Severe: <75% for >1 month
Weight Loss Non Severe: 1-2% over 1 week Non Severe: 5% over 1 month
5% over 1 month 7.5% over 3 months
7.5% over 3 months 10% over 6 months
1 year N/A 20% over 1 year
Severe: >2% over 1 week Severe: >5% over 1 month
>5% over 1 month >7.5% over 3 months
>7.5% over 3 months >10% over 6 months
1 year N/A >20% over 1 year
Body Fat Non Severe: Mild Decrease Non Severe: Mild Loss
Severe: Moderate Decrease Severe: Severe Loss
Muscle Mass Non Severe: Mild Decrease Non Severe: Mild Loss
Severe: Moderate Decrease Severe: Severe Loss
Fluid Accumulation Non Severe: Mild Accumulation Non Severe: Mild Accumulation
Severe: Moderate to severe Severe: Moderate to severe
accumulation accumulation
Reduced Sales Research Analyst Strength Non Severe: N/A Non Severe: N/A
Severe: Measurably reduced Severe: Measurably reduced
Use of terms such as suspected, likely, concern for, or probable (associated with a specific diagnosis that is being evaluated, monitored, or treated as if it exists) are acceptable and can be coded in the inpatient setting, when documented at the
time of discharge.
Thank you,
Ham Vivar RN
CDI Specialist
Please use your independent medical judgment in providing your response.
[2024-05-19] MEDS: HEPARIN 5000 UNITS SC ×2 (09:27→20:38)
[2024-05-19] MEDS: DEPACON 55 MG IV ×2 (09:31→22:05)
--- NOTE | 2024-05-19 11:48 | CM ---
Reviewed the chart notes. Attending ordered NGT and tube feedings to begin. CM continues to be available to patient/family and is monitoring medical plan for needs at discharge.
Plan: Discharge back to [facility] when medically stable. No precert required.
Call report to: [phone], ask for 3rd flr
Fax report to: [phone]
Medical necessity and transport forms on chart.
[2024-05-19 11:55] VITALS: BP 158/101
--- NOTE | 2024-05-19 13:18 | W.PN.HOSP.TC ---
Addendum entered and electronically signed by Weston Leon DO 05/19/24 14:33:
CDI: Severe malnutrition, BMI 17.8 with significant reduction in muscle mass
Original Note:
Today's Communication/Plan
-
Start tube feeds via NGT
Continue with fentanyl 25 mcg patch
Psychiatry consult
Further neurology recommendations appreciated
Assessment / Plan
Assessment / Plan
#Toxic metabolic encephalopathy
-Unclear etiology; DDx include uremia, infection, polypharmacy, seizure
-Upon arrival CTH without contrast did not show any acute findings
-Home meds fentanyl patch, Flexeril, Oxy, gabapentin, Klonopin, Seroquel, Depakene on hold (no seizure history)
-Has been afebrile, no other obvious signs of infection present; VBG without signs of hypercapnia
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
-Upon time of my eval she was very lethargic, minimally respond, protecting her airway
-Neurology consulted, EEG without evidence of epileptic foci
Plan
-Continue to hold sedating medications, monitor mental status clinically
-Continue with fentanyl 25 mcg for her chronic pain
-Continue with valproic acid, plan to transition to oral when possible
-Plan to resume other sedating agents sequentially
-Continue with neurochecks
-Consult psychiatry
#Agitation
-Unclear etiology though likely delirium versus pain associated
-Patient was screaming and pulling at lines earlier this morning
-Ordered bilateral upper limb restraints and IM Haldol as needed
-Continue to monitor
#Parotid mass
-Seen on imaging from the ED, cannot rule out malignancy
-Will plan for further imaging, consider biopsy when mental status improved
#ESRD (HD M/W/F)
#Secondary hyperparathyroidism
-ESRD possibly secondary to diabetic nephropathy
-C/B secondary hyperparathyroidism; on calcium supplement and phosphate binder
-Nephrology following for resumption of HD schedule, trend BMP
#T2DM C/B diabetic neuropathy
#H/O recurrent hypoglycemia
-Home medications include Lantus and ISS
-Holding Lantus due to n.p.o. status, currently on ISS with
-BG goal 100-200, avoid hypoglycemia
#HTN
-No known history of hypertensive systemic disease
-Home medications include losartan, hydralazine, isosorbide, carvedilol
-Continue with home medications when tolerating oral intake
-IV hydralazine as needed for now
#CAD
-No known history of coronary interventions such as PCI or CABG
-Home medications include beta-ramesh, aspirin, statin, Imdur
-Will continue with home medications when tolerating oral intake
#PAD s/p multiple toe amputations bilaterally
-Home medications include aspirin, statin
-No signs of critical limb ischemia at this time
#Chronic pain/chronic opiate dependence
-Holding standing dose home opiates
-Ordered as needed IV Dilaudid for pain if awake enough to request
#Anxiety
-Continue Zoloft once able to take p.o. meds.
-Restart Klonopin and Seroquel pending improvement in mentation
#Left eye blindness/retinopathy
-Continue eyedrops
#HLD
-ASCVD history with PAD s/p multiple amputations
-Continue statin once able to take p.o. meds
#Chronic constipation
-Continue with aggressive bowel regimen once able to take p.o. meds
#Severe malnutrition
-BMI here 17.8
-Will start calorie counts when mental status improves and tolerating feeds
DVT prophylaxis: SCDs
Diet: Started on Jevity 1.5 via NGT, nutrition consulted
CODE STATUS: Full code
Anticipated Discharge: > 48 hours
Subjective/Interval History
-
Date of Service: May 19, 2024
Seen and examined at the bedside. No acute events reported overnight. AFVSS this morning
Continues to have inconsistent mental status, more sedated today with less episodes of screaming from pain.
Unable to obtain history or ROS due to her mental status
Objective Data
-
Labs:
Laboratory Results
05/19/24
00:05
WBC Cancelled
Hgb Cancelled
Hct Cancelled
Plt Count Cancelled
Vital Signs:
Vital Signs
Temp Pulse Resp BP Pulse Ox
97.8 F 94 16 171/81 100
05/19/24 07:40 05/19/24 09:28 05/19/24 07:40 05/19/24 09:28 05/19/24 07:40
I&O
05/18/24 05/19/24 05/20/24
06:59 06:59 06:59
Intake Total 0 / 0 0 / 0
Balance 0 / 0 0 / 0
Review of Systems
-
Unable to obtain full review of systems at this time due to: Acuity
Physical Exam
-
General: No Apparent Distress, Comfortable and Cachectic; Negative Pain
HEENT: Normocephalic, Atraumatic, Moist Mucous Membranes and Other (Chronic left eye deficit; thinning hair)
Respiratory: Clear to Auscultation and Non Labored Respirations
Cardiac: Regular Rhythm and S1/S2; Negative Murmur, Rub or Gallop
GI: Soft, Nontender, Nondistended and Normal Bowel Sounds
Musculoskeletal: No Clubbing, No Cyanosis and No Edema
Skin: Warm and Dry; Negative Rash
Neuro: Other (Lethargic, responds to sternal rub and opens eyes; right eye with reactive pupil; unable to obtain full exam due to mental status)
[2024-05-19 13:43] LABS: % Basophils 0.2 % (0-2); % Eosinophils 0.2 % (0-6); % Immature Granulocytes 0.4 % (0-0.5); % Lymphocytes 15.6 % (20.5-51.1); % Monocytes 7.4 % (1.7-9.3); % Neutrophils 76.2 % (42.2-75.2); Absolute Lymphocytes 1.3 10^3/uL (1.2-3.4); Absolute Monocytes 0.6 10^3/uL (0.1-0.6); Absolute Neutrophils 6.3 10^3/uL (1.4-6.5); Hematocrit 42.8 % (37.0-47.0); Hemoglobin 13.5 g/dL (12.0-16.0); Mean Corp Hgb Conc. 31.5 g/dL (33.0-37.0); Mean Corpuscular Hgb 28.4 pg (27.0-31.0); Mean Corpuscular Volume 89.9 fL (81.0-99.0); Mean Platelet Volume 9.8 fL (7.4-10.4); Nucleated Red Blood Cells % 0 %; Platelet Count 160 10^3/uL (130-400); Red Blood Cell Count 4.76 10^6/uL (4.20-5.40); Red Cell Dist. Width 15.4 % (11.5-14.5); White Blood Cell Count 8.3 10^3/uL (4.8-10.8)
--- NOTE | 2024-05-19 13:47 | W.PN.NEPH.HD ---
Assessment
-
Patient seen on dialysis
Stopped blood pressure 119 and current UF
Patient was very difficult to access via her fistula due to the patient struggling
Tube feeds to be initiated via NG tube
Progress Note - Hemodialysis
-
Date of Service: May 19, 2024
Duration: 30 minutes and 3 hours
Potassium Bath: 3
Calcium Bath: 2.5
Opti-Dialyzer: 160
Ultrafiltration: Other (1 kg)
Blood Flow: 400
Dialysate Flow: 600
Heparin: None
EPO: 4000
[2024-05-19 13:52] LABS: Glucose - Point of Care 135 mg/dl (70-99)
[2024-05-19 14:04] LABS: Blood Urea Nitrogen 19 mg/dl (7-17); Calcium 9.1 mg/dl (8.4-10.2); Carbon Dioxide 25 mmol/L (22-30); Chloride 100 mmol/L (98-107); Estimated Creatinine Clearance 22 ml/min; Glucose 188 mg/dl (70-99); Potassium 2.8 mmol/L (3.5-5.1); Sodium 135 mmol/L (135-145); eGFR 24.27
[2024-05-19 15:25] VITALS: BP 154/75
[2024-05-19] MEDS: KCL 260 MEQ IV (16:25)
[2024-05-19 16:47] LABS: Magnesium 1.9 mg/dl (1.6-2.3); Phosphorus 3.3 mg/dl (2.5-4.5)
[2024-05-19 17:30] LABS: Glucose - Point of Care 127 mg/dl (70-99)
[2024-05-19 19:39] VITALS: BP 163/51
[2024-05-19 23:10] VITALS: BP 140/93
[2024-05-20 00:29] LABS: Glucose - Point of Care 129 mg/dl (70-99)
[2024-05-20 03:02] VITALS: BP 134/87
[2024-05-20 05:45] VITALS: BMI 18.0
[2024-05-20 06:08] LABS: Glucose - Point of Care 121 mg/dl (70-99)
[2024-05-20 07:31] LABS: % Basophils 0.3 % (0-2); % Eosinophils 0.8 % (0-6); % Immature Granulocytes 0.2 % (0-0.5); % Lymphocytes 23.1 % (20.5-51.1); % Monocytes 6.8 % (1.7-9.3); % Neutrophils 68.8 % (42.2-75.2); Absolute Eosinophils 0.1 10^3/uL (0-0.7); Absolute Lymphocytes 1.5 10^3/uL (1.2-3.4); Absolute Monocytes 0.4 10^3/uL (0.1-0.6); Absolute Neutrophils 4.3 10^3/uL (1.4-6.5); Hematocrit 39.7 % (37.0-47.0); Hemoglobin 12.2 g/dL (12.0-16.0); Mean Corp Hgb Conc. 30.7 g/dL (33.0-37.0); Mean Corpuscular Hgb 28.5 pg (27.0-31.0); Mean Corpuscular Volume 92.8 fL (81.0-99.0); Mean Platelet Volume 9.8 fL (7.4-10.4); Nucleated Red Blood Cells % 0 %; Platelet Count 127 10^3/uL (130-400); Red Blood Cell Count 4.28 10^6/uL (4.20-5.40); Red Cell Dist. Width 15.8 % (11.5-14.5); White Blood Cell Count 6.3 10^3/uL (4.8-10.8)
[2024-05-20 07:36] VITALS: BP 116/91
[2024-05-20] MEDS: HEPARIN 5000 UNITS SC ×2 (08:55→19:37)
[2024-05-20 09:09] LABS: NT-proBNP 6060 pg/ml
[2024-05-20] MEDS: DEPACON 55 MG IV ×2 (09:50→21:39)
--- NOTE | 2024-05-20 10:39 | W.PN.NEPH.PH ---
Today's Communication / Plan
-
Next dialysis will be Wednesday
Follow-up for potassium level
Assessment/Plan
-
IMP:
AMS
ESRD on dialysis Wednesday
Diabetes mellitus with multiple microvascular complications including advanced retinopathy, peripheral neuropathy, nephropathy
Fecal impaction noted an abdominal x-ray
Chronic pain/chronic opiate dependence
HTN
CAD
PAD with multiple toe amputations bilaterally
Chronic pain/chronic opiate dependence
GERD
Anxiety
Secondary hyperparathyroidism
Left eye blindness/retinopathy
HLD
Chronic constipation
Secondary hyperparathyroidism
Anemia
h/o GIB in Feb 2024
Plan:
A/w AMS-neuro follows
Dialysis will be next performed on Wednesday
Failed swallow study
Hemodynamically stable
Tube feeds and put
-
-
Date of Service: May 20, 2024
CC / HPI / ROS
-
Chief Complaint:
ESRD
History of Present Illness:
ESRD Wednesday
Tolerated dialysis yesterday
Blood pressure remains elevated
Mental status remains altered
Review of Systems:
No fever
tube feeds
Labs
-
Labs:
WBC Cancelled 05/20/24 09:02
RBC Cancelled 05/20/24 09:02
Hgb Cancelled 05/20/24 09:02
Hct Cancelled 05/20/24 09:02
Plt Count Cancelled 05/20/24 09:02
eGFR Cancelled 05/20/24 09:15
Jzk-O-Nugycklqnrk Pept 6060 pg/ml 05/20/24 08:19
Albumin 3.8 g/dl (3.5-5.0) 05/14/24 10:42
Physical Exam
-
Vital Signs:
Vital Signs
Temp Pulse Resp BP Pulse Ox
97.7 F 76 17 116/91 96
05/20/24 07:36 05/20/24 07:36 05/20/24 07:36 05/20/24 07:36 05/20/24 07:36
Cardiovascular:: Regular rate and rhythm
Respiratory:: Bilateral: Coarse
Lung Excursion:: Normal
Abdomen:: Nontender and Soft
Bowel Sounds:: Normal
Extremity Edema:: None: Bilateral:
[2024-05-20 11:08] VITALS: BP 111/70
--- NOTE | 2024-05-20 11:16 | CS.PSYCHR ---
Consult Summary - Psychiatry
-
Psychiatry consult for altered mental status. Chart reviewed. 63 yo female admitted 05/14 from [facility] for altered mental status. Per [place] staff, at baseline patient is oriented and generally conversational. On admission she presented non verbal.
At this time she is somnolent but arousable. She answers to her name. She cannot tell me where she lives but when asked about [facility] answers 'yes.' She does not know the year/month/date. I told her I'd return to see her tomorrow and she said
'ok.'
MSE- lying in bed, eyes closed. oriented to self. one word answers to some questions.
05/14 VPA 22 (dose increased to 500mg BID by neuro) 05/15 ammonia <9, EEGs done 05/16 and 05/18 both of which showed generalized slowing but improvement noted in the latter
05/19 Qtc 471
PMH- DM2 with microvascular complications, neuropathy, PAD, multiple toe amputations, CAD, HTN, retinopathy, ESRD on dialysis
past psych- bipolar disorder history; psych meds listed include depakote, klonopin, Ativan Gel PRN, gabapentin, Seroquel, Zoloft. also on oxy and fentanyl patches
D&A- per chart history of alcohol and heroin in remission
Family hx- mother dementia in her 80s
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
A/P- 63 yo female with multifactorial encephalopathy on top of multifactorial brain atrophy. concern about multiple sedating medications at [facility] in a patient with an already compromised brain. She is showing very slow improvement. Would continue to
hold sedating medications as much as possible. Defer to neurology on restart/increase of depakote on 05/14 though this can cause sedation/slowing down as well. Psychiatry will follow.
[2024-05-20 12:15] LABS: Glucose - Point of Care 132 mg/dl (70-99)
--- NOTE | 2024-05-20 12:58 | W.PN.HOSP.TC ---
Today's Communication/Plan
-
Continue to monitor mental status
Consider reducing fentanyl/stopping valproic acid
Plan for NGT, start Nepro tube feeds after speaking with nutrition
Assessment / Plan
Assessment / Plan
#Toxic metabolic encephalopathy
-Unclear etiology; DDx include uremia, infection, polypharmacy, seizure
-Upon arrival CTH without contrast did not show any acute findings
-Home meds fentanyl patch, Flexeril, Oxy, gabapentin, Klonopin, Seroquel, Depakene on hold (no seizure history)
-Has been afebrile, no other obvious signs of infection present; VBG without signs of hypercapnia
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
-Upon time of my eval she was very lethargic, minimally respond, protecting her airway
-Neurology consulted, EEG without evidence of epileptic foci
-Psychiatry following
Plan
-Continue to hold sedating medications, monitor mental status clinically
-Continue with fentanyl 25 mcg for her chronic pain, consider decreasing back to 12 mcg if remains sedated
-Continue with valproic acid for now, will consider discontinuing
-Plan to resume other sedating agents sequentially
-Continue with neurochecks
#Agitation
-Unclear etiology though likely delirium versus pain associated
-Patient was screaming and pulling at lines earlier this morning
-Ordered bilateral upper limb restraints and IM Haldol as needed
-Continue to monitor
-Renew restraints daily
#Parotid mass
-Seen on imaging from the ED, cannot rule out malignancy
-Will plan for further imaging, consider biopsy when mental status improved
#ESRD (HD M/W/F)
#Secondary hyperparathyroidism
-ESRD possibly secondary to diabetic nephropathy
-C/B secondary hyperparathyroidism; on calcium supplement and phosphate binder
-Nephrology following for resumption of HD schedule, trend BMP
#T2DM C/B diabetic neuropathy
#H/O recurrent hypoglycemia
-Home medications include Lantus and ISS
-Holding Lantus due to n.p.o. status, currently on ISS with
-BG goal 100-200, avoid hypoglycemia
#HTN
-No known history of hypertensive systemic disease
-Home medications include losartan, hydralazine, isosorbide, carvedilol
-Continue with home medications when tolerating oral intake
-IV hydralazine as needed for now
#CAD
-No known history of coronary interventions such as PCI or CABG
-Home medications include beta-ramesh, aspirin, statin, Imdur
-Will continue with home medications when tolerating oral intake
#PAD s/p multiple toe amputations bilaterally
-Home medications include aspirin, statin
-No signs of critical limb ischemia at this time
#Chronic pain/chronic opiate dependence
-Holding standing dose home opiates
-Ordered as needed IV Dilaudid for pain if awake enough to request
#Anxiety
-Continue Zoloft once able to take p.o. meds.
-Restart Klonopin and Seroquel pending improvement in mentation
#Left eye blindness/retinopathy
-Continue eyedrops
#HLD
-ASCVD history with PAD s/p multiple amputations
-Continue statin once able to take p.o. meds
#Chronic constipation
-Continue with aggressive bowel regimen once able to take p.o. meds
#Severe malnutrition
-BMI here 17.8
-Will start calorie counts when mental status improves and tolerating feeds
DVT prophylaxis: SCDs
Diet: Start Nepro via NGT, nutrition consulted
CODE STATUS: Full code
Anticipated Discharge: > 48 hours
Subjective/Interval History
-
Date of Service: May 20, 2024
Seen and examined at the bedside. No acute events reported overnight. AFVSS this morning
Remains lethargic at time of my evaluation. Per psychiatry she was able to wake up during her evaluation and answer questions minimal
Interview limited by her mental status
Objective Data
-
Labs:
Laboratory Results
05/20/24 05/20/24 05/20/24
05:56 09:02 09:15
WBC 6.3 Cancelled
Hgb 12.2 Cancelled
Hct 39.7 Cancelled
Plt Count 127 L D Cancelled
Sodium Cancelled Cancelled
Potassium Cancelled Cancelled
Chloride Cancelled Cancelled
Carbon Dioxide Cancelled Cancelled
BUN Cancelled Cancelled
Creatinine Cancelled Cancelled
Glucose Cancelled Cancelled
Calcium Cancelled Cancelled
05/20/24
12:12
WBC
Hgb
Hct
Plt Count
Sodium Pending
Potassium Pending
Chloride Pending
Carbon Dioxide Pending
BUN Pending
Creatinine Pending
Glucose Pending
Calcium Pending
Vital Signs:
Vital Signs
Temp Pulse Resp BP Pulse Ox
97.7 F 76 17 111/70 100
05/20/24 11:08 05/20/24 11:08 05/20/24 11:08 05/20/24 11:08 05/20/24 11:08
I&O
05/19/24 05/20/24 05/21/24
06:59 06:59 06:59
Intake Total 0 / 0 715 / 715
Balance 0 / 0 715 / 715
Review of Systems
-
Unable to obtain full review of systems at this time due to: Acuity
Physical Exam
-
General: No Apparent Distress, Comfortable, Cachectic and Other (Lethargic, responsive to sternal rub)
HEENT: Normocephalic, Atraumatic, Moist Mucous Membranes, Anicteric and PERRLA (Right eye; left eye untestable)
Respiratory: Clear to Auscultation and Non Labored Respirations
Cardiac: Regular Rhythm and S1/S2; Negative Murmur, Rub or Gallop
GI: Soft, Nontender, Nondistended and Normal Bowel Sounds
Musculoskeletal: No Clubbing, No Cyanosis and No Edema
Skin: Warm, Dry and Normal Turgor; Negative Rash or Jaundice
Neuro: Other (Lethargic, responsive to sternal rub; limited exam due to her mental status)
Psych: Other (Somnolent)
Data Reviewed
-
Labs: Labs Reviewed by me and Discussed with Physician (Nephrology)
[2024-05-20 13:09] LABS: Blood Urea Nitrogen 12 mg/dl (7-17); Calcium 8.6 mg/dl (8.4-10.2); Carbon Dioxide 28 mmol/L (22-30); Chloride 101 mmol/L (98-107); Estimated Creatinine Clearance 28 ml/min; Glucose 164 mg/dl (70-99); Magnesium 1.8 mg/dl (1.6-2.3); Phosphorus 2.7 mg/dl (2.5-4.5); Potassium 2.8 mmol/L (3.5-5.1); Sodium 137 mmol/L (135-145); eGFR 33.07
[2024-05-20 15:00] VITALS: BP 122/87
[2024-05-20] MEDS: DILAUDID 0.5 MG IV (15:09)
[2024-05-20] MEDS: KCL 270 MEQ IV ×2 (16:39→23:05)
[2024-05-20] MEDS: NSS (PRESERVATIVE FREE) 8 ML IV (21:40)
[2024-05-20] MEDS: PEPCID 20 MG IV (21:46)
[2024-05-20] MEDS: FLUSH (NSS) 3 FLUSH IV (21:49)
[2024-05-20] MEDS: FLUSH (NSS) 1 FLUSH IV (23:06)
[2024-05-20 23:39] VITALS: BP 166/96
[2024-05-21 00:02] LABS: Glucose - Point of Care 160 mg/dl (70-99)
[2024-05-21 05:22] VITALS: BMI 18.2
[2024-05-21 05:48] LABS: Glucose - Point of Care 127 mg/dl (70-99)
[2024-05-21 06:55] VITALS: BP 138/56
[2024-05-21] MEDS: HEPARIN 5000 UNITS SC ×2 (08:36→21:12)
[2024-05-21] MEDS: DEPACON 55 MG IV ×2 (09:07→21:11)
[2024-05-21 09:54] LABS: % Basophils 0.3 % (0-2); % Eosinophils 0.6 % (0-6); % Immature Granulocytes 0.2 % (0-0.5); % Lymphocytes 22.6 % (20.5-51.1); % Neutrophils 66.3 % (42.2-75.2); Absolute Lymphocytes 1.5 10^3/uL (1.2-3.4); Absolute Monocytes 0.6 10^3/uL (0.1-0.6); Absolute Neutrophils 4.3 10^3/uL (1.4-6.5); Hematocrit 44.1 % (37.0-47.0); Hemoglobin 13.6 g/dL (12.0-16.0); Mean Corp Hgb Conc. 30.8 g/dL (33.0-37.0); Mean Corpuscular Hgb 28.5 pg (27.0-31.0); Mean Corpuscular Volume 92.5 fL (81.0-99.0); Mean Platelet Volume 9.9 fL (7.4-10.4); Nucleated Red Blood Cells % 0 %; Platelet Count 109 10^3/uL (130-400); Red Blood Cell Count 4.77 10^6/uL (4.20-5.40); Red Cell Dist. Width 15.9 % (11.5-14.5); White Blood Cell Count 6.4 10^3/uL (4.8-10.8)
--- NOTE | 2024-05-21 10:11 | W.PN.NEPH.PH ---
Today's Communication / Plan
-
Dialysis tomorrow
Assessment/Plan
-
IMP:
AMS
ESRD on dialysis Wednesday
Diabetes mellitus with multiple microvascular complications including advanced retinopathy, peripheral neuropathy, nephropathy
Fecal impaction noted an abdominal x-ray
Chronic pain/chronic opiate dependence
HTN
CAD
PAD with multiple toe amputations bilaterally
Chronic pain/chronic opiate dependence
GERD
Anxiety
Secondary hyperparathyroidism
Left eye blindness/retinopathy
HLD
Chronic constipation
Secondary hyperparathyroidism
Anemia
h/o GIB in Feb 2024
Plan:
A/w AMS-neuro follows
Dialysis will be next performed on Wednesday
Failed swallow study now with NG feeding tube
Hemodynamically stable
-
-
Date of Service: May 21, 2024
CC / HPI / ROS
-
Chief Complaint:
ESRD
History of Present Illness:
ESRD Wednesday
Tolerated dialysis yesterday
Blood pressure remains elevated
Mental status remains altered
Review of Systems:
No fever
tube feeds
AVG
Labs
-
Labs:
WBC 6.4 10^3/uL (4.8-10.8) 05/21/24 09:16
RBC 4.77 10^6/uL (4.20-5.40) 05/21/24 09:16
Hgb 13.6 g/dL (12.0-16.0) 05/21/24 09:16
Hct 44.1 % (37.0-47.0) 05/21/24 09:16
Plt Count 109 10^3/uL (130-400) L 05/21/24 09:16
eGFR Cancelled 05/21/24 09:17
Phosphorus 2.7 mg/dl (2.5-4.5) 05/20/24 12:12
Lrf-T-Pyofejlvjtj Pept 6060 pg/ml 05/20/24 08:19
Albumin 3.8 g/dl (3.5-5.0) 05/14/24 10:42
Physical Exam
-
Vital Signs:
Vital Signs
Temp Pulse Resp BP Pulse Ox
97.7 F 88 16 138/56 97
05/21/24 06:55 05/21/24 06:55 05/21/24 06:55 05/21/24 06:55 05/21/24 06:55
Cardiovascular:: Regular rate and rhythm
Respiratory:: Bilateral: Coarse
Lung Excursion:: Normal
Abdomen:: Nontender and Soft
Bowel Sounds:: Normal
Extremity Edema:: None: Bilateral:
Other Findings::
HEENT: NG feeding tube
--- NOTE | 2024-05-21 11:56 | W.PN.HOSP.TC ---
Today's Communication/Plan
-
Continue with current regimen
Continue tube feeds, monitor BMP/mag/Phos
Consider discontinuing VPA
Consider reducing fentanyl dose back to 12
Assessment / Plan
Assessment / Plan
#Toxic metabolic encephalopathy
-Unclear etiology; DDx include uremia, infection, polypharmacy, seizure
-Upon arrival CTH without contrast did not show any acute findings
-Home meds fentanyl patch, Flexeril, Oxy, gabapentin, Klonopin, Seroquel, Depakene on hold (no seizure history)
-Has been afebrile, no other obvious signs of infection present; VBG without signs of hypercapnia
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
-Upon time of my eval she was very lethargic, minimally respond, protecting her airway
-Neurology consulted, EEG without evidence of epileptic foci
-Psychiatry following
Plan
-Continue to hold sedating medications, monitor mental status clinically
-Continue with fentanyl 25 mcg for her chronic pain, consider decreasing back to 12 mcg if remains sedated
-Continue with valproic acid for now, will consider discontinuing
-Plan to resume other sedating agents sequentially
-Continue with neurochecks
#Agitation
-Unclear etiology though likely delirium versus pain associated
-Patient was screaming and pulling at lines earlier this morning
-Ordered bilateral upper limb restraints and IM Haldol as needed
-Continue to monitor
-Renew restraints daily
#Parotid mass
-Seen on imaging from the ED, cannot rule out malignancy
-Will plan for further imaging, consider biopsy when mental status improved
#ESRD (HD M/W/F)
#Secondary hyperparathyroidism
-ESRD possibly secondary to diabetic nephropathy
-C/B secondary hyperparathyroidism; on calcium supplement and phosphate binder
-Nephrology following for resumption of HD schedule, trend BMP
#T2DM C/B diabetic neuropathy
#H/O recurrent hypoglycemia
-Home medications include Lantus and ISS
-Holding Lantus due to n.p.o. status, currently on ISS with
-BG goal 100-200, avoid hypoglycemia
#HTN
-No known history of hypertensive systemic disease
-Home medications include losartan, hydralazine, isosorbide, carvedilol
-Continue with home medications when tolerating oral intake
-IV hydralazine as needed for now
#CAD
-No known history of coronary interventions such as PCI or CABG
-Home medications include beta-ramesh, aspirin, statin, Imdur
-Will continue with home medications when tolerating oral intake
#PAD s/p multiple toe amputations bilaterally
-Home medications include aspirin, statin
-No signs of critical limb ischemia at this time
#Chronic pain/chronic opiate dependence
-Holding standing dose home opiates
-Ordered as needed IV Dilaudid for pain if awake enough to request
#Anxiety
-Continue Zoloft once able to take p.o. meds.
-Restart Klonopin and Seroquel pending improvement in mentation
#Left eye blindness/retinopathy
-Continue eyedrops
#HLD
-ASCVD history with PAD s/p multiple amputations
-Continue statin once able to take p.o. meds
#Chronic constipation
-Continue with aggressive bowel regimen once able to take p.o. meds
#Severe malnutrition
-BMI here 17.8
-Will start calorie counts when mental status improves and tolerating feeds
-Was started on tube feeds with Nepro
-Monitor labs for signs of refeeding syndrome
DVT prophylaxis: SCDs
Diet: Start Nepro via NGT, nutrition consulted
CODE STATUS: Full code
Anticipated Discharge: > 48 hours
Subjective/Interval History
-
Date of Service: May 21, 2024
Seen and examined at the bedside. No acute events reported overnight. AFVSS this morning
Has been tolerating tube feeds via NGT with minimal agitation. Does try to take tube out when restraints are compromised
Unable to obtain ROS or history due to
Objective Data
-
Labs:
Laboratory Results
05/21/24 05/21/24 05/21/24
09:16 09:17 09:36
WBC 6.4
Hgb 13.6
Hct 44.1
Plt Count 109 L
Sodium Cancelled Pending
Potassium Cancelled Pending
Chloride Cancelled Pending
Carbon Dioxide Cancelled Pending
BUN Cancelled Pending
Creatinine Cancelled Pending
Glucose Cancelled Pending
Calcium Cancelled Pending
Vital Signs:
Vital Signs
Temp Pulse Resp BP Pulse Ox
97.7 F 88 16 138/56 97
05/21/24 06:55 05/21/24 06:55 05/21/24 06:55 05/21/24 06:55 05/21/24 08:15
I&O
05/20/24 05/21/24 05/22/24
06:59 06:59 06:59
Intake Total 715 / 715
Balance 715 / 715
Review of Systems
-
Unable to obtain full review of systems at this time due to: Acuity and Patient Non-verbal
Physical Exam
-
General: No Apparent Distress, Comfortable, Appears Chronically Ill and Cachectic
HEENT: Normocephalic, Atraumatic, Moist Mucous Membranes, Anicteric, PERRLA (Right-sided) and Other (Chronic left eye deficit)
Respiratory: Clear to Auscultation and Non Labored Respirations
Cardiac: Regular Rhythm and S1/S2; Negative Murmur, Rub or Gallop
GI: Soft, Nontender, Nondistended and Normal Bowel Sounds
Musculoskeletal: No Clubbing, No Cyanosis, No Edema and Other (Bilateral toe amputations)
Skin: Warm and Dry; Negative Rash
Neuro: Other (Lethargic, responds to sternal rub and external stimuli, exam limited by mental state)
Data Reviewed
-
Labs: Labs Reviewed by me and Discussed with Nurse
[2024-05-21] MEDS: DURAGESIC 25 MCG/HR PATCH 1 PATCH TRANSDERM (12:19)
[2024-05-21 12:35] LABS: Blood Urea Nitrogen 16 mg/dl (7-17); Calcium 8.8 mg/dl (8.4-10.2); Carbon Dioxide 24 mmol/L (22-30); Chloride 107 mmol/L (98-107); Estimated Creatinine Clearance 25 ml/min; Glucose 174 mg/dl (70-99); Potassium 3.3 mmol/L (3.5-5.1); Sodium 139 mmol/L (135-145); eGFR 28.94
--- NOTE | 2024-05-21 12:39 | W.PN.UPDATE ---
Update Note
Progress Note Update
I spoke with the patient's daughter, Omaira at the bedside today. Per her daughter, patient did not have history of chronic pain or opioid use prior to going to the facility. The daughter is unsure why these medications were started but is not
aware of any chronic sources of pain. She states she spoke with her mother roughly 10 days ago on the phone and she appeared normal at that time. Has multiple complaints about facility, had tried to switch to a different facility in the past.
Would appreciate daily updates.
I am going to decrease the fentanyl patch back to 12 mcg, with plan to titrate off completely. Will need to monitor for pain, try to obtain additional history on sources of pain with patient alert.
She does have parotid mass visualized on previous imaging. Question if this is malignancy which could have metastasized to the brain. Ordered MRI brain with and without contrast to further assess.
[2024-05-21] MEDS: DURAGESIC 12 MCG/HR PATCH 1 PATCH TRANSDERM (13:01)
[2024-05-21 13:43] LABS: Glucose - Point of Care 168 mg/dl (70-99)
[2024-05-21] MEDS: KCL 270 MEQ IV (14:11)
[2024-05-21 15:02] VITALS: BP 135/58
[2024-05-21 17:06] LABS: Glucose - Point of Care 209 mg/dl (70-99)
[2024-05-21] MEDS: POLYTRIM OPHTHALMIC SOLUTION 2 DROP OPHTH ×2 (17:08→21:13)
[2024-05-21] MEDS: NOVOLOG FLEXPEN-MODERATE RESISTANCE 3 UNITS SC (17:43)
--- NOTE | 2024-05-21 19:49 | PTCARENOTE ---
Pt received @ 1500. Soft limb restraints and mitts in place. Unable to determine orientation. Pt does not follow commands; yells out at times but unable to determine stimuli. Tube feed advanced to goal @ 16:00; currently infusing @ 40ml/hr with
25ml/hr water flush. Eye drops instilled to right eye per order. Report given to oncoming nurse.
--- NOTE | 2024-05-21 23:30 | PTCARENOTE ---
Arturo called to report patient needing repositioning. Pt noted with NG tube almost out from left nare with marking at 20 cm from 64 that was seen earlier, and also large amount of TF material over pt's gown and bed linen mixed with some thick
yellow mucus. Pt with occasional moist [employer] cough, HOB remains elevated. call center team leader GUILLE/Dnenis made aware, TF on hold, accu checks q6hr, restrains discontinued.
[2024-05-21] MEDS: DILAUDID 0.5 MG IV (23:32)
[2024-05-21] MEDS: APRESOLINE 10 MG IV (23:33)
[2024-05-21 23:35] VITALS: BP 201/89
[2024-05-21 23:49] LABS: Glucose - Point of Care 109 mg/dl (70-99)
[2024-05-21] MEDS: NOVOLOG FLEXPEN-MODERATE RESISTANCE SC (23:51)
[2024-05-22 00:15] VITALS: BP 171/70
[2024-05-22 01:22] VITALS: BP 158/82
[2024-05-22 05:31] VITALS: BMI 18.1
[2024-05-22 06:23] LABS: Glucose - Point of Care 125 mg/dl (70-99)
[2024-05-22] MEDS: NOVOLOG FLEXPEN-MODERATE RESISTANCE SC ×3 (06:28→17:41)
[2024-05-22 07:07] VITALS: BP 162/89
--- NOTE | 2024-05-22 07:11 | W.PN.HOSP.TC ---
Today's Communication/Plan
-
Dialysis today, per nephrology no additional supplementation of potassium today, recheck morning labs
GI will evaluate patient for Dobhoff tube placement tomorrow given patient on dialysis today, discussed with GI
Patient may be having overflow diarrhea, recheck abdominal x-ray, additional suppository or enema, if needed
Assessment / Plan
Assessment / Plan
Physical Exam
General: No Apparent Distress, Comfortable, Appears Chronically Ill and Cachectic
HEENT: Normocephalic, Atraumatic. Chronic left eye deficit.
Respiratory: Clear to Auscultation Bilaterally and Non Labored Respirations
Cardiac: Regular Rhythm and S1/S2
GI: Soft, Nontender, Nondistended and Normal Bowel Sounds
Musculoskeletal: No Cyanosis, No Edema and Other (Bilateral toe amputations)
Skin: Warm and Dry
Neuro: Other (Lethargic, responds to sternal rub and external stimuli, exam limited by mental state)
Assessment/Plan
#Toxic metabolic encephalopathy suspected secondary to polypharmacy
-Unclear etiology; DDx include uremia, infection, polypharmacy, seizure
-Upon arrival CTH without contrast did not show any acute findings
-Home meds fentanyl patch, Flexeril, Oxy, gabapentin, Klonopin, Seroquel, Depakene all on hold (no seizure history)
-Fentanyl patch was previously resumed but at a reduced dose, hopefully able to stop it soon
-Per patient's daughter, she is unaware of the reason her mother is on multiple sedating medications including opiates.
-Has been afebrile, no other obvious signs of infection present; VBG without signs of hypercapnia
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
mass could possibly be a tumor vs. a complex nonneoplastic cyst
-Upon time of my eval she was very lethargic, minimally responsive, protecting her airway
-Neurology consulted, EEG without evidence of epileptic foci
-Psychiatry following
Plan
-Continue to most sedating medications, monitor mental status clinically
-Continue with fentanyl at reduced dose of 12 mcg for her chronic pain
-Continue with valproic acid for now, will consider discontinuing
-Plan to resume other sedating agents sequentially
-Continue with neurological checks
-Patient was placed on NG tube a few days ago, but appears that NG tube migrated out overnight 05/21/24 to 05/22/24
-Dobhoff Tube would be a better option, per nurse need GI consult for Dobhoff Tube --> GI plans to place Dobhoff tube on 05/23/24 after speech re-
evaluation
#Agitation
-Unclear etiology though likely delirium versus pain associated
-Patient was screaming and pulling at lines earlier
-Previously bilateral upper limb restraints and IM Haldol as needed were ordered
-Continue to monitor
-Renew restraints daily
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
-Seen on imaging from the ED, cannot rule out malignancy
-Consider biopsy when mental status improved
#ESRD (HD M/W/F)
#Secondary hyperparathyroidism
-ESRD possibly secondary to diabetic nephropathy
-C/B secondary hyperparathyroidism; on calcium supplement and phosphate binder
-Nephrology following for resumption of HD schedule, trend BMP
#T2DM C/B diabetic neuropathy
#History of recurrent hypoglycemia
-Home medications include Lantus and ISS
-Holding Lantus due to n.p.o. status, currently on ISS with
-BG goal 100-200, avoid hypoglycemia
#Hypertension
-No known history of hypertensive systemic disease
-Home medications include losartan, hydralazine, isosorbide, carvedilol
-Continue with home medications when tolerating oral intake/can continue tube feeds
-IV hydralazine as needed for now
#CAD
-No known history of coronary interventions such as PCI or CABG
-Home medications include beta-ramesh, aspirin, statin, Imdur
-Will continue with home medications when tolerating oral intake vs. via tube feeds
#PAD s/p multiple toe amputations bilaterally
-Home medications include aspirin, statin
-No signs of critical limb ischemia at this time
#Chronic pain/chronic opiate dependence
-Holding standing dose home opiates
-Ordered as needed IV Dilaudid for pain if awake enough to request
-Continue Fentanyl patch
#Anxiety
-Continue Zoloft once able to take p.o. meds.
-Restart Klonopin and Seroquel pending improvement in mentation
#Left eye blindness/retinopathy
-Continue eyedrops
#Hyperlipidemia
-ASCVD history with PAD s/p multiple amputations
-Continue statin once able to take p.o. meds
#Chronic Neuropathy
#Mild multilevel cervical spinal cord compression and central canal stenosis secondary to multilevel disc herniations on Brain MRI
-Follow-up with spine surgeon outpatient
#Chronic constipation
-Continue with aggressive bowel regimen once able to take p.o. meds
-Continue Dulcolax suppository in the meantime
-Will consider enema
-Per nurse, patient may be having overflow diarrhea --> recheck abdominal x-ray in the morning
#Severe malnutrition
-BMI here 17.8
-Will start calorie counts when mental status improves and tolerating feeds
-Was started on tube feeds with Nepro
-Monitor labs for signs of refeeding syndrome
DVT prophylaxis: Continue Heparin Subq. No SCDs given history of PAD.
Diet: Once Dobhoff tube is placed, start Nepro via NGT, nutrition consulted
CODE STATUS: Full code
Anticipated Discharge: > 48 hours
Subjective/Interval History
-
Date of Service: May 22, 2024
Patient was seen and examined. She was sleeping and getting dialysis at the time she was seen.
Objective Data
-
Labs:
Laboratory Results
05/22/24
06:00
WBC Pending
Hgb Pending
Hct Pending
Plt Count Pending
Sodium Pending
Potassium Pending
Chloride Pending
Carbon Dioxide Pending
BUN Pending
Creatinine Pending
Glucose Pending
Calcium Pending
Vital Signs:
Vital Signs
Temp Pulse Resp BP Pulse Ox
98.3 F 95 17 162/89 98
05/22/24 07:07 05/22/24 07:07 05/22/24 07:07 05/22/24 07:07 05/22/24 07:07
I&O
05/21/24 05/22/24 05/23/24
06:59 06:59 06:59
Intake Total 775 / 775
Balance 775 / 775
[2024-05-22] MEDS: POLYTRIM OPHTHALMIC SOLUTION 1 DROP OPHTH ×2 (07:58→12:27)
[2024-05-22] MEDS: HEPARIN 5000 UNITS SC ×2 (07:58→21:01)
[2024-05-22] MEDS: DILAUDID 1 MG IV ×2 (09:08→18:22)
[2024-05-22] MEDS: DEPACON 55 MG IV ×2 (10:35→21:34)
--- NOTE | 2024-05-22 11:31 | CM ---
Reviewed the chart notes. CM continues to be available to patient/family and is monitoring medical plan for needs at discharge.
Plan: Discharge back to [facility] when medically stable. No precert required.
Call report to: [phone], ask for 3rd flr
Fax report to: [phone]
Medical necessity and transport forms on chart.
--- NOTE | 2024-05-22 11:37 | W.PN.NEPH.PH ---
Today's Communication / Plan
-
Dialysis nurse
Assessment/Plan
-
IMP:
AMS
ESRD on dialysis Wednesday
Diabetes mellitus with multiple microvascular complications including advanced retinopathy, peripheral neuropathy, nephropathy
Fecal impaction noted an abdominal x-ray
Chronic pain/chronic opiate dependence
HTN
CAD
PAD with multiple toe amputations bilaterally
Chronic pain/chronic opiate dependence
GERD
Anxiety
Secondary hyperparathyroidism
Left eye blindness/retinopathy
HLD
Chronic constipation
Secondary hyperparathyroidism
Anemia
h/o GIB in Feb 2024
Plan:
A/w AMS-continues to be encephalopathic
Dialysis pending today discussed with dialysis nurses
Pulled out her NG tube last night
Patient was significant agitated with her last treatment she is in restraints. If this continues to be altered, it present a safety concern to continue dialysis with needle cannulation and risk of bleeding
-
-
Date of Service: May 22, 2024
CC / HPI / ROS
-
Chief Complaint:
ESRD
History of Present Illness:
ESRD Wednesday
Continues to have altered mental status and unable to process review of systems
Pulled out her NG tube last night
Review of Systems:
No fever
Unable to obtain review of systems secondary to clinical status
AVG
Labs
-
Labs:
eGFR 28.94 05/21/24 12:03
Phosphorus 2.7 mg/dl (2.5-4.5) 05/20/24 12:12
Fon-W-Ogneopotnca Pept 6060 pg/ml 05/20/24 08:19
Albumin 3.8 g/dl (3.5-5.0) 05/14/24 10:42
Physical Exam
-
Vital Signs:
Vital Signs
Temp Pulse Resp BP Pulse Ox
98.3 F 95 17 162/89 98
05/22/24 07:07 05/22/24 07:07 05/22/24 07:07 05/22/24 07:07 05/22/24 07:07
Respiratory:: Bilateral: CTA
Lung Excursion:: Normal
Abdomen:: Soft
Bowel Sounds:: Normal
Extremity Edema:: None: Bilateral:
Wade Catheter: No
Other Findings::
Neurologically he continues to have altered mental status response to name and is able to tell me her first name otherwise not communicating to simple commands
[2024-05-22 12:21] LABS: Glucose - Point of Care 107 mg/dl (70-99)
[2024-05-22] MEDS: DURAGESIC 12 MCG/HR PATCH 1 PATCH TRANSDERM (12:22)
[2024-05-22 13:24] LABS: % Basophils 0.4 % (0-2); % Eosinophils 0.7 % (0-6); % Immature Granulocytes 0.6 % (0-0.5); % Lymphocytes 26.9 % (20.5-51.1); % Monocytes 6.9 % (1.7-9.3); % Neutrophils 64.5 % (42.2-75.2); Absolute Eosinophils 0.1 10^3/uL (0-0.7); Absolute Lymphocytes 1.8 10^3/uL (1.2-3.4); Absolute Monocytes 0.5 10^3/uL (0.1-0.6); Absolute Neutrophils 4.4 10^3/uL (1.4-6.5); Hematocrit 41.7 % (37.0-47.0); Hemoglobin 13.3 g/dL (12.0-16.0); Mean Corp Hgb Conc. 31.9 g/dL (33.0-37.0); Mean Corpuscular Hgb 28.8 pg (27.0-31.0); Mean Corpuscular Volume 90.3 fL (81.0-99.0); Mean Platelet Volume 9.4 fL (7.4-10.4); Nucleated Red Blood Cells % 0 %; Platelet Count 86 10^3/uL (130-400); Red Blood Cell Count 4.62 10^6/uL (4.20-5.40); Red Cell Dist. Width 15.9 % (11.5-14.5); White Blood Cell Count 6.8 10^3/uL (4.8-10.8)
[2024-05-22 13:41] LABS: Blood Urea Nitrogen 23 mg/dl (7-17); Calcium 8.8 mg/dl (8.4-10.2); Carbon Dioxide 23 mmol/L (22-30); Chloride 108 mmol/L (98-107); Estimated Creatinine Clearance 24 ml/min; Glucose 121 mg/dl (70-99); Potassium 3.2 mmol/L (3.5-5.1); Sodium 139 mmol/L (135-145); eGFR 27.21
[2024-05-22 15:04] VITALS: BP 169/32
[2024-05-22 17:40] LABS: Glucose - Point of Care 83 mg/dl (70-99)
[2024-05-22] MEDS: POLYTRIM OPHTHALMIC SOLUTION OPHTH (17:48)
[2024-05-22] MEDS: NSS (PRESERVATIVE FREE) 8 ML IV (21:35)
[2024-05-22] MEDS: PEPCID 20 MG IV (21:35)
[2024-05-22] MEDS: POLYTRIM OPHTHALMIC SOLUTION 2 DROP OPHTH (21:35)
[2024-05-22 23:42] VITALS: BP 174/80
[2024-05-23 00:12] LABS: Glucose - Point of Care 73 mg/dl (70-99)
[2024-05-23] MEDS: APRESOLINE 10 MG IV (00:42)
[2024-05-23] MEDS: NOVOLOG FLEXPEN-MODERATE RESISTANCE SC ×4 (00:43→17:25)
[2024-05-23 01:18] VITALS: BP 148/51
[2024-05-23 02:58] LABS: Glucose - Point of Care 73 mg/dl (70-99)
[2024-05-23] MEDS: DILAUDID 1 MG IV (02:58)
[2024-05-23 05:54] LABS: Glucose - Point of Care 77 mg/dl (70-99)
[2024-05-23 06:00] VITALS: BMI 17.7
[2024-05-23 07:35] VITALS: BP 161/79
[2024-05-23] MEDS: HEPARIN 5000 UNITS SC ×2 (08:58→22:35)
[2024-05-23] MEDS: DEPACON 55 MG IV ×2 (09:00→22:40)
[2024-05-23] MEDS: POLYTRIM OPHTHALMIC SOLUTION 2 DROP OPHTH ×3 (09:00→22:41)
--- NOTE | 2024-05-23 09:00 | PTOTSP ---
Speech Language Pathology
Pt seen for dysphagia tx. Pt consistently stated 'no' in response to offer of P.O. trials, but then would eagerly accept. Trialed puree, thin liquids via single straw sips, and moderately thick liquids via tsp. Pt wiping tongue with blanket in
between each bolus. Multiple swallows and strong cough response noted with 1/2 straw sips of thin liquids. No overt coughing with puree or moderately thick liquids via tsp.
Pt is at a high risk for aspiration. However, pt would be unlikely to participate in VSE given agitation. Will initiate modified diet with monitoring.
Recommend:
(1) IDDSI Level 4 (puree) and moderately thick liquids via tsp
(2) Aspiration precautions: liquids via tsp only, slow rate, sit upright, full assist, ensure pt swallows prior to next bite/sip
(3) Meds crushed in puree
(4) Revert to NPO if signs of aspiration noted with P.O. intake
(5) WEB DESIGN INTERN to continue to follow
--- NOTE | 2024-05-23 09:40 | W.PN.HOSP.TC ---
Today's Communication/Plan
-
Mental status somewhat better
PO diet ordered as per speech recommendation, no need for Dobhoff tube at this time
Enema for fecal impaction
Resumed ASA, statin, beta ramesh and hydralazine
Dialysis tomorrow
Assessment / Plan
Assessment / Plan
Physical Exam
General: No Apparent Distress, Comfortable, Appears Chronically Ill and Cachectic
HEENT: Normocephalic, Atraumatic. Chronic left eye deficit.
Respiratory: Clear to Auscultation Bilaterally and Non Labored Respirations
Cardiac: Regular Rhythm and S1/S2
GI: Soft, Nontender, Nondistended and Normal Bowel Sounds
Musculoskeletal: No Cyanosis, No Edema and Other (Bilateral toe amputations)
Skin: Warm and Dry
Neuro: Other (Lethargic, responds to sternal rub and external stimuli, exam limited by mental state)
Assessment/Plan
#Toxic metabolic encephalopathy suspected secondary to polypharmacy
-Initially, she was very lethargic, minimally responsive, protecting her airway but now patient is more alert
-Unclear etiology; DDx include uremia, infection, polypharmacy, seizure
-Upon arrival CTH without contrast did not show any acute findings
-Home meds fentanyl patch, Flexeril, Oxy, gabapentin, Klonopin, Seroquel, Depakene all on hold (no seizure history)
-Fentanyl patch was previously resumed but at a reduced dose, hopefully able to stop it soon
-Per patient's daughter, she is unaware of the reason her mother is on multiple sedating medications including opiates.
-Has been afebrile, no other obvious signs of infection present; VBG without signs of hypercapnia
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
mass could possibly be a tumor vs. a complex nonneoplastic cyst
-Neurology consulted, EEG without evidence of epileptic foci
-Psychiatry following
Plan
-Continue most sedating medications, monitor mental status clinically
-Continue with fentanyl at reduced dose of 12 mcg for her chronic pain
-Continue with valproic acid for now, will consider discontinuing
-Plan to resume other sedating agents sequentially
-Continue with neurological checks
-Patient was placed on NG tube earlier during this hospitalization, but it appeared that NG tube migrated out overnight 05/21/24 to 05/22/24
-Speech re-evaluation on 05/23/24: recommendation for Pureed Diet and Moderately Thickened Liquid
-Hold off on Dobhoff tube for now, given the above, and see how patient does on the above diet
#Chronic constipation
#Fecal Impaction
-Continue with aggressive bowel regimen once able to take p.o. meds
-Continue Dulcolax suppository in the meantime
-Milk of Molasses enema 05/23/24
#Agitation
-Unclear etiology though likely delirium versus pain associated
-Patient was screaming and pulling at lines earlier
-Previously bilateral upper limb restraints and IM Haldol as needed were ordered
-Continue to monitor
-Renew restraints daily
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
-Seen on imaging from the ED, cannot rule out malignancy, although most parotid tumors are benign
-Consider discussing with oncology and biopsy when mental status improved
#ESRD (HD M/W/F)
#Secondary hyperparathyroidism
-ESRD possibly secondary to diabetic nephropathy
-C/B secondary hyperparathyroidism; on calcium supplement and phosphate binder
-Nephrology following for resumption of HD schedule, trend BMP
#T2DM C/B diabetic neuropathy
#History of recurrent hypoglycemia
-Home medications include Lantus and ISS
-Continue Sliding Scale Insulin
-Blood glucose goal 100-200, avoid hypoglycemia
#Hypertension
-No known history of hypertensive systemic disease
-Home medications include losartan, hydralazine, isosorbide, carvedilol
-Continued home Hydralazine and Carvedilol for now, still holding the others
-IV hydralazine as needed for now
#CAD
-No known history of coronary interventions such as PCI or CABG
-Home medications include beta-ramesh, aspirin, statin --> now continued since patient placed on diet on 05/23/24
-Continue holding Imdur for now, if BP stable after some of the other home medications resumed, then can resume IMDUR
#PAD s/p multiple toe amputations bilaterally
-Home medications include aspirin, statin --> RESUMED
-No signs of critical limb ischemia at this time
#Chronic pain/chronic opiate dependence
-Holding standing dose home opiates
-Holding as needed IV Dilaudid for pain --> can give it if patient requests it however
-Continue Fentanyl patch, goal is to eventually discontinue it
#Anxiety
-Hold Zoloft, Klonopin and Seroquel pending improvement in mentation
#Left eye blindness/retinopathy
-Continue eyedrops
#Hyperlipidemia
-ASCVD history with PAD s/p multiple amputations
-Continue statin
#Chronic Neuropathy
#Mild multilevel cervical spinal cord compression and central canal stenosis secondary to multilevel disc herniations on Brain MRI
-Follow-up with spine surgeon outpatient
#Severe malnutrition
-BMI here 17.8
-Will start calorie counts when mental status improves and tolerating feeds
-Was started on tube feeds with Nepro
-Monitor labs for signs of refeeding syndrome
DVT prophylaxis: Continue Heparin Subq. No SCDs given history of PAD.
Diet: Per speech therapist, it is recommended to start diet of IDDSI 4 (puree) and moderately thick liquids via tsp; can trial this and see how she does to hopefully avoid DHT; don�t think patient would tolerate VSE
CODE STATUS: Full code
Anticipated Discharge: > 48 hours
Subjective/Interval History
-
Date of Service: May 23, 2024
Patient was seen and examined. She was more alert today and made some sounds when her name was called.
Objective Data
-
Labs:
Laboratory Results
05/23/24
06:53
Sodium Pending
Potassium Pending
Chloride Pending
Carbon Dioxide Pending
BUN Pending
Creatinine Pending
Glucose Pending
Calcium Pending
Vital Signs:
Vital Signs
Temp Pulse Resp BP Pulse Ox
97.3 F 71 16 161/79 94
05/23/24 07:35 05/23/24 07:35 05/23/24 07:35 05/23/24 07:35 05/23/24 07:35
I&O
05/22/24 05/23/24 05/24/24
06:59 06:59 06:59
Intake Total 775 / 775 55 / 55
Balance 775 / 775 55 / 55
--- NOTE | 2024-05-23 09:46 | W.PN.UPDATE ---
Update Note
Progress Note Update
Patient seen by LOW PRESSURE KETTLE OPERATOR this am. Recommending puree and moderate thickened liquid. Saw patient, she is awake. Covers head with blanket. Says 'no' to a lot of questions, but when asked if she would like me to leave her alone the answer was 'yes'. Will
hold on Dobhoff at this time. Allow patient to trial diet. Discussed with LOW PRESSURE KETTLE OPERATOR and Dr Pool. Patient with fecal impaction noted on imaging. Recommend milk and molasses enema. IM will order. Please call if we can be of further assistance. Thank
you.
--- NOTE | 2024-05-23 12:06 | CM ---
Reviewed the chart notes. Per speech, recommending puree and moderate thickened liquid. CM continues to be available to patient/family and is monitoring medical plan for needs at discharge.
Plan: Discharge back to [facility] once medically stable.
Call report to: [phone], ask for 3rd flr
Fax report to: [phone]
Medical necessity and transport forms on chart.
[2024-05-23 12:31] LABS: Glucose - Point of Care 74 mg/dl (70-99)
[2024-05-23] MEDS: POLYTRIM OPHTHALMIC SOLUTION 1 DROP OPHTH (13:55)
--- NOTE | 2024-05-23 14:03 | W.PN.NEPH.PH ---
Today's Communication / Plan
-
No acute need for dialysis today
Assessment/Plan
-
IMP:
AMS
ESRD on dialysis Wednesday
Diabetes mellitus with multiple microvascular complications including advanced retinopathy, peripheral neuropathy, nephropathy
Fecal impaction noted an abdominal x-ray
Chronic pain/chronic opiate dependence
HTN
CAD
PAD with multiple toe amputations bilaterally
Chronic pain/chronic opiate dependence
GERD
Anxiety
Secondary hyperparathyroidism
Left eye blindness/retinopathy
HLD
Chronic constipation
Secondary hyperparathyroidism
Anemia
h/o GIB in Feb 2024
Plan:
A/w AMS-continues to be encephalopathic
Tolerated treatment yesterday
No acute need for dialysis today
See orders for next treatment Wednesday
Epogen ordered for hemoglobin less than 10
Potassium 3.2 will increase potassium bath appropriately
-
-
Date of Service: May 23, 2024
CC / HPI / ROS
-
Chief Complaint:
ESRD
History of Present Illness:
ESRD Wednesday
Continues to have altered mental status and unable to process review of systems
Although she is at less agitated
Review of Systems:
No fever
Unable to obtain review of systems secondary to clinical status
AVG
Labs
-
Labs:
WBC 6.8 10^3/uL (4.8-10.8) 05/22/24 12:54
RBC 4.62 10^6/uL (4.20-5.40) 05/22/24 12:54
Hgb 13.3 g/dL (12.0-16.0) 05/22/24 12:54
Hct 41.7 % (37.0-47.0) 05/22/24 12:54
Plt Count 86 10^3/uL (130-400) L D 05/22/24 12:54
eGFR 27.21 05/22/24 12:54
Dfx-D-Bsdvxvjiogk Pept 6060 pg/ml 05/20/24 08:19
Albumin 3.8 g/dl (3.5-5.0) 05/14/24 10:42
Physical Exam
-
Vital Signs:
Vital Signs
Temp Pulse Resp BP Pulse Ox
97.3 F 71 16 161/79 94
05/23/24 07:35 05/23/24 07:35 05/23/24 07:35 05/23/24 07:35 05/23/24 13:24
Respiratory:: Bilateral: CTA
Lung Excursion:: Normal
Abdomen:: Soft
Bowel Sounds:: Normal
Extremity Edema:: None: Bilateral:
Waed Catheter: No
Other Findings::
Neurologically he continues to have altered mental status response to name and is able to tell me her first name otherwise not communicating to simple commands
[2024-05-23 15:45] VITALS: BP 157/96
--- NOTE | 2024-05-23 17:00 | W.PN.UPDATE ---
Update Note
Progress Note Update
Pt seen, reviewed with nursing staff. Upon approach, pt lying on side in bed. When asked questions, pt becomes agitated, yelling out, but not able to answer any questions/give any history. Pt came from [facility]. Reported home
psych meds have been held due to confused state. Depakote was restarted by Neurology at significantly higher dose than noted at home. Admission Depakote level was low, has not been rechecked. There is no noted hx of seizure; Depakote appears to
be for mood/behavior. Nursing reports pt passed a swallowing test today, so she may be able to take po meds. The plan has been to resume Zoloft when pt able to swallow pills, then to consider restarting Klonopin and Seroquel depending on pt's
mental status.
Imp: Multifactorial encephalopathy, on top of multifactorial brain atrophy/neurodegenerative dz c/w Alzheimer's dz per MRI reading
Rec: will recheck VPA level, adjust Depakote dose; will consider resuming some of psychiatric medications if able to take po and mental status indicates. Will follow
[2024-05-23] MEDS: APRESOLINE 50 MG PO ×2 (17:09→22:18)
[2024-05-23] MEDS: LIPITOR 10 MG PO (17:11)
[2024-05-23 17:12] LABS: Glucose - Point of Care 68 mg/dl (70-99)
[2024-05-23 17:53] LABS: Glucose - Point of Care 90 mg/dl (70-99)
[2024-05-23 19:46] LABS: Glucose - Point of Care 166 mg/dl (70-99)
[2024-05-23] MEDS: COREG 25 MG PO (20:43)
[2024-05-23] MEDS: HEPARIN SC (20:44)
[2024-05-23 21:52] LABS: Glucose - Point of Care 208 mg/dl (70-99)
[2024-05-23 23:26] VITALS: BP 116/70
[2024-05-24 03:28] LABS: Glucose - Point of Care 274 mg/dl (70-99)
[2024-05-24 03:39] VITALS: BP 101/64
[2024-05-24 06:00] VITALS: BMI 17.4
[2024-05-24 07:40] VITALS: BP 154/116
--- NOTE | 2024-05-24 08:21 | W.PN.HOSP.TC ---
Addendum entered and electronically signed by Roby Pool MD 05/24/24 10:23:
Given my concern for HIT as one of the differentials for patient's progressively worsening thrombocytopenia, I consulted hematology, who have started patient on Eliquis. Greatly appreciate hematology's assistance. Depakote is another possible reason
for patient's thrombocytopenia and is now being held -- psychiatry has already been seeing the patent from before and mentioned okay to hold Depakote. Greatly appreciate psychiatry as well.
Original Note:
Today's Communication/Plan
-
#Progressively worsening Thrombocytopenia
-Possibly associated with Aspirin, Valproic Acid, Heparin
-Concern for HIT although no signs or symptoms of thrombosis, patient's 4Ts score is intermediate range
-Given progressively dropping platelets, will hold subq Heparin and consult hematology for further assistance
#Patient is otherwise doing well, eating and drinking well with good bowel movements, dialysis scheduled for later today
#Resume home long-acting Insulin
Assessment / Plan
Assessment / Plan
Physical Exam
General: No Apparent Distress, Comfortable, Appears Chronically Ill and Cachectic
HEENT: Normocephalic, Atraumatic. Chronic left eye deficit.
Respiratory: Clear to Auscultation Bilaterally and Non Labored Respirations
Cardiac: Regular Rhythm and S1/S2
GI: Soft, Nontender, Nondistended and Normal Bowel Sounds
Musculoskeletal: No Cyanosis, No Edema and Other (Bilateral toe amputations)
Skin: Warm and Dry
Neuro: Alert, Awake, Interactive, Responding to Questions
Assessment/Plan
#Toxic metabolic encephalopathy suspected secondary to polypharmacy
-Initially, she was very lethargic, minimally responsive, protecting her airway but now patient is much more alert
-Unclear etiology; DDx included uremia, infection, polypharmacy, seizure
-Upon arrival CTH without contrast did not show any acute findings
-Home meds fentanyl patch, Flexeril, Oxy, gabapentin, Klonopin, Seroquel all on hold (no seizure history)
-Depakote resumed per psychiatry (since 05/18/24)
-Fentanyl patch was previously resumed but at a reduced dose, hopefully able to stop it soon
-Per patient's daughter, she is unaware of the reason her mother is on multiple sedating medications including opiates.
-Has been afebrile, no other obvious signs of infection present; VBG without signs of hypercapnia
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
mass could possibly be a tumor vs. a complex nonneoplastic cyst (will need outpatient oncology follow-up)
-Neurology consulted, EEG without evidence of epileptic foci
-Psychiatry following
Plan
-Continue most sedating medications, monitor mental status clinically
-Continue with fentanyl at reduced dose of 12 mcg for her chronic pain
-Continue with valproic acid for now, will consider discontinuing
-Plan to resume other sedating agents sequentially
-Continue with neurological checks
-Patient was placed on NG tube earlier during this hospitalization, but it appeared that NG tube migrated out overnight 05/21/24 to 05/22/24
-Speech re-evaluation on 05/23/24: recommendation for Pureed Diet and Moderately Thickened Liquid
-Patient eating and drinking well, no Dobhoff tube needed
#Chronic constipation
#Fecal Impaction
-Continue with aggressive bowel regimen once able to take p.o. meds
-Continue Dulcolax suppository in the meantime
-Milk of Molasses enema 05/23/24 --> now with good amount of bowel movements
#Progressively Worsening Thrombocytopenia
-Possibly from Aspirin, Valproic Acid, Heparin
-Concern for HIT although no signs or symptoms of thrombosis, patient's 4Ts score is intermediate range
-Given progressively dropping platelets, will hold subq Heparin and consult hematology for further assistance
#Agitation
-Unclear etiology though likely delirium versus pain associated
-Patient was screaming and pulling at lines earlier
-Previously bilateral upper limb restraints and IM Haldol as needed were ordered
-Continue to monitor
-Renew restraints daily if needed
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
-Seen on imaging from the ED, cannot rule out malignancy, although most parotid tumors are benign
-Consider discussing with oncology and biopsy when mental status improved -- will need outpatient oncology follow-up/PCP
#ESRD (HD M/W/F)
#Secondary hyperparathyroidism
-ESRD possibly secondary to diabetic nephropathy
-C/B secondary hyperparathyroidism; on calcium supplement and phosphate binder
-Nephrology following for resumption of HD schedule, trend BMP
#T2DM C/B diabetic neuropathy
#History of recurrent hypoglycemia
-Home medications include Lantus and ISS
-Continue Sliding Scale Insulin
-Since patient is eating and drinking now, with higher glucose values, will resume home Insulin 5 units HS
-Blood glucose goal 100-200, avoid hypoglycemia
#Hypertension
-No known history of hypertensive systemic disease
-Home medications include losartan, hydralazine, isosorbide, carvedilol
-Continued home Hydralazine and Carvedilol for now, still holding the others and will add back based on blood pressure trends
-IV hydralazine as needed for now
#CAD
-No known history of coronary interventions such as PCI or CABG
-Home medications include beta-ramesh, aspirin, statin --> now continued since patient placed on diet on 05/23/24
-Continue holding Imdur for now, if BP stable after some of the other home medications resumed, then can resume Imdur
#PAD s/p multiple toe amputations bilaterally
-Home medications include aspirin, statin --> continued
-No signs of critical limb ischemia at this time
#Chronic pain/chronic opiate dependence
-Holding standing dose home opiates
-Holding as needed IV Dilaudid for pain to help minimize delirium/sedation --> can give it if patient requests it however
-Continue Fentanyl patch, goal is to eventually discontinue it
#Anxiety
-Hold Zoloft, Klonopin and Seroquel pending improvement in mentation
#Left eye blindness/retinopathy
-Continue eyedrops
#Hyperlipidemia
-ASCVD history with PAD s/p multiple amputations
-Continue statin
#Chronic Neuropathy
#Mild multilevel cervical spinal cord compression and central canal stenosis secondary to multilevel disc herniations on Brain MRI
-Follow-up with spine surgeon outpatient
#Severe malnutrition
-BMI here 17.8
-Will start calorie counts when mental status improves and tolerating feeds
-Was started on tube feeds with Nepro
-Monitor labs for signs of refeeding syndrome
DVT prophylaxis: Hold Heparin Subq given worsening thrombocytopenia above. No SCDs given history of PAD.
Diet: Per speech therapist, it is recommended to start diet of IDDSI 4 (puree) and moderately thick liquids via tsp; can trial this and see how she does to hopefully avoid DHT; don�t think patient would tolerate VSE
CODE STATUS: Full code
Anticipated Discharge: 24 - 48 hours
Subjective/Interval History
-
Date of Service: May 24, 2024
Patient was seen and examined. She was much more interactive, denied any new complaints, and said she was doing good. Nurse reported patient has been having significant bowel movements as well as eating and drinking very well.
Objective Data
-
Labs:
Laboratory Results
05/23/24 05/24/24
06:53 07:38
WBC Pending
Hgb Pending
Hct Pending
Plt Count Pending
Sodium Cancelled Pending
Potassium Cancelled Pending
Chloride Cancelled Pending
Carbon Dioxide Cancelled Pending
BUN Cancelled Pending
Creatinine Cancelled Pending
Glucose Cancelled Pending
Calcium Cancelled Pending
Vital Signs:
Vital Signs
Temp Pulse Resp BP Pulse Ox
97 F 74 19 101/64 98
05/24/24 03:39 05/24/24 03:39 05/24/24 03:39 05/24/24 03:39 05/24/24 03:39
I&O
05/23/24 05/24/24 05/25/24
06:59 06:59 06:59
Intake Total 55 / 55 640 / 640
Balance 55 / 55 640 / 640
[2024-05-24 08:24] LABS: Mean Corp Hgb Conc. 32.4 g/dL (33.0-37.0); Mean Corpuscular Hgb 28.9 pg (27.0-31.0); Mean Corpuscular Volume 89.2 fL (81.0-99.0); Platelet Count 50 10^3/uL (130-400); Red Blood Cell Count 4.15 10^6/uL (4.20-5.40); Red Cell Dist. Width 15.9 % (11.5-14.5); White Blood Cell Count 4.7 10^3/uL (4.8-10.8)
[2024-05-24 08:28] LABS: Depakane 50.2 ug/ml (50.0-120.0)
[2024-05-24 08:33] LABS: Glucose - Point of Care 259 mg/dl (70-99)
--- NOTE | 2024-05-24 08:49 | CM ---
Reviewed the chart notes. Diet per speech, puree and moderate thickened liquid. Valproic Acid level within range. continues to be available to patient/family and is monitoring medical plan for needs at discharge.
Plan: Discharge back to [facility] once medically stable.
Call report to: [phone], ask for 3rd flr
Fax report to: [phone]
Medical necessity and transport forms on chart.
[2024-05-24] MEDS: POLYTRIM OPHTHALMIC SOLUTION 2 DROP OPHTH ×3 (09:04→17:50)
[2024-05-24 09:08] LABS: Blood Urea Nitrogen 21 mg/dl (7-17); Calcium 8.8 mg/dl (8.4-10.2); Carbon Dioxide 23 mmol/L (22-30); Chloride 103 mmol/L (98-107); Estimated Creatinine Clearance 22 ml/min; Glucose 281 mg/dl (70-99); Potassium 3.2 mmol/L (3.5-5.1); Sodium 135 mmol/L (135-145); eGFR 25.67
[2024-05-24] MEDS: APRESOLINE 50 MG PO ×2 (09:09→22:59)
[2024-05-24] MEDS: NOVOLOG FLEXPEN-MODERATE RESISTANCE 5 UNITS SC (09:09)
[2024-05-24] MEDS: COREG 25 MG PO ×2 (09:10→21:53)
[2024-05-24] MEDS: ASPIR LOW (ENTERIC COATED) 81 MG PO (09:10)
[2024-05-24] MEDS: HEPARIN SC (09:11)
--- NOTE | 2024-05-24 09:47 | CON.ONC ---
Impression
Impression
Thrombocytopenia
Altered MS
TME
ESRD
DM
Plan
Plan
4T score 4-5 with 14% chance of HIT based on PLT drop degree and timing.
Depakote OD (as per psychiatry note) could be a factor but agree to hold SQ heparin (being used for DVT prophylaxis) and check HIT BOYD with reflex CHUY if BOYD + (already ordered by medicine).
Can use Eliquis 2.5 mg PO BID for DVT prophylaxis (approved for ESRD by FDA). Will order in case HIT as DVT prophylaxis. Monitor for bleeding as PLT falling likely from Depakote > HIT.
Depakote management per psychiatry. Without history seizure D/O, might want to hold it with history of possible OD. Noted level = 50 is in 'range' but this could still be a culprit.
FDA Eliquis PI:
8.6 End-Stage Renal Disease Patients Maintained with Hemodialysis Patients with ESRD with or without hemodialysis were not studied in clinical efficacy and safety studies with ELIQUIS; therefore, the dosing recommendation is based on pharmacokinetic
and pharmacodynamic (anti-Factor Xa activity) data in subjects with ESRD maintained on dialysis. The recommended dose for ESRD patients maintained with hemodialysis is 5 mg orally twice daily. For ESRD patients maintained with hemodialysis with one
of the following patient characteristics, age ?80 years or body weight ?60 kg, reduce dose to 2.5 mg twice daily [see Dosage and Administration (2.7) and Clinical Pharmacology (12.2, 12.3)].
Patient History
History of Present Illness
63-year-old female who is presenting from [facility] with altered mental status. Patient is poor historian. Agitated and verbal but not able to give any history. Patient has bilateral upper extremity chronic contractures. Does have
intermittent episode of confusion and agitation. Currently her diagnosis is multifactorial encephalopathy (vascular, toxic, metabolic) with brain atrophy. Suggestive of neurodegenerative dz c/w Alzheimer's dz per MRI reading.
Noted to have progressive thrombocytopenia. Psychiatry note helpful: Reported home psych meds have been held due to confused state. Depakote was restarted by Neurology at significantly higher dose than noted at home. Admission Depakote level was
low, has not been rechecked. There is no noted hx of seizure; Depakote appears to be for mood/behavior. No evidence for thrombosis. Patient was on SQ heparin since admission for DVT prophylaxis.
Past-Medical/Surgical History
PMH: ESRD on HD; CAD, HTN, DLP, DM, CKD, chronic pancreatitis, PAD, BMI 14, MDD, bipolar disorder, chronic pain s-me, history of alcohol and heroin addiction in remission
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
FH:mother-dementia in her late 80s.
All: metformin
ROS: Unable due to encephalopathy
Patient Medication
�Medication �Instructions �Recorded �Confirmed �Last Taken �Type
atorvastatin 10 mg tablet 10 mg PO QPM High cholesterol 06/28/22 05/14/24 11/09/22 22:00 History
bisacodyl 10 mg rectal suppository 10 mg AR DAILYPRN PRN if MOM 06/28/22 05/14/24 Unknown History
ineffective
carvedilol 25 mg tablet 25 mg PO BID Heart 06/28/22 05/14/24 11/09/22 20:00 History
disease/condition
cyclobenzaprine 10 mg tablet 10 mg PO Q8HPRN PRN chronic pain 06/28/22 05/14/24 Unknown History
ferrous sulfate 325 mg (65 mg 325 mg PO DAILY Supplement 06/28/22 05/14/24 11/09/22 08:00 History
iron) tablet
lanthanum 1,000 mg chewable tablet 1,000 mg PO MEALS Kidney Disease 06/28/22 05/14/24 11/09/22 18:00 History
losartan 50 mg tablet 75 mg PO HS Blood pressure 06/28/22 05/14/24 11/09/22 18:00 History
ketorolac 0.5 % eye drops 2 drp BOTH EYES DAILYPRN PRN 07/20/22 05/14/24 11/09/22 18:00 History
retinopathy
acetaminophen 325 mg tablet 650 mg PO Q6HPRN PRN fever 09/16/22 05/14/24 Unknown History
quetiapine 25 mg tablet (Seroquel) 25 mg PO Q12H Mental Health/Anxiety 09/16/22 05/14/24 Unknown History
sorbitol 70 % solution 30 ml PO DAILYPRN PRN constipation 09/16/22 05/14/24 Unknown History
aspirin 81 mg tablet,delayed 81 mg PO DAILY Blood Clot 12/16/22 05/14/24 Unknown History
release Prevention/Tx
hydralazine 50 mg tablet 50 mg PO TID Blood Pressure 12/16/22 05/14/24 Unknown History
calcium acetate 667 mg tablet 667 mg PO AC Supplement 01/04/23 05/14/24 Unknown History
gabapentin 300 mg capsule 300 mg PO HS Neurological Condition 01/04/23 05/14/24 Unknown History
loperamide 2 mg capsule (Imodium 2 mg PO Q6HPRN PRN watery stool 01/04/23 05/14/24 Unknown History
A-D)
acetaminophen 325 mg tablet 650 mg PO Q8HPRN PRN mild pain 01/16/23 05/14/24 Unknown History
gabapentin 300 mg capsule 300 mg PO DAILYPRN PRN neuropathic 01/16/23 05/14/24 Unknown History
pain
insulin glargine 100 unit/mL (3 5 unit SC HS 09/01/23 05/14/24 Unknown History
mL) subcutaneous pen (Lantus
Solostar U-100 Insulin)
insulin lispro 200 unit/mL (3 mL) 2 sliding scale dose SC AC 01/26/24 05/14/24 Unknown History
subcutaneous pen (Humalog KwikPen
U-200 Insulin)
isosorbide mononitrate 30 mg 30 mg PO DAILY 01/26/24 05/14/24 Unknown History
tablet,extended release 24 hr
lidocaine 5 % topical cream 1 applic topical BID 01/26/24 05/14/24 Unknown History
sertraline 25 mg tablet 75 mg PO HS 01/26/24 05/14/24 Unknown History
vitamin B comp no.3-folic acid 1 1 tab PO DAILY 02/09/24 05/14/24 Unknown History
mg-vit C 60 mg-biotin 300 mcg
tablet
clonazepam 0.5 mg tablet (Klonopin) 0.5 mg PO BID #6 tabs 02/11/24 05/14/24 Unknown Rx
fentanyl 12 mcg/hr transdermal 1 patch transdermal Q72H #2 ea 02/11/24 05/14/24 Unknown Rx
patch
oxycodone 10 mg tablet 10 mg PO Q8HPRN PRN moderate pain 02/11/24 05/14/24 Unknown Rx
#5 tabs
Lorazepam Gel 1mg/Ml 1 applic topical Q6HPRN PRN anixety 05/14/24 05/14/24 Unknown History
divalproex 125 mg capsule,delayed 125 mg PO BID 05/14/24 05/14/24 Unknown History
release sprinkle (Depakote
Sprinkles)
guaifenesin 400 mg tablet 400 mg PO BID 05/14/24 05/14/24 Unknown History
pantoprazole 40 mg tablet,delayed 40 mg PO BID 05/14/24 05/14/24 Unknown History
release (Protonix)
Active Medications
Generic Name Dose Route Start Last Admin
Trade Name Freq PRN Reason Stop Dose Admin
Acetaminophen 650 mg 05/14/24 16:05
Acetaminophen 325 Mg Tablet PO 06/11/24 16:04
Q4HPRN PRN
mild pain/BOLIVAR/temp> 100.4F
Aspirin 81 mg 05/24/24 08:00 05/24/24 09:10
Aspirin 81 Mg (Enteric Coated) Tablet PO 06/21/24 07:59 81 mg
DAILY ALENA Administration
Atorvastatin Calcium 10 mg 05/23/24 18:00 05/23/24 17:11
Atorvastatin (Lipitor) 10 Mg Tablet PO 06/20/24 17:59 10 mg
QPM ALENA Administration
Bisacodyl 10 mg 05/14/24 16:05 05/17/24 07:30
Bisacodyl 10 Mg Rectal Suppository RECTAL 06/11/24 16:04 10 mg
[id number] PRN Administration
constipation
Carvedilol 25 mg 05/23/24 20:00 05/24/24 09:10
Carvedilol 25 Mg Tablet PO 06/20/24 19:59 25 mg
BID ALENA Administration
Dextrose 12.5 grams 05/15/24 18:08 05/17/24 07:42
Dextrose 50% (0.5 Grams/Ml) 50 Ml Syringe IV 06/12/24 18:07 12.5 grams
[id number] PRN Administration
hypoglycemia
Famotidine 20 mg 05/20/24 22:00 05/22/24 21:35
Famotidine 20 Mg/2 Ml Vial IV 06/17/24 21:59 20 mg
Q48H ALENA Administration
Fentanyl 1 patch 05/21/24 13:00 05/21/24 13:01
Fentanyl 12 Mcg/Hr Patch TRANSDERM 06/04/24 12:59 1 patch
Q72H ALENA Administration
Glucagon 1 mg 05/15/24 18:07
Glucagon 1 Mg Vial IM 06/12/24 18:06
PRN PRN
hypoglycemia
Haloperidol Lactate 1 mg 05/17/24 07:52 05/18/24 14:25
Haloperidol 5 Mg/Ml 1 Ml Vial IM 06/14/24 07:51 1 mg
Q4HPRN PRN Administration
agitation
Heparin Sodium 5,000 units 05/14/24 20:00 05/24/24 09:11
Heparin 5,000 Units/Ml 1 Ml Vial SC 06/11/24 19:59 Not Given
Q12 ALENA
Hydralazine HCl 10 mg 05/18/24 14:45 05/23/24 00:42
Hydralazine 20 Mg/Ml Vial IV 06/15/24 14:44 10 mg
Q4HPRN PRN Administration
SBP > 170
Hydralazine HCl 50 mg 05/23/24 16:00 05/24/24 09:09
Hydralazine 50 Mg Tablet PO 06/20/24 15:59 50 mg
TID ALENA Administration
Hydromorphone HCl 1 mg 05/15/24 17:43 05/23/24 02:58
Hydromorphone 1 Mg/Ml Carpuject IV 05/29/24 17:42 1 mg
Q4HPRN PRN Administration
Severe pain
Hydromorphone HCl 0.5 mg 05/15/24 17:43 05/21/24 23:32
Hydromorphone 0.5 Mg/0.5 Ml Syringe IV 05/29/24 17:42 0.5 mg
Q4HPRN PRN Administration
Moderate pain
Valproate Sodium 500 mg/ 55 mls @ 55 mls/hr 05/18/24 10:00 05/23/24 22:40
Sodium Chloride IV 06/15/24 09:59 55 mls
Q12H ALENA Administration
Insulin Glargine 5 units/ 0.05 mls @ 0 mls/hr 05/24/24 22:00
Device SC 06/21/24 21:59
HS ALENA
As Directed
Insulin Aspart 0 units 05/24/24 07:30 05/24/24 09:09
Insulin Aspart Moderate Resistance 300 Units/3 Ml Pen.Injctr SC 06/21/24 07:29 5 units
AC ALENA Administration
Protocol
Miconazole Nitrate 0 applic 05/21/24 20:00
Miconazole Powder Bottle TOPICAL 06/18/24 19:59
BID ALENA
Miconazole Nitrate 0 applic 05/21/24 14:10
Miconazole Powder Bottle TOPICAL 06/18/24 14:09
BIDPRN PRN
TO SKIN FOLDS
Patch Removal 0 patch 05/21/24 13:00 05/21/24 13:03
Remove Fentanyl Patch REMOVE 06/04/24 12:59 25 patch
Q72H ALENA Administration
Polyethylene Glycol 17 grams 05/14/24 16:05
Polyethylene Glycol Powder 17 Grams Packet PO 06/11/24 16:04
DAILYPRN PRN
constipation
Polymyxin/Trimethoprim Sulfate 0 drop 05/21/24 18:00 05/24/24 09:04
Polymyxin B/Trimethoprim (Ophthalmic Solution) 10 Ml Bottle OPHTH 05/24/24 23:55 2 drop
QID ALENA Administration
Senna/Docusate Sodium 1 tablet 05/14/24 16:05
Docusate W/Senna (Krys-Colace) Tablet PO 06/11/24 16:04
BIDPRN PRN
constipation
Sodium Chloride 0 flush 05/14/24 17:00 05/20/24 23:06
Sodium Chloride 0.9% (Flush) Syringe IV 06/11/24 16:59 1 flush
PER PROTOCOL ALENA Administration
Sodium Chloride 8 ml 05/20/24 22:00 05/22/24 21:35
Nss 8 Ml Qhs IV 06/17/24 21:59 8 ml
Q48H ALENA Administration
Physical Exam
-
General: No Apparent Distress and Comfortable
Cardiology: S1 and S2
Pulmonary: Clear
GI: Soft
Extremities: Negative Edema
Psych: Agitated
Labs
Lab Results
WBC 4.7 10^3/uL (4.8-10.8) L 05/24/24 07:38
RBC 4.15 10^6/uL (4.20-5.40) L 05/24/24 07:38
Hgb 12.0 g/dL (12.0-16.0) 05/24/24 07:38
Hct 37.0 % (37.0-47.0) 05/24/24 07:38
MCV 89.2 fL (81.0-99.0) 05/24/24 07:38
MCH 28.9 pg (27.0-31.0) 05/24/24 07:38
MCHC 32.4 g/dL (33.0-37.0) L 05/24/24 07:38
RDW 15.9 % (11.5-14.5) H 05/24/24 07:38
Plt Count 50 10^3/uL (130-400) L D 05/24/24 07:38
MPV 12.0 fL (7.4-10.4) H 05/24/24 07:38
Abs Immat Gran (auto) 0.0 10^3/uL (0-0.05) 05/22/24 12:54
Absolute Neuts (auto) 4.4 10^3/uL (1.4-6.5) 05/22/24 12:54
Absolute Lymphs (auto) 1.8 10^3/uL (1.2-3.4) 05/22/24 12:54
Absolute Monos (auto) 0.5 10^3/uL (0.1-0.6) 05/22/24 12:54
Absolute Eos (auto) 0.1 10^3/uL (0-0.7) 05/22/24 12:54
Absolute Basos (auto) 0.0 10^3/uL (0-0.2) 05/22/24 12:54
Immature Gran % 0.6 % (0-0.5) H 05/22/24 12:54
Neutrophils % 64.5 % (42.2-75.2) 05/22/24 12:54
Lymphocytes % 26.9 % (20.5-51.1) 05/22/24 12:54
Monocytes % 6.9 % (1.7-9.3) 05/22/24 12:54
Eosinophils % 0.7 % (0-6) 05/22/24 12:54
Basophils % 0.4 % (0-2) 05/22/24 12:54
Creatinine 2.1 mg/dL (0.6-1.0) H 05/24/24 07:38
Vital Signs
Vital Signs
Temp Pulse Resp BP Pulse Ox
97 F 61 19 154/116 98
05/24/24 03:39 05/24/24 09:10 05/24/24 03:39 05/24/24 09:10 05/24/24 03:39
[2024-05-24] MEDS: DEPACON IV (10:42)
--- NOTE | 2024-05-24 11:45 | W.PN.UPDATE ---
Update Note
Progress Note Update
patient seen chart reviewed. spoke with nursing. received tiger texts from other members of her treatment team re tcp. the patient was lying in bed in a markedly twisted position. i could not get her to talk with me to reposition her. asked aide to
help and with some difficulty and no real patient participation were able to help her straighten out her body a bit. the patient did not engage at all with me. she appeared to be quite sedated. she was admitted for altered mental status and has
been here since 05/14 . she has numerous underlying medical problems. depakote had been held given sedation then was restarted and at this point given noted tcp it is being held again which i would favor. given the level of sedation
(?encephalopathy) would hold depakote as i have seen it cause significant lethargy in patients in the past. i have also seen hematologic issues with depakote. it is assumed it was started for mood lability / agitation. she is certainly not agitated
currently. have dc'ed the depakote for now. also decreased the haldol prn both dose and frequency. will follow
[2024-05-24 12:12] LABS: Glucose - Point of Care 166 mg/dl (70-99)
--- NOTE | 2024-05-24 12:35 | PTCARENOTE ---
Patient with temp 96.2 rectal; placed on vladimir hugger.
[2024-05-24] MEDS: NOVOLOG FLEXPEN-MODERATE RESISTANCE 1 UNITS SC (12:44)
[2024-05-24] MEDS: DURAGESIC 12 MCG/HR PATCH 1 PATCH TRANSDERM (12:49)
--- NOTE | 2024-05-24 13:34 | PTCARENOTE ---
Temporary R wrist restraint order obtained from due to dialysis session. Plan to remove after session is over.
--- NOTE | 2024-05-24 14:13 | W.PN.NEPH.HD ---
Assessment
-
Patient seen on dialysis
Systolic blood pressure 90
Mannitol provided for blood pressure support
Dialysis via AV fistulogram
Progress Note - Hemodialysis
-
Date of Service: May 24, 2024
Duration: 30 minutes and 3 hours
Potassium Bath: 4
Calcium Bath: 2.5
Opti-Dialyzer: 160
Ultrafiltration: Other (even)
Blood Flow: 400
Dialysate Flow: 600
Heparin: none (low PLT)
EPO: none
[2024-05-24] MEDS: MANNITOL 25% 12.5 GRAMS IV (14:20)
[2024-05-24 15:39] VITALS: BP 138/43
[2024-05-24 16:39] LABS: Glucose - Point of Care 114 mg/dl (70-99)
[2024-05-24] MEDS: NOVOLOG FLEXPEN-MODERATE RESISTANCE SC (17:07)
[2024-05-24] MEDS: APRESOLINE PO (17:07)
[2024-05-24] MEDS: LIPITOR 10 MG PO (17:50)
[2024-05-24 19:34] VITALS: BP 139/42
[2024-05-24 21:43] LABS: Glucose - Point of Care 196 mg/dl (70-99)
[2024-05-24] MEDS: LANTUS 0.05 UNITS SC (21:55)
[2024-05-24] MEDS: ELIQUIS 2.5 MG PO (21:55)
[2024-05-24] MEDS: NSS (PRESERVATIVE FREE) 8 ML IV (21:56)
[2024-05-24] MEDS: POLYTRIM OPHTHALMIC SOLUTION 1 DROP OPHTH (21:58)
[2024-05-24] MEDS: PEPCID 20 MG IV (21:58)
[2024-05-24 23:06] VITALS: BP 117/84
[2024-05-25 03:29] VITALS: BP 149/67
[2024-05-25 04:06] LABS: Glucose - Point of Care 138 mg/dl (70-99)
[2024-05-25 06:00] VITALS: BMI 17.7
[2024-05-25 07:45] VITALS: BP 149/62
[2024-05-25 07:57] LABS: Glucose - Point of Care 95 mg/dl (70-99)
[2024-05-25 08:32] VITALS: BP 149/62
[2024-05-25] MEDS: COREG 25 MG PO (08:36)
[2024-05-25] MEDS: NOVOLOG FLEXPEN-MODERATE RESISTANCE SC (08:36)
[2024-05-25] MEDS: APRESOLINE 50 MG PO ×2 (08:37→17:34)
[2024-05-25] MEDS: ELIQUIS 2.5 MG PO ×2 (08:37→19:55)
[2024-05-25] MEDS: ASPIR LOW (ENTERIC COATED) 81 MG PO (08:37)
--- NOTE | 2024-05-25 09:22 | W.PN.NEPH.PH ---
Today's Communication / Plan
-
Dialysis tomorrow orders provide
Assessment/Plan
-
IMP:
AMS
ESRD on dialysis Wednesday
Diabetes mellitus with multiple microvascular complications including advanced retinopathy, peripheral neuropathy, nephropathy
Fecal impaction noted an abdominal x-ray
Chronic pain/chronic opiate dependence
HTN
CAD
PAD with multiple toe amputations bilaterally
Chronic pain/chronic opiate dependence
GERD
Anxiety
Secondary hyperparathyroidism
Left eye blindness/retinopathy
HLD
Chronic constipation
Secondary hyperparathyroidism
Anemia
h/o GIB in Feb 2024
Plan:
A/w AMS-continues to be encephalopathic
Depakote discontinued by psychiatry
Patient now eating very well and tube feeds discontinued
Dialysis will be set up for tomorrow
-
-
Date of Service: May 25, 2024
CC / HPI / ROS
-
Chief Complaint:
ESRD
History of Present Illness:
ESRD Wednesday
Continues to have altered mental status and unable to process review of systems
Although she is at less agitated this morning
Review of Systems:
No fever
Unable to obtain review of systems secondary to clinical status
AVG
Patient now eating
Labs
-
Labs:
eGFR 25.67 05/24/24 07:38
Phosphorus Cancelled 05/23/24 06:53
Mxx-V-Afkspuhsyxd Pept 6060 pg/ml 05/20/24 08:19
Albumin 3.8 g/dl (3.5-5.0) 05/14/24 10:42
Physical Exam
-
Vital Signs:
Vital Signs
Temp Pulse Resp BP Pulse Ox
98.1 F 63 16 149/62 100
05/25/24 07:45 12/19/24 08:37 05/25/24 07:45 05/25/24 08:37 05/25/24 07:45
Respiratory:: Bilateral: CTA
Lung Excursion:: Normal
Abdomen:: Soft
Bowel Sounds:: Normal
Extremity Edema:: None: Bilateral:
Wade Catheter: No
Other Findings::
Neurologically he continues to have altered mental status response to name and is able to tell me her first name otherwise not communicating to simple commands
--- NOTE | 2024-05-25 10:05 | W.PN.ONC ---
Today's Communication / Plan
-
4T score 4-5 with 14% chance of HIT HIT reported negative 0.097
Platelet count stable 54K
Apixaban 2.5 mg BID with plt>50K
Dialysis for tomorrow
Impression
Impression
Thrombocytopenia
Altered MS
TME
ESRD
DM
Subjective/Objective
Subjective/Objective
No new complaints. Confused.
Vital Signs:
Vital Signs
Temp Pulse Resp BP Pulse Ox
98.1 F 63 16 149/62 100
05/25/24 07:45 05/25/24 08:37 05/25/24 07:45 05/25/24 08:37 05/25/24 07:45
Physical exam: Unchanged
Lab Results:
Laboratory Data
WBC 4.7 10^3/uL (4.8-10.8) L 05/24/24 07:38
Hgb 12.0 g/dL (12.0-16.0) 05/24/24 07:38
Plt Count 50 10^3/uL (130-400) L D 05/24/24 07:38
eGFR 25.67 05/24/24 07:38
--- NOTE | 2024-05-25 10:10 | W.PN.HOSP.TC ---
Addendum entered and electronically signed by Roby Pool MD 05/25/24 15:17:
Patient's nurse reported that patient's Heparin associated platelet antibody level was 0.097, as reported to her from the laboratory department. Case discussed with hematology, who advised that patient is okay for discharge from hematology
standpoint.
Original Note:
Today's Communication/Plan
-
Stable
Resume Imdur
Dialysis tomorrow
Discharge Planning
Assessment / Plan
Assessment / Plan
Physical Exam
General: No Apparent Distress, Comfortable, Appears Chronically Ill and Cachectic
HEENT: Normocephalic, Atraumatic. Chronic left eye deficit.
Respiratory: Clear to Auscultation Bilaterally and Non Labored Respirations
Cardiac: Regular Rhythm and S1/S2
GI: Soft, Nontender, Nondistended and Normal Bowel Sounds
Musculoskeletal: No Cyanosis, No Edema and Other (Bilateral toe amputations)
Skin: Warm and Dry
Neuro: Alert, Awake, Interactive, Responding to Questions
Assessment/Plan
#Toxic metabolic encephalopathy suspected secondary to polypharmacy
-Initially, she was very lethargic, minimally responsive, protecting her airway but now patient is much more alert than initially
-DDx included uremia, infection, polypharmacy, seizure
-Upon arrival CTH without contrast did not show any acute findings
-Home meds fentanyl patch, Flexeril, Oxy, gabapentin, Klonopin, Seroquel all on hold (no seizure history)
-Depakote resumed per psychiatry (since 05/18/24)
-Fentanyl patch was previously resumed but at a reduced dose, hopefully able to stop it soon
-Per patient's daughter, she is unaware of the reason her mother is on multiple sedating medications including opiates.
-Has been afebrile, no other obvious signs of infection present; VBG without signs of hypercapnia
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
mass could possibly be a tumor vs. a complex nonneoplastic cyst (will need outpatient oncology follow-up)
-Neurology consulted, EEG without evidence of epileptic foci
-Psychiatry following
Plan
-Continue most sedating medications, monitor mental status clinically
-Continue with fentanyl at reduced dose of 12 mcg for her chronic pain
-Continue with valproic acid for now, will consider discontinuing
-Plan to resume other sedating agents sequentially
-Continue with neurological checks
-Patient was placed on NG tube earlier during this hospitalization, but it appeared that NG tube migrated out overnight 05/21/24 to 05/22/24
-Speech re-evaluation on 05/23/24: recommendation for Pureed Diet and Moderately Thickened Liquid
-Patient eating and drinking well, no Dobhoff tube needed
#Chronic constipation
#Fecal Impaction
-Continue with aggressive bowel regimen once able to take p.o. meds
-Continue Dulcolax suppository in the meantime
-Milk of Molasses enema 05/23/24 --> now with good amount of bowel movements
#Progressively Worsening Thrombocytopenia
-Possibly from Aspirin, Valproic Acid, Heparin
-Concern for HIT although no signs or symptoms of thrombosis, patient's 4Ts score is intermediate range at a score of 5
-Given progressively dropping platelets and elevated 4Ts score, held subq Heparin and consult hematology for further assistance
-Eliquis 2.5 mg BID
#Agitation
-Unclear etiology though likely delirium versus pain associated
-Patient was screaming and pulling at lines earlier
-Previously bilateral upper limb restraints and IM Haldol as needed were ordered
-Continue to monitor
-Renew restraints daily if needed
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
-Seen on imaging from the ED, cannot rule out malignancy, although most parotid tumors are benign
-Consider discussing with oncology and biopsy when mental status improved -- will need outpatient oncology follow-up/PCP
#ESRD (HD M/W/F)
#Secondary hyperparathyroidism
-ESRD possibly secondary to diabetic nephropathy
-C/B secondary hyperparathyroidism; on calcium supplement and phosphate binder
-Nephrology following for resumption of HD schedule, trend BMP
#T2DM C/B diabetic neuropathy
#History of recurrent hypoglycemia
-Home medications include Lantus and ISS
-Continue Sliding Scale Insulin
-Since patient is eating and drinking now, with higher glucose values, resumed home Insulin but reduced to 2 units to avoid hypoglycemia
-Blood glucose goal 100-200, avoid hypoglycemia
#Hypertension
-No known history of hypertensive systemic disease
-Home medications include losartan, hydralazine, isosorbide, carvedilol
-Continued home Hydralazine and Carvedilol and Imdur, still holding the others and will add back based on blood pressure trends
-IV hydralazine as needed for now
#CAD
-No known history of coronary interventions such as PCI or CABG
-Home medications include beta-ramesh, aspirin, statin --> now continued since patient placed on diet on 05/23/24
-Resume Imdur
#PAD s/p multiple toe amputations bilaterally
-Home medications include aspirin, statin --> continued
-No signs of critical limb ischemia at this time
#Chronic pain/chronic opiate dependence
-Holding standing dose home opiates
-Holding as needed IV Dilaudid for pain to help minimize delirium/sedation --> can give it if patient requests it however
-Continue Fentanyl patch, goal is to eventually discontinue it
#Anxiety
-Hold Zoloft, Klonopin and Seroquel pending improvement in mentation
#Left eye blindness/retinopathy
-Continue eyedrops
#Hyperlipidemia
-ASCVD history with PAD s/p multiple amputations
-Continue statin
#Chronic Neuropathy
#Mild multilevel cervical spinal cord compression and central canal stenosis secondary to multilevel disc herniations on Brain MRI
-Follow-up with spine surgeon outpatient
#Severe malnutrition
-BMI here 17.8
-Will start calorie counts when mental status improves and tolerating feeds
-Was started on tube feeds with Nepro
-Monitor labs for signs of refeeding syndrome
DVT prophylaxis: Eliquis. Hold Heparin Subq given worsening thrombocytopenia above. No SCDs given history of PAD.
Diet: Per speech therapist, it is recommended to start diet of IDDSI 4 (puree) and moderately thick liquids via tsp; can trial this and see how she does to hopefully avoid DHT; don�t think patient would tolerate VSE
CODE STATUS: Full code
Anticipated Discharge: 24 - 48 hours
Subjective/Interval History
-
Date of Service: May 25, 2024
Patient was seen and examined. She reported she was doing fine.
Objective Data
-
Labs:
Laboratory Results
05/25/24
06:00
WBC Pending
Hgb Pending
Hct Pending
Plt Count Pending
Sodium Pending
Potassium Pending
Chloride Pending
Carbon Dioxide Pending
BUN Pending
Creatinine Pending
Glucose Pending
Calcium Pending
Vital Signs:
Vital Signs
Temp Pulse Resp BP Pulse Ox
98.1 F 63 16 149/62 100
05/25/24 07:45 05/25/24 08:37 05/25/24 07:45 05/25/24 08:37 05/25/24 07:45
I&O
05/24/24 05/25/24 05/26/24
06:59 06:59 06:59
Intake Total 640 / 640 1120 / 1120
Balance 640 / 640 1120 / 1120
--- NOTE | 2024-05-25 11:27 | CM ---
Reviewed the chart notes and spoke with the patient's daughter Hyacinth via telephone. Reviewed IMM. Updated her on patient tolerating diet. CM continues to be available to patient/family and is monitoring medical plan for needs at discharge.
Plan: Discharge back to [facility] once medically stable.
Call report to: [phone], ask for 3rd flr
Fax report to: [phone]
Medical necessity and transport forms on chart.
--- NOTE | 2024-05-25 11:28 | W.PN.UPDATE ---
Update Note
Progress Note Update
patient seen chart reviewed. spoke with nursing. the patient was lying in bed bent over to the side as i found her yesterday. discussed with nursing. no matter how many times she is repositioned she winds up in the same contorted position which it
seems she does not find uncomfortable. she did tell me she was cold and i got her some heated blankets. nursing will get the warming thermal blanket for her. patient has at this point been cooperative. she may return to residence today. she has
not required prn for agitation which i reduced yesterday to o.5 mg haldol. psych will sign off. please call us if you need us to return
[2024-05-25] MEDS: IMDUR (EXTENDED RELEASE) 30 MG PO (12:35)
[2024-05-25 13:20] LABS: Glucose - Point of Care 177 mg/dl (70-99)
[2024-05-25 14:10] LABS: Hematocrit 37.3 % (37.0-47.0); Hemoglobin 12.3 g/dL (12.0-16.0); Mean Corpuscular Hgb 28.9 pg (27.0-31.0); Mean Corpuscular Volume 87.6 fL (81.0-99.0); Mean Platelet Volume 12.5 fL (7.4-10.4); Platelet Count 54 10^3/uL (130-400); Red Blood Cell Count 4.26 10^6/uL (4.20-5.40); Red Cell Dist. Width 15.9 % (11.5-14.5); White Blood Cell Count 5.2 10^3/uL (4.8-10.8)
[2024-05-25 14:15] LABS: Blood Urea Nitrogen 14 mg/dl (7-17); Calcium 8.7 mg/dl (8.4-10.2); Carbon Dioxide 25 mmol/L (22-30); Chloride 102 mmol/L (98-107); Estimated Creatinine Clearance 26 ml/min; Glucose 201 mg/dl (70-99); Potassium 3.5 mmol/L (3.5-5.1); Sodium 133 mmol/L (135-145); eGFR 30.88
[2024-05-25] MEDS: NOVOLOG FLEXPEN-MODERATE RESISTANCE 1 UNITS SC (14:48)
[2024-05-25 15:30] VITALS: BP 138/52
[2024-05-25 17:31] LABS: Glucose - Point of Care 243 mg/dl (70-99)
[2024-05-25] MEDS: LIPITOR 10 MG PO (17:34)
[2024-05-25] MEDS: NOVOLOG FLEXPEN-MODERATE RESISTANCE 3 UNITS SC (17:38)
[2024-05-25] MEDS: COREG PO (19:55)
[2024-05-25 20:53] LABS: Glucose - Point of Care 136 mg/dl (70-99)
== END 2024-05-25 21:51 | DRG 91 ==
LOC: 2 NORTH 14:24
PROVIDERS: Internal Medicine; Psychiatry & Neurology Psychiatry; Radiology Diagnostic Radiology; Specialist; ADMITTING PHYSICIAN Hospitalist; ATTENDING PHYSICIAN Hospitalist; CONSULT PHYSICIAN Internal Medicine; CONSULT PHYSICIAN Internal Medicine Hematology & Oncology; CONSULT PHYSICIAN Psychiatry & Neurology Neurology; EMERGENCY PHYSICIAN Emergency Medicine; FAMILY PHYSICIAN Internal Medicine; OTHER PHYSICIAN Psychiatry & Neurology Neurology; OTHER PHYSICIAN Psychiatry & Neurology Psychiatry
PROC: 5A1D70Z Performance of Urinary Filtration, Intermittent, Less than 6 Hours Per Day (ICD-10-PCS; 2024-05-15)
PROC: 0DH67UZ Insertion of Feeding Device into Stomach, Via Natural or Artificial Opening (ICD-10-PCS; 2024-05-20)
DX: G92.8 Other toxic encephalopathy (principal); E43 Unspecified severe protein-calorie malnutrition; G21.0 Malignant neuroleptic syndrome; N18.6 End stage renal disease; I12.0 Hypertensive chronic kidney disease with stage 5 chronic kidney disease or end stage renal disease; F11.20 Opioid dependence, uncomplicated; N25.81 Secondary hyperparathyroidism of renal origin; Z68.1 Body mass index [BMI] 19.9 or less, adult; T50.915A Adverse effect of multiple unspecified drugs, medicaments and biological substances, initial encounter; C07 Malignant neoplasm of parotid gland; E11.22 Type 2 diabetes mellitus with diabetic chronic kidney disease; E11.51 Type 2 diabetes mellitus with diabetic peripheral angiopathy without gangrene; E11.42 Type 2 diabetes mellitus with diabetic polyneuropathy; E11.319 Type 2 diabetes mellitus with unspecified diabetic retinopathy without macular edema; E11.649 Type 2 diabetes mellitus with hypoglycemia without coma; E78.00 Pure hypercholesterolemia, unspecified; F25.9 Schizoaffective disorder, unspecified; H54.62 Unqualified visual loss, left eye, normal vision right eye; D63.1 Anemia in chronic kidney disease; R45.1 Restlessness and agitation; F31.9 Bipolar disorder, unspecified; E83.39 Other disorders of phosphorus metabolism; G31.9 Degenerative disease of nervous system, unspecified; L89.152 Pressure ulcer of sacral region, stage 2; K56.41 Fecal impaction; D69.6 Thrombocytopenia, unspecified; I25.10 Atherosclerotic heart disease of native coronary artery without angina pectoris; K21.9 Gastro-esophageal reflux disease without esophagitis; G89.29 Other chronic pain; Z99.3 Dependence on wheelchair; Z99.2 Dependence on renal dialysis; Z98.62 Peripheral vascular angioplasty status; Z89.421 Acquired absence of other right toe(s); Z88.8 Allergy status to other drugs, medicaments and biological substances; Z86.73 Personal history of transient ischemic attack (TIA), and cerebral infarction without residual deficits; Z79.899 Other long term (current) drug therapy; Z79.82 Long term (current) use of aspirin; Z79.4 Long term (current) use of insulin; Z89.411 Acquired absence of right great toe; Z89.422 Acquired absence of other left toe(s); Z87.891 Personal history of nicotine dependence
CPT/HCPCS: 70450; 70551; 70553; 71045; 74018; 74019; 80048; 80053; 80164; 82140; 82550; 82607; 82728; 82746; 82805; 82962; 83735; 83880; 84100; 84443; 85025; 85027; 85652; 86022; 87045; 87046; 87070; 87324; 87340; 87427; 87449; 92526; 92610; 93005; 95816; 99291; G0257; J1610; P9047